=== PATIENT | female | born 1940 | race Caucasian/White ===

== ENCOUNTER 2020-02-22 14:39 | Inpatient (IN) | payer MEDICARE, SELFPAY ==
[2020-02-22] VITALS (7 sets, daily range): BP systolic 130–203; BP diastolic 64–109; PULSE 64–72; RESP 14–18; TEMP 36–36.4; O2SAT 94–98; BMI 25.9
--- NOTE | ~2020-02-22 | CT_ITS ---
EXAMINATION: CT brain wo con DATE: 02/22/2020 15:21 INDICATION: Weakness. TECHNIQUE: Computed tomography (CT) of the head was performed without intravenous contrast. The mA wa s adjusted according to patient size. Iterative reconstruction technique was employed. The dose-lengt h product was 605.33 mGy-cm. COMPARISON: Head CT 02/01/2017 FINDINGS: There are old lacunar infarcts in the bilateral basal ganglia. There are scattered areas of low attenuation in the cerebral white matter. There is no intracranial hemorrhage, acute infarction, or abnormal intracranial mass lesion. The ventricles are normal in size. There is mild mucosal thick ening in the ethmoid sinuses. There is complete opacification of left maxillary sinus, which is small with thickened and sclerotic wiseman, consistent with chronic sinusitis. The orbits are normal. The ma stoid air cells are normal. IMPRESSION: 1. Old lacunar infarcts in the bilateral basal ganglia. 2. Stable moderate nonspecific cerebral white matter disease, which likely represents chronic small v essel ischemic disease. Reviewed, dictated and finalized at location A. IMPRESSION: 1. Old lacunar infarcts in the bilateral basal ganglia. 2. Stable moderate nonspecific cerebral white matter disease, which likely repr esents chronic small vessel ischemic disease.
--- NOTE | ~2020-02-22 | XR_ITS ---
EXAMINATION: XR abdomen obstructive series EXAM DATE: 02/28/2020 18:27 INDICATION: Abdominal tenderness. TECHNIQUE: Frontal upright projection of the upper abdomen, frontal projection of the lower abdomen f or interpretation. There is no prior study for comparison. FINDINGS: There is moderate amount of colonic stool and gas. No small bowel dilation, nonobstructiv e bowel gas pattern. There is approximately 1 cm calcification, possible left nephrolithiasis. The re is no organomegaly suspected. Acute left rami, pubis, sacral fractures. No evidence of free intr aperitoneal gas. There are cholecystectomy clips. IMPRESSION: 1. Moderate amount of colonic stool. 2. Possible left nephrolithiasis. 3. Left rami, pubis, sacral fractures Reviewed, dictated and finalized at location A.
--- NOTE | ~2020-02-22 | CT_ITS ---
EXAMINATION: CT brain wo con EXAM DATE: 02/28/2020 18:06 INDICATION: Dysarthria. Altered mental status. TECHNIQUE: Spiral CT of the head was performed without contrast. Axial, coronal and sagittal images were reviewed. The dose-length product (DLP) for this examination was 605.33 mGy-cm. The exposure w as tailored according to patient size, and iterative reconstruction (ASIR) was used as additional dos e reduction technique. Comparison is made to prior examination from 02/22/2020. FINDINGS: There is no acute intraparenchymal hemorrhage. No evidence of intraparenchymal brain mass lesion. No evidence of acute infarction. Please note that initial head CT has limited sensitivity f or small or acute infarctions. Chronic old bilateral basal ganglia lacunar infarctions. There is mo derate periventricular and subcortical hypodensity, nonspecific but probably related to small vessel ischemic disease. There is moderate prominence of the sulci and ventricles related to cerebral atro phy. There is intracranial carotid arteriosclerosis. There are no extra-axial collections. There is no mass effect or midline shift. The orbits are unremarkable. Soft tissue is unremarkable. Fire Extinguisher Charger nically opacified left maxillary sinus with wall thickening. There is no significant interval change . IMPRESSION: 1. No acute intracranial findings. 2. Chronic age related findings. 3. Chronic is a ganglia lacunar infarctions. Reviewed, dictated and finalized at location A.
--- NOTE | ~2020-02-22 | CT_ITS ---
EXAMINATION: CT pelvis wo con, CT femur LT wo con DATE: 02/24/2020 09:20 INDICATION: Left hip pain. Evaluate for fracture. TECHNIQUE: Computed tomography (CT) of the pelvis and left femur was performed without intravenous co ntrast. The dose-length product was 241 mGy-cm. Automated exposure control and iterative reconstructi on technique were employed. COMPARISON: Left hip series dated 02/22/2020 FINDINGS: Moderate lower lumbar spondylosis. There is a nondisplaced left sacral alar fracture, possi brooke insufficiency fracture. There are fractures of the left superior and inferior pubic rami, likely acute. There are degenerative changes of the pubic symphysis. Mild symmetric osteoarthritis of the hi ps. Mild osteoarthritis of the left knee. Small left knee joint effusion. No acute femoral fracture i s identified. Focal periosteal reaction along the posterior margin of the proximal femur, likely shiv gn. Femoral vascular calcifications are noted. IMPRESSION: 1. Mildly displaced fractures left superior and inferior pubic rami, likely acute. 2: Nondisplaced left sacral alar fracture, possibly an insufficiency fracture. Reviewed, dictated and finalized at location A. IMPRESSION: 1. Mildly displaced fractures left superior and inferior pubic rami, likely acu te. 2: Nondisplaced left sacral alar fracture, possibly an insufficiency fracture.
--- NOTE | ~2020-02-22 | MR_ITS ---
EXAMINATION: MR brain/brain stem wo con DATE: 02/23/2020 12:33 INDICATION: Dysarthria. Near syncope. TECHNIQUE: Magnetic resonance imaging (MRI) of the brain and brainstem was performed without intraven ous contrast. Sequences included sagittal and axial T1-weighted SE, axial diffusion-weighted FS SE, a xial T2*-weighted GRE, axial T2-weighted FLAIR, and axial T2-weighted FSE. Apparent diffusion coeffic ient (ADC) maps were created. COMPARISON: Head CT dated 02/22/2020 FINDINGS: There are no areas of restricted diffusion to suggest acute infarction. A few small old lacunar infar cts versus prominent perivascular spaces at the bilateral basal ganglia. A couple tiny foci of suscep tibility artifact at the left and right cerebellar hemispheres on T2*weighted imaging consistent with foci of chronic microhemorrhage with differential including hypertensive versus amyloid angiopathy. No acute intracranial hemorrhage or abnormal intracranial mass lesion. There are scattered areas of n onspecific increased T2-weighted signal intensity in the cerebral white matter, predominantly involvi ng the deep and periventricular white matter. There are no intraparenchymal signal abnormalities seen on the other pulse sequences. The ventricles are symmetric and normal in size. There is increased pr ominence of the sulci consistent with age-appropriate moderate diffuse volume loss. There are no abno rmal extra-axial fluid collections. Flow voids are seen in the cerebral arteries on the T2-weighted s equences consistent with their expected patency. Visualized orbits and soft tissues are unremarkable. IMPRESSION: 1. No acute intracranial process. 2. Couple tiny foci of susceptibility artifact at the left and right cerebellar hemispheres consisten t with chronic microhemorrhage which could be related to hypertensive or amyloid angiopathy. 3. Age-related changes including mild to moderate diffuse lung loss and extensive periventricular pre dominant white matter T2 hyperintensity consistent with chronic small vessel ischemic disease. 4. Small old lacunar infarcts versus prominent perivascular space at the bilateral basal ganglia. Reviewed, dictated and finalized at location A. IMPRESSION: 1. No acute intracranial process. 2. Couple tiny foci of susceptibility artifact at the left and right cerebellar hemispheres consistent with chronic microhemorrhage which could be related to hypertensive or amyloid angiopathy. 3. Age-related changes including mild to moderate diffuse lung loss and extensi ve periventricular predominant white matter T2 hyperintensity consistent with c hronic small vessel ischemic disease. 4. Small old lacunar infarcts versus prominent perivascular space at the bilate ral basal ganglia.
--- NOTE | ~2020-02-22 | XR_ITS ---
XR hip LT 2V w AP pelvis 02/22/2020 16:58 Indication: Status post fall. Left hip pain. Procedure: AP pelvis and 2 views left hip Comparison: MRI dated 09/13/2016 Findings: There is an age-indeterminate fracture of the left superior and inferior pubic rami. Proxim al aspect of the left femur is unremarkable. Sacral foramen are symmetric. Mild lumbar spondylosis. Impression: 1: Age-indeterminate fractures of the left superior and inferior pubic rami. Reviewed, dictated and finalized at location A. Impression: 1: Age-indeterminate fractures of the left superior and inferior pubic rami.
--- NOTE | ~2020-02-22 | US_ITS ---
EXAMINATION: US venous doppler [facility] DATE: 02/23/2020 13:25 INDICATION: Left lower limb pain. Neurologic symptoms. Dysarthria. TECHNIQUE: Grayscale ultrasound images without and with compression and Doppler ultrasound images of the bilateral lower extremity veins were obtained. COMPARISON: None. FINDINGS: The visualized portions of right common femoral vein, profunda (deep) femoral vein, femoral vein, pop liteal vein, posterior tibial veins, peroneal veins, gastrocnemius vein and greater saphenous vein ou tflow are patent. The visualized portions of left common femoral vein, profunda femoral vein, femoral vein, popliteal v ein, posterior tibial veins, peroneal veins, gastrocnemius vein and greater saphenous vein outflow ar e patent. IMPRESSION: 1. No deep venous thrombosis in either lower limb. Reviewed, dictated and finalized at location A.
--- NOTE | ~2020-02-22 | US_ITS ---
EXAMINATION: US carotid duplex BI DATE: 02/23/2020 13:26 INDICATION: Near syncope. Dysarthria. TECHNIQUE: Grayscale, color Doppler, and pulsed Doppler images of the cervical carotid arteries were obtained. The degree of vessel stenosis is placed in one of the following categories: normal, <50%, 5 0-69%, >=70% but less than near-occlusion, near-occlusion, or total occlusion. Note that percent sten osis relative to normal distal artery lumen diameter is indirectly measured from velocity measurement s as described by Reilly, et al. Radiology 2003; 229:340-346. COMPARISON: None. FINDINGS: RIGHT: The right common carotid artery (CCA) peak systolic velocity (PSV) is 43 cm/s. The right internal car otid artery (ICA) PSV is 79 cm/s. The right ICA end-diastolic velocity (EDV) is 27 cm/s. The right IC A/CCA PSV ratio is 1.9. Grayscale and color Doppler images yield an estimate of <50% diameter reducti on from plaque in the ICA. The external carotid artery (ECA) PSV is 50 cm/s. There is antegrade flow in the right vertebral artery. LEFT: The left CCA PSV is 45 cm/s. The left ICA PSV is 119 cm/s. The left ICA EDV is 34 cm/s. The left ICA/ CCA PSV ratio is 2.6. Grayscale and color Doppler images yield an estimate of <50% diameter reduction from plaque in the ICA. The ECA PSV is 112 cm/s. There is antegrade flow in the left vertebral arter y. IMPRESSION: 1. <50% stenosis in the right internal carotid artery. 2. <50% stenosis in the left internal carotid artery. Reviewed, dictated and finalized at location A.
--- NOTE | 2020-02-22 14:57 | ECG_ITS ---
Measurements Intervals [place] Rate: 69 P: -1 [place]: 148 QRS: 28 QRSD: 76 T: 36 QT: 411 QTc: 441 Interpretive Statements SINUS RHYTHM ATRIAL PREMATURE COMPLEX BASELINE ARTIFACT- I, II, III, AVL, V4-V6 BORDERLINE ECG Electronically Signed On 02-22-2020 15:09:12 CDT by Raciel Jamison D.O.
--- NOTE | 2020-02-22 14:59 | ED.WEAKNESS ---
HPI - Weakness General Chief complaint: Fall Stated complaint: FALL Time Seen by Provider: 02/22/20 14:52 History of Present Illness HPI Narrative: Pt brought in by EMS after a near syncopal episode, while standing up, witnessed and was helped by the pipe fitter maintenance at her independent living facility. Per daughter, pt had difficulty expressing her words for a 1-2 minutes. Pt on arrival states she is feeling better and currently has no complaints. Denies speech or visual disturbance, focal numbness or weakness, cp, sob, abd pain or n/v/d. Denies fever. Related Data Home Medications Medication Instructions Recorded Confirmed aspirin 81 mg tablet,delayed 81 mg PO DAILY 12/13/19 02/22/20 release cholecalciferol (vitamin D3) 100 4,000 unit PO DAILY 12/13/19 02/22/20 mcg (4,000 unit) capsule ergocalciferol (vitamin D2) 1,250 50,000 unit PO WEEKLY 12/13/19 02/22/20 mcg (50,000 unit) capsule lisinopril 40 mg tablet 40 mg PO DAILY 12/13/19 02/22/20 metoprolol succinate 100 mg 100 mg PO DAILY 12/13/19 02/22/20 tablet,extended release 24 hr nitroglycerin 0.4 mg/hr 1 patch TRANSDERM DAILY 12/13/19 02/22/20 transdermal 24 hour patch simvastatin 40 mg tablet 40 mg PO DAILY 12/13/19 02/22/20 spironolactone 25 mg tablet 25 mg PO BID 12/13/19 02/22/20 Allergies Allergy/AdvReac Type Severity Reaction Status Date / Time procainamide Allergy Unknown Nausea Verified 02/22/20 14:53 quinidine Allergy Unknown increase Verified 02/22/20 14:53 nervousness tonocard Allergy Mild increased Uncoded 02/22/20 14:53 nervousness Review of Systems Review of Systems: All systems reviewed & are unremarkable except as noted in HPI and below Constitutional: Constitutional: Denies body ache(s), Denies chills, Denies excessive sweating, Denies fatigue, Denies fever(s), Denies headache(s), Denies lethargy, Denies malaise, Denies weakness and Denies weight loss Eyes: Eyes: Denies blurry vision, Denies change in vision and Denies loss of vision ENT: Denies dizziness, Denies ear discharge, Denies headache(s), Denies lip swelling, Denies epistaxis, Denies nasal congestion, Denies neck pain, Denies throat swelling and Denies tongue swelling Cardiovascular: Cardiovascular: Denies chest pain, Denies chest pain at rest, Denies chest pain with activity, Denies diaphoresis, Denies rapid heart rate, Denies edema, Denies irregular heart rhythm, Denies lightheadedness, Denies palpitations, Denies dyspnea and Denies dyspnea on exertion Respiratory: Respiratory: Denies chest congestion, Denies cough, Denies hemoptysis, Denies dyspnea and Denies dyspnea on exertion Gastrointestinal: Gastrointestinal: Denies abdominal pain, Denies melena, Denies hematochezia, Denies diarrhea, Denies nausea, Denies vomiting and Denies hematemesis Musculoskeletal: Musculoskeletal: Denies abnormal gait, Denies deformity, Denies joint swelling, Denies limited range of motion, Denies neck pain and Denies numbness Neurologic: Denies Abnormal speech present, Denies abnormal gait, Denies confusion, Denies dizziness, Denies headache(s), Denies focal weakness, Denies loss of vision, Denies numbness, Denies Other visual disturbances and Denies Sensory deficit (Neuro) Psychiatric: Psychiatric: Denies confusion, Denies depression, Denies auditory hallucinations, Denies homicidal ideation and Denies suicidal ideation Endocrine: Endocrine: Denies cold intolerance, Denies excessive sweating, Denies fatigue, Denies heat intolerance and Denies palpitations Hematologic/Lymphatic: Hematologic/Lymphatic: Denies easy bleeding and Denies easy bruising Allergic/Immunologic: Allergic/Immunologic: Denies lip swelling, Denies throat swelling and Denies tongue swelling [facility] Social History Social History Smoking status: Never smoker Alcohol intake: never Substance use: never Substance use type: does not use Gender identity (if verbalized by
[2020-02-22] MEDS: LABETALOL HCL INJ 100 MG/20 ML VIAL 20 MG IV PUSH (15:09)
[2020-02-22 15:14] LABS: Basophils Percent Auto 0.2 % (0.2-1.2); Eosinophils Absolute Auto 0.1 K/mm3 (0-0.3); Hematocrit 41.9 % (37.0-47.0); Hemoglobin 14.5 g/dL (12.0-15.0); Immature Granulocyte Percent A 1.2 % (0-0.5); Lymphocytes Absolute Auto 1.13 K/mm3 (0.9-3.2); Mean Corpuscular HGB Conc 34.6 g/dl (32-36); Mean Corpuscular Hemoglobin 31.1 pg (26-34); Mean Corpuscular Volume 89.9 fl (80-100); Mean Platelet Volume 9.5 fl (7.4-10.4); Monocytes Absolute Auto 0.4 K/mm3 (0.1-0.6); Monocytes Percent Auto 4.7 % (2.6-8.5); Neutrophils Absolute Auto 6.3 K/mm3 (1.3-6.7); Neutrophils Percent Auto 78.9 % (45.5-73.1); Platelet Count Result 169 k/mm3 (150-375); Red Blood Count 4.66 M/mm3 (4.2-5.4); Red Cell Distribution Width 13.2 % (11.5-14.5); White Blood Count 8.1 K/mm3 (4.5-10.0)
[2020-02-22 15:25] LABS: Prothrombin Time 12.9 Seconds (11.1-14.7)
[2020-02-22 15:26] LABS: Alanine Aminotransferase 14 U/L (4-35); Albumin Level 4.1 g/dL (3.5-5.1); Alkaline Phosphatase 78 U/L (38-126); Aspartate Amino Transferase 23 U/L (14-36); Bilirubin,Total 0.9 mg/dL (0.2-1.3); Blood Urea Nitrogen 37 mg/dL (7-17); Calcium 9.9 mg/dL (8.4-10.2); Carbon Dioxide 27 mmol/L (22-30); Chloride 102 mmol/L (98-107); Estimated CRCL calculation 13 ml/min; Estimated Glomerular Filt Rate 18; Glucose 103 mg/dL (65-105); Sodium 139 mmol/L (137-145)
[2020-02-22 16:11] LABS: Troponin I < 0.012 ng/mL (0.000-0.034)
[2020-02-22] MEDS: HYDROMORPHONE HCL 1 MG/ML INJ 0.5 MG IV PUSH (17:46)
[2020-02-22] MEDS: ONDANSETRON INJ 4 MG/2 ML VIAL IV PUSH (17:46)
--- NOTE | 2020-02-22 18:02 | ADMGEN ---
This patient, Vanesa New, was admitted to Medical Room 347-. Patient/family oriented to hospital policies and general routines including ID bracelet, bed and alarms, visiting hours, pain management, procedures, bathroom and other care routines, personal items, smoking policy, room service/diet, and visiting hours. Valuables list has been completed. Information on how to activate the Rapid Response Team has been discussed. Patient/Family are encouraged to report perceived risks to care and to ask questions if they do not understand what they are told or what they should do.
[2020-02-22] MEDS: LACTATED RINGERS 1,000 ML 90 ML IV CONT (18:20)
--- NOTE | 2020-02-22 21:10 | PM.IMHP ---
H&P: HPI History of Present Illness Chief complaint: Left hip pain after fall. Narrative: Vanesa New is a very pleasant 80-year-old female with hypertension and hyperlipidemia who presented to the emergency department earlier today via EMS from her assisted apartment for evaluation of left hip pain after a fall. This time of year, Vanesa has problems with seasonal rhinitis and typically has a cough which she attributes to postnasal drip. She was having issues with that last night, and got up to take some cough syrup in the middle of the night. She sat down on the toilet to take the cough syrup, but the toilet seat slid to the side which in turn caused her to fall to her left side, striking the bathtub. She had some discomfort at the site of impact, but was able to get up to bed. Upon awakening, she called production maintenance technician to come fix the toilet seat, and she waited in her chair in the living room for him to come. When he arrived, she got up to open the door, felt a bit woozy, and she once again fell to the floor. Reportedly, for 1 to 2 minute she had difficulties expressing her words, but that resolved quickly. With further questioning, she does note that she has not probably been eating or drinking as much as she normally would over the past several weeks due to senior living in place and not getting out of her apartment. She has no known history of stroke, but brain CT today shows old lacunar infarcts. She denies head trauma and loss of consciousness with either fall. She did not injure herself in the fall earlier today. She denies vertigo, auditory and visual changes, focal weakness, and paresthesias. No chest pain, pleuritic pain, palpitations, or shortness of breath. She denies nausea, vomiting, diarrhea, and dysuria. She denies sick contacts, and states that she has not left her apartment for weeks. Review of Systems Review of Systems: Narrative: Twelve systems were reviewed with pertinent positives and negatives as per HPI. No fever, chills, or sweats. She suffers from seasonal rhinitis, and has had sinus congestion, postnasal drip, and cough due to postnasal drip for the past couple of weeks. No cough or shortness of breath. She denies chest pain. No nausea, vomiting, or diarrhea. No dysuria. She has not noticed a significant change in urine output. Except as documented, all other systems were reviewed and are negative. [facility] Past Medical History Medical History (Updated 02/22/20 @ 23:08 by Ananya Castañeda PA-C) Cerebrovascular accident Old bilateral lacunar infarcts noted on brain CT 02/22/2020. Chronic kidney disease, stage 3 On review of previous labs, her baseline creatinine appears to run between 1.40 and 1.70. She is followed by Dr. Camara. Coronary artery disease With history of angioplasty and stent in 1998. Essential hypertension Hyperlipidemia Nephrolithiasis Vitamin D deficiency Surgical History Surgical History (Updated 02/22/20 @ 23:00 by Ananya Castañeda PA-C) History of appendectomy History of cholecystectomy History of heart artery stent History of hysterectomy History of lithotripsy Family History Family History Other Cerebrovascular accident Family history of arthritis Family history of cardiovascular disease Social History Social History (Updated 02/22/20 @ 23:02 by Ananya Castañeda PA-C) Social History: The patient lives in a assisted apartment at [facility]. She is independent of all activities of daily living. She has 3 grown children. 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 No alcohol or drug abuse. She designates her daughter, Fransisca Meadows, as her surrogate decision maker and she wishes to be a full code. Spiritual care concerns: No Agree to blood products: Yes Meds Home Medications and Allergies Home Medications Medication In
[2020-02-23] VITALS (14 sets, daily range): BP systolic 136–210; BP diastolic 70–108; PULSE 59–76; RESP 14–18; TEMP 36.1–36.4; O2SAT 96–100
--- NOTE | 2020-02-23 | ECHO_ITS ---
Patient Info Name: Vanesa New Age: 80 years : 1940 Gender: Female Ht: 60 in Wt: 132 lbs BSA: 1.61 m2 HR: 68 bpm BP: 174 / 90 mmHg Heart Rhythm: Sinus Rhythm Technical Quality: Good Exam Date: 02/23/2020 10:07 AM Exam Location: [facility] Pulmonary Patient Status: Outpatient Admit Date: 02/22/2020 Staff Ordering Physician: Ananya Castañeda PA-C Manager Installation: Julio Mccart[place], [place], [place] Attending Provider: Danna Johnson PA-C Referring Physician: Maddy FRAZIER; Exam Type: CA echo doppler color flow Study Info Indications I11.0 - Hypertensive heart disease with heart failure Complete two-dimensional, color flow and Doppler transthoracic echocardiogram is performed. Summary 1. Left ventricular chamber dimension is normal. 2. Left ventricular systolic function is normal, estimated at 60-65%. 3. The posterior segment appears to be hypodynamic. 4. Left atrial chamber dimension is moderately enlarged. 5. There is trace mitral valve regurgitation. 6. The mitral valve annulus is heavily calcified. Left Ventricle Left ventricular chamber dimension is normal. Left ventricular systolic function is normal, estimated at 60-65%. There is moderate concentric increased left ventricular wall thickness. The left ventricular diastolic function is grade I diastolic dysfunction. The posterior segment appears to be hypodynamic. Right Ventricle Right ventricular chamber dimension is normal. Left Atria Left atrial chamber dimension is moderately enlarged. Right Atria Right atrial chamber dimension is normal. Aortic Valve The aortic valve is normal. Pulmonic Valve The pulmonic valve is not well visualized. Mitral Valve The mitral valve has normal leaflets and calcified annulus. There is trace mitral valve regurgitation. The mitral valve annulus is heavily calcified. Tricuspid Valve The tricuspid valve leaflets are normal. There is trace tricuspid valve regurgitation. Pericardium/Pleural The pericardium appears normal. Aorta The aortic root size at the sinus of Valsalva is normal. Left Ventricular Outflow Tract Name Value Normal LVOT 2D LVOT Diameter 1.9 cm LVOT Doppler LVOT Peak Gradient 3 mmHg LVOT Mean Gradient 2 mmHg LVOT VTI 18 cm LVOT VTI/AV VTI Ratio 0.9 LVOT Stroke Volume 50 ml LVOT CO 3.5 l/min LVOT CI 2.2 l/min/m2 Mitral Valve Name Value Normal MV Doppler MV Peak Gradient 6 mmHg MV Mean Gradient 2 mmHg MV Decel Bradford 216 cm/s2 MV PHT 78 ms MV Area (PHT)
[2020-02-23] MEDS: ACETAMINOPHEN 325 MG TABLET 650 MG PO (04:59)
[2020-02-23 05:26] LABS: Hematocrit 36.3 % (37.0-47.0); Hemoglobin 12.5 g/dL (12.0-15.0); Mean Corpuscular HGB Conc 34.4 g/dl (32-36); Mean Corpuscular Hemoglobin 30.6 pg (26-34); Mean Platelet Volume 9.5 fl (7.4-10.4); Platelet Count Result 137 k/mm3 (150-375); Red Blood Count 4.08 M/mm3 (4.2-5.4); Red Cell Distribution Width 12.8 % (11.5-14.5); White Blood Count 7.3 K/mm3 (4.5-10.0)
[2020-02-23 05:33] LABS: Blood Urea Nitrogen 40 mg/dL (7-17); Carbon Dioxide 22 mmol/L (22-30); Chloride 104 mmol/L (98-107); Creatine Kinase 73 U/L (30-135); Estimated CRCL calculation 15 ml/min; Estimated Glomerular Filt Rate 21; Glucose 91 mg/dL (65-105); Magnesium 1.3 mg/dL (1.6-2.3); Phosphorus 3.2 mg/dL (2.5-4.5); Potassium 5.2 mmol/L (3.4-5.0); Sodium 135 mmol/L (137-145)
[2020-02-23] MEDS: LACTATED RINGERS 1,000 ML 90 ML IV CONT (05:54)
[2020-02-23] MEDS: ASPIRIN 81 MG ENTERIC TABLET PO (08:31)
[2020-02-23] MEDS: SIMVASTATIN 20 MG TABLET 40 MG PO (08:31)
[2020-02-23] MEDS: CHOLECALCIFEROL 1,000 UNIT TABLET 4000 UNITS PO (08:31)
[2020-02-23] MEDS: METOPROLOL SUCCINATE EXT REL 100 MG TABCR PO (08:31)
[2020-02-23 10:45] LABS: Vitamin D 25 Hydroxy 86.5 ng/mL
[2020-02-23] MEDS: ERGOCALCIFEROL 50,000 UNIT CAPSULE 50000 UNITS PO (10:57)
[2020-02-23] MEDS: MAGNESIUM SULFATE 3GM/D5W100ML 3 GM/100 ML BAG IVPB (10:57)
[2020-02-23] MEDS: TRAMADOL HCL 50 MG TABLET PO ×2 (11:02→21:22)
--- NOTE | 2020-02-23 13:24 | PM.CNOR ---
Assessment and Plan Additional Plan This patient is an 80-year-old female who was admitted yesterday after a fall at home from standing height. She was putting on a face mask lost her balance falling onto her left side. she had severe left-sided hip area pain was noted on evaluation number inch room to have an impacted lateral compression type fracture of the inferior and superior pubic rami on the left side. there is a little bit of lateral compression of the left hemipelvis. She has sacroiliac joint arthritis bilaterally. No obvious did sacral fracture noted. Her past medical history is significant for coronary artery disease and she had an echocardiogram earlier today and Dr. Cruz is seeing her. She also has history of chronic renal insufficiency and was admitted with significant worsening of her renal function with a creatinine of 2.5. Do there is a question of whether not she may have had a cerebral vascular accident and she is just back up to the floor after having an MRI of the brain performed. On exam today she is I think a little bit hard of hearing. She answers questions appropriately. Th I casted she was having any pain in her back side and she not noticed any. Most her pain has been in the lateral hip area. she did get up and transfer to the chair and put very little weight on the left leg she had noted. Th On exam she is unable to lift the left leg off the bed on her own power. With range of motion of her left hip passively she grabs the lateral aspect of her hip. Which she tried elevated the leg up against the weighted gravity she had pain in her medial left buttock which could correspond to a sacral fracture. she had 2+ dorsalis pedis pulse she had no edema in the for ankle she denied numbness to light touch testing she denies any other injury. Impression patient has significantly impacted pubic ramus fractures on the left with this degree of lateral pelvic compression I suspect there is a continent and sacral fracture and I would recommend obtaining a CT scan through pelvis to assess for sacral. Th fracture and to make sure there is not a fracture in the proximal femur also. History of Present Illness HPI Consult date: 02/23/20 Chief complaint: Left hip pain after fall. [facility] Past Medical History Medical History (Updated 02/22/20 @ 23:08 by Ananya Castañeda PA-C) Cerebrovascular accident Old bilateral lacunar infarcts noted on brain CT 02/22/2020. Chronic kidney disease, stage 3 On review of previous labs, her baseline creatinine appears to run between 1.40 and 1.70. She is followed by Dr. Camara. Coronary artery disease With history of angioplasty and stent in 1998. Essential hypertension Hyperlipidemia Nephrolithiasis Vitamin D deficiency Surgical History Surgical History (Updated 02/22/20 @ 23:00 by Ananya Castañeda PA-C) History of appendectomy History of cholecystectomy History of heart artery stent History of hysterectomy History of lithotripsy Family History Family History Other Cerebrovascular accident Family history of arthritis Family history of cardiovascular disease Social History Social History (Updated 02/22/20 @ 23:02 by Ananya Castañeda PA-C) Social History: The patient lives in a retirement apartment at [facility]. She is independent of all activities of daily living. She has 3 grown children. 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 No alcohol or drug abuse. She designates her daughter, Fransisca Meadows, as her surrogate decision maker and she wishes to be a full code. Spiritual care concerns: No Agree to blood products: Yes Meds Home Medications and Allergies Home Medications Medication Instructions Recorded Confirmed Type bupropion HCl 150 mg tablet,12 hr 150 mg PO DAILY #90 tablet 10/04/19 02/22/20 Rx sustained-release aspir
--- NOTE | 2020-02-23 15:34 | PM.IMPN ---
Progress Note: A&P Assessment and Plan (1) Fracture of ramus of left pubis: Code(s): S32.592A - Other specified fracture of left pubis, initial encounter for closed fracture Status: Acute Assessment and Plan: X-ray shows fractures of the left superior and inferior pubic rami, obtained in fall last evening. Dr. Rollins orthopedic was consulted and recommended obtain a CT scan of her left pelvis and left femur to rule out a sacral and femur fracture. Dr. Rollins had recommended DVT prophylaxis and will start Heparin 5,000 SQ Q12hrs due to renal function. PT/OT consulted. Analgesics available as needed. Continue monitoring symptoms (2) Dysarthria: Code(s): R47.1 - Dysarthria and anarthria Status: Acute Assessment and Plan: Patient reportedly was having difficulties getting her words out for several minutes earlier today, now back at baseline. Could have been TIA, symptoms have completely resolved. Patient's echocardiogram showed left ventricular systolic function is normal with an EF of 60-65%, posterior segment appears to be hypodynamic, moderate concentric LVH. Carotid Doppler less than 50% bilaterally. Venous Doppler shows no acute DVT. Brain MRI showed no acute intracranial process, couple tiny foci of susceptibility artifact at the left and right cerebellar hemispheres consistent with chronic microhemorrhage which could be related to hypertensive or amyloid angiopathy. Age-related changes including mild to moderate diffuse lung loss and extensive periventricular predominant white matter T2 hyperintensity consistent with chronic small vessel ischemic disease. Small old lacunar infarcts versus prominent perivascular space at the bilateral basal ganglia. Will continue baby aspirin Continue statin as well. (3) Fall from ground level: Code(s): W18.30XA - Fall on same level, unspecified, initial encounter Status: Acute Assessment and Plan: It sounds as that her fall last evening was a mechanical fall, due to a loose toilet seat. Then her 2nd fall seemed to be due to a near syncopal episode. We will order physical and occupational therapy to work with her. Continue fall precautions. (4) Acute kidney injury superimposed on chronic kidney disease: Code(s): N17.9 - Acute kidney failure, unspecified; N18.9 - Chronic kidney disease, unspecified Status: Acute Assessment and Plan: May be due to dehydration as she reports decrease in oral intake recently as per HPI. Reviewed her labs from 2014 and 2016 which showed her creatinine was 1.5-2. Unsure of her most recent labs. Will continue on light IV fluid hydration and we will repeat renal function in a.m. Continue monitoring. Will avoid nephro toxic agents. She see Dr. Camara health education assistant as an outpatient, I do not feel like he needs to be consulted at this time. (5) Essential hypertension: Code(s): I10 - Essential (primary) hypertension Status: Acute Assessment and Plan: Blood pressure was as high as 203/109 on arrival to the emergency department Blood pressure today was 166/76. She was continued on her metoprolol but her spironolactone and losartan were both held secondary to acute kidney injury. We will continue holding these 2 medications and I will add amlodipine 5 mg for better blood pressure control. MRI shows no acute CVA so we will better control her blood pressure during her hospitalization. Continue monitoring. P.r.n. hydralazine also ordered if necessary. (6) Silent micro-hemorrhage of brain: Code(s): I61.8 - Other nontraumatic intracerebral hemorrhage Status: Acute Assessment and Plan: Patient's MRI shows cou
[2020-02-23 16:21] LABS: Magnesium 1.8 mg/dL (1.6-2.3); Potassium 5.4 mmol/L (3.4-5.0)
[2020-02-23] MEDS: AMLODIPINE BESYLATE 5 MG TABLET PO (17:29)
[2020-02-23] MEDS: CALCIUM CARBONATE (OSCAL) 500 MG TABLET PO (17:30)
[2020-02-23] MEDS: SODIUM POLYSTYRENE SULFONONATE 15 GM/60 ML BTL PO (17:31)
[2020-02-23] MEDS: HEPARIN SODIUM 5,000 UNITS/ML VIAL 5000 UNITS SUB-Q (21:22)
[2020-02-23] MEDS: hydrALAZINE HCL 20 MG/ML VIAL 10 MG IV PUSH (21:26)
[2020-02-24] VITALS (8 sets, daily range): BP systolic 150–215; BP diastolic 65–96; PULSE 72–89; RESP 16–18; TEMP 36.1–36.8; O2SAT 95–100
[2020-02-24] MEDS: TRAMADOL HCL 50 MG TABLET PO ×3 (02:24→22:19)
[2020-02-24 06:28] LABS: Hematocrit 38.7 % (37.0-47.0); Hemoglobin 13.2 g/dL (12.0-15.0); Immature Platelet Fraction Pct 1.4 % (0.9-11.2); Mean Corpuscular HGB Conc 34.1 g/dl (32-36); Mean Corpuscular Hemoglobin 30.6 pg (26-34); Mean Corpuscular Volume 89.8 fl (80-100); Mean Platelet Volume 9.4 fl (7.4-10.4); Platelet Count Result 145 k/mm3 (150-375); Red Blood Count 4.31 M/mm3 (4.2-5.4); Red Cell Distribution Width 13.1 % (11.5-14.5); White Blood Count 7.9 K/mm3 (4.5-10.0)
[2020-02-24] MEDS: hydrALAZINE HCL 20 MG/ML VIAL 10 MG IV PUSH (06:33)
[2020-02-24] MEDS: LACTATED RINGERS 1,000 ML 65 ML IV CONT (06:33)
[2020-02-24 06:50] LABS: Albumin Level 3.9 g/dL (3.5-5.1); Blood Urea Nitrogen 29 mg/dL (7-17); Calcium 9.8 mg/dL (8.4-10.2); Carbon Dioxide 30 mmol/L (22-30); Chloride 99 mmol/L (98-107); Estimated CRCL calculation 22 ml/min; Estimated Glomerular Filt Rate 33; Glucose 99 mg/dL (65-105); Magnesium 2.1 mg/dL (1.6-2.3); Phosphorus 4.1 mg/dL (2.5-4.5); Potassium 4.8 mmol/L (3.4-5.0); Sodium 136 mmol/L (137-145)
[2020-02-24] MEDS: ONDANSETRON INJ 4 MG/2 ML VIAL IV PUSH (08:14)
[2020-02-24] MEDS: ASPIRIN 81 MG ENTERIC TABLET PO (08:22)
[2020-02-24] MEDS: CHOLECALCIFEROL 1,000 UNIT TABLET 4000 UNITS PO (08:22)
[2020-02-24] MEDS: SIMVASTATIN 20 MG TABLET 40 MG PO (08:22)
[2020-02-24] MEDS: polyethylene glycoL 3350 17 GM POWD.PACK PO (08:22)
[2020-02-24] MEDS: HEPARIN SODIUM 5,000 UNITS/ML VIAL 5000 UNITS SUB-Q ×2 (08:22→20:33)
[2020-02-24] MEDS: CALCIUM CARBONATE (OSCAL) 500 MG TABLET PO ×2 (08:23→17:17)
[2020-02-24] MEDS: AMLODIPINE BESYLATE 5 MG TABLET PO (08:23)
[2020-02-24] MEDS: METOPROLOL SUCCINATE EXT REL 100 MG TABCR PO (08:23)
--- NOTE | 2020-02-24 10:14 | PM.IMPN ---
Progress Note: A&P Assessment and Plan (1) Fracture of ramus of left pubis: Code(s): S32.592A - Other specified fracture of left pubis, initial encounter for closed fracture Status: Acute Assessment and Plan: X-ray shows fractures of the left superior and inferior pubic rami, obtained in fall prior to arrival. Dr. Rollins orthopedic was consulted and recommended 50% weight-bearing as tolerated, pain control and conservative management. Dr. Rollins had recommended DVT prophylaxis and will start Heparin 5,000 SQ Q12hrs due to renal function. CT scan of pelvis and left femur shows Mildly displaced fractures left superior and inferior pubic rami, likely acute. Nondisplaced left sacral alar fracture, possibly an insufficiency fracture. Continue with PT/OT. Analgesics available as needed. Continue monitoring symptoms (2) Sacral fracture, closed: Code(s): S32.10XA - Unspecified fracture of sacrum, initial encounter for closed fracture Status: Acute Assessment and Plan: CT scan showed Nondisplaced left sacral alar fracture, possibly an insufficiency fracture. Recommendations as per Dr. Rollins are appreciated. At this time will continue with conservative management, pain control and PT/OT. (3) Dysarthria: Code(s): R47.1 - Dysarthria and anarthria Status: Acute Assessment and Plan: Resolved. Patient reportedly was having difficulties getting her words out for several minutes earlier today, now back at baseline. Could have been TIA, symptoms have completely resolved. Patient's echocardiogram showed left ventricular systolic function is normal with an EF of 60-65%, posterior segment appears to be hypodynamic, moderate concentric LVH. Carotid Doppler less than 50% bilaterally. Venous Doppler shows no acute DVT. Brain MRI showed no acute intracranial process, couple tiny foci of susceptibility artifact at the left and right cerebellar hemispheres consistent with chronic microhemorrhage which could be related to hypertensive or amyloid angiopathy. Age-related changes including mild to moderate diffuse lung loss and extensive periventricular predominant white matter T2 hyperintensity consistent with chronic small vessel ischemic disease. Small old lacunar infarcts versus prominent perivascular space at the bilateral basal ganglia. Will continue baby aspirin and statin. Will continue monitoring symptoms during her hospitalization. (4) Fall from ground level: Code(s): W18.30XA - Fall on same level, unspecified, initial encounter Status: Acute Assessment and Plan: It sounds as that her fall last evening was a mechanical fall, due to a loose toilet seat. Then her 2nd fall seemed to be due to a near syncopal episode. PT OT. Continue fall precautions. (5) Acute kidney injury superimposed on chronic kidney disease: Code(s): N17.9 - Acute kidney failure, unspecified; N18.9 - Chronic kidney disease, unspecified Status: Acute Assessment and Plan: May be due to dehydration as she reports decrease in oral intake recently as per HPI. Reviewed her labs from 2014 and 2016 which showed her creatinine was 1.5-2. Unsure of her most recent labs. Creatinine this morning was 1.5 and BUN still slightly elevated at 29. Will continue on light IV fluid hydration and we will repeat renal function in a.m. Continue monitoring. Will avoid nephro toxic agents. She see Dr. Camara direct service provider as an outpatient, I do not feel like he needs to be consulted at this time. (6) Essential hypertension: Code(s): I10 - Essential (primary) hypertension Status: Acute Assessment and Plan: Blood pressure was as high as 203/10
[2020-02-24] MEDS: MELATONIN 3 MG TABLET PO (20:33)
--- NOTE | 2020-02-24 21:03 | PM.PNORT ---
Progress Note: A&P Additional Plan Patient at her CT scan of pelvis and femur earlier today. the CT scan additionally showed a significant fracture of the left sacral ala. It is minimally displaced but it is a complete fracture as opposed to the more common slightly impacted fractures that we see with falls from standing height in this age group. This is a lateral compression mechanism type fracture with some displacement of her left hemipelvis both through the pubic rami specially were there has been significant impaction and comminution and also slight comminution and minimal displacement of the sacral Cassi fracture which is a complete fracture. I would not classify this as an insufficiency fracture which implies that it is a spontaneous fracture that occurred due to profound osteoporosis. It is likely she has osteoporosis but this would be considered a traumatic fracture of her left sacral ala associated with traumatic comminuted fractures of her left pubic rami. Her creatinine is 1.5 firm creatinine clearance is 22. I think we can use 1 Uvalda renal dose of Lovenox at 30 mg subcu once daily which I have ordered that and stop the subcu heparin. Her 25 hydroxy vitamin-D level was very good at 86 so it is quite sufficient and therefore I will cancel the 33411 units ergo calciferol supplementation. She does take vitamin D supplements daily also. She is an pleasant spirits tonight in no distress. She is quite alert and she states she was up to the chair today. She does have a firm on a pain when she moves but if she is still, she is comfortable. I have placed a position to therapist communication about her weight-bearing status and I would like it to be only 25% weight-bearing on the left leg and limiting her mobilization to working on [id number] transfers only for the 1st month. I am worried that if she is walking down the lucas putting more weight than desirable on her left leg she could have delayed union of her fractures. for this reason we will limit her activity as discussed. I have explained this to the patient. I would like to see her in the office in 4 weeks to assess her healing and would plan to use Lovenox during that 4 weeks. She normally lives alone and is a senior apartment independently. This is not assisted living. She states she has a very able body daughter. I have discussed with her that she should not go back to her independent living is anything she will require significant assistance. This may be accomplished if she is living with her daughter daughter's home wrapper stemmer operator or she may need to go to a prison unit for tear. Time Spent With Patient Time with patient: 15 - 25 minutes Subjective Subjective Date/Time Seen: 02/24/20 21:03 Objective Data Vital Signs Vital Signs: Vital Signs - 24 hr 02/23/20 23:45 02/24/20 00:00 02/24/20 04:00 Temperature 36.1 C L Pulse Rate 76 82 Respiratory Rate 18 Blood Pressure 178/85 H 215/96 H Pulse Oximetry 95 02/24/20 07:40 02/24/20 08:00 02/24/20 08:23 Temperature Pulse Rate 89 76 Respiratory Rate Blood Pressure 157/83 H Pulse Oximetry 02/24/20 12:00 02/24/20 16:00 02/24/20 20:00 Temperature 36.8 C 36.3 C L 36.6 C Pulse Rate 72 86 82 Respiratory Rate 18 18 16 Blood Pressure 160/78 H 150/65 H 151/76 H Pulse Oximetry 100 98 96 Intake/Output Intake/Output: Intake & Output 02/21/20 02/22/20 02/23/20 02/24/20 23:59 23:59 23:59 23:59 Intake Total 200 1780 2720 Output Total 1575 550 Balance 085 137 5653 Meds/Results Medications: Active Medications Generic Name Dose Route Start Last Admin Trade Name Freq PRN Reason Stop Dose Admin Acetaminophen 650 mg 02/22/20 23:11 02/23/20 04:59 Tylenol Tablet PO 650 mg Q6H PRN Administration Mild Pain (1-3) or Fever Amlodipine Besylate 5 mg 02/23/20 16:45 02/24/20 08:23 Norvasc PO 5 mg QAM RAVIN Administration Aspirin 81 mg 02/23/20 09:00 02/24/20 08:22 Aspir
[2020-02-25] VITALS (10 sets, daily range): BP systolic 108–189; BP diastolic 65–85; PULSE 72–86; RESP 16–21; TEMP 36.3–36.9; O2SAT 97–100
[2020-02-25] MEDS: LACTATED RINGERS 1,000 ML 65 ML IV CONT (04:44)
[2020-02-25] MEDS: hydrALAZINE HCL 20 MG/ML VIAL 10 MG IV PUSH (04:50)
[2020-02-25 05:52] LABS: Potassium 4.7 mmol/L (3.4-5.0)
[2020-02-25 06:19] LABS: Blood Urea Nitrogen 26 mg/dL (7-17); Calcium 9.7 mg/dL (8.4-10.2); Carbon Dioxide 30 mmol/L (22-30); Chloride 100 mmol/L (98-107); Estimated CRCL calculation 23 ml/min; Estimated Glomerular Filt Rate 36; Glucose 98 mg/dL (65-105); Magnesium 1.5 mg/dL (1.6-2.3); Sodium 135 mmol/L (137-145)
[2020-02-25] MEDS: MAGNESIUM SULFATE 3GM/D5W100ML 3 GM/100 ML BAG IVPB (07:58)
[2020-02-25] MEDS: AMLODIPINE BESYLATE 5 MG TABLET PO (08:01)
[2020-02-25] MEDS: METOPROLOL SUCCINATE EXT REL 100 MG TABCR PO (08:01)
[2020-02-25] MEDS: SIMVASTATIN 20 MG TABLET 40 MG PO (08:01)
[2020-02-25] MEDS: ASPIRIN 81 MG ENTERIC TABLET PO (08:01)
[2020-02-25] MEDS: CHOLECALCIFEROL 1,000 UNIT TABLET 4000 UNITS PO (08:01)
[2020-02-25] MEDS: CALCIUM CARBONATE (OSCAL) 500 MG TABLET PO ×2 (08:01→17:20)
[2020-02-25] MEDS: ENOXAPARIN 30 MG/0.3 ML SYRINGE SUB-Q (08:02)
[2020-02-25] MEDS: polyethylene glycoL 3350 17 GM POWD.PACK PO (08:03)
[2020-02-25] MEDS: ACETAMINOPHEN 325 MG TABLET 650 MG PO (08:08)
--- NOTE | 2020-02-25 12:02 | PM.IMPN ---
Progress Note: A&P Assessment and Plan (1) Fracture of ramus of left pubis: Code(s): S32.592A - Other specified fracture of left pubis, initial encounter for closed fracture Status: Acute Assessment and Plan: X-ray shows fractures of the left superior and inferior pubic rami, obtained in fall prior to arrival. CT scan of pelvis and left femur shows Mildly displaced fractures left superior and inferior pubic rami, likely acute. Nondisplaced left sacral alar fracture, possibly an insufficiency fracture. Dr. Rollins orthopedic was consulted and after reviewing her CT scan results he recommends her to have partial weight-bearing at 25% on the left leg and to limit her activity to only bed to chair transfers for the 1st month. Dr. Rollins would like to have her follow-up in his office in 4 weeks and to continue Lovenox injections for 4 weeks to prevent DVT. Continue with PT/OT. Analgesics available as needed. Continue monitoring symptoms (2) Sacral fracture, closed: Code(s): S32.10XA - Unspecified fracture of sacrum, initial encounter for closed fracture Status: Acute Assessment and Plan: CT scan showed Nondisplaced left sacral alar fracture, possibly an insufficiency fracture. Recommendations as per Dr. Rollins above. At this time will continue with conservative management, pain control and PT/OT. (3) Dysarthria: Code(s): R47.1 - Dysarthria and anarthria Status: Acute Assessment and Plan: Resolved. Patient reportedly was having difficulties getting her words out for several minutes earlier today, now back at baseline. Could have been TIA, symptoms have completely resolved. Patient's echocardiogram showed left ventricular systolic function is normal with an EF of 60-65%, posterior segment appears to be hypodynamic, moderate concentric LVH. Carotid Doppler less than 50% bilaterally. Venous Doppler shows no acute DVT. Brain MRI showed no acute intracranial process, couple tiny foci of susceptibility artifact at the left and right cerebellar hemispheres consistent with chronic microhemorrhage which could be related to hypertensive or amyloid angiopathy. Age-related changes including mild to moderate diffuse lung loss and extensive periventricular predominant white matter T2 hyperintensity consistent with chronic small vessel ischemic disease. Small old lacunar infarcts versus prominent perivascular space at the bilateral basal ganglia. Will continue baby aspirin and statin. Patient having any more symptoms while she has been here. Will continue monitoring symptoms during her hospitalization. (4) Fall from ground level: Code(s): W18.30XA - Fall on same level, unspecified, initial encounter Status: Acute Assessment and Plan: It sounds as that her fall last evening was a mechanical fall, due to a loose toilet seat. Then her 2nd fall seemed to be due to a near syncopal episode. PT OT. Continue fall precautions. (5) Acute kidney injury superimposed on chronic kidney disease: Code(s): N17.9 - Acute kidney failure, unspecified; N18.9 - Chronic kidney disease, unspecified Status: Acute Assessment and Plan: May be due to dehydration as she reports decrease in oral intake recently as per HPI. Reviewed her labs from 2014 and 2016 which showed her creatinine was 1.5-2. Unsure of her most recent labs. Creatinine this morning was 1.4 and BUN still slightly elevated at 26. Since she is back to her baseline I will discontinue the IV fluids at this time.. Continue monitoring. Will avoid nephro toxic agents. She see Dr. Camara hydrometer tester as an outpatient, I do not feel like he needs to be consulted at this time.
[2020-02-25] MEDS: MELATONIN 3 MG TABLET PO (21:45)
[2020-02-26] VITALS (9 sets, daily range): BP systolic 115–164; BP diastolic 65–94; PULSE 71–90; RESP 16–20; TEMP 36.1–36.9; O2SAT 97–99
[2020-02-26 05:56] LABS: Blood Urea Nitrogen 26 mg/dL (7-17); Calcium 9.8 mg/dL (8.4-10.2); Carbon Dioxide 30 mmol/L (22-30); Chloride 98 mmol/L (98-107); Estimated CRCL calculation 23 ml/min; Estimated Glomerular Filt Rate 36; Glucose 81 mg/dL (65-105); Magnesium 2.1 mg/dL (1.6-2.3); Potassium 4.2 mmol/L (3.4-5.0); Sodium 134 mmol/L (137-145)
[2020-02-26] MEDS: AMLODIPINE BESYLATE 5 MG TABLET PO (08:32)
[2020-02-26] MEDS: CHOLECALCIFEROL 1,000 UNIT TABLET 4000 UNITS PO (08:32)
[2020-02-26] MEDS: ASPIRIN 81 MG ENTERIC TABLET PO (08:33)
[2020-02-26] MEDS: METOPROLOL SUCCINATE EXT REL 100 MG TABCR PO (08:33)
[2020-02-26] MEDS: SIMVASTATIN 20 MG TABLET 40 MG PO (08:33)
[2020-02-26] MEDS: ENOXAPARIN 30 MG/0.3 ML SYRINGE SUB-Q (08:33)
[2020-02-26] MEDS: polyethylene glycoL 3350 17 GM POWD.PACK PO (08:34)
[2020-02-26] MEDS: CALCIUM CARBONATE (OSCAL) 500 MG TABLET PO ×2 (08:34→17:15)
[2020-02-26] MEDS: TRAMADOL HCL 50 MG TABLET PO ×2 (11:22→19:55)
--- NOTE | 2020-02-26 13:53 | PM.IMPN ---
Progress Note: A&P Assessment and Plan (1) Discharge planning issues: Code(s): Z02.9 - Encounter for administrative examinations, unspecified Status: Acute Assessment and Plan: We are hoping to discharge the patient today to a senior care rehab facility. We are looking and 2 different facilities and 1 just informed us there on a 24 hour hold in the other facility might have a bed available tomorrow. We will need to keep the patient again overnight for these 2 reasons. (2) Fracture of ramus of left pubis: Code(s): S32.592A - Other specified fracture of left pubis, initial encounter for closed fracture Status: Acute Assessment and Plan: X-ray shows fractures of the left superior and inferior pubic rami, obtained in fall prior to arrival. CT scan of pelvis and left femur shows Mildly displaced fractures left superior and inferior pubic rami, likely acute. Nondisplaced left sacral alar fracture, possibly an insufficiency fracture. Dr. Rollins orthopedic was consulted and after reviewing her CT scan results he recommends her to have partial weight-bearing at 25% on the left leg and to limit her activity to only bed to chair transfers for the 1st month. Dr. Rollins would like to have her follow-up in his office in 4 weeks and to continue Lovenox injections for 4 weeks to prevent DVT. Continue with PT/OT. Analgesics available as needed. Continue monitoring symptoms (3) Sacral fracture, closed: Code(s): S32.10XA - Unspecified fracture of sacrum, initial encounter for closed fracture Status: Acute Assessment and Plan: CT scan showed Nondisplaced left sacral alar fracture, possibly an insufficiency fracture. Recommendations as per Dr. Rollins above. At this time will continue with conservative management, pain control and PT/OT. (4) Dysarthria: Code(s): R47.1 - Dysarthria and anarthria Status: Acute Assessment and Plan: Resolved. Patient reportedly was having difficulties getting her words out for several minutes earlier today, now back at baseline. Could have been TIA, symptoms have completely resolved. Patient's echocardiogram showed left ventricular systolic function is normal with an EF of 60-65%, posterior segment appears to be hypodynamic, moderate concentric LVH. Carotid Doppler less than 50% bilaterally. Venous Doppler shows no acute DVT. Brain MRI showed no acute intracranial process, couple tiny foci of susceptibility artifact at the left and right cerebellar hemispheres consistent with chronic microhemorrhage which could be related to hypertensive or amyloid angiopathy. Age-related changes including mild to moderate diffuse lung loss and extensive periventricular predominant white matter T2 hyperintensity consistent with chronic small vessel ischemic disease. Small old lacunar infarcts versus prominent perivascular space at the bilateral basal ganglia. Will continue baby aspirin and statin. Patient having any more symptoms while she has been here. Will continue monitoring symptoms during her hospitalization. (5) Fall from ground level: Code(s): W18.30XA - Fall on same level, unspecified, initial encounter Status: Acute Assessment and Plan: It sounds as that her fall last evening was a mechanical fall, due to a loose toilet seat. Then her 2nd fall seemed to be due to a near syncopal episode. PT OT. Continue fall precautions. (6) Acute kidney injury superimposed on chronic kidney disease: Code(s): N17.9 - Acute kidney failure, unspecified; N18.9 - Chronic kidney disease, unspecified Status: Acute Assessment and Plan: May be due to dehydration as she reports decrease in oral
[2020-02-26] MEDS: lisinopriL 10 MG TABLET PO (17:15)
[2020-02-26] MEDS: MELATONIN 3 MG TABLET PO (20:08)
[2020-02-27] VITALS: BP 151/85; PULSE 78; RESP 16; TEMP 36.6; O2SAT 97
[2020-02-27 04:00] VITALS: BP 153/90; PULSE 79; RESP 16; TEMP 36.6; O2SAT 97
[2020-02-27 06:00] LABS: Blood Urea Nitrogen 28 mg/dL (7-17); Calcium 9.4 mg/dL (8.4-10.2); Carbon Dioxide 28 mmol/L (22-30); Chloride 100 mmol/L (98-107); Estimated CRCL calculation 23 ml/min; Estimated Glomerular Filt Rate 36; Glucose 82 mg/dL (65-105); Potassium 4.5 mmol/L (3.4-5.0); Sodium 134 mmol/L (137-145)
[2020-02-27] MEDS: TRAMADOL HCL 50 MG TABLET PO (06:27)
[2020-02-27 08:25] VITALS: BP 161/97; PULSE 85; RESP 16; TEMP 36.4; O2SAT 95
[2020-02-27] MEDS: CHOLECALCIFEROL 1,000 UNIT TABLET 4000 UNITS PO (09:32)
[2020-02-27] MEDS: CALCIUM CARBONATE (OSCAL) 500 MG TABLET PO ×2 (09:32→17:31)
[2020-02-27 09:33] VITALS: PULSE 84
[2020-02-27] MEDS: ASPIRIN 81 MG ENTERIC TABLET PO (09:33)
[2020-02-27] MEDS: METOPROLOL SUCCINATE EXT REL 100 MG TABCR PO (09:33)
[2020-02-27] MEDS: ENOXAPARIN 30 MG/0.3 ML SYRINGE SUB-Q (09:33)
[2020-02-27] MEDS: SIMVASTATIN 20 MG TABLET 40 MG PO (09:33)
[2020-02-27] MEDS: AMLODIPINE BESYLATE 5 MG TABLET PO (09:33)
[2020-02-27] MEDS: polyethylene glycoL 3350 17 GM POWD.PACK PO (09:52)
--- NOTE | 2020-02-27 13:13 | PCDIET ---
Nutrition Follow-Up Complete: Goal:Meet nutrition needs. Pt current nutrition is Heart Healthy +Ensure compact BID. Nutrition recommendation: Agree Last recorded weight is 64.3 kg (recommend new weight) Bowel Motility: 02/22 per pt Labs Reviewed:GFR 36, Na 134 Meds Noted: Oscal, Vitamin D, tramadol, zofran, simvastatin, miralax Additional Notes: Pt is awaiting d/c due to unavailable beds. Pt has been eating an average of 50% of meals over the last five meals. Ensure compact provided BID. One Ensure compact provides 220 kcal, 9 g protein, 32g CHO, 26 essential vitamins and minerals, and is an excellent source of plant based omega 3 fatty acids ALA. Recommend new wt to ensure adequate intake. If pt remains inpatient, we will continue to monitor PO intake, wt, and labs every five days.
[2020-02-27 13:25] VITALS: BP 156/88; PULSE 74; RESP 16; TEMP 36.6; O2SAT 98
--- NOTE | 2020-02-27 15:08 | PM.IMPN ---
Progress Note: A&P Assessment and Plan (1) Dysarthria: Code(s): R47.1 - Dysarthria and anarthria Status: Acute Assessment and Plan: This appears to have resolved, although she now appears to have trouble finding words at times and is only alert and oriented to herself and which is apparently unusual for her according to her daughter. She is also concerned that she is unable to perform certain tasks like she used to and having trouble with OT. This is likely secondary to her age vs narcotic use vs new environment. Acute CVA or TIA less likely given MRI results (no acute process but chronic microhemorrhage noted). Infection also a possibility and I see no UA was performed during this stay; patient is incontinent and she could potentially have a UTI contributing to her symptoms. Other imaging unremarkable for possible etiology for symptoms Will continue baby aspirin and statin. UA ordered to rule out a UTI; should this return suggestive of a UTI, reflex culture ordered and will likely discharge on oral antibiotics and monitor culture results after discharge. Daughter comfortable with this plan Pending timing of results likely discharge today or tomorrow Will continue monitoring symptoms during her hospitalization. (2) Fracture of ramus of left pubis: Code(s): S32.592A - Other specified fracture of left pubis, initial encounter for closed fracture Status: Acute Assessment and Plan: X-ray shows fractures of the left superior and inferior pubic rami, obtained in fall prior to arrival. CT scan of pelvis and left femur read as Mildly displaced fractures left superior and inferior pubic rami, likely acute. Nondisplaced left sacral alar fracture, possibly an insufficiency fracture. Dr. Rollins orthopedic following and recommends her to have partial weight-bearing at 25% on the left leg and to limit her activity to only bed to chair transfers for 4 weeks. Will do Lovenox during this time. F/u with Dr. Rollins in 4 weeks as well Continue with PT/OT. Analgesics available as needed. Continue monitoring symptoms (3) Sacral fracture, closed: Code(s): S32.10XA - Unspecified fracture of sacrum, initial encounter for closed fracture Status: Acute Assessment and Plan: CT scan showed Nondisplaced left sacral alar fracture, possibly an insufficiency fracture. Recommendations as per Dr. Rollins above. At this time will continue with conservative management, pain control and PT/OT. Discharge to [facility] once medically stable for discharge (4) Discharge planning issues: Code(s): Z02.9 - Encounter for administrative examinations, unspecified Status: Acute Assessment and Plan: Patient to be discharged to detention rehab facility and accepted to [facility] at discharge. (5) Fall from ground level: Code(s): W18.30XA - Fall on same level, unspecified, initial encounter Status: Acute Assessment and Plan: It sounds as that her fall was a mechanical fall, due to a loose toilet seat. Then her 2nd fall seemed to be due to a near syncopal episode. PT/OT and SNF at discharge Continue fall precautions. (6) Acute kidney injury superimposed on chronic kidney disease: Code(s): N17.9 - Acute kidney failure, unspecified; N18.9 - Chronic kidney disease, unspecified Status: Acute Assessment and Plan: May be due to dehydration (poor oral intake) vs medication induced. Baseline Cr appears to be 1.5 - 2 from [id number]; unclear recent baseline labs. Cr 1.40 today, BUN 28. Trend while hospitalized Likely discharge with BMP in 1 week for further monitoring. Continue monitoring. Will avoid n
[2020-02-27] MEDS: lisinopriL 10 MG TABLET PO (17:31)
[2020-02-27 17:32] LABS: Add Urine Microscopic? YES; Appearance Urine Cloudy (Clear); Bacteria Urine 1+ /hpf; Bilirubin Urine Negative (Negative); Blood Urine 1+ (Negative); Color Urine Yellow (Yellow); Glucose Urine UA Negative (Negative); Ketones Urine Negative (Negative); Leukocyte Esterase Ur 2+ LEU/UL (Negative); Mucus Urine Rare /lpf; Nitrate Urine Negative (Negative); Protein Urine Negative (Negative); RBC Urine 51-75 /hpf (0-2); Specific Grav Ur 1.015 (1.001-1.035); Squamous Epithelial Cell Urine Occasional /hpf (Few); WBC Urine >75 /hpf
[2020-02-27] MEDS: CEFDINIR 300 MG CAPSULE PO (19:39)
[2020-02-27] MEDS: MELATONIN 3 MG TABLET PO (20:00)
[2020-02-27 22:10] VITALS: BP 139/95; PULSE 80; RESP 16; TEMP 36.2; O2SAT 94
[2020-02-28] VITALS (7 sets, daily range): BP systolic 108–154; BP diastolic 69–88; PULSE 76–90; RESP 14–18; TEMP 36.1–37.2; O2SAT 93–100
[2020-02-28 05:25] LABS: Hematocrit 35.1 % (37.0-47.0); Hemoglobin 11.9 g/dL (12.0-15.0); Mean Corpuscular HGB Conc 33.9 g/dl (32-36); Mean Corpuscular Hemoglobin 30.6 pg (26-34); Mean Corpuscular Volume 90.2 fl (80-100); Mean Platelet Volume 9.5 fl (7.4-10.4); Platelet Count Result 175 k/mm3 (150-375); Red Blood Count 3.89 M/mm3 (4.2-5.4); Red Cell Distribution Width 13.3 % (11.5-14.5)
[2020-02-28 05:37] LABS: Blood Urea Nitrogen 34 mg/dL (7-17); Calcium 9.8 mg/dL (8.4-10.2); Carbon Dioxide 29 mmol/L (22-30); Chloride 98 mmol/L (98-107); Estimated CRCL calculation 23 ml/min; Estimated Glomerular Filt Rate 36; Glucose 86 mg/dL (65-105); Magnesium 1.8 mg/dL (1.6-2.3); Potassium 4.8 mmol/L (3.4-5.0); Sodium 134 mmol/L (137-145)
--- NOTE | 2020-02-28 08:34 | PCPTNOTE ---
Attempted therapy session. Upon entering room Pt was sound asleep. Therapist had difficulty waking Pt for therapy. Will attempt therapy again.
[2020-02-28] MEDS: CHOLECALCIFEROL 1,000 UNIT TABLET 4000 UNITS PO (09:36)
[2020-02-28] MEDS: ASPIRIN 81 MG ENTERIC TABLET PO (09:38)
[2020-02-28] MEDS: CALCIUM CARBONATE (OSCAL) 500 MG TABLET PO ×2 (09:38→18:10)
[2020-02-28] MEDS: polyethylene glycoL 3350 17 GM POWD.PACK PO (09:38)
[2020-02-28] MEDS: ENOXAPARIN 30 MG/0.3 ML SYRINGE SUB-Q (09:39)
[2020-02-28] MEDS: METOPROLOL SUCCINATE EXT REL 100 MG TABCR PO (09:39)
[2020-02-28] MEDS: CEFDINIR 300 MG CAPSULE PO (09:39)
[2020-02-28] MEDS: SIMVASTATIN 20 MG TABLET 40 MG PO (09:39)
[2020-02-28] MEDS: lisinopriL 20 MG TABLET 40 MG PO (09:41)
[2020-02-28] MEDS: SPIRONOLACTONE 25 MG TABLET PO (09:41)
--- NOTE | 2020-02-28 11:28 | PM.IMPN ---
Progress Note: A&P Assessment and Plan (1) Altered mental status: Code(s): R41.82 - Altered mental status, unspecified Status: Acute Assessment and Plan: Patient A&O to self, , and hospital; improved from yesterday although still confused at times and even holding phone upside-down at beginning of visit with daughter on the other line. This is likely secondary to her age vs narcotic use vs new environment or combination thereof, although will do repeat brain CT w/o contrast to r/o acute intracranial process which less likely given MRI results earlier in stay(no acute process but chronic microhemorrhage noted). Infection also a possibility with bacteruria with pyuria on UA yesterday; UC pending although after discussion with [facility], it appears there is growth of a contaminate. Other imaging unremarkable for possible etiology for symptoms Will continue baby aspirin and statin. As above, will do brain CT w/o contrast to rule out acute changes of the brain. Will continue cefdinir for possible UTI until UC return; tailor antibiotics to culture vs d/c if showing no growth/contaminate Patient also has no documented BM since 02/22 and had abdominal tenderness on exam; will do abdominal obstructive series to evaluate for constipation; pending results, likely initiate enema Pending timing of results and if having BMs, likely discharge tomorrow Will continue monitoring symptoms during her hospitalization. (2) Dysarthria: Code(s): R47.1 - Dysarthria and anarthria Status: Acute Assessment and Plan: This appears to have resolved; please see above a/p Will continue monitoring symptoms during her hospitalization. (3) Bacteriuria with pyuria: Code(s): R82.71 - Bacteriuria; R82.81 - Pyuria Status: Acute Assessment and Plan: Suggestive of UTI as stated above; patient placed on PO cefdinir last night given results. Patient asymptomatic, although is confused Will continue cefdinir until UC return If no growth/contaminate will d/c; if there is growth, tailor antibiotics Monitor (4) Fracture of ramus of left pubis: Code(s): S32.592A - Other specified fracture of left pubis, initial encounter for closed fracture Status: Acute Assessment and Plan: X-ray shows fractures of the left superior and inferior pubic rami, obtained in fall prior to arrival. CT scan of pelvis and left femur read as Mildly displaced fractures left superior and inferior pubic rami, likely acute. Nondisplaced left sacral alar fracture, possibly an insufficiency fracture. Dr. Rollins orthopedic following and recommends her to have partial weight-bearing at 25% on the left leg and to limit her activity to only bed to chair transfers for 4 weeks. Will do Lovenox during this time. F/u with Dr. Rollins in 4 weeks as well Continue with PT/OT. Analgesics held given change in mental status; likely just do Tylenol at discharge Continue monitoring symptoms (5) Sacral fracture, closed: Code(s): S32.10XA - Unspecified fracture of sacrum, initial encounter for closed fracture Status: Acute Assessment and Plan: CT scan showed Nondisplaced left sacral alar fracture, possibly an insufficiency fracture. Recommendations as per Dr. Rollins above. At this time will continue with conservative management, pain control and PT/OT. Discharge to [facility] once medically stable for discharge (6) Discharge planning issues: Code(s): Z02.9 - Encounter for administrative examinations, unspecified Status: Acute Assessment and Plan: Patient to be discharged to detention rehab facility and accepted to [facility] at discharge. Will discuss with CC if
[2020-02-28] MEDS: SPIRONOLACTONE 50 MG TABLET PO (18:10)
[2020-02-28] MEDS: MELATONIN 3 MG TABLET PO (20:31)
[2020-02-29 06:25] VITALS: BP 159/90; PULSE 78; RESP 18; TEMP 36.1; O2SAT 98
[2020-02-29 06:35] LABS: Blood Urea Nitrogen 43 mg/dL (7-17); Calcium 10.1 mg/dL (8.4-10.2); Carbon Dioxide 30 mmol/L (22-30); Chloride 98 mmol/L (98-107); Estimated CRCL calculation 21 ml/min; Estimated Glomerular Filt Rate 33; Glucose 90 mg/dL (65-105); Potassium 4.8 mmol/L (3.4-5.0); Sodium 133 mmol/L (137-145)
[2020-02-29] MEDS: CHOLECALCIFEROL 1,000 UNIT TABLET 4000 UNITS PO (09:26)
[2020-02-29] MEDS: polyethylene glycoL 3350 17 GM POWD.PACK PO (09:27)
[2020-02-29] MEDS: SIMVASTATIN 20 MG TABLET 40 MG PO (09:27)
[2020-02-29] MEDS: ASPIRIN 81 MG ENTERIC TABLET PO (09:27)
[2020-02-29] MEDS: CALCIUM CARBONATE (OSCAL) 500 MG TABLET PO (09:27)
[2020-02-29] MEDS: SPIRONOLACTONE 25 MG TABLET PO (09:28)
[2020-02-29] MEDS: ENOXAPARIN 30 MG/0.3 ML SYRINGE SUB-Q (09:29)
[2020-02-29] MEDS: lisinopriL 20 MG TABLET 40 MG PO (09:29)
[2020-02-29 09:30] VITALS: PULSE 84
[2020-02-29] MEDS: METOPROLOL SUCCINATE EXT REL 100 MG TABCR PO (09:30)
--- NOTE | 2020-02-29 10:08 | PM.DS ---
DS: Diagnosis Admitting Diagnosis Admitting Diagnosis: Fall on same level, unspecified, initial encounter Discharge Diagnosis (1) Altered mental status: Code(s): R41.82 - Altered mental status, unspecified Status: Acute Assessment and Plan: Patient A&O x3 today; much improved from yesterday. This is likely secondary to her age vs narcotic use vs new environment or combination thereof. Repeat brain Ct showed no acute intracranial process; no acute process on brain MRI earlier in stay but chronic microhemorrhage noted. UC showed growth of likely contaminate; antibiotics discontinued. Other imaging unremarkable for possible etiology for symptoms Will continue baby aspirin and statin. Discharge to SNF today (2) Dysarthria: Code(s): R47.1 - Dysarthria and anarthria Status: Acute Assessment and Plan: This appears to have resolved; please see above a/p Will continue monitoring symptoms during her hospitalization. (3) Bacteriuria with pyuria: Code(s): R82.71 - Bacteriuria; R82.81 - Pyuria Status: Acute Assessment and Plan: UC showed growth of likely contaminate; antibiotics d/c. Patient asymptomatic. f/u with PCP (4) Fracture of ramus of left pubis: Code(s): S32.592A - Other specified fracture of left pubis, initial encounter for closed fracture Status: Acute Assessment and Plan: X-ray shows fractures of the left superior and inferior pubic rami, obtained in fall prior to arrival. CT scan of pelvis and left femur read as Mildly displaced fractures left superior and inferior pubic rami, likely acute. Nondisplaced left sacral alar fracture, possibly an insufficiency fracture. Dr. Rollins orthopedic following and recommends her to have partial weight-bearing at 25% on the left leg and to limit her activity to only bed to chair transfers for 4 weeks. Will do Lovenox during this time. F/u with Dr. Rollins in 4 weeks as well Continue with PT/OT. Analgesics held given change in mental status; likely just do Tylenol at discharge (5) Sacral fracture, closed: Code(s): S32.10XA - Unspecified fracture of sacrum, initial encounter for closed fracture Status: Acute Assessment and Plan: CT scan showed Nondisplaced left sacral alar fracture, possibly an insufficiency fracture. Recommendations as per Dr. Rollins above. At this time will continue with conservative management, pain control and PT/OT. Discharge to [facility] once medically stable for discharge (6) Discharge planning issues: Code(s): Z02.9 - Encounter for administrative examinations, unspecified Status: Acute Assessment and Plan: Patient to be discharged to assisted rehab facility and accepted to [facility] at discharge. Will discuss with CC if still possibility given the extension of her stay. (7) Fall from ground level: Code(s): W18.30XA - Fall on same level, unspecified, initial encounter Status: Acute Assessment and Plan: It sounds as that her fall was a mechanical fall, due to a loose toilet seat. Then her 2nd fall seemed to be due to a near syncopal episode. PT/OT and SNF at discharge Continue fall precautions. (8) Acute kidney injury superimposed on chronic kidney disease: Code(s): N17.9 - Acute kidney failure, unspecified; N18.9 - Chronic kidney disease, unspecified Status: Acute Assessment and Plan: May be due to dehydration (poor oral intake) vs medication induced. Baseline Cr appears to be 1.5 - 2 from [id number]; unclear recent baseline labs. Cr 1.50 today, BUN 43 tod
[2020-02-29] MEDS: BISACODYL 10 MG SUPPOSITORY RECTAL (10:13)
[2020-02-29 12:14] VITALS: BP 149/87; PULSE 87; RESP 18; TEMP 35.9; O2SAT 98
--- NOTE | 2020-02-29 16:19 | PC.NURSE ---
Der. Rollins reached for activity instructions. Confirmed pt is still 25% weight bearing on left side for transfers only. Called [facility] to clarify that is still correct.
== END 2020-02-29 13:29 | DRG 535 ==
LOC: ANHED 16:52 → ANH3MED 17:04
PROVIDERS: Physician Assistant; Admitting Provider Internal Medicine; Emergency Provider Emergency Medicine; PCP Family Medicine; Visit Provider Internal Medicine
DX: S32.512A Fracture of superior rim of left pubis, initial encounter for closed fracture (principal); I61.4 Nontraumatic intracerebral hemorrhage in cerebellum; S32.19XA Other fracture of sacrum, initial encounter for closed fracture; N17.9 Acute kidney failure, unspecified; S32.592A Other specified fracture of left pubis, initial encounter for closed fracture; W18.12XA Fall from or off toilet with subsequent striking against object, initial encounter; E86.0 Dehydration; T50.905A Adverse effect of unspecified drugs, medicaments and biological substances, initial encounter; I12.9 Hypertensive chronic kidney disease with stage 1 through stage 4 chronic kidney disease, or unspecified chronic kidney disease; K59.00 Constipation, unspecified; R47.1 Dysarthria and anarthria; I16.0 Hypertensive urgency; E78.5 Hyperlipidemia, unspecified; N18.3 Chronic kidney disease, stage 3 (moderate); J31.0 Chronic rhinitis; I25.10 Atherosclerotic heart disease of native coronary artery without angina pectoris; E55.9 Vitamin D deficiency, unspecified; M81.0 Age-related osteoporosis without current pathological fracture; R82.81 Pyuria; Z86.73 Personal history of transient ischemic attack (TIA), and cerebral infarction without residual deficits; Z95.5 Presence of coronary angioplasty implant and graft; Z90.49 Acquired absence of other specified parts of digestive tract; Z90.710 Acquired absence of both cervix and uterus
CPT/HCPCS: 36415; 70450; 70551; 72192; 73502; 73700; 74019; 80048; 80053; 80069; 81001; 82306; 82550; 83735; 84100; 84132; 84484; 85025; 85027; 85055; 85610; 85730; 87086; 87088; 93005; 93306; 93880; 93970; 96361; 96365; 96375; 96376; 97110; 97116; 97162; 97165; 97530; 97535; 99285; A9270; G0378; J0360; J1170; J1644; J1650; J2405; J3475; J7120

== ENCOUNTER 2020-07-05 11:48 | Outpatient (CLI) | payer MEDICARE, SELFPAY ==
--- NOTE | ~2020-07-05 | XR_ITS ---
XR wrist LT min 3V DATE: 07/05/2020 12:11 INDICATION: Fall last evening. Left wrist injury, pain TECHNIQUE: 4 views COMPARISON: None FINDINGS: There is a comminuted intra-articular fracture of the distal radius with mild impaction. Th ere is approximately 3 mm lateral displacement of the distal radius. There is mild dorsal inclination of the distal radial articular surface. Transverse laterally displaced fracture of the ulnar styloid process. Radiocarpal alignment is preserved. There is chondrocalcinosis at the cranial cartilage and wrist joint. Diffuse osteopenia. IMPRESSION: Comminuted intra-articular fracture of the distal radius Fracture of the ulnar styloid process Reviewed, dictated and finalized at location A.
== END 2020-07-05 11:49 | disposition home or self-care (01) ==
PROVIDERS: PCP Family Medicine; Visit Provider Physician Assistant
DX: M25.532 Pain in left wrist (principal); W18.30XA Fall on same level, unspecified, initial encounter; S52.502A Unspecified fracture of the lower end of left radius, initial encounter for closed fracture; S52.615A Nondisplaced fracture of left ulna styloid process, initial encounter for closed fracture
CPT/HCPCS: 73110

== ENCOUNTER 2020-07-05 14:33 | Emergency (ER) | payer MEDICARE, SELFPAY ==
[2020-07-05 14:48] VITALS: BP 148/101; PULSE 69; RESP 18; TEMP 36.3; O2SAT 100
--- NOTE | 2020-07-05 14:55 | PC.NURSE ---
1433 dr[address] gusman office contacted by hotel supplies salesperson. 1444 dr. musa contacted by [facility],[phone], call answered by onofre and aware of need for ortho consult. pt and family requested dr. musa. 1446 onofre called and spoke with hotel supplies salesperson and requested dr. sykes hand specialist to be contacted for appt. and f/u. 1444 hotel supplies salesperson called and spoke with dr. paulo price office and appt. wednesday07/09/20 at 1245. hotel supplies salesperson spoke with
--- NOTE | 2020-07-05 14:56 | ED.UPPEXIN ---
HPI - Extremity Injury (Upper) General Chief Complaint: Extremity Injury, Upper Stated Complaint: fell left wrist Time Seen by Provider: 07/05/20 14:48 Source: patient, family and RN notes reviewed Mode of arrival: ambulatory Limitations: no limitations History of Present Illness HPI narrative: 80 year old female accompanied by daughter presents to express care with complaints of fall which occurred yesterday afternoon at her home at independent living facility. Daughter states that she was not aware of fall till last pm and she called Dr Peacock's office this morning and patient was seen in the office at 1100. Patient had x-ray at [facility] and Dr Peacock's office was unable to get patient seen in Dr Rollins office today. Patient was released by Dr Lozano' care for fracture of pelvis from previous fall and family wish to continue with Dr Rollins's office, patient had been living with daughter till 2 weeks ago. Patient has noted bruising, swelling and limitation of motion in her left wrist, nail beds paris briskly to fingers of left hand with adequate left radial pulse noted. Patient states that she took Aleve this morning and has been applying ice to her wrist for comfort measures. MD complaint: injury to: left and wrist Onset (ago): day(s) (yesterday at 1300) Other Extremity Injury: Left: wrist Other injuries: none Handedness: right Place: home Relieving factors: none Exacerbating factors: movement of extremity Context: fall Treatments prior to arrival: cold therapy Related Data Home Medications Medication Instructions Recorded Confirmed aspirin 81 mg tablet,delayed 81 mg PO DAILY 12/13/19 06/06/20 release cholecalciferol (vitamin D3) 100 4,000 unit PO DAILY 12/13/19 06/06/20 mcg (4,000 unit) capsule ergocalciferol (vitamin D2) 1,250 50,000 unit PO WEEKLY 12/13/19 06/06/20 mcg (50,000 unit) capsule metoprolol succinate 100 mg 100 mg PO DAILY 12/13/19 06/06/20 tablet,extended release 24 hr spironolactone 25 mg tablet 25 mg PO BID 12/13/19 06/06/20 nitroglycerin 07/05/20 Allergies Allergy/AdvReac Type Severity Reaction Status Date / Time procainamide Allergy Unknown Nausea Verified 07/05/20 11:07 quinidine Allergy Unknown increase Verified 07/05/20 11:07 nervousness tonocard Allergy Mild increased Uncoded 07/05/20 11:07 nervousness Review of Systems Review of Systems: Narrative: CONSTITUTIONAL: Denies fever, chills, or sweats. EYES: Denies visual changes, redness, or discharge. ENT: Denies rhinorrhea, congestion, sore throat, or otalgia. CARDIOVASCULAR: Denies chest pain, palpitations, or edema. RESPIRATORY: Denies cough or dyspnea. GASTROINTESTINAL: Denies abdominal pain, nausea, vomiting, or diarrhea. GENITOURINARY: Denies dysuria or hematuria. SKIN: Denies rash or itching. MUSCULOSKELETAL: Denies back pain, positive for left wrist pain and swelling, decreased ROM and bruising to wrist and hand and fingers or myalgia. NEUROLOGIC: Denies headache, numbness, or weakness. PSYCHIATRIC: positive history anxiety or depression. All systems reviewed & are unremarkable except as noted in HPI and below PMFSH Past Medical History Medical History (Updated 07/05/20 @ 15:24 by Suyapa Myers NP) Cerebrovascular accident Old bilateral lacunar infarcts noted on brain CT 02/22/2020. Chronic kidney disease, stage 3 On review of previous labs, her baseline creatinine appears to run between 1.40 and 1.70. She is followed by Dr. Camara. Coronary artery disease With history of angioplasty and stent in 1998. Essential hypertension Fracture of sacrum Hematuria Hyperlipidemia Hypertensive chronic kidney disease with stage 1 through stage 4 chronic kidney disease, or unspecified chronic kidney disease Nephrolithiasis Vitamin D deficiency Surgical History Surgical History (Updated 02/22/20 @ 23:00 by Ananya Castañeda PA-C) History of appendectomy
== END 2020-07-05 15:44 | disposition home or self-care (01) ==
PROVIDERS: Emergency Provider Registered Nurse; PCP Family Medicine
DX: S52.572A Other intraarticular fracture of lower end of left radius, initial encounter for closed fracture (principal); S52.512A Displaced fracture of left radial styloid process, initial encounter for closed fracture; W19.XXXA Unspecified fall, initial encounter; Z87.891 Personal history of nicotine dependence; Z95.5 Presence of coronary angioplasty implant and graft; Z86.73 Personal history of transient ischemic attack (TIA), and cerebral infarction without residual deficits; I12.9 Hypertensive chronic kidney disease with stage 1 through stage 4 chronic kidney disease, or unspecified chronic kidney disease; N18.3 Chronic kidney disease, stage 3 (moderate); E78.5 Hyperlipidemia, unspecified; E55.9 Vitamin D deficiency, unspecified
CPT/HCPCS: 29125; 99214; A4565; G0463

== ENCOUNTER 2020-09-14 05:03 | Emergency (ER) | payer MEDICARE, SELFPAY ==
[2020-09-14] VITALS (13 sets, daily range): BP systolic 171–237; BP diastolic 85–119; PULSE 59–67; RESP 16–18; TEMP 36.4; O2SAT 97–99
--- NOTE | ~2020-09-14 | CT_ITS ---
EXAMINATION: CT lumbar spine marcial gil EXAM DATE: 09/14/2020 06:01 INDICATION: Fall, back pain. TECHNIQUE: Spiral CT lumbar spine was performed without contrast. Axial, coronal and sagittal images of the lumbar spine were reviewed. The dose-length product (DLP) for this examination was 647.31 mGy- cm. The exposure was tailored according to patient size (auto mA exposure control), and iterative re construction (ASIR) was used as additional dose reduction technique. There is no prior study for clem smith. FINDINGS: Mild to moderate acute burst fracture superior endplate of L1, with about 2-3 mm retropulsion but no more than mild central canal stenosis. There is 4 mm anterolisthesis L4 on L5, mild to moderate this disc height but no spondylolysis. The vertebral bodies are otherwise aligned. Moderate disc disease L 5-S1, mild at the upper lumbar levels. Transverse processes are intact. There is relatively poorly ca lcified 1 cm left kidney stone in the inferior moiety. There is sclerosis of the left sacroiliac join t from a chronic fracture. It is the right L5-S1 neural foramina most narrowed, with moderate stenosi s. There is moderate sliding gastroesophageal hiatal hernia. IMPRESSION: 1. Acute L1 burst fracture, mild to moderate loss of height, mild retropulsion. 2. L4-5 grade 1 anterolisthesis without spondylolysis. 3. Chronic left sacral fracture. 4. Moderate hiatal hernia. 5. Left nephrolithiasis. Reviewed, dictated and finalized at location A. SPREADER IMPRESSION: 1. Acute L1 burst fracture, mild to moderate loss of height, mild retropulsion . 2. L4-5 grade 1 anterolisthesis without spondylolysis. 3. Chronic left sacral fracture. 4. Moderate hiatal hernia. 5. Left nephrolithiasis.
--- NOTE | 2020-09-14 05:16 | ED.BACK ---
HPI - Back Pain/Injury General Chief Complaint: Back Pain/Injury <Andrea Villavicencio DO - Last Filed: 09/14/20 19:07> Stated Complaint: fall, lower back pain <Andrea Villavicencio DO - Last Filed: 09/14/20 19:07> Time Seen by Provider: 09/14/20 05:05 <Andrea Villavicencio DO - Last Filed: 09/14/20 19:07> Source: RN notes reviewed <Andrea Villavicencio DO - Last Filed: 09/14/20 19:07> History of Present Illness HPI Narrative: Patient presents to emergency department from home for a fall. Patient states she fell yesterday morning states she was walking around her table to get a glass of water at the sink when she fell landing on her bottom. She states that since that time she had pain in the lower mid back that is progressively worsened. She denies striking her head or any loss of consciousness she denies any other injury. She states she was able to get up and ambulate at that time when she walks with a walker but states the pain is progressively worsened over the past 24 hours she has taken Tylenol at home with minimal relief. She denies any chest pain shortness of breath numbness or tingling in the extremities or any other symptoms <Andrea Villavicencio DO - Last Filed: 09/14/20 19:07> Related Data Home Medications: Home Medications Medication Instructions Recorded Confirmed aspirin 81 mg tablet,delayed 81 mg PO DAILY 12/13/19 08/28/20 release cholecalciferol (vitamin D3) 100 4,000 unit PO DAILY 12/13/19 08/28/20 mcg (4,000 unit) capsule ergocalciferol (vitamin D2) 1,250 50,000 unit PO WEEKLY 12/13/19 08/28/20 mcg (50,000 unit) capsule metoprolol succinate 100 mg 100 mg PO DAILY 12/13/19 08/28/20 tablet,extended release 24 hr nitroglycerin 07/05/20 08/28/20 diphenhydramine-acetaminophen 2 tablet PO HS 09/14/20 [Acetaminophen PM] lisinopril 60 mg PO BID 09/14/20 spironolactone 25 mg PO BID 09/14/20 <Andrea Villavicencio DO - Last Filed: 09/14/20 19:07> Allergies/Adverse Reactions: Allergies Allergy/AdvReac Type Severity Reaction Status Date / Time procainamide Allergy Unknown Nausea Verified 09/14/20 05:21 quinidine Allergy Unknown increase Verified 09/14/20 05:21 nervousness tonocard Allergy Mild increased Uncoded 09/14/20 05:21 nervousness <Andrea Villavicencio DO - Last Filed: 09/14/20 19:07> Review of Systems Review of Systems: Narrative: Gen.: Denies fevers or chills Eyes: Denies eye pain or visual change ENT: Denies congestion Respiratory: Denies shortness of breath or cough CV: Denies chest pain or palpitations GI: Denies abdominal pain nausea, emesis or diarrhea denies bowel or bladder incontinence Musculoskeletal: See HPI Neuro: Denies numbness, tingling, weakness or focal weakness Skin: Denies rash Except as documented, all other systems reviewed and negative <Andrea Villavicencio DO - Last Filed: 09/14/20 19:07> [facility] Past Medical History Medical History: Medical History Cerebrovascular accident Old bilateral lacunar infarcts noted on brain CT 02/22/2020. Chronic kidney disease, stage 3 On review of previous labs, her baseline creatinine appears to run between 1.40 and 1.70. She is followed by Dr. Camara. Coronary artery disease With history of angioplasty and stent in 1998. Essential hypertension Fracture of sacrum Hematuria Hyperlipidemia Hypertensive chronic kidney disease with stage 1 through stage 4 chronic kidney disease, or unspecified chronic kidney disease Nephrolithiasis Vitamin D deficiency <Andrea Villavicencio DO - Last Filed: 09/14/20 19:07> Surgical History Surgical History: Surgical History History of appendectomy History of cholecystectomy History of heart artery stent History of hysterectomy History of lithotripsy <Andrea Villavicencio DO - Last Filed: 09/14/20 19:07> Family History Family H
[2020-09-14] MEDS: traMADol HCL (*CRX) 50 MG TABLET PO ×2 (05:36→11:06)
--- NOTE | 2020-09-14 06:53 | PC.NURSE ---
Dr Villavicencio aware of patients BP -family and patient reports that it is being watched by her MD and that she just had an increase to her morning Lisinopril from 40mg to 60mg that was to start this AM
[2020-09-14] MEDS: METOPROLOL SUCCINATE EXT REL 100 MG TABCR PO (07:17)
[2020-09-14] MEDS: lisinopriL 10 MG TABLET 30 MG PO (07:17)
[2020-09-14] MEDS: hydrALAZINE HCL 20 MG/ML VIAL 10 MG IV PUSH (13:26)
== END 2020-09-14 13:35 | disposition short-term general hospital (02) ==
PROVIDERS: Emergency Provider Emergency Medicine; PCP Family Medicine
DX: S32.011A Stable burst fracture of first lumbar vertebra, initial encounter for closed fracture (principal); I12.9 Hypertensive chronic kidney disease with stage 1 through stage 4 chronic kidney disease, or unspecified chronic kidney disease; N18.30 Chronic kidney disease, stage 3 unspecified; I25.10 Atherosclerotic heart disease of native coronary artery without angina pectoris; Z95.5 Presence of coronary angioplasty implant and graft; E78.5 Hyperlipidemia, unspecified; Z87.442 Personal history of urinary calculi; E55.9 Vitamin D deficiency, unspecified; Z87.891 Personal history of nicotine dependence; Z86.73 Personal history of transient ischemic attack (TIA), and cerebral infarction without residual deficits; Z79.82 Long term (current) use of aspirin; M43.06 Spondylolysis, lumbar region; K44.9 Diaphragmatic hernia without obstruction or gangrene; N20.0 Calculus of kidney; W18.30XA Fall on same level, unspecified, initial encounter
CPT/HCPCS: 72131; 96374; 99284; 99285; A9270; J0360

== ENCOUNTER 2020-09-22 16:21 | Emergency (ER) | payer MEDICARE, SELFPAY ==
--- NOTE | ~2020-09-22 | XR_ITS ---
EXAMINATION: XR abdomen obstructive series DATE: 09/22/2020 17:56 INDICATION: Constipation. Low back pain. TECHNIQUE: A supine view of the abdomen on 2 radiographs was obtained. COMPARISON: Abdomen radiographs 02/28/2020 FINDINGS: There are no dilated loops of bowel. There is a large volume of stool in the colon. Surgica l clips in the right upper quadrant are likely from cholecystectomy. There are stones in the kidneys. There are old fractures of left superior and inferior pubic rami and left sacral ala. IMPRESSION: 1. Large volume of stool in the colon. 2. Bilateral kidney stones. Reviewed, dictated and finalized at location A. ICULTURE SUPERINTENDENT
[2020-09-22 16:20] VITALS: BP 162/64; PULSE 79; RESP 20; TEMP 36.9; O2SAT 98
[2020-09-22 17:39] VITALS: BP 132/72; PULSE 72; RESP 20; O2SAT 95
--- NOTE | 2020-09-22 17:41 | ED.GENADULT ---
HPI - General Adult General Chief complaint: Back Pain/Injury Stated complaint: back pain, decreased appetitie Time Seen by Provider: 09/22/20 17:19 Source: patient and family Limitations: no limitations History of Present Illness HPI narrative: 80 years old white female brought to the emergency room by her daughter because of not eating well, and able to move for the last few days. Patient had a fall 1 week ago, compression fracture L1, transferred to [facility] then got discharged home on Wednesday which is 6 days ago. Patient scheduled for home physical therapy tomorrow. Patient was discharged on oxycodone. Unknown last time of bowel movement. Patient's daughter is not able to take care of her because patient is laying down in bed 17/05. Currently patient denying any symptoms. And would like to go home. Patient denies any fever, chills, nausea, vomiting, abdominal pain, chest pain, shortness of breath or exposure to anybody with COVID-19 Related Data Home Medications Medication Instructions Recorded Confirmed aspirin 81 mg tablet,delayed 81 mg PO DAILY 12/13/19 08/28/20 release cholecalciferol (vitamin D3) 100 4,000 unit PO DAILY 12/13/19 08/28/20 mcg (4,000 unit) capsule ergocalciferol (vitamin D2) 1,250 50,000 unit PO WEEKLY 12/13/19 08/28/20 mcg (50,000 unit) capsule metoprolol succinate 100 mg 100 mg PO DAILY 12/13/19 08/28/20 tablet,extended release 24 hr nitroglycerin 07/05/20 08/28/20 diphenhydramine-acetaminophen 2 tablet PO HS 09/14/20 [Acetaminophen PM] lisinopril 40 mg PO DAILY 09/14/20 09/22/20 spironolactone 25 mg PO BID 09/14/20 amlodipine 5 mg PO DAILY 09/22/20 09/22/20 Allergies Allergy/AdvReac Type Severity Reaction Status Date / Time procainamide Allergy Unknown Nausea Verified 09/22/20 16:27 quinidine Allergy Unknown increase Verified 09/22/20 16:27 nervousness tonocard Allergy Mild increased Uncoded 09/22/20 16:27 nervousness Review of Systems Review of Systems: Narrative: CONSTITUTIONAL: Denies fever, chills, or sweats. EYES: Denies visual changes, redness, or discharge. ENT: Denies rhinorrhea, congestion, sore throat, or otalgia. CARDIOVASCULAR: Denies chest pain, palpitations, or edema. RESPIRATORY: Denies cough or dyspnea. GASTROINTESTINAL: Denies abdominal pain, nausea, vomiting, or diarrhea. GENITOURINARY: Denies dysuria or hematuria. SKIN: Denies rash or itching. MUSCULOSKELETAL: Denies back pain, joint pain, or myalgia. NEUROLOGIC: Denies headache, numbness, or weakness. PSYCHIATRIC: Denies anxiety or depression. [facility] Past Medical History Medical History Cerebrovascular accident Old bilateral lacunar infarcts noted on brain CT 02/22/2020. Chronic kidney disease, stage 3 On review of previous labs, her baseline creatinine appears to run between 1.40 and 1.70. She is followed by Dr. Camara. Coronary artery disease With history of angioplasty and stent in 1998. Essential hypertension Fracture of sacrum Hematuria Hyperlipidemia Hypertensive chronic kidney disease with stage 1 through stage 4 chronic kidney disease, or unspecified chronic kidney disease L1 vertebral fracture Nephrolithiasis Vitamin D deficiency Surgical History Surgical History History of appendectomy History of cholecystectomy History of heart artery stent History of hysterectomy History of lithotripsy Family History Family History Other Cerebrovascular accident Family history of arthritis Family history of cardiovascular disease Social History Social History Social History: The patient lives in a correction apartment at [facility]. She is independent of all activities of daily living. She has 3 grown children. She is retired from working in a school cafeteria. She
[2020-09-22 18:17] LABS: Basophils Percent Auto 0.3 % (0.2-1.2); Eosinophils Percent Auto 0.4 % (0-4.4); Hematocrit 41.6 % (37.0-47.0); Hemoglobin 14.1 g/dL (12.0-15.0); Immature Granulocyte Absolute 0.07 K/mm3 (0.00-0.031); Immature Granulocyte Percent A 0.6 % (0-0.5); Lymphocytes Absolute Auto 0.93 K/mm3 (0.9-3.2); Lymphocytes Percent Auto 8.6 % (18.3-44.2); Mean Corpuscular HGB Conc 33.9 g/dl (32-36); Mean Corpuscular Hemoglobin 31.9 pg (26-34); Mean Corpuscular Volume 94.1 fl (80-100); Monocytes Absolute Auto 0.9 K/mm3 (0.1-0.6); Monocytes Percent Auto 7.9 % (2.6-8.5); Neutrophils Absolute Auto 8.9 K/mm3 (1.3-6.7); Neutrophils Percent Auto 82.2 % (45.5-73.1); Platelet Count Result 249 k/mm3 (150-375); Red Blood Count 4.42 M/mm3 (4.2-5.4); Red Cell Distribution Width 13.2 % (11.5-14.5); White Blood Count 10.8 K/mm3 (4.5-10.0)
[2020-09-22 18:24] LABS: Add Urine Microscopic? YES; Appearance Urine Clear (Clear); Bilirubin Urine Negative (Negative); Blood Urine Negative (Negative); Color Urine Yellow (Yellow); Glucose Urine UA Negative (Negative); Ketones Urine Trace mg/dL (Negative); Leukocyte Esterase Ur Negative LEU/UL (Negative); Mucus Urine Rare /lpf; Nitrate Urine Negative (Negative); Protein Urine Negative (Negative); RBC Urine 0-2 /hpf (0-2); Specific Grav Ur 1.016 (1.001-1.035); Squamous Epithelial Cell Urine Few /hpf (Few); WBC Urine 0-3 /hpf
[2020-09-22 18:28] VITALS: BP 128/77; PULSE 79; RESP 20; O2SAT 97
[2020-09-22 18:29] LABS: Alanine Aminotransferase 14 U/L (4-35); Albumin Level 4.2 g/dL (3.5-5.1); Alkaline Phosphatase 103 U/L (38-126); Anion Gap 12 mmol/L (8-16); Aspartate Amino Transferase 26 U/L (14-36); Bilirubin,Total 1.1 mg/dL (0.2-1.3); Blood Urea Nitrogen 67 mg/dL (7-17); Calcium 10.7 mg/dL (8.4-10.2); Carbon Dioxide 24 mmol/L (22-30); Chloride 105 mmol/L (98-107); Estimated Glomerular Filt Rate 24; Glucose 105 mg/dL (65-105); Potassium 4.8 mmol/L (3.4-5.0); Sodium 141 mmol/L (137-145)
[2020-09-22 19:00] VITALS: BP 131/80; PULSE 79; RESP 20; O2SAT 98
[2020-09-22] MEDS: SODIUM CHLORIDE 0.9% IV 500 ML (19:10)
--- NOTE | 2020-09-22 19:47 | PC.NURSE ---
Feeding challenge per MD Reyes's verbal orders with readback. Pt ate contained of applesauce with feeding assistance. Pt able to swallow without problems. Pt's daughter educated on safe feeding, positioning, and promoting [id number] swallowing.
[2020-09-22 20:06] VITALS: BP 164/80; PULSE 89; RESP 18; O2SAT 100
== END 2020-09-22 20:08 | disposition home or self-care (01) ==
PROVIDERS: Emergency Provider Emergency Medicine; PCP Family Medicine
DX: R53.1 Weakness (principal); E86.0 Dehydration; K59.00 Constipation, unspecified; S32.018D Other fracture of first lumbar vertebra, subsequent encounter for fracture with routine healing; Z86.73 Personal history of transient ischemic attack (TIA), and cerebral infarction without residual deficits; I25.10 Atherosclerotic heart disease of native coronary artery without angina pectoris; I12.9 Hypertensive chronic kidney disease with stage 1 through stage 4 chronic kidney disease, or unspecified chronic kidney disease; N18.30 Chronic kidney disease, stage 3 unspecified; E78.5 Hyperlipidemia, unspecified; E55.9 Vitamin D deficiency, unspecified; Z95.5 Presence of coronary angioplasty implant and graft; Z87.891 Personal history of nicotine dependence; Z79.82 Long term (current) use of aspirin; N20.0 Calculus of kidney; W19.XXXD Unspecified fall, subsequent encounter
CPT/HCPCS: 36415; 51701; 74019; 80053; 81001; 85025; 96360; 99283; J7040

== ENCOUNTER → 2020-11-25 13:15 | Outpatient (CLI) | payer MEDICARE, SELFPAY ==
--- NOTE | ~2020-11-25 | DEXA_ITS ---
Bone Density Report Name: Vanesa New Age: 80 Sex: Female Ethnicity: White Date of : 1940 Indication: osteopenia; height loss; prior fracture; hysterectomy; postmenopausal Referring Provider: Alfie Peacock Study: Bone densitometry was performed. Exam Date: November 25, 2020 Accession number: [id number] Bone Density: Region BMD T-score Z-score Classification AP Spine (L2, L3, L4) 0.889 -1.7 1.1 Osteopenia Femoral Neck (Left) 0.595 -2.3 0.1 Osteopenia Total Hip (Left) 0.694 -2.0 0.2 Osteopenia Femoral Neck (Right) 0.528 -2.9 -0.5 Osteoporosis Total Hip (Right) 0.618 -2.7 -0.4 Osteoporosis Total Hip Mean 0.656 -2.4 -0.1 Osteopenia World Health Organization criteria for BMD impression classify patients as: Normal (T-score at or above -1.0), Osteopenia (T-score between -1.0 and -2.5), or Osteoporosis (T-score at or below -2.5). 10-year Fracture Risk: FRAX not reported because: Some T-score for Spine Total or Hip Total or Femoral Neck at or below -2.5 Prior hip or vertebral fracture Previous Exams: Region Exam Age BMD T-score BMD Change BMD Change Date g/cm2 vs Baseline vs Previous AP Spine(L2, L3, L4) 11/25/2020 80 0.889 -1.7 -0.024* -0.043* 12/24/2011 71 0.933 -1.3 0.020 0.032* 12/11/2009 69 0.900 -1.6 -0.013 -0.012 11/26/2006 66 0.912 -1.5 -0.001 -0.001 11/12/2004 64 0.913 -1.5 Total Hip(Left) 11/25/2020 80 0.694 -2.0 -0.195* -0.104* 05/09/2015 75 0.799 -1.2 -0.091* 0.003 12/24/2011 71 0.796 -1.2 -0.093* -0.001 12/11/2009 69 0.797 -1.2 -0.092* -0.030* 11/26/2006 66 0.827 -0.9 -0.062* -0.062* 11/12/2004 64 0.889 -0.4 Total Hip(Right) 11/25/2020 80 0.618 -2.7 -0.233* -0.145* 05/09/2015 75 0.763 -1.5 -0.089* -0.004 12/24/2011 71 0.767 -1.4 -0.084* -0.025 12/11/2009 69 0.792 -1.2 -0.059* -0.004 11/26/2006 66 0.796 -1.2 -0.055* -0.055* 11/12/2004 64 0.851 -0.7 *Denotes significance at 95% confidence level, LSC for AP Spine = 0.022 g/cm2, LSC for Total Hip = 0.027 g/cm2 Clinical Information Provided by Patient: Have had a previous hip or vertebral fracture Has had a low trauma fracture Has used the following medications: Vitamin D Has the following medical conditions: Hysterectomy Patie
== END ==
PROVIDERS: PCP Family Medicine; Visit Provider Family Medicine
DX: M81.0 Age-related osteoporosis without current pathological fracture (principal); M16.0 Bilateral primary osteoarthritis of hip
CPT/HCPCS: 77080

== ENCOUNTER 2021-03-03 15:05 | Emergency (ER) | payer MEDICARE, SELFPAY ==
--- NOTE | ~2021-03-03 | XR_ITS ---
XR ankle LT min 3V DATE: 03/03/2021 16:10 INDICATION: Fall. Ankle and foot pain. TECHNIQUE: 4 views COMPARISON: None FINDINGS: There is a transverse lucency at the inferior aspect of the lateral malleolus suggesting a subtle linear nondisplaced fracture, with mild overlying soft tissue swelling. There is a linear intra-articular fracture of the base of the fifth metatarsal bone, with minimal dis placement. No other fracture or dislocation. The ankle mortise appears intact. Plantar calcaneal enthesopathy. IMPRESSION: Nondisplaced fracture of the tip of the lateral malleolus with mild overlying soft tissue swelling Linear virtually nondisplaced intra-articular fracture of the base of the fifth metatarsal bone Plantar calcaneal enthesopathy Reviewed, dictated and finalized at location A.
--- NOTE | ~2021-03-03 | XR_ITS ---
EXAMINATION: XR foot LT min 3V DATE: 03/03/2021 16:10 INDICATION: Left foot pain. Fall. TECHNIQUE: 4 views of left foot were obtained. COMPARISON: None. FINDINGS: Bone alignment is normal. There is a nondisplaced transverse fracture of base of fifth meta tarsal. There is mild to moderate osteoarthritis of some the interphalangeal joints. There is an enth esophyte at plantar aspect of calcaneal tuberosity. IMPRESSION: 1. Nondisplaced transverse fracture of base of fifth metatarsal. Reviewed, dictated and finalized at location B.
[2021-03-03 15:51] VITALS: BP 142/73; PULSE 69; RESP 18; TEMP 36.7; O2SAT 100
--- NOTE | 2021-03-03 16:13 | ED.GENADULT ---
HPI - General Adult General Chief complaint: Extremity Injury, Lower Stated complaint: left ankle pain Time Seen by Provider: 03/03/21 15:54 Source: patient History of Present Illness HPI narrative: Patient is a 81 y/o female complaining of left foot pain and ankle pain after a fall. She states that she was getting off a couch this morning and she fell. She denies hitting her head or having any other injury. She describes her pain as aching and rates it as 7/10. Weight bearing aggravates her pain. Related Data Home Medications Medication Instructions Recorded Confirmed aspirin 81 mg tablet,delayed 81 mg PO DAILY 12/13/19 01/03/21 release metoprolol succinate 100 mg 100 mg PO DAILY 12/13/19 01/03/21 tablet,extended release 24 hr diphenhydramine-acetaminophen 2 tablet PO HS 09/14/20 01/03/21 [Acetaminophen PM] spironolactone 25 mg PO BID 09/14/20 01/03/21 Allergies Allergy/AdvReac Type Severity Reaction Status Date / Time procainamide Allergy Unknown Nausea Verified 03/03/21 15:54 quinidine Allergy Unknown increase Verified 03/03/21 15:54 nervousness tonocard Allergy Mild increased Uncoded 03/03/21 15:54 nervousness Review of Systems Constitutional: Constitutional: Denies chills, Denies fever(s), Denies headache(s) and Denies weakness Eyes: Eyes: Denies blurry vision ENT: Denies headache(s) and Denies neck pain Cardiovascular: Cardiovascular: Denies chest pain and Denies dyspnea Respiratory: Respiratory: Denies cough and Denies dyspnea Gastrointestinal: Gastrointestinal: Denies abdominal pain, Denies diarrhea, Denies nausea and Denies vomiting Genitourinary: Genitourinary: Denies hematuria and Denies dysuria Musculoskeletal: Musculoskeletal: Denies back pain, Denies neck pain and Reports other (left foot and ankle pain) Neurologic: Denies headache(s) and Denies weakness [facility] Past Medical History Medical History Cerebrovascular accident Old bilateral lacunar infarcts noted on brain CT 02/22/2020. Chronic kidney disease, stage 3 On review of previous labs, her baseline creatinine appears to run between 1.40 and 1.70. She is followed by Dr. Childwold. Coronary artery disease With history of angioplasty and stent in 1998. Essential hypertension Fracture of sacrum Hematuria Hyperlipidemia Hypertensive chronic kidney disease with stage 1 through stage 4 chronic kidney disease, or unspecified chronic kidney disease L1 vertebral fracture Lumbar burst fracture Nephrolithiasis Vitamin D deficiency Surgical History Surgical History History of appendectomy History of cholecystectomy History of heart artery stent History of hysterectomy History of lithotripsy Family History Family History Other Cerebrovascular accident Family history of arthritis Family history of cardiovascular disease Social History Social History Social History: The patient lives in a longterm apartment at [facility]. She is independent of all activities of daily living. She has 3 grown children. 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 No alcohol or drug abuse. She designates her daughter, Fransisca Meadows, as her surrogate decision maker and she wishes to be a full code. Years smoked: 2 Smoking status: Former smoker Tobacco type: cigarettes Second hand tobacco smoke exposure: No Smoking end date: 10/25/1955 Alcohol intake: never Substance use: never Substance use type: does not use Gender identity (if verbalized by the patient): Female Spiritual care concerns: No Agree to blood products: Yes Exam Const: General: no acute distress and well developed Orientation/consciousness: oriented to person, oriented to place,
--- NOTE | 2021-04-09 12:41 | PC.NURSE ---
LATE ENTRY This note is being entered to document information to the patient's record. The following information was omitted on [03/03/21], by [Merlyn Albrecht]. Short leg posterior splint applied to left lower leg.
== END 2021-03-03 17:22 | disposition home or self-care (01) ==
PROVIDERS: Emergency Provider Emergency Medicine; PCP Family Medicine
DX: S82.65XA Nondisplaced fracture of lateral malleolus of left fibula, initial encounter for closed fracture (principal); S92.355A Nondisplaced fracture of fifth metatarsal bone, left foot, initial encounter for closed fracture; Z79.82 Long term (current) use of aspirin; I12.9 Hypertensive chronic kidney disease with stage 1 through stage 4 chronic kidney disease, or unspecified chronic kidney disease; N18.30 Chronic kidney disease, stage 3 unspecified; Z86.73 Personal history of transient ischemic attack (TIA), and cerebral infarction without residual deficits; E78.5 Hyperlipidemia, unspecified; E55.9 Vitamin D deficiency, unspecified; Z87.442 Personal history of urinary calculi; Z95.5 Presence of coronary angioplasty implant and graft; Z87.891 Personal history of nicotine dependence; W08.XXXA Fall from other furniture, initial encounter
CPT/HCPCS: 29515; 73610; 73630; 99284

== ENCOUNTER → 2023-03-03 12:42 | Outpatient (CLI) | payer MEDICARE, SELFPAY ==
--- NOTE | ~2023-03-03 | DEXA_ITS ---
Bone Density Report Name: MARISELA ELLIS Age: 83 Sex: Female Ethnicity: White Date of : 1940 Indication: postmenopausal osteoporosis; monitoring treatment; height loss; prior fracture; hysterectomy; Referring Provider: TIANNA GARNETT Study: Bone densitometry was performed. Exam Date: March 03, 2023 Accession number: [id number] Bone Density: Region BMD T-score Z-score Classification AP Spine (L2, L3, L4) 0.967 -1.0 1.9 Normal Femoral Neck (Left) 0.636 -1.9 0.6 Osteopenia Total Hip (Left) 0.688 -2.1 0.3 Osteopenia Femoral Neck (Right) 0.572 -2.5 0.0 Osteoporosis Total Hip (Right) 0.683 -2.1 0.2 Osteopenia Total Hip Mean 0.686 -2.1 0.3 Osteopenia World Health Organization criteria for BMD impression classify patients as: Normal (T-score at or above -1.0), Osteopenia (T-score between -1.0 and -2.5), or Osteoporosis (T-score at or below -2.5). 10-year Fracture Risk: FRAX not reported because: Some T-score for Spine Total or Hip Total or Femoral Neck at or below -2.5 Prior hip or vertebral fracture Previous Exams: Region Exam Age BMD T-score BMD Change BMD Change Date g/cm2 vs Baseline vs Previous AP Spine(L2, L3, L4) 03/03/2023 83 0.967 -1.0 0.054* 0.078* 11/25/2020 80 0.889 -1.7 -0.024* -0.043* 12/24/2011 71 0.933 -1.3 0.020 0.032* 12/11/2009 69 0.900 -1.6 -0.013 -0.012 11/26/2006 66 0.912 -1.5 -0.001 -0.001 11/12/2004 64 0.913 -1.5 Total Hip(Left) 03/03/2023 83 0.688 -2.1 -0.202* -0.007 11/25/2020 80 0.694 -2.0 -0.195* -0.104* 05/09/2015 75 0.799 -1.2 -0.091* 0.003 12/24/2011 71 0.796 -1.2 -0.093* -0.001 12/11/2009 69 0.797 -1.2 -0.092* -0.030* 11/26/2006 66 0.827 -0.9 -0.062* -0.062* 11/12/2004 64 0.889 -0.4 Total Hip(Right) 03/03/2023 83 0.683 -2.1 -0.168* 0.065* 11/25/2020 80 0.618 -2.7 -0.233* -0.145* 05/09/2015 75 0.763 -1.5 -0.089* -0.004 12/24/2011 71 0.767 -1.4 -0.084* -0.025 12/11/2009 69 0.792 -1.2 -0.059* -0.004 11/26/2006 66 0.796 -1.2 -0.055* -0.055* 11/12/2004 64 0.851 -0.7 *Denotes significance at 95% confidence level, LSC for AP Spine = 0.022 g/cm2, LSC for Total Hip = 0.027 g/cm2 Clinical Information Provided by Patient:
== END ==
PROVIDERS: PCP Family Medicine; Visit Provider Physician Assistant
DX: M81.0 Age-related osteoporosis without current pathological fracture (principal); M85.852 Other specified disorders of bone density and structure, left thigh; M85.851 Other specified disorders of bone density and structure, right thigh
CPT/HCPCS: 77080

== ENCOUNTER 2023-11-15 13:08 | Emergency (ER) | payer MEDICARE, SELFPAY ==
--- NOTE | ~2023-11-15 | CT_ITS ---
EXAMINATION: CT brain wo con DATE: 11/15/2023 16:18 INDICATION: Head injury. TECHNIQUE: Computed tomography (CT) of the head was performed without intravenous contrast. The mA wa s adjusted according to patient size. Iterative reconstruction technique was employed. The dose-lengt h product was 605.33 mGy-cm. COMPARISON: Head CT 02/28/2020 FINDINGS: There are scattered areas of low attenuation in the cerebral white matter. There is no intr acranial hemorrhage, acute infarction, or abnormal intracranial mass lesion. There are old lacunar in farcts in the right basal ganglia and left thalamus. The ventricles are normal in size. There is opac ification of the visualized portions of left maxillary sinus with thickening and stenosis of the sinu s wiseman, consistent with chronic sinusitis. The mastoid air cells are normal. The orbits are normal. IMPRESSION: 1. Old lacunar infarcts in the right basal ganglia and left thalamus. 2. Stable extensive nonspecific cerebral white matter disease, which likely represents chronic small vessel ischemic disease. Reviewed, dictated and finalized at location E. ORT TRAFFIC CONTROLLER IMPRESSION: 1. Old lacunar infarcts in the right basal ganglia and left thalamus. 2. Stable extensive nonspecific cerebral white matter disease, which likely rep resents chronic small vessel ischemic disease.
--- NOTE | ~2023-11-15 | XR_ITS ---
EXAMINATION: XR chest 2V DATE: 11/15/2023 16:24 INDICATION: Right posterior rib pain. TECHNIQUE: Frontal and lateral views of the chest were obtained on 3 radiographs. COMPARISON: Chest single view 06/16/2015, lumbar spine CT 09/14/2020 FINDINGS: There is no pneumonia, pleural effusion, pneumothorax. The heart size is normal. There are fractures of right eighth-11th ribs. There is a chronic burst fracture of L1. IMPRESSION: 1. Fractures of right eighth-11th ribs. Reviewed, dictated and finalized at location E. CIPAL MAINTENANCE WORKER
--- NOTE | ~2023-11-15 | XR_ITS ---
EXAMINATION: 1. XR hand LT min 3V 2. XR wrist LT min 3V DATE: 11/15/2023 16:24 INDICATION: Left hand injury. Fall. TECHNIQUE: 3 views of left hand and 3 views of left wrist were obtained. COMPARISON: Left wrist radiograph 05/04/2020 FINDINGS: LEFT WRIST: There is an old healed fracture of distal radius. The distal articular surface demonstrat es 12 degrees dorsal tilt. There is 4 mm positive ulnar variance. There is an old avulsion fracture o f ulnar styloid with nonunion. There is dorsal tilt of lunate. There is moderate osteoarthritis of sc aphoid-capitate joint and lunate-hamate joint. There is severe osteoarthritis of triscaphe joint and moderate osteoarthritis of first carpometacarpal joint. LEFT HAND: There is radial angulation of third distal phalanx with respect to the middle phalanx. No acute fracture. There is severe osteoarthritis of first interphalangeal joint and third and fifth dis sunshine interphalangeal joints and mild to moderate osteoarthritis of all of the other interphalangeal sandra ints. IMPRESSION: 1. No acute fracture. 2. Polyarticular osteoarthritis. Reviewed, dictated and finalized at location E. TION SOCIAL WORKER IMPRESSION: 1. No acute fracture. 2. Polyarticular osteoarthritis.
[2023-11-15 13:33] VITALS: BP 130/74; PULSE 75; RESP 18; TEMP 36.8; O2SAT 98
--- NOTE | 2023-11-15 16:08 | ED.FALL ---
HPI - Fall General Chief Complaint: Fall Stated Complaint: fall, shoulder/back pain Time Seen by Provider: 11/15/23 15:13 History of Present Illness HPI Narrative: 83-year-old female presenting to the emergency department for evaluation after having a ground level fall last night. Patient reports she was walking to the bathroom and possibly got disorientated causing her to have a fall. Patient is unsure she struck her head but denies any loss of consciousness. Patient was complaining of left wrist pain along with some posterior right-sided rib pain. Patient was able to ambulate with her walker with no change. Related Data Home Medications Medication Instructions Recorded Confirmed aspirin 81 mg tablet,delayed 81 mg PO DAILY 12/13/19 10/19/23 release (Adult Low Dose Aspirin) Allergies Allergy/AdvReac Type Severity Reaction Status Date / Time procainamide Allergy Unknown Nausea Verified 11/15/23 15:28 quinidine Allergy Unknown increase Verified 11/15/23 15:28 nervousness tonocard Allergy Mild increased Uncoded 10/13/23 15:21 nervousness Review of Systems Review of Systems: All systems reviewed & are unremarkable except as noted in HPI and below PMFSH Past Medical History Medical History Cerebrovascular accident Old bilateral lacunar infarcts noted on brain CT 02/22/2020. Chronic kidney disease, stage 3 On review of previous labs, her baseline creatinine appears to run between 1.40 and 1.70. She is followed by Dr. Camara. Coronary artery disease With history of angioplasty and stent in 1998. Essential hypertension Fracture of sacrum Hematuria Hyperlipidemia Hypertensive chronic kidney disease with stage 1 through stage 4 chronic kidney disease, or unspecified chronic kidney disease Hypertensive heart and CKD L1 vertebral fracture Lumbar burst fracture Nephrolithiasis Vitamin D deficiency Surgical History Surgical History History of appendectomy History of cholecystectomy History of heart artery stent History of hysterectomy History of lithotripsy Family History Family History Other Cerebrovascular accident Family history of arthritis Family history of cardiovascular disease Social History Social History (Updated 10/13/23 @ 15:45 by Emelina Van MA) Social History: The patient lives in a penitentiary apartment at [facility]. She is independent of all activities of daily living. She has 3 grown children. 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 No alcohol or drug abuse. She designates her daughter, Fransisca Meadows, as her surrogate decision maker and she wishes to be a full code. Years smoked: 2 Smoking status: Former smoker Tobacco type: cigarettes Second hand tobacco smoke exposure: No Smoking end date: 10/25/1955 Alcohol intake: never Substance use: never Substance use type: does not use Do You Feel Safe in your Home?: Yes Lack of Transportation: No Lack of Food: Never True Current Housing: I Have Housing Concerned About Future Housing: No Difficulty Paying Gas/Electric Bills: No Difficulty Paying for Meds: No Currently Unemployed: No Education: High School Diploma/GED Difficulty w/ Childcare or Family Care: No Living arrangements: with family Occupation/Education: retired Gender identity (if verbalized by the patient): Female Sexual Orientation (if Verbalized by the Patient): Straight or Heterosexual Spiritual care concerns: No Agree to blood products: Yes Exam Narrative: APPEARANCE: Well appearing, no pain, no distress, well-nourished. HEAD: normocephalic, atraumatic. EYES: PERRLA/EOMI, conjunctivae clear. NOSE: Normal no drainage THROAT: Pharynx clear, no exudate. NECK: Supple. No adenopathy,
== END 2023-11-15 18:40 | disposition home or self-care (01) ==
PROVIDERS: Emergency Provider Emergency Medicine; PCP Family Medicine
DX: S22.41XA Multiple fractures of ribs, right side, initial encounter for closed fracture (principal); S60.222A Contusion of left hand, initial encounter; I12.9 Hypertensive chronic kidney disease with stage 1 through stage 4 chronic kidney disease, or unspecified chronic kidney disease; N18.30 Chronic kidney disease, stage 3 unspecified; I25.10 Atherosclerotic heart disease of native coronary artery without angina pectoris; E78.5 Hyperlipidemia, unspecified; E55.9 Vitamin D deficiency, unspecified; Z95.5 Presence of coronary angioplasty implant and graft; Z86.73 Personal history of transient ischemic attack (TIA), and cerebral infarction without residual deficits; Z87.442 Personal history of urinary calculi; Z87.891 Personal history of nicotine dependence; Z90.49 Acquired absence of other specified parts of digestive tract; Z90.710 Acquired absence of both cervix and uterus; W18.39XA Other fall on same level, initial encounter; R90.82 White matter disease, unspecified; M19.042 Primary osteoarthritis, left hand; M19.032 Primary osteoarthritis, left wrist
CPT/HCPCS: 70450; 71046; 73110; 73130; 99284

== ENCOUNTER 2023-11-19 13:43 | Inpatient (IN) | payer MEDICARE, SELFPAY ==
--- NOTE | ~2023-11-19 | XR_ITS ---
XR chest 1V 11/19/2023 14:41 Indication: Weakness Procedure: AP view of the chest Comparison: Comparison to multiple prior studies sequentially, with oldest reviewed study dated 11/21. Findings: Cardiomegaly. No focal air space disease, pulmonary edema, pleural effusion or suspected pn eumothorax. Shallow inspiration with crowding of the pulmonary vasculature. No acute osseous abnormal ity. Impression: 1: No acute cardiopulmonary disease. Reviewed, dictated and finalized at location B. R REELER Impression: 1: No acute cardiopulmonary disease.
--- NOTE | ~2023-11-19 | CT_ITS ---
EXAMINATION: CT cervical spine wo con DATE: 11/19/2023 14:38 INDICATION: Trauma. Neck pain. TECHNIQUE: Computed tomography (CT) of the cervical spine was performed without intravenous contrast. The dose-length product was 117 mGy-cm. Automated exposure control and iterative reconstruction technique were employed. COMPARISON: None FINDINGS: There is significant loss of disc height at all cervical spine levels. There is degenerativ e anterolisthesis at C3-4, C4-5 and T1 to. There is mild superior endplate compression deformity of T 2 which appears chronic. There is advanced multilevel uncinate and facet hypertrophy. There is levosc oliosis. Odontoid process is normal. Craniovertebral junction is normal. No evidence for perched face t. Lung apices are normal. No significant paraspinal soft tissue abnormality. There is carotid athero sclerosis. IMPRESSION: 1. No acute abnormality of the cervical spine. 2: Severe cervical spondylosis. Reviewed, dictated and finalized at location B. UM CLEANER REPAIRER
--- NOTE | ~2023-11-19 | CT_ITS ---
EXAMINATION: CT chest abdomen pelvis wo con DATE: 11/26/2023 14:59 INDICATION: Persistent leukocytosis. High procalcitonin level TECHNIQUE: Computed tomography (CT) of the chest, abdomen, and pelvis was performed without intraveno us contrast. Automated exposure control and iterative reconstruction technique were employed. The dos e-length product was 472.98 mGy-cm. COMPARISON: CT abdomen dated 11/10/2006 FINDINGS: CHEST CT: Small right pleural effusion with adjacent dependent passive atelectasis in the right lower lobe. Mil d biapical pleural-parenchymal scarring. Cluster of <4 mm nodules with tree-in-bud pattern in the pos terior lingula. Couple additional nodules in the left lower lobe the larger measuring 6 mm. Calcite l eft lower lobe nodule consistent with old granulomatous disease. There is additional compressive atel ectasis in the medial left lower lobe along side a moderate to large sliding-type hiatal hernia. No p ulmonary edema or left-sided pleural effusion. Mild cardiomegaly. Extensive atherosclerotic coronary artery calcific lesion. There is also mitral annular calcific location. Thoracic aorta is normal in c aliber. No pathologically enlarged thoracic lymphadenopathy. Multiple displaced and nondisplaced post erior right rib fractures couple of which appear old and several of which appear relatively recent. M oderate to severe thoracic spondylosis. ABDOMEN/PELVIS CT: Small amount of motion artifact likely related to bowel activity in the abdomen and pelvis. Cholecyst ectomy clips the gallbladder fossa. Single hepatic calcification and several splenic calcific lesions consistent with old granulomatous disease. Pancreas and bilateral adrenal glands are normal. 10 mm s tone at a lower pole calyx of the left kidney. Bilateral renal cysts including an 8 mm proteinaceous/ hyperdense cyst at the upper pole the right kidney. There is a 2.5 cm partially exophytic lesion at t he lower pole the left kidney most likely an additional cyst but with slightly greater than simple fl uid attenuation which remains indeterminate. Moderate to large amount of stool scattered throughout t he colon. No bowel obstruction. Bladder is normal. The uterus is not identified and has likely been s urgically resected. No free intraperitoneal gas or fluid. No pathologically enlarged abdominal or pel gerry lymphadenopathy. L1 burst fracture with 60% anterior vertebral body height loss and 7 mm retropul clinton resulting in moderate central canal stenosis at this level. Moderate lumbar spondylosis with 5 m m anterolisthesis L4 on L5. Old healed fracture deformities at the left superior and inferior pubic r ami and along the anterolateral margin of the left sacral ala. IMPRESSION: 1. Small right pleural effusion with adjacent compressive atelectasis in the right lower lobe. This m ay be related to several recent-appearing posterior right rib fractures. 2. A few indeterminate small pulmonary nodules the largest measuring 6 mm in the right lower lobe. Re commend 6-12 month follow-up low-dose noncontrast chest CT. 3. Moderate to large sliding-type hiatal hernia. 4. Mild cardiomegaly. 5. Indeterminate 2.5 similar exophytic left renal lesion with slightly greater than simple fluid atte nuation most likely a renal cyst although renal cell carcinoma cannot be excluded. Given patient age, this would affect clinical management could consider further evaluation with either pre and postcont rast MRI or CT. 6. 10 mm nonobstructing left renal stone. Reviewed, dictated and finalized at location A. MS CUSTOMER SERVICE REPRESENTATIVE IMPRESSION: 1. Small right pleural effusion with adjacent compressive atelectasis in the ri ght lower lobe. This may be related to several recent-appearing posterior right rib fractures. 2. A few indeterminate small pulmonary nodules the largest measuri
--- NOTE | ~2023-11-19 | CT_ITS ---
EXAMINATION: CT brain wo con DATE: 11/19/2023 14:38 INDICATION: Trauma TECHNIQUE: Computed tomography (CT) of the head was performed without intravenous contrast. The dose- length product was 605.33 mGy-cm. Automated exposure control and iterative reconstruction technique w ere employed. COMPARISON: CT dated 11/15/2023 FINDINGS: Generalized atrophy. There are scattered moderate periventricular and subcortical white mat ter changes, most likely related to small vessel ischemic disease (microangiopathy). No ventriculomeg pinky or midline shift. There is intracranial atherosclerosis. Chronic right lacunar and left thalamic infarctions. Basilar cisterns are patent. There is mucosal thickening of the left maxillary sinus. Ma stoids are pneumatized. IMPRESSION: 1. No acute intracranial abnormality. 2: Chronic age-related findings. 3: Left maxillary sinusitis. 4: Chronic right lacunar and left thalamic infarctions. Reviewed, dictated and finalized at location B. RCIL CORE TRANSFORMER ASSEMBLER
[2023-11-19 13:46] VITALS: BP 165/85; PULSE 79; RESP 16; TEMP 36.6; O2SAT 98
--- NOTE | 2023-11-19 13:53 | ED.WEAKNESS ---
HPI - Weakness General Chief complaint: Weakness Stated complaint: AMS Time Seen by Provider: 11/19/23 13:53 Source: family and EMS Mode of arrival: EMS Limitations: altered mental status History of Present Illness HPI Narrative: Patient is 83 years old white female lives alone, came to the emergency room today with her daughter by ambulance because her daughter is telling me that patient is confused, altered, does not know how to dial for phone call, does not know how to answer phone which is unusual started after falling 4 days ago. The daughter reported that patient run into a table at home and fell came to our emergency room 4 days ago and x-ray of the wrist, hand, chest x-ray and CT head showed fracture of right 8th-11 ribs The daughter is telling me that patient used to be awake, alert oriented x4 before the fall and currently does not know except her name. Related Data Home Medications Medication Instructions Recorded Confirmed aspirin 81 mg tablet,delayed 81 mg PO DAILY 12/13/19 10/19/23 release (Adult Low Dose Aspirin) Allergies Allergy/AdvReac Type Severity Reaction Status Date / Time procainamide Allergy Unknown Nausea Verified 11/15/23 15:28 quinidine Allergy Unknown increase Verified 11/15/23 15:28 nervousness tonocard Allergy Mild increased Uncoded 10/13/23 15:21 nervousness Review of Systems Review of Systems: ROS unobtainable: Yes unobtainable due to mental status PMFSH Past Medical History Medical History Cerebrovascular accident Old bilateral lacunar infarcts noted on brain CT 02/22/2020. Chronic kidney disease, stage 3 On review of previous labs, her baseline creatinine appears to run between 1.40 and 1.70. She is followed by Dr. Camara. Coronary artery disease With history of angioplasty and stent in 1998. Essential hypertension Fracture of sacrum Hematuria Hyperlipidemia Hypertensive chronic kidney disease with stage 1 through stage 4 chronic kidney disease, or unspecified chronic kidney disease Hypertensive heart and CKD L1 vertebral fracture Lumbar burst fracture Nephrolithiasis Vitamin D deficiency Surgical History Surgical History History of appendectomy History of cholecystectomy History of heart artery stent History of hysterectomy History of lithotripsy Family History Family History Other Cerebrovascular accident Family history of arthritis Family history of cardiovascular disease Social History Social History Social History: The patient lives in a usp apartment at [facility]. She is independent of all activities of daily living. She has 3 grown children. 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 No alcohol or drug abuse. She designates her daughter, Fransisca Meadows, as her surrogate decision maker and she wishes to be a full code. Years smoked: 2 Smoking status: Former smoker Tobacco type: cigarettes Second hand tobacco smoke exposure: No Smoking end date: 10/25/1955 Alcohol intake: never Substance use: never Substance use type: does not use Do You Feel Safe in your Home?: Yes Lack of Transportation: No Lack of Food: Never True Current Housing: I Have Housing Concerned About Future Housing: No Difficulty Paying Gas/Electric Bills: No Difficulty Paying for Meds: No Currently Unemployed: No Education: High School Diploma/GED Difficulty w/ Childcare or Family Care: No Living arrangements: with family Occupation/Education: retired Gender identity (if verbalized by the patient): Female Sexual Orientation (if Verbalized by the Patient): Straight or Heterosexual Spiritual care concerns: No Agree to blood products: Yes Exam Narrative:
--- NOTE | 2023-11-19 13:54 | ECG_ITS ---
Measurements Intervals Gypsy Rate: 78 P: 16 MI: 144 QRS: 9 QRSD: 90 T: 3 QT: 387 QTc: 442 Interpretive Statements SINUS RHYTHM CONSIDER INFERIOR INFARCT, AGE INDETERMINATE NONSPECIFIC ST & T-WAVE ABNORMALITY- ANTEROLAT/HIGH LAT LEADS BASELINE ARTIFACT- II, III, AVR, AVL, AVF, V1-V3 ABNORMAL ECG COMPARED TO ECG 02/22/2020 15:02:43 ST-T WAVE ABNORMALITY NOW PRESENT Electronically Signed On 11-19-2023 15:26:07 NETWORK PROJECT MANAGER by Raciel Jamison D.O.
[2023-11-19] MEDS: SODIUM CHLORIDE 0.9% IV 1,000 ML 100 ML IV CONT (14:08)
[2023-11-19 14:34] LABS: Appearance Urine Cloudy (Clear); Bacteria Urine 4+ /hpf; Bilirubin Urine Negative (Negative); Blood Urine Negative (Negative); Color Urine Yellow (Yellow); Glucose Urine UA Negative (Negative); Ketones Urine Negative (Negative); Leukocyte Esterase Ur 1+ LEU/UL (Negative); Nitrate Urine Negative (Negative); Non Pathogenic Casts 0-2; Protein Urine 1+ mg/dL (Negative); RBC Urine 0-2 /hpf (0-2); Specific Grav Ur 1.013 (1.001-1.035); Squamous Epithelial Cell Urine None seen /hpf (Few); WBC Urine 21-50 /hpf; pH Urine 6.5 (5.0-9.0)
[2023-11-19 14:37] LABS: Basophils Percent Auto 0.3 % (0.2-1.2); Eosinophils Absolute Auto 0.1 K/mm3 (0-0.3); Eosinophils Percent Auto 1.4 % (0-4.4); Hematocrit 33.9 % (37.0-47.0); Hemoglobin 11.7 g/dL (12.0-15.0); Immature Granulocyte Absolute 0.03 K/mm3 (0.00-0.031); Immature Granulocyte Percent A 0.4 % (0-0.5); Lymphocytes Absolute Auto 1.18 K/mm3 (0.9-3.2); Lymphocytes Percent Auto 15.2 % (18.3-44.2); Mean Corpuscular HGB Conc 34.5 g/dl (32-36); Mean Corpuscular Hemoglobin 30.8 pg (26-34); Mean Corpuscular Volume 89.2 fl (80-100); Monocytes Absolute Auto 0.6 K/mm3 (0.1-0.6); Monocytes Percent Auto 7.6 % (2.6-8.5); Neutrophils Absolute Auto 5.8 K/mm3 (1.3-6.7); Neutrophils Percent Auto 75.1 % (45.5-73.1); Platelet Count Result 190 k/mm3 (150-375); Red Cell Distribution Width 13.3 % (11.5-14.5); White Blood Count 7.8 K/mm3 (4.5-10.0)
[2023-11-19 14:42] LABS: Add Urine Microscopic? YES
[2023-11-19 14:47] LABS: Alanine Aminotransferase 12 U/L (6-35); Albumin Level 3.8 g/dL (3.5-5.1); Alkaline Phosphatase 75 U/L (38-126); Anion Gap 9 mmol/L (8-16); Aspartate Amino Transferase 22 U/L (14-36); Bilirubin,Total 0.8 mg/dL (0.2-1.3); Blood Urea Nitrogen 24 mg/dL (7-17); Calcium 9.1 mg/dL (8.4-10.2); Carbon Dioxide 27 mmol/L (22-30); Chloride 102 mmol/L (98-107); Creatine Kinase 58 U/L (30-135); Estimated CRCL calculation 16 ml/min; Estimated Glomerular Filt Rate 29; Glucose 107 mg/dL (65-110); Sodium 138 mmol/L (137-145)
[2023-11-19 14:52] LABS: Prothrombin Time 14.1 Seconds (11.1-14.7)
[2023-11-19 14:53] LABS: Partial Thromboplastin Time 36.5 SECONDS (22.3-36.8)
[2023-11-19 14:59] LABS: Troponin I < 0.012 ng/mL (0.000-0.034)
[2023-11-19 15:18] LABS: Influenza A QL RT-PCR Negative (Negative); Influenza B QL RT-PCR Negative (Negative); RSV RNA, RT-PCR Negative (Negative); SARS-CoV-2 RNA PCR Negative (Negative)
[2023-11-19] MEDS: POTASSIUM CHLORIDE 20 MEQ PACKET (FOR LIQUID) 40 MEQ PO (16:24)
[2023-11-19] MEDS: ONDANSETRON INJ 4 MG/2 ML VIAL IV PUSH (16:50)
[2023-11-19] MEDS: MORPHINE SULFATE (*CRX) 2 MG/ML INJ IV PUSH (16:54)
[2023-11-19 16:59] VITALS: BP 138/79; PULSE 73; RESP 18; O2SAT 98
--- NOTE | 2023-11-19 17:01 | PM.IMHP ---
H&P: HPI History of Present Illness Date/Time: 11/19/23 17:45 Chief Complaint: Weakness and confusion. Narrative: This is an 83-year-old female with history of stroke, coronary artery disease with history of stent, hypertension, chronic kidney disease, kidney stones, and gastroesophageal reflux who presented to the emergency department via EMS from home for evaluation of weakness and confusion. The patient is able to provide some history however her daughter provides additional information as the patient is a bit confused. The patient had a fall on Wednesday and was seen in the emergency department where she was found to have rib fractures. She was discharged home and she has not been doing well since that time. Daughter reports that she has not really gotten out of bed and has not eaten much. She was prescribed Tylenol with codeine though she has only been taking Tylenol and Tylenol p.m. for her symptoms. Daughter is concerned about the weakness but she also noticed that the patient seemed confused today, for example she forgot how to dial her phone which is unusual for her as she is alert and oriented x4 at baseline. On arrival to the ED she was afebrile with stable vital signs. Potassium was low at 3.0 but the remainder of her labs were consistent with her baseline. Urine was positive for 1+ leukocyte esterase, 21 to 50 wbc's, and 4+ bacteria. She tested negative for RSV, influenza, and COVID. Brain CT showed no acute findings but did note left maxillary sinusitis. Cervical spine CT was negative for acute abnormality but showed severe cervical spondylosis. Chest x-ray showed no acute cardiopulmonary disease but it did show carotid pulmonary vasculature due to shallow inspiration. She was given a dose of Rocephin for UTI and 40 mg KCL for her potassium and she is being admitted in this setting for close monitoring and further evaluation. At the time my evaluation she reports that she is feeling better and she does not have any specific complaints. She denies fever, chills, sweats, vertigo, facial droop, difficulty speaking, difficulty swallowing, focal weakness, paresthesias, chest pain, shortness a breath, cough, nausea, vomiting, diarrhea, and dysuria. Review of Systems Review of Systems: Twelve systems were reviewed and are negative except for as per HPI. [facility] Past Medical History Medical History Cerebrovascular accident Old bilateral lacunar infarcts noted on brain CT 02/22/2020. Chronic kidney disease, stage 3 On review of previous labs, her baseline creatinine appears to run between 1.40 and 1.70. She is followed by Dr. Camara. Coronary artery disease With history of angioplasty and stent in 1998. Essential hypertension Hyperlipidemia Nephrolithiasis Vitamin D deficiency Surgical History Surgical History History of appendectomy History of cholecystectomy History of heart artery stent History of hysterectomy History of lithotripsy Family History Family History Mother Cerebrovascular accident Family history of arthritis Family history of cardiovascular disease Father Family history of arthritis Family history of cardiovascular disease Social History Social History Social History: Surrogate medical decision maker: Fransisca Meadows, daughter. Code status: Full code. Years smoked: 2 Smoking status: Former smoker Tobacco type: cigarettes Second hand tobacco smoke exposure: No Smoking end date: 10/25/1955 Alcohol intake: never Substance use: never Substance use type: does not use Do You Feel Safe in your Home?: Yes Lack of Transportation: No Lack of Food: Never True Current Housing: I Have Housing Concerned About Future Housing: No Difficulty Paying Gas/Electric Marcin
--- NOTE | 2023-11-19 17:08 | PC.NURSE ---
1703-REPORT FOR ROOM 252 CALLED TO ALECIA MONTERROSO.
[2023-11-19 17:30] VITALS: BP 150/77; PULSE 74; RESP 18; TEMP 36.9; O2SAT 95
--- NOTE | 2023-11-19 17:34 | ADMGEN ---
This patient, Vanesa New, was admitted to Medical Room 252-01. Patient/family oriented to hospital policies and general routines including ID bracelet, bed and alarms, visiting hours, pain management, procedures, bathroom and other care routines, personal items, smoking policy, room service/diet, and visiting hours. Information on how to activate the Rapid Response Team has been discussed. Patient/Family are encouraged to report perceived risks to care and to ask questions if they do not understand what they are told or what they should do.
[2023-11-19 17:39] VITALS: BMI 24.4
[2023-11-19 17:52] VITALS: BMI 24.4
[2023-11-19 20:00] VITALS: PULSE 72
[2023-11-19 20:28] VITALS: BP 120/67; PULSE 73; RESP 16; TEMP 36.6; O2SAT 98
[2023-11-19] MEDS: SODIUM CHLORIDE 0.9% IV 1,000 ML 75 ML IV CONT (23:00)
[2023-11-20] VITALS (9 sets, daily range): BP systolic 138–152; BP diastolic 65–80; PULSE 73–78; RESP 16–20; TEMP 36.4–36.8; O2SAT 97–98
[2023-11-20] MEDS: ATORVASTATIN 20 MG TABLET PO ×2 (00:19→21:35)
[2023-11-20 05:27] LABS: Anion Gap 7 mmol/L (8-16); Blood Urea Nitrogen 23 mg/dL (7-17); Calcium 8.6 mg/dL (8.4-10.2); Carbon Dioxide 26 mmol/L (22-30); Chloride 108 mmol/L (98-107); Estimated CRCL calculation 17 ml/min; Estimated Glomerular Filt Rate 31; Glucose 93 mg/dL (65-110); Magnesium 1.4 mg/dL (1.6-2.3); Potassium 3.2 mmol/L (3.4-5.0); Sodium 141 mmol/L (137-145)
[2023-11-20] MEDS: ACETAMINOPHEN 325 MG TABLET 650 MG PO (06:46)
[2023-11-20] MEDS: buPROPion HCL SR (12 HR) 150 MG TAB PO (11:27)
[2023-11-20] MEDS: ASPIRIN 81 MG ENTERIC TABLET PO (11:27)
[2023-11-20] MEDS: METOPROLOL SUCCINATE EXT REL 100 MG TABCR PO (11:27)
[2023-11-20] MEDS: POTASSIUM CHLORIDE 10 MEQ ER TABLET PO (11:27)
[2023-11-20] MEDS: lisinopriL 10 MG TABLET PO (11:28)
[2023-11-20] MEDS: amLODIPine BESYLATE 5 MG TABLET 10 MG PO (11:28)
[2023-11-20] MEDS: SODIUM CHLORIDE 0.9% IV 1,000 ML 75 ML IV CONT (15:38)
--- NOTE | 2023-11-20 17:19 | PM.IMPN ---
Progress Note: A&P Assessment and Plan (1) Generalized weakness: Code(s): R53.1 - Weakness Status: Acute (2) Chronic kidney disease: Code(s): N18.9 - Chronic kidney disease, unspecified Status: Acute (3) Essential hypertension: Code(s): I10 - Essential (primary) hypertension Status: Acute (4) Hyperlipidemia: Code(s): E78.5 - Hyperlipidemia, unspecified Status: Acute (5) Coronary artery disease: Code(s): I25.10 - Atherosclerotic heart disease of [place] coronary artery without angina pectoris Status: Acute (6) Altered mental status: Code(s): R41.82 - Altered mental status, unspecified Status: Acute Plan 83-year-old female who lives alone and is usually independent with family nearby with a history of CVA, CAD with history of stents, hypertension, hypertension, CKD, kidney stones, GERD presents with altered mental status and weakness. The patient was seen on WednesdayNovember 15 after she had a fall at home and was found to have rib fractures. She was discharged and apparently was not eating much and reported to be dehydrated. She then became confused on the day of admission and she is usually independent and in 0 x 4. She was prescribed Tylenol with codeine and also had Tylenol p.m. at home. In the [facility] she was found to have hypokalemia and a UTI. Brain CT did not demonstrate any acute abnormalities. Admitted on 11/20/2023 The patient is nearly back to her baseline. History does not sound like the Tylenol with codeine affected her mental status, the family had even stop that and she continued to become confused over days. More likely this was due to the UTI. Nonetheless the son and patient understand that we should try to get by without Tylenol p.m. and Tylenol with codeine as they are big contributors to altered mental status in the elderly. She is having good pain control with regular Tylenol so we will continue that and add tramadol p.r.n. if needed for moderate to severe pain. For her UTI we will continue ceftriaxone and follow the urine culture. Replace magnesium and potassium and recheck in the morning. PT OT has been ordered and we will appreciate their recommendations. The patient can be reluctant but so far she and the son agree that we would adhere to SNF recommendations or home with home health. Her CKD is mostly stable. FEN: Discontinue IV fluids. Replace magnesium and potassium GI prophylaxis: None indicated DVT prophylaxis: Currently has SCDs, consider Lovenox if she is not mobilizing in the morning. Lines: Peripheral IV Code Status: Full code Dispo: Stable, PT OT consulted. Subjective Date/time seen: 11/20/23 17:19 Interval history: Son Lennox is present in room. The patient reports feeling great and is not confused. The son agree she is not confused. The patient denies any pain at the moment but admits if she moves around there is some pain. She has only received Tylenol since admission and has been quite well controlled. Review of Systems Review of Systems: All systems reviewed & are unremarkable except as noted in HPI and below (Subjective) Exam Const: General: comfortable and no acute distress Other: A&O x3, appears slightly lethargic. Eyes: Pupils: Equal, round and reactive pupils present Neck: Neck: supple Resp: Effort & Inspection: normal respiratory effort Auscultation: clear to auscultation bilaterally Cardio: Rate: regular rate Rhythm: regular rhythm Heart sounds: no gallops, no murmurs and no rubs GI: GI Palp: Yes Soft to palpation and No Tenderness to palpation present (GI) Extrem: General: no edema Objective Data Vital Signs Vital Signs: Vital Signs - 24 hr 11/19/23 17:30 11/19/23 18:00 11/19/23 20:28 Temperature 98.4 F 97.9 F Pulse Rate 74 73 Respiratory Rate 18 16 Blood Pressure 150/77 H 120/67 Pulse Oximetry 95 98 Oxygen Delivery Room Air
[2023-11-20] MEDS: POTASSIUM CHLORIDE 20 MEQ ER TABLET PO (21:34)
[2023-11-20] MEDS: MAGNESIUM SULF 2 GM/WATER 50ML 2 GM/50 ML BAG IVPB (21:35)
[2023-11-20] MEDS: traMADol HCL (*CRX) 25 MG TABLET PO (21:40)
[2023-11-21] VITALS (10 sets, daily range): BP systolic 143–152; BP diastolic 70–73; PULSE 72–94; RESP 14–18; TEMP 36.8–37.3; O2SAT 94–98
[2023-11-21 05:54] LABS: Basophils Percent Auto 0.3 % (0.2-1.2); Eosinophils Absolute Auto 0.2 K/mm3 (0-0.3); Eosinophils Percent Auto 1.7 % (0-4.4); Hematocrit 35.6 % (37.0-47.0); Hemoglobin 12.1 g/dL (12.0-15.0); Immature Granulocyte Absolute 0.07 K/mm3 (0.00-0.031); Immature Granulocyte Percent A 0.7 % (0-0.5); Lymphocytes Absolute Auto 0.81 K/mm3 (0.9-3.2); Lymphocytes Percent Auto 8.2 % (18.3-44.2); Mean Corpuscular Hemoglobin 30.4 pg (26-34); Mean Corpuscular Volume 89.4 fl (80-100); Mean Platelet Volume 8.9 fl (7.4-10.4); Monocytes Absolute Auto 0.6 K/mm3 (0.1-0.6); Monocytes Percent Auto 5.6 % (2.6-8.5); Neutrophils Absolute Auto 8.3 K/mm3 (1.3-6.7); Neutrophils Percent Auto 83.5 % (45.5-73.1); Platelet Count Result 209 k/mm3 (150-375); Red Blood Count 3.98 M/mm3 (4.2-5.4); Red Cell Distribution Width 13.2 % (11.5-14.5); White Blood Count 9.9 K/mm3 (4.5-10.0)
[2023-11-21 05:58] LABS: Anion Gap 11 mmol/L (8-16); Blood Urea Nitrogen 20 mg/dL (7-17); Calcium 8.9 mg/dL (8.4-10.2); Carbon Dioxide 23 mmol/L (22-30); Chloride 108 mmol/L (98-107); Estimated CRCL calculation 20 ml/min; Estimated Glomerular Filt Rate 39; Glucose 97 mg/dL (65-110); Potassium 3.7 mmol/L (3.4-5.0); Sodium 142 mmol/L (137-145)
--- NOTE | 2023-11-21 09:46 | PM.IMPN ---
Progress Note: A&P Assessment and Plan (1) Generalized weakness: Code(s): R53.1 - Weakness Status: Acute (2) Chronic kidney disease: Code(s): N18.9 - Chronic kidney disease, unspecified Status: Acute (3) Essential hypertension: Code(s): I10 - Essential (primary) hypertension Status: Acute (4) Hyperlipidemia: Code(s): E78.5 - Hyperlipidemia, unspecified Status: Acute (5) Coronary artery disease: Code(s): I25.10 - Atherosclerotic heart disease of [place] coronary artery without angina pectoris Status: Acute (6) Altered mental status: Code(s): R41.82 - Altered mental status, unspecified Status: Acute Plan 83-year-old female who lives alone and is usually independent with family nearby with a history of CVA, CAD with history of stents, hypertension, hypertension, CKD, kidney stones, GERD presents with altered mental status and weakness. The patient was seen on WednesdayNovember 15 after she had a fall at home and was found to have rib fractures. She was discharged and apparently was not eating much and reported to be dehydrated. She then became confused on the day of admission and she is usually independent and in 0 x 4. She was prescribed Tylenol with codeine and also had Tylenol p.m. at home. In the [facility] she was found to have hypokalemia and a UTI. Brain CT did not demonstrate any acute abnormalities. Admitted on 11/20/2023 The patient is nearly back to her baseline. History does not sound like the Tylenol with codeine affected her mental status, the family had even stop that and she continued to become confused over days. More likely this was due to the UTI. Nonetheless the son and patient understand that we should try to get by without Tylenol p.m. and Tylenol with codeine as they are big contributors to altered mental status in the elderly. She is having good pain control with regular Tylenol so we will continue that and add tramadol p.r.n. if needed for moderate to severe pain. For her UTI we will continue ceftriaxone and follow the urine culture. Replace magnesium and potassium and recheck in the morning. PT OT has been ordered and we will appreciate their recommendations. The patient can be reluctant but so far she and the son agree that we would adhere to SNF recommendations or home with home health. Her CKD is mostly stable. On 11/21 patient appears to be home sick and cannot elicit any specific complaints otherwise. Physical therapy has recommended she return with home health which she is amenable to so we will continue with that. Hopefully home tomorrow. SOLOMON is improving. Urine culture preliminary showing E coli. Continue ceftriaxone. Magnesium and potassium now stable and within normal limits. 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 Encourage ambulation. Lines: Peripheral IV Code Status: Full code Dispo: Stable, PT OT consulted, hopefully home on Wednesday 11/22 Subjective Date/time seen: 11/21/23 09:46 Interval history: No acute overnight events. She reports she does not want to be here and does not feel well. Upon comprehensive questioning no symptoms can be elicited. She appears to just be home sick. Yesterday, the son Lennox mention the patient would probably refuse to discharge to SNF. At this rate, we will appreciate Physical therapy recommendations and advise are best suggestion but ultimately respect to the decisions of this competent and pleasant elderly female. Review of Systems Review of Systems: All systems reviewed & are unremarkable except as noted in HPI and below (Subjective) Exam Const: General: comfortable and no acute distress Other: A&O x3 Resp: Effort & Inspection: normal respiratory effort Auscultation: clear to auscultation bilaterally Cardio: Rate: regular rate Rhythm: r
[2023-11-21] MEDS: amLODIPine BESYLATE 5 MG TABLET 10 MG PO (11:14)
[2023-11-21] MEDS: lisinopriL 10 MG TABLET PO (11:14)
[2023-11-21] MEDS: POTASSIUM CHLORIDE 10 MEQ ER TABLET PO (11:14)
[2023-11-21] MEDS: buPROPion HCL SR (12 HR) 150 MG TAB PO (11:15)
[2023-11-21] MEDS: METOPROLOL SUCCINATE EXT REL 100 MG TABCR PO (11:15)
[2023-11-21] MEDS: ASPIRIN 81 MG ENTERIC TABLET PO (11:15)
[2023-11-21] MEDS: traMADol HCL (*CRX) 25 MG TABLET PO (11:56)
[2023-11-21] MEDS: ACETAMINOPHEN 325 MG TABLET 650 MG PO (18:59)
[2023-11-21] MEDS: ATORVASTATIN 20 MG TABLET PO (20:20)
[2023-11-22] VITALS (10 sets, daily range): BP systolic 128–161; BP diastolic 69–76; PULSE 70–92; RESP 16–18; TEMP 36.6–37.2; O2SAT 97–99
[2023-11-22 06:08] LABS: Hemoglobin 12.2 g/dL (12.0-15.0); Mean Corpuscular HGB Conc 33.9 g/dl (32-36); Mean Corpuscular Hemoglobin 30.4 pg (26-34); Mean Corpuscular Volume 89.8 fl (80-100); Mean Platelet Volume 9.2 fl (7.4-10.4); Platelet Count Result 221 k/mm3 (150-375); Red Blood Count 4.01 M/mm3 (4.2-5.4); White Blood Count 10.4 K/mm3 (4.5-10.0)
[2023-11-22 06:48] LABS: Anion Gap 12 mmol/L (8-16); Blood Urea Nitrogen 20 mg/dL (7-17); Calcium 9.2 mg/dL (8.4-10.2); Carbon Dioxide 24 mmol/L (22-30); Chloride 104 mmol/L (98-107); Estimated CRCL calculation 19 ml/min; Estimated Glomerular Filt Rate 36; Glucose 99 mg/dL (65-110); Potassium 3.1 mmol/L (3.4-5.0); Sodium 140 mmol/L (137-145)
[2023-11-22] MEDS: POTASSIUM CHLORIDE 10 MEQ ER TABLET PO (10:06)
[2023-11-22] MEDS: METOPROLOL SUCCINATE EXT REL 100 MG TABCR PO (10:06)
[2023-11-22] MEDS: amLODIPine BESYLATE 5 MG TABLET 10 MG PO (10:06)
[2023-11-22] MEDS: buPROPion HCL SR (12 HR) 150 MG TAB PO (10:06)
[2023-11-22] MEDS: ASPIRIN 81 MG ENTERIC TABLET PO (10:06)
[2023-11-22] MEDS: lisinopriL 10 MG TABLET PO (10:06)
[2023-11-22 11:40] LABS: Basophils Percent Auto 0.3 % (0.2-1.2); Eosinophils Absolute Auto 0.1 K/mm3 (0-0.3); Eosinophils Percent Auto 0.5 % (0-4.4); Hematocrit 36.7 % (37.0-47.0); Hemoglobin 12.2 g/dL (12.0-15.0); Immature Granulocyte Absolute 0.06 K/mm3 (0.00-0.031); Immature Granulocyte Percent A 0.6 % (0-0.5); Lymphocytes Absolute Auto 0.99 K/mm3 (0.9-3.2); Lymphocytes Percent Auto 9.5 % (18.3-44.2); Mean Corpuscular HGB Conc 33.2 g/dl (32-36); Mean Corpuscular Hemoglobin 30.5 pg (26-34); Mean Corpuscular Volume 91.8 fl (80-100); Mean Platelet Volume 9.8 fl (7.4-10.4); Monocytes Absolute Auto 0.7 K/mm3 (0.1-0.6); Monocytes Percent Auto 6.3 % (2.6-8.5); Neutrophils Absolute Auto 8.6 K/mm3 (1.3-6.7); Neutrophils Percent Auto 82.8 % (45.5-73.1); Platelet Count Result 211 k/mm3 (150-375); Red Cell Distribution Width 13.5 % (11.5-14.5); White Blood Count 10.4 K/mm3 (4.5-10.0)
[2023-11-22 11:43] LABS: Procalcitonin 0.5 ng/mL
[2023-11-22] MEDS: POTASSIUM CHLORIDE 20 MEQ ER TABLET 40 MEQ PO (12:24)
[2023-11-22 12:48] LABS: Basophils Percent Auto 0.2 % (0.2-1.2); Eosinophils Percent Auto 0.2 % (0-4.4); Hematocrit 34.5 % (37.0-47.0); Hemoglobin 11.7 g/dL (12.0-15.0); Immature Granulocyte Percent A 0.7 % (0-0.5); Lymphocytes Absolute Auto 0.87 K/mm3 (0.9-3.2); Lymphocytes Percent Auto 5.9 % (18.3-44.2); Mean Corpuscular HGB Conc 33.9 g/dl (32-36); Mean Corpuscular Hemoglobin 30.5 pg (26-34); Mean Corpuscular Volume 90.1 fl (80-100); Mean Platelet Volume 9.2 fl (7.4-10.4); Monocytes Absolute Auto 0.9 K/mm3 (0.1-0.6); Monocytes Percent Auto 6.2 % (2.6-8.5); Neutrophils Absolute Auto 12.7 K/mm3 (1.3-6.7); Neutrophils Percent Auto 86.8 % (45.5-73.1); Platelet Count Result 219 k/mm3 (150-375); Red Blood Count 3.83 M/mm3 (4.2-5.4); Red Cell Distribution Width 13.3 % (11.5-14.5); White Blood Count 14.7 K/mm3 (4.5-10.0)
--- NOTE | 2023-11-22 14:37 | PM.IMPN ---
Progress Note: A&P Assessment and Plan (1) Generalized weakness: Code(s): R53.1 - Weakness Status: Acute (2) Chronic kidney disease: Code(s): N18.9 - Chronic kidney disease, unspecified Status: Acute (3) Essential hypertension: Code(s): I10 - Essential (primary) hypertension Status: Acute (4) Hyperlipidemia: Code(s): E78.5 - Hyperlipidemia, unspecified Status: Acute (5) Coronary artery disease: Code(s): I25.10 - Atherosclerotic heart disease of [place] coronary artery without angina pectoris Status: Acute (6) Altered mental status: Code(s): R41.82 - Altered mental status, unspecified Status: Acute Plan 83-year-old female who lives alone and is usually independent with family nearby with a history of CVA, CAD with history of stents, hypertension, hypertension, CKD, kidney stones, GERD presents with altered mental status and weakness. The patient was seen on WednesdayNovember 15 after she had a fall at home and was found to have rib fractures. She was discharged and apparently was not eating much and reported to be dehydrated. She then became confused on the day of admission and she is usually independent and in 0 x 4. She was prescribed Tylenol with codeine and also had Tylenol p.m. at home. In the [facility] she was found to have hypokalemia and a UTI. Brain CT did not demonstrate any acute abnormalities. Admitted on 11/20/2023 The patient is nearly back to her baseline. History does not sound like the Tylenol with codeine affected her mental status, the family had even stop that and she continued to become confused over days. More likely this was due to the UTI. Nonetheless the son and patient understand that we should try to get by without Tylenol p.m. and Tylenol with codeine as they are big contributors to altered mental status in the elderly. She is having good pain control with regular Tylenol so we will continue that and add tramadol p.r.n. if needed for moderate to severe pain. For her UTI we will continue ceftriaxone and follow the urine culture. Replace magnesium and potassium and recheck in the morning. PT OT has been ordered and we will appreciate their recommendations. The patient can be reluctant but so far she and the son agree that we would adhere to SNF recommendations or home with home health. Her CKD is mostly stable. On 11/21 patient appears to be home sick and cannot elicit any specific complaints otherwise. Physical therapy has recommended she return with home health which she is amenable to so we will continue with that. Hopefully home tomorrow. SOLOMON is improving. Urine culture preliminary showing E coli. Continue ceftriaxone. Magnesium and potassium now stable and within normal limits. On 11/22 she has hypokalemia. Has been replaced and we will recheck that and the magnesium in the morning. The patient is not able to accurately describe her symptomatology. She reports she does not feel well. The patient has an increasing leukocytosis with a procalcitonin of 0.5. We will increase ceftriaxone to 2 g daily, trend WBC, and at blood cultures. 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 Encourage ambulation. Lines: Peripheral IV Code Status: Full code Dispo: Stable, PT OT consulted (recommended home health) Subjective Date/time seen: 11/22/23 14:37 Interval history: No acute overnight events. Patient cannot elicit complaints Review of Systems Review of Systems: All systems reviewed & are unremarkable except as noted in HPI and below (Subjective) Exam Const: General: comfortable and no acute distress Other: A&O x3 Resp: Effort & Inspection: normal respiratory effort Auscultation: clear to auscultation bilaterally Cardio: Rate: regular rate Rhythm: regular rhythm GI: GI Palp: Yes Soft t
[2023-11-22] MEDS: ATORVASTATIN 20 MG TABLET PO (21:17)
[2023-11-23] VITALS (10 sets, daily range): BP systolic 119–146; BP diastolic 58–78; PULSE 72–95; RESP 16–18; TEMP 36.8–37.6; O2SAT 97–99
[2023-11-23 05:50] LABS: Basophils Percent Auto 0.2 % (0.2-1.2); Eosinophils Percent Auto 0.1 % (0-4.4); Hemoglobin 11.5 g/dL (12.0-15.0); Immature Granulocyte Absolute 0.15 K/mm3 (0.00-0.031); Immature Granulocyte Percent A 1.1 % (0-0.5); Lymphocytes Absolute Auto 0.91 K/mm3 (0.9-3.2); Lymphocytes Percent Auto 6.5 % (18.3-44.2); Mean Corpuscular HGB Conc 34.8 g/dl (32-36); Mean Corpuscular Volume 88.9 fl (80-100); Mean Platelet Volume 9.2 fl (7.4-10.4); Monocytes Percent Auto 7.3 % (2.6-8.5); Neutrophils Absolute Auto 11.9 K/mm3 (1.3-6.7); Neutrophils Percent Auto 84.8 % (45.5-73.1); Platelet Count Result 235 k/mm3 (150-375); Red Blood Count 3.71 M/mm3 (4.2-5.4); White Blood Count 14.1 K/mm3 (4.5-10.0)
[2023-11-23 06:01] LABS: Anion Gap 10 mmol/L (8-16); Blood Urea Nitrogen 21 mg/dL (7-17); Calcium 9.2 mg/dL (8.4-10.2); Carbon Dioxide 23 mmol/L (22-30); Chloride 102 mmol/L (98-107); Estimated CRCL calculation 18 ml/min; Estimated Glomerular Filt Rate 33; Glucose 111 mg/dL (65-110); Magnesium 1.6 mg/dL (1.6-2.3); Potassium 3.5 mmol/L (3.4-5.0); Sodium 135 mmol/L (137-145)
[2023-11-23 06:25] LABS: Procalcitonin 0.6 ng/mL
[2023-11-23] MEDS: ASPIRIN 81 MG ENTERIC TABLET PO (09:28)
[2023-11-23] MEDS: amLODIPine BESYLATE 5 MG TABLET 10 MG PO (09:28)
[2023-11-23] MEDS: METOPROLOL SUCCINATE EXT REL 100 MG TABCR PO (09:28)
[2023-11-23] MEDS: lisinopriL 10 MG TABLET PO (09:29)
[2023-11-23] MEDS: buPROPion HCL SR (12 HR) 150 MG TAB PO (09:29)
[2023-11-23] MEDS: POTASSIUM CHLORIDE 10 MEQ ER TABLET PO (09:29)
[2023-11-23] MEDS: cefTRIAXone 2 GM/NS 100 ML 2 GM/100 ML BAG IVPB (09:29)
[2023-11-23] MEDS: ACETAMINOPHEN 325 MG TABLET 650 MG PO ×2 (09:32→20:19)
--- NOTE | 2023-11-23 13:02 | P.CDI_ITS ---
CDI Query Clarification Request Documentation in the medical record indicates that this patient has been d iagnosed as having the symptoms of ALTERED MENTAL STATUS. Additional findings also documented in the medical record: * Infection: UTI * Positive Urine Culture 11/19/23 ( Escherichia Coli) * Patient receiving Rocephin 2 gm Q 24hrs. Based on your medical judgement, can you further clarify in the progress notes if known, if these findings associated with altered mental status are due to a definite or suspected underlying neurologic cause such as: * Metabolic Encephalopathy * Toxic Encephalopathy * Altered mental status without encephalopathy * Other condition (please specify) * None of the above/Not applicable. <Tabby Bonilla RN - Last Filed: 11/23/23 13:12> Clarified Diagnosis Clarified Diagnosis: toxic encephalopathy <Venus Belle MD - Last Filed: 11/24/23 07:34>
--- NOTE | 2023-11-23 13:02 | WPDCDIQUERY2 ---
CDI Query Clarification Request Documentation in the medical record indicates that this patient has been diagnosed as having the symptoms of ALTERED MENTAL STATUS. Additional findings also documented in the medical record: Infection: UTI Positive Urine Culture 11/19/23 ( Escherichia Coli) Patient receiving Rocephin 2 gm Q 24hrs. Based on your medical judgement, can you further clarify in the progress notes if known, if these findings associated with altered mental status are due to a definite or suspected underlying neurologic cause such as: Metabolic Encephalopathy Toxic Encephalopathy Altered mental status without encephalopathy Other condition (please specify) None of the above/Not applicable. <Tabby Bonilla RN - Last Filed: 11/23/23 13:12> Clarified Diagnosis Clarified Diagnosis: toxic encephalopathy <Venus Belle MD - Last Filed: 11/24/23 07:34>
--- NOTE | 2023-11-23 17:10 | PM.IMPN ---
Progress Note: A&P Assessment and Plan (1) Generalized weakness: Code(s): R53.1 - Weakness Status: Acute (2) Chronic kidney disease: Code(s): N18.9 - Chronic kidney disease, unspecified Status: Acute (3) Essential hypertension: Code(s): I10 - Essential (primary) hypertension Status: Acute (4) Hyperlipidemia: Code(s): E78.5 - Hyperlipidemia, unspecified Status: Acute (5) Coronary artery disease: Code(s): I25.10 - Atherosclerotic heart disease of [place] coronary artery without angina pectoris Status: Acute (6) Altered mental status: Code(s): R41.82 - Altered mental status, unspecified Status: Acute Plan 83-year-old female who lives alone and is usually independent with family nearby with a history of CVA, CAD with history of stents, hypertension, hypertension, CKD, kidney stones, GERD presents with altered mental status and weakness. The patient was seen on WednesdayNovember 15 after she had a fall at home and was found to have rib fractures. She was discharged and apparently was not eating much and reported to be dehydrated. She then became confused on the day of admission and she is usually independent and in 0 x 4. She was prescribed Tylenol with codeine and also had Tylenol p.m. at home. In the [facility] she was found to have hypokalemia and a UTI. Brain CT did not demonstrate any acute abnormalities. Admitted on 11/20/2023 The patient is nearly back to her baseline. History does not sound like the Tylenol with codeine affected her mental status, the family had even stop that and she continued to become confused over days. More likely this was due to the UTI. Nonetheless the son and patient understand that we should try to get by without Tylenol p.m. and Tylenol with codeine as they are big contributors to altered mental status in the elderly. She is having good pain control with regular Tylenol so we will continue that and add tramadol p.r.n. if needed for moderate to severe pain. For her UTI we will continue ceftriaxone and follow the urine culture. Replace magnesium and potassium and recheck in the morning. PT OT has been ordered and we will appreciate their recommendations. The patient can be reluctant but so far she and the son agree that we would adhere to SNF recommendations or home with home health. Her CKD is mostly stable. On 11/21 patient appears to be home sick and cannot elicit any specific complaints otherwise. Physical therapy has recommended she return with home health which she is amenable to so we will continue with that. Hopefully home tomorrow. SOLOMON is improving. Urine culture preliminary showing E coli. Continue ceftriaxone. Magnesium and potassium now stable and within normal limits. On 11/22 she has hypokalemia. Has been replaced and we will recheck that and the magnesium in the morning. The patient is not able to accurately describe her symptomatology. She reports she does not feel well. The patient has an increasing leukocytosis with a procalcitonin of 0.5. We will increase ceftriaxone to 2 g daily, trend WBC, and at blood cultures. On 11/23 the patient leukocytosis is mildly improved however her procalcitonin creeps up. Continue ceftriaxone and continue to monitor. She otherwise does not have signs of sepsis. 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 Encourage ambulation. Lines: Peripheral IV Code Status: Full code Dispo: Stable, PT OT consulted (recommended home health) Subjective Date/time seen: 11/23/23 17:10 Interval history: No acute overnight events. Patient reiterating she does not want to go to retirement facility and rather return home when medically clear. She denies any complaints Review of Systems Review of Systems: All systems reviewed & are unremarkable except as noted i
[2023-11-23] MEDS: ATORVASTATIN 20 MG TABLET PO (20:19)
[2023-11-24] VITALS (10 sets, daily range): BP systolic 105–156; BP diastolic 56–85; PULSE 77–91; RESP 16–18; TEMP 36.2–37.1; O2SAT 98
[2023-11-24 06:17] LABS: Basophils Percent Auto 0.2 % (0.2-1.2); Eosinophils Absolute Auto 0.1 K/mm3 (0-0.3); Eosinophils Percent Auto 0.4 % (0-4.4); Hematocrit 29.4 % (37.0-47.0); Hemoglobin 10.2 g/dL (12.0-15.0); Immature Granulocyte Percent A 0.8 % (0-0.5); Lymphocytes Absolute Auto 0.98 K/mm3 (0.9-3.2); Lymphocytes Percent Auto 8.2 % (18.3-44.2); Mean Corpuscular HGB Conc 34.7 g/dl (32-36); Mean Corpuscular Hemoglobin 30.9 pg (26-34); Mean Corpuscular Volume 89.1 fl (80-100); Mean Platelet Volume 9.3 fl (7.4-10.4); Monocytes Absolute Auto 0.9 K/mm3 (0.1-0.6); Monocytes Percent Auto 7.5 % (2.6-8.5); Neutrophils Percent Auto 82.9 % (45.5-73.1); Platelet Count Result 237 k/mm3 (150-375); Red Cell Distribution Width 13.1 % (11.5-14.5)
[2023-11-24 06:25] LABS: Anion Gap 10 mmol/L (8-16); Blood Urea Nitrogen 24 mg/dL (7-17); Carbon Dioxide 23 mmol/L (22-30); Chloride 104 mmol/L (98-107); Estimated CRCL calculation 17 ml/min; Estimated Glomerular Filt Rate 31; Glucose 105 mg/dL (65-110); Magnesium 1.6 mg/dL (1.6-2.3); Potassium 3.3 mmol/L (3.4-5.0); Sodium 137 mmol/L (137-145)
[2023-11-24 07:07] LABS: Procalcitonin 0.7 ng/mL
[2023-11-24] MEDS: POTASSIUM CHLORIDE 10 MEQ ER TABLET PO (10:03)
[2023-11-24] MEDS: buPROPion HCL SR (12 HR) 150 MG TAB PO (10:03)
[2023-11-24] MEDS: amLODIPine BESYLATE 5 MG TABLET 10 MG PO (10:03)
[2023-11-24] MEDS: ASPIRIN 81 MG ENTERIC TABLET PO (10:04)
[2023-11-24] MEDS: cefTRIAXone 2 GM/NS 100 ML 2 GM/100 ML BAG IVPB (10:04)
[2023-11-24] MEDS: traMADol HCL (*CRX) 25 MG TABLET PO ×2 (10:04→23:53)
[2023-11-24] MEDS: METOPROLOL SUCCINATE EXT REL 100 MG TABCR PO (10:04)
[2023-11-24] MEDS: lisinopriL 10 MG TABLET PO (10:04)
--- NOTE | 2023-11-24 17:11 | PM.IMPN ---
Progress Note: A&P Assessment and Plan (1) Generalized weakness: Code(s): R53.1 - Weakness Status: Acute (2) Chronic kidney disease: Code(s): N18.9 - Chronic kidney disease, unspecified Status: Acute (3) Essential hypertension: Code(s): I10 - Essential (primary) hypertension Status: Acute (4) Hyperlipidemia: Code(s): E78.5 - Hyperlipidemia, unspecified Status: Acute (5) Coronary artery disease: Code(s): I25.10 - Atherosclerotic heart disease of [place] coronary artery without angina pectoris Status: Acute (6) Altered mental status: Code(s): R41.82 - Altered mental status, unspecified Status: Acute Plan 83-year-old female who lives alone and is usually independent with family nearby with a history of CVA, CAD with history of stents, hypertension, hypertension, CKD, kidney stones, GERD, presents with altered mental status and weakness. The patient was seen on WednesdayNovember 15 after she had a fall at home and was found to have rib fractures. She was discharged and apparently was not eating much and reported to be dehydrated. She then became confused on the day of admission and she is usually independent and in 0 x 4. She was prescribed Tylenol with codeine and also had Tylenol p.m. at home. In the [facility] she was found to have hypokalemia and a UTI. Brain CT did not demonstrate any acute abnormalities. Admitted on 11/20/2023 #Acute toxic encephalopathy -resolved. Likely secondary to UTI #Hypokalemia -continue daily potassium -give additional 1 time dose 20 mEq. Recheck in a.m. along with magnesium #Complicated UTI -leukocytosis improving however procalcitonin increasing. Have increase ceftriaxone to 2 g. #SOLOMON and CKD -SOLOMON mostly resolved. She is around her baseline. A small bump on 11/24 so will give normal saline at 100 cc over the night FEN: Normal saline at 100 cc/hour GI prophylaxis: Not indicated DVT prophylaxis:Currently has SCDs, previously had silent microhemorrhage of the brain. Encourage ambulation. Lines: Peripheral IV Code Status: Full code Dispo: Stable. When ready back to home with home health. Patient declines SNF Subjective Date/time seen: 11/24/23 17:11 Interval history: No acute overnight events. Patient as she has every day has no complaints. However, she continues to decline alf facility. Review of Systems Review of Systems: All systems reviewed & are unremarkable except as noted in HPI and below (Subjective) Exam Const: General: comfortable and no acute distress Other: A&O x3 Resp: Effort & Inspection: normal respiratory effort Auscultation: clear to auscultation bilaterally Cardio: Rate: regular rate Rhythm: regular rhythm GI: GI Palp: Yes Soft to palpation and No Tenderness to palpation present (GI) : Bimanual exam- vagina & uterus: bladder normal to palpation Extrem: General: no edema Objective Data Vital Signs Vital Signs: Vital Signs - 24 hr 11/23/23 20:50 11/23/23 20:10 11/23/23 20:00 Temperature 99.7 F H Pulse Rate 81 84 Respiratory Rate 18 Blood Pressure 144/66 H Pulse Oximetry 97 Oxygen Delivery Room Air 11/24/23 00:00 11/24/23 04:00 11/24/23 05:26 Temperature 98.2 F Pulse Rate 77 80 83 Respiratory Rate 18 Blood Pressure 156/70 H Pulse Oximetry 98 Oxygen Delivery 11/24/23 10:04 11/24/23 08:00 11/24/23 14:13 Temperature 97.1 F L Pulse Rate 91 86 Respiratory Rate 16 Blood Pressure 105/56 L Pulse Oximetry 98 Oxygen Delivery Room Air Intake/Output Intake/Output: Intake & Output 11/21/23 11/22/23 11/23/23 11/24/23 23:59 23:59 23:59 23:59 Intake Total 1890 1970 940 850 Output Total 1250 1050 1250 400 Balance 640 920 -310 450 Meds/Results Medications: Active Medications Generic Name Dose Route Start Last Admin Trade Name Freq PRN Reason Stop Dose Admin A
[2023-11-24] MEDS: SODIUM CHLORIDE 0.9% IV 1,000 ML 100 ML IV CONT (18:18)
[2023-11-24] MEDS: POTASSIUM CHLORIDE 20 MEQ ER TABLET PO (18:19)
[2023-11-24] MEDS: ATORVASTATIN 20 MG TABLET PO (20:15)
[2023-11-25] VITALS (10 sets, daily range): BP systolic 114–149; BP diastolic 66–85; PULSE 81–91; RESP 15–18; TEMP 36.1–37.3; O2SAT 96–97
[2023-11-25] MEDS: SODIUM CHLORIDE 0.9% IV 1,000 ML 100 ML IV CONT ×2 (04:15→21:14)
[2023-11-25 06:30] LABS: Basophils Percent Auto 0.3 % (0.2-1.2); Eosinophils Percent Auto 0.3 % (0-4.4); Hematocrit 30.6 % (37.0-47.0); Hemoglobin 10.1 g/dL (12.0-15.0); Immature Granulocyte Absolute 0.12 K/mm3 (0.00-0.031); Immature Granulocyte Percent A 1.1 % (0-0.5); Lymphocytes Absolute Auto 0.83 K/mm3 (0.9-3.2); Lymphocytes Percent Auto 7.9 % (18.3-44.2); Mean Corpuscular Hemoglobin 30.3 pg (26-34); Mean Corpuscular Volume 91.9 fl (80-100); Mean Platelet Volume 9.5 fl (7.4-10.4); Neutrophils Absolute Auto 8.6 K/mm3 (1.3-6.7); Neutrophils Percent Auto 81.4 % (45.5-73.1); Platelet Count Result 257 k/mm3 (150-375); Red Blood Count 3.33 M/mm3 (4.2-5.4); Red Cell Distribution Width 13.1 % (11.5-14.5); White Blood Count 10.6 K/mm3 (4.5-10.0)
[2023-11-25 06:38] LABS: Anion Gap 10 mmol/L (8-16); Blood Urea Nitrogen 22 mg/dL (7-17); Calcium 8.6 mg/dL (8.4-10.2); Carbon Dioxide 24 mmol/L (22-30); Chloride 104 mmol/L (98-107); Estimated CRCL calculation 18 ml/min; Estimated Glomerular Filt Rate 33; Glucose 97 mg/dL (65-110); Magnesium 1.5 mg/dL (1.6-2.3); Potassium 3.6 mmol/L (3.4-5.0); Sodium 138 mmol/L (137-145)
--- NOTE | 2023-11-25 07:41 | PM.IMPN ---
Progress Note: A&P Assessment and Plan (1) Generalized weakness: Code(s): R53.1 - Weakness Status: Acute (2) Chronic kidney disease: Code(s): N18.9 - Chronic kidney disease, unspecified Status: Acute (3) Essential hypertension: Code(s): I10 - Essential (primary) hypertension Status: Acute (4) Hyperlipidemia: Code(s): E78.5 - Hyperlipidemia, unspecified Status: Acute (5) Coronary artery disease: Code(s): I25.10 - Atherosclerotic heart disease of [place] coronary artery without angina pectoris Status: Acute (6) Altered mental status: Code(s): R41.82 - Altered mental status, unspecified Status: Acute Plan 83-year-old female who lives alone and is usually independent with family nearby with a history of CVA, CAD with history of stents, hypertension, hypertension, CKD, kidney stones, GERD, presents with altered mental status and weakness. The patient was seen on WednesdayNovember 15 after she had a fall at home and was found to have rib fractures. She was discharged and apparently was not eating much and reported to be dehydrated. She then became confused on the day of admission and she is usually independent and in 0 x 4. She was prescribed Tylenol with codeine and also had Tylenol p.m. at home. In the [facility] she was found to have hypokalemia and a UTI. Brain CT did not demonstrate any acute abnormalities. Admitted on 11/20/2023 #Acute toxic encephalopathy -resolved. Likely secondary to UTI #Hypokalemia -continue daily potassium -give additional 1 time dose 20 mEq. Recheck in a.m. along with magnesium Corrected hypokalemia Medicine 1.5, medicine sulfate 2 g IV once #Complicated UTI -leukocytosis improving however procalcitonin increasing. Have increase ceftriaxone to 2 g. 11/26: Patient is afebrile, leukocytosis continued to improve, procalcitonin 0.5 today #SOLOMON and CKD -SOLOMON mostly resolved. She is around her baseline. A small bump on 11/24 so will give normal saline at 100 cc over the night Creatinine is trending down FEN: Normal saline at 100 cc/hour GI prophylaxis: Not indicated DVT prophylaxis:Currently has SCDs, previously had silent microhemorrhage of the brain. Encourage ambulation. Lines: Peripheral IV Code Status: Full code Dispo: Stable. When ready back to home with home health. Patient declines SNF Subjective Date/time seen: 11/25/23 07:41 Interval history: No acute overnight events. Patient has a general weakness, body ache, patient is alert oriented x3 now. No new issue or events over the night, Exam Narrative: General: A well-developed, nontoxic-appearing elderly female sitting up in bed in no acute distress. Weight: 56.7 kg. BMI: 24.4. HEENT: PERRL, EOMI. Sclera anicteric. Oral mucosa moist. Neck: Supple. No obvious bruits though she has difficulties holding her breath. Respiratory: Lungs are clear to auscultation bilaterally. Cardiovascular: Regular rate and rhythm with S1-S2. Soft murmur at the upper sternal border. Chest: Tender to palpation over the ribs in the right posterior flank region. Gastrointestinal: Abdomen is soft, nontender, and nondistended with positive bowel sounds. Skin: Warm and dry. Extremities: No cyanosis, clubbing, or edema. Radial and pedal pulses intact. Neurological: Alert oriented x3. She could not exactly come up with her accurate age. Cranial nerves 2-12 are grossly intact. Speech is clear. No facial asymmetry. Hand field contact person and foot pushes equal bilaterally. Strength is equal in upper and lower extremities. Patient has general weakness Psychiatric: Pleasant and cooperative with normal mood and affect. Slightly forgetful. Objective Data Vital Signs Vital Signs: Vital Signs - 24 hr 11/24/23 10:04 11/24/23 08:00 11/24/23 14:13 Temperature 97.1 F L Pulse Rate 91 86 Respiratory Rate 16 Blood Pressure 105/56 L Pulse Oximetry 98 Oxyg
[2023-11-25 08:02] LABS: Procalcitonin 0.5 ng/mL
[2023-11-25] MEDS: buPROPion HCL SR (12 HR) 150 MG TAB PO (08:26)
[2023-11-25] MEDS: METOPROLOL SUCCINATE EXT REL 100 MG TABCR PO (08:26)
[2023-11-25] MEDS: lisinopriL 10 MG TABLET PO (08:27)
[2023-11-25] MEDS: ASPIRIN 81 MG ENTERIC TABLET PO (08:27)
[2023-11-25] MEDS: POTASSIUM CHLORIDE 10 MEQ ER TABLET PO (08:27)
[2023-11-25] MEDS: cefTRIAXone 2 GM/NS 100 ML 2 GM/100 ML BAG IVPB (08:28)
[2023-11-25] MEDS: amLODIPine BESYLATE 5 MG TABLET 10 MG PO (08:28)
[2023-11-25] MEDS: traMADol HCL (*CRX) 25 MG TABLET PO ×2 (11:34→21:04)
--- NOTE | 2023-11-25 15:54 | PC.NURSE ---
On 11/25/23, the student, [Cadence Nayak], provided care and completed [facility] documentation on this patient. I have reviewed the student's documentation and agree with the findings.
[2023-11-25] MEDS: ATORVASTATIN 20 MG TABLET PO (21:04)
[2023-11-26] VITALS (9 sets, daily range): BP systolic 140–147; BP diastolic 63–79; PULSE 85–93; RESP 17–20; TEMP 36.4–36.6; O2SAT 97–99; BMI 24.4
[2023-11-26] MEDS: SODIUM CHLORIDE 0.9% IV 1,000 ML 100 ML IV CONT ×2 (05:38→18:03)
[2023-11-26] MEDS: traMADol HCL (*CRX) 25 MG TABLET PO (05:38)
--- NOTE | 2023-11-26 07:40 | PM.IMPN ---
Progress Note: A&P Assessment and Plan (1) Generalized weakness: Code(s): R53.1 - Weakness Status: Acute (2) Chronic kidney disease: Code(s): N18.9 - Chronic kidney disease, unspecified Status: Acute (3) Essential hypertension: Code(s): I10 - Essential (primary) hypertension Status: Acute (4) Hyperlipidemia: Code(s): E78.5 - Hyperlipidemia, unspecified Status: Acute (5) Coronary artery disease: Code(s): I25.10 - Atherosclerotic heart disease of [place] coronary artery without angina pectoris Status: Acute (6) Altered mental status: Code(s): R41.82 - Altered mental status, unspecified Status: Acute Plan 83-year-old female who lives alone and is usually independent with family nearby with a history of CVA, CAD with history of stents, hypertension, hypertension, CKD, kidney stones, GERD, presents with altered mental status and weakness. The patient was seen on WednesdayNovember 15 after she had a fall at home and was found to have rib fractures. She was discharged and apparently was not eating much and reported to be dehydrated. She then became confused on the day of admission and she is usually independent and in 0 x 4. She was prescribed Tylenol with codeine and also had Tylenol p.m. at home. In the [facility] she was found to have hypokalemia and a UTI. Brain CT did not demonstrate any acute abnormalities. Admitted on 11/20/2023 #Acute toxic encephalopathy -resolved. Likely secondary to UTI #Hypokalemia -continue daily potassium -give additional 1 time dose 20 mEq. Recheck in a.m. along with magnesium Corrected hypokalemia Magnesium 1.5, magnesium sulfate 2 g IV once #Complicated UTI -leukocytosis improving however procalcitonin increasing. Have increase ceftriaxone to 2 g. 11/26: Patient is afebrile, leukocytosis trending up procalcitonin 0.[address] chest abdomen pelvis, looking for possible sources of infection #SOLOMON and CKD -SOLOMON mostly resolved. She is around her baseline. A small bump on 11/24 so will give normal saline at 100 cc over the night Creatinine is trending down Creatinine below the baseline FEN: Normal saline at 100 cc/hour GI prophylaxis: Not indicated DVT prophylaxis:Currently has SCDs, previously had silent microhemorrhage of the brain. Encourage ambulation. Lines: Peripheral IV Code Status: Full code Dispo: Stable. When ready back to home with home health. Patient declines SNF Subjective Date/time seen: 11/26/23 07:40 Interval history: No acute overnight events. Patient has a general weakness, body ache, patient is alert oriented x3 now. Patient has general weakness, has cough, denies abdomen pain nausea vomiting . Patient is afebrile, but white cell is going up, and the procalcitonin is trending up Exam Narrative: General: A well-developed, nontoxic-appearing elderly female sitting up in bed in no acute distress. Weight: 56.7 kg. BMI: 24.4. HEENT: PERRL, EOMI. Sclera anicteric. Oral mucosa moist. Neck: Supple. No obvious bruits though she has difficulties holding her breath. Respiratory: Lungs are clear to auscultation bilaterally. Cardiovascular: Regular rate and rhythm with S1-S2. Soft murmur at the upper sternal border. Chest: Tender to palpation over the ribs in the right posterior flank region. Gastrointestinal: Abdomen is soft, nontender, and nondistended with positive bowel sounds. Skin: Warm and dry. Extremities: No cyanosis, clubbing, or edema. Radial and pedal pulses intact. Neurological: Alert oriented x3. She could not exactly come up with her accurate age. Cranial nerves 2-12 are grossly intact. Speech is clear. No facial asymmetry. Hand pot runner and foot pushes equal bilaterally. Strength is equal in upper and lower extremities. Patient has general weakness Psychiatric: Pleasant and cooperative with normal mood and affect. Slightly forgetful. Obje
[2023-11-26 08:24] LABS: Basophils Percent Auto 0.2 % (0.2-1.2); Eosinophils Percent Auto 0.2 % (0-4.4); Hematocrit 29.7 % (37.0-47.0); Hemoglobin 10.1 g/dL (12.0-15.0); Immature Granulocyte Absolute 0.11 K/mm3 (0.00-0.031); Immature Granulocyte Percent A 0.9 % (0-0.5); Lymphocytes Absolute Auto 0.61 K/mm3 (0.9-3.2); Lymphocytes Percent Auto 5.1 % (18.3-44.2); Mean Corpuscular Hemoglobin 30.5 pg (26-34); Mean Corpuscular Volume 89.7 fl (80-100); Monocytes Absolute Auto 0.9 K/mm3 (0.1-0.6); Monocytes Percent Auto 7.2 % (2.6-8.5); Neutrophils Absolute Auto 10.4 K/mm3 (1.3-6.7); Neutrophils Percent Auto 86.4 % (45.5-73.1); Platelet Count Result 286 k/mm3 (150-375); Red Blood Count 3.31 M/mm3 (4.2-5.4); Red Cell Distribution Width 13.1 % (11.5-14.5)
[2023-11-26 08:30] LABS: Anion Gap 10 mmol/L (8-16); Blood Urea Nitrogen 20 mg/dL (7-17); Calcium 8.1 mg/dL (8.4-10.2); Carbon Dioxide 20 mmol/L (22-30); Chloride 107 mmol/L (98-107); Estimated CRCL calculation 22 ml/min; Estimated Glomerular Filt Rate 43; Glucose 101 mg/dL (65-110); Magnesium 1.4 mg/dL (1.6-2.3); Potassium 3.6 mmol/L (3.4-5.0); Sodium 137 mmol/L (137-145)
[2023-11-26 09:02] LABS: Procalcitonin 0.7 ng/mL
[2023-11-26] MEDS: ASPIRIN 81 MG ENTERIC TABLET PO (11:17)
[2023-11-26] MEDS: amLODIPine BESYLATE 5 MG TABLET 10 MG PO (11:17)
[2023-11-26] MEDS: POTASSIUM CHLORIDE 10 MEQ ER TABLET PO (11:17)
[2023-11-26] MEDS: AMOXICILLIN/CLAVULANATE K 875-125 MG TAB 1 TABLET PO ×2 (11:18→22:31)
[2023-11-26] MEDS: METOPROLOL SUCCINATE EXT REL 100 MG TABCR PO (11:18)
[2023-11-26] MEDS: lisinopriL 10 MG TABLET PO (11:18)
[2023-11-26] MEDS: buPROPion HCL SR (12 HR) 150 MG TAB PO (11:28)
--- NOTE | 2023-11-26 15:58 | PC.NURSE ---
To GI Lab per bed, IV right forearm. Report given to Rosa ALSTON.
--- NOTE | 2023-11-26 16:00 | PC.NURSE ---
Returned from GI Lab. Report received from Leighann ALSTON.
[2023-11-26] MEDS: ACETAMINOPHEN 325 MG TABLET 650 MG PO (18:02)
[2023-11-26] MEDS: ATORVASTATIN 20 MG TABLET PO (22:19)
[2023-11-27] VITALS: PULSE 79
[2023-11-27 04:00] VITALS: PULSE 83
[2023-11-27 05:16] VITALS: BP 141/74; PULSE 84; RESP 18; TEMP 36.5; O2SAT 99
[2023-11-27 06:08] LABS: Basophils Percent Auto 0.3 % (0.2-1.2); Eosinophils Absolute Auto 0.1 K/mm3 (0-0.3); Eosinophils Percent Auto 0.7 % (0-4.4); Hematocrit 28.2 % (37.0-47.0); Hemoglobin 9.2 g/dL (12.0-15.0); Immature Granulocyte Absolute 0.16 K/mm3 (0.00-0.031); Immature Granulocyte Percent A 1.3 % (0-0.5); Lymphocytes Absolute Auto 0.88 K/mm3 (0.9-3.2); Mean Corpuscular HGB Conc 32.6 g/dl (32-36); Mean Corpuscular Hemoglobin 30.3 pg (26-34); Mean Corpuscular Volume 92.8 fl (80-100); Mean Platelet Volume 9.3 fl (7.4-10.4); Monocytes Absolute Auto 0.8 K/mm3 (0.1-0.6); Monocytes Percent Auto 6.5 % (2.6-8.5); Neutrophils Absolute Auto 10.6 K/mm3 (1.3-6.7); Neutrophils Percent Auto 84.2 % (45.5-73.1); Platelet Count Result 305 k/mm3 (150-375); Red Blood Count 3.04 M/mm3 (4.2-5.4); Red Cell Distribution Width 13.2 % (11.5-14.5); White Blood Count 12.6 K/mm3 (4.5-10.0)
[2023-11-27 06:22] LABS: Anion Gap 9 mmol/L (8-16); Blood Urea Nitrogen 21 mg/dL (7-17); Calcium 8.3 mg/dL (8.4-10.2); Carbon Dioxide 21 mmol/L (22-30); Chloride 108 mmol/L (98-107); Estimated CRCL calculation 22 ml/min; Estimated Glomerular Filt Rate 43; Glucose 94 mg/dL (65-110); Magnesium 1.5 mg/dL (1.6-2.3); Potassium 3.6 mmol/L (3.4-5.0); Sodium 138 mmol/L (137-145)
[2023-11-27] MEDS: SODIUM CHLORIDE 0.9% IV 1,000 ML 100 ML IV CONT (06:28)
[2023-11-27 07:14] LABS: Procalcitonin 0.7 ng/mL
[2023-11-27 08:00] VITALS: PULSE 87
[2023-11-27] MEDS: amLODIPine BESYLATE 5 MG TABLET 10 MG PO (08:05)
[2023-11-27] MEDS: lisinopriL 10 MG TABLET PO (08:06)
[2023-11-27] MEDS: POTASSIUM CHLORIDE 10 MEQ ER TABLET PO (08:06)
[2023-11-27] MEDS: ASPIRIN 81 MG ENTERIC TABLET PO (08:06)
[2023-11-27] MEDS: METOPROLOL SUCCINATE EXT REL 100 MG TABCR PO (08:06)
[2023-11-27] MEDS: buPROPion HCL SR (12 HR) 150 MG TAB PO (08:06)
[2023-11-27] MEDS: ACETAMINOPHEN 325 MG TABLET 650 MG PO (08:12)
--- NOTE | 2023-11-27 08:14 | PM.IMPN ---
Progress Note: A&P Assessment and Plan (1) Generalized weakness: Code(s): R53.1 - Weakness Status: Acute (2) Chronic kidney disease: Code(s): N18.9 - Chronic kidney disease, unspecified Status: Acute (3) Essential hypertension: Code(s): I10 - Essential (primary) hypertension Status: Acute (4) Hyperlipidemia: Code(s): E78.5 - Hyperlipidemia, unspecified Status: Acute (5) Coronary artery disease: Code(s): I25.10 - Atherosclerotic heart disease of [place] coronary artery without angina pectoris Status: Acute (6) Altered mental status: Code(s): R41.82 - Altered mental status, unspecified Status: Acute Plan 83-year-old female who lives alone and is usually independent with family nearby with a history of CVA, CAD with history of stents, hypertension, hypertension, CKD, kidney stones, GERD, presents with altered mental status and weakness. The patient was seen on WednesdayNovember 15 after she had a fall at home and was found to have rib fractures. She was discharged and apparently was not eating much and reported to be dehydrated. She then became confused on the day of admission and she is usually independent and in 0 x 4. She was prescribed Tylenol with codeine and also had Tylenol p.m. at home. In the [facility] she was found to have hypokalemia and a UTI. Brain CT did not demonstrate any acute abnormalities. Admitted on 11/20/2023 The following med issues have been addressed during hospitalization Acute toxic encephalopathy -resolved. Likely secondary to UTI Hypokalemia and hypomagnesemia -continue daily potassium -give additional 1 time dose 20 mEq. Recheck in a.m. along with magnesium Corrected hypokalemia 2/3 Magnesium 1.5, magnesium sulfate 2 g IV once and magnesium hydroxide 30 mL daily p.o. Follow-up with primary care doctor in 1 week, correct electrolyte abnormality per primary care doctor Complicated UTI -leukocytosis improving however procalcitonin increasing. Have increase ceftriaxone to 2 g. 2/2: Patient is afebrile, leukocytosis trending up procalcitonin 0.[address] chest abdomen pelvis, looking for possible sources of infection 2/3 CT reports no abscess, pneumonia or acute issues except 10 mm nonobstructive left renal stone. Per radiology report : Indeterminate 2.5 similar exophytic left renal lesion with slightly greater than simple fluid attenuation most likely a renal cyst although renal cell carcinoma cannot be excluded. I have discussed the finding with patient and patient's daughter, and also discussed the case with patient's nurse. Will give patient's phone number of a urologist for patient evaluation and mangement Continue Augmentin for 7 days, suspecting the recurrent UTI secondary to kidney stone. #SOLOMON and CKD -SOLOMON mostly resolved. She is around her baseline. A small bump on 11/24 so will give normal saline at 100 cc over the night Creatinine is trending down Creatinine below the baseline Abnormal CT finding A few indeterminate small pulmonary nodules the largest measuring 6 mm in the right lower lobe. Radiologist recommends 6-12 month follow-up low-dose noncontrast chest CT Management per primary care doctor, I have discussed the offending with patient's daughter and also gave her copy of CT report FEN: Normal saline at 100 cc/hour GI prophylaxis: Not indicated DVT prophylaxis:Currently has SCDs, previously had silent microhemorrhage of the brain. Encourage ambulation. Lines: Peripheral IV Code Status: Full code Dispo: Stable. When ready back to home with home health. Patient will be transferred to senior living today Subjective Date/time seen: 11/27/23 08:14 Interval history: I saw and examined the patient patient room in presents of patient's daughter with patient permission. Patient feels better today but still has general weakness,, patient is alert oriented x3 now. Patient
--- NOTE | 2023-11-27 08:26 | PM.DS ---
DS: Admitting Diagnosis Discharge Date 11/27/23 Admitting Diagnosis (1) Generalized weakness: ?Code(s): R53.1 - Weakness ?Status:?Acute (2) Chronic kidney disease: ?Code(s): N18.9 - Chronic kidney disease, unspecified ?Status:?Acute (3) Essential hypertension: ?Code(s): I10 - Essential (primary) hypertension ?Status:?Acute (4) Hyperlipidemia: ?Code(s): E78.5 - Hyperlipidemia, unspecified ?Status:?Acute (5) Coronary artery disease: ?Code(s): I25.10 - Atherosclerotic heart disease of [place] coronary artery without angina pectoris ?Status:?Acute (6) Altered mental status: ?Code(s): R41.82 - Altered mental status, unspecified ?Status:?Acute DS: Discharge Diagnosis Discharge Diagnosis (1) Generalized weakness: Code(s): R53.1 - Weakness Status: Acute (2) Chronic kidney disease: Code(s): N18.9 - Chronic kidney disease, unspecified Status: Acute (3) Essential hypertension: Code(s): I10 - Essential (primary) hypertension Status: Acute (4) Hyperlipidemia: Code(s): E78.5 - Hyperlipidemia, unspecified Status: Acute (5) Coronary artery disease: Code(s): I25.10 - Atherosclerotic heart disease of [place] coronary artery without angina pectoris Status: Acute (6) Altered mental status: Code(s): R41.82 - Altered mental status, unspecified Status: Acute DS: Summary Hospital Course Hospital Course: 83-year-old female who lives alone and is usually independent with family nearby with a history of CVA, CAD with history of stents, hypertension, hypertension, CKD, kidney stones, GERD, presents with altered mental status and weakness. The patient was seen on WednesdayNovember 15 after she had a fall at home and was found to have rib fractures. She was discharged and apparently was not eating much and reported to be dehydrated. She then became confused on the day of admission and she is usually independent and in 0 x 4. She was prescribed Tylenol with codeine and also had Tylenol p.m. at home. In the [facility] Department she was found to have hypokalemia and a UTI. Brain CT did not demonstrate any acute abnormalities. Admitted on 11/20/2023 The following med issues have been addressed during hospitalization Acute toxic encephalopathy -resolved. Likely secondary to UTI Hypokalemia and hypomagnesemia -continue daily potassium -give additional 1 time dose 20 mEq. Recheck in a.m. along with magnesium Corrected hypokalemia /3 Magnesium 1.5, magnesium sulfate 2 g IV once and magnesium hydroxide 30 mL daily p.o. Follow-up with primary care doctor in 1 week, correct electrolyte abnormality per primary care doctor Complicated UTI -leukocytosis improving however procalcitonin increasing. Have increase ceftriaxone to 2 g. 11/26: Patient is afebrile, leukocytosis trending up procalcitonin 0.[address] chest abdomen pelvis, looking for possible sources of infection 11/27 CT reports no abscess, pneumonia or acute issues except 10 mm nonobstructive left renal stone. Per radiology report : Indeterminate 2.5 similar exophytic left renal lesion with slightly greater than simple fluid attenuation most likely a renal cyst although renal cell carcinoma cannot be excluded. I have discussed the finding with patient and patient's daughter, and also discussed the case with patient's nurse. Will give patient's phone number of a urologist for patient evaluation and mangement Continue Augmentin for 7 days, suspecting the recurrent UTI secondary to kidney stone. SOLOMON and CKD -SOLOMON mostly resolved. She is around her baseline. A small bump on 11/24 so will give normal saline at 100 cc over the night Creatinine is trending down Creatinine below the baseline, Cr 1.[address] finding A few indeterminate small pulmonary nodules the largest measuring 6 mm in the right lower lobe. Radiologist recomme
[2023-11-27] MEDS: MAGNESIUM HYDROXIDE SUSP 30 ML UDC PO (09:04)
[2023-11-27] MEDS: MAGNESIUM SULF 2 GM/WATER 50ML 2 GM/50 ML BAG IVPB (09:04)
[2023-11-27] MEDS: AMOXICILLIN/CLAVULANATE K 875-125 MG TAB 1 TABLET PO (09:05)
[2023-11-27 12:00] VITALS: PULSE 78
[2023-11-27 12:23] LABS: SARS-CoV-2 RNA PCR Negative (Negative)
== END 2023-11-27 13:30 | DRG 689 ==
LOC: ANHED 16:09 → ANH2MED 17:01
PROVIDERS: Admitting Provider General Practice; Emergency Provider Emergency Medicine; PCP Family Medicine; Visit Provider Hospitalist
DX: N39.0 Urinary tract infection, site not specified (principal); G92.8 Other toxic encephalopathy; S22.41XA Multiple fractures of ribs, right side, initial encounter for closed fracture; N17.9 Acute kidney failure, unspecified; B96.20 Unspecified Escherichia coli [E. coli] as the cause of diseases classified elsewhere; N20.0 Calculus of kidney; E87.6 Hypokalemia; E83.42 Hypomagnesemia; Z20.822 Contact with and (suspected) exposure to COVID-19; W18.09XA Striking against other object with subsequent fall, initial encounter; I12.9 Hypertensive chronic kidney disease with stage 1 through stage 4 chronic kidney disease, or unspecified chronic kidney disease; N18.30 Chronic kidney disease, stage 3 unspecified; E78.5 Hyperlipidemia, unspecified; K21.9 Gastro-esophageal reflux disease without esophagitis; I25.10 Atherosclerotic heart disease of native coronary artery without angina pectoris; Z86.73 Personal history of transient ischemic attack (TIA), and cerebral infarction without residual deficits; Z95.5 Presence of coronary angioplasty implant and graft; Z79.82 Long term (current) use of aspirin; Z90.49 Acquired absence of other specified parts of digestive tract; Z90.710 Acquired absence of both cervix and uterus; Z87.891 Personal history of nicotine dependence
CPT/HCPCS: 36415; 70450; 71045; 71250; 72125; 74176; 80048; 80053; 81001; 82550; 83735; 84145; 84484; 85025; 85027; 85610; 85730; 87040; 87086; 87186; 87635; 87637; 93005; 96361; 96365; 96375; 97110; 97116; 97161; 97165; 97530; 97535; 99285; A9270; G0378; J0696; J2270; J2405; J3475; J7030

== ENCOUNTER 2024-05-22 15:01 | Outpatient (CLI) | payer MEDICARE, SELFPAY ==
[2024-05-22 17:51] LABS: Appearance Urine Turbid (Clear); Bacteria Urine 4+ /hpf; Bilirubin Urine Negative (Negative); Blood Urine 1+ (Negative); Color Urine Yellow (Yellow); Glucose Urine UA Negative (Negative); Ketones Urine Negative (Negative); Leukocyte Esterase Ur 3+ LEU/UL (Negative); Nitrate Urine Negative (Negative); Non Pathogenic Casts 0-2; Protein Urine 2+ mg/dL (Negative); Specific Grav Ur 1.015 (1.001-1.035); Squamous Epithelial Cell Urine Few /hpf (Few); Urobilinogen Urine 0.2 mg/dL (<2.0); WBC Urine >100 /hpf (0-3)
[2024-05-22 17:58] LABS: Add Urine Microscopic? YES
== END 2024-05-22 15:02 | disposition home or self-care (01) ==
PROVIDERS: PCP Family Medicine; Visit Provider Physician Assistant Medical
DX: R30.0 Dysuria (principal); R53.83 Other fatigue; R41.82 Altered mental status, unspecified
CPT/HCPCS: 81001; 87077; 87086; 87088; 87186

== ENCOUNTER 2024-06-23 14:18 | Outpatient (CLI) | payer MEDICARE, SELFPAY ==
--- NOTE | ~2024-06-23 | CT_ITS ---
EXAMINATION: CT abdomen pelvis wo con DATE: 06/23/2024 14:46 INDICATION: Kidney mass. TECHNIQUE: Computed tomography (CT) of the abdomen and pelvis was performed without intravenous contr ast. Automated exposure control and iterative reconstruction technique were employed. The dose-length product was 196.94 mGy-cm. COMPARISON: CT abdomen and pelvis 11/26/2023 FINDINGS: The visualized portions of the lung bases demonstrate mild atelectasis. A calcified left maurilio ng nodule is consistent with old granulomatous disease. No pleural effusion. Cardiomegaly is noted. T here are coronary artery calcifications. No pericardial effusion. There is a large sliding hiatal her ellyn. There are calcifications in the liver and spleen are consistent with old granulomatous disease. There are changes of cholecystectomy. The pancreas and adrenal glands are normal. There is calcified atherosclerosis of the aorta and many of the other arteries. There are cysts in the kidneys measuring up to 2.6 cm on the left. There is an 8 mm hemorrhagic cyst in right kidney. There is an 11 mm stone in left kidney. There are no dilated loops of bowel. The appendix is well visualized. There are no p athologically enlarged lymph nodes. There is no free intraperitoneal fluid. There are old healed frac tures of left superior and inferior pubic rami and left sacral ala. There are old healed bilateral ri b fractures. There is a chronic burst fracture of L1. There is severe lumbar spondylosis. IMPRESSION: 1. Benign cysts in the kidneys. 2. Large sliding hiatal hernia. Reviewed, dictated and finalized at location A.
== END 2024-06-23 14:19 | disposition home or self-care (01) ==
PROVIDERS: PCP Family Medicine; Visit Provider Urology
DX: N28.1 Cyst of kidney, acquired (principal); K44.9 Diaphragmatic hernia without obstruction or gangrene
CPT/HCPCS: 74176

== ENCOUNTER 2025-06-28 08:24 | Outpatient (CLI) | payer MEDICARE, MEDICAID, SELFPAY ==
--- NOTE | ~2025-06-28 | DEXA_ITS ---
Bone Density Report Name: MARISELA ELLIS Age: 85 Sex: Female Ethnicity: White Date of : 1940 Indication: osteopenia; monitoring treatment; height loss; prior fracture; Referring Provider: AYDEN HESS Study: Bone densitometry was performed. Exam Date: June 28, 2025 Accession number: [id number] Bone Density: Region BMD T-score Z-score Classification AP Spine(L2, L3, L4) 0.984 -0.9 2.1 Normal Femoral Neck (Left) 0.554 -2.7 -0.1 Osteoporosis Total Hip (Left) 0.666 -2.3 0.1 Osteopenia Femoral Neck (Right) 0.526 -2.9 -0.4 Osteoporosis Total Hip (Right) 0.645 -2.4 -0.1 Osteopenia Total Hip Mean 0.656 -2.4 0.0 Osteopenia World Health Organization criteria for BMD impression classify patients as: Normal (T-score at or above -1.0), Osteopenia (T-score between -1.0 and -2.5), or Osteoporosis (T-score at or below -2.5). 10-year Fracture Risk: FRAX not reported because: Some T-score for Spine Total or Hip Total or Femoral Neck at or below -2.5 Prior hip or vertebral fracture Treated for osteoporosis Previous Exams: -- Region Exam Age BMD T-score BMD Change BMD Change Date g/cm2 vs Baseline vs Previous -- AP Spine (L2-L4) 06/28/2025 85 0.984 -0.9 7.7%* 1.7% 03/03/2023 83 0.967 -1.0 5.9%* 8.8%* 11/25/2020 80 0.889 -1.7 -2.6%* -4.6%* 12/24/2011 71 0.933 -1.3 2.1% 3.6%* 12/11/2009 69 0.900 -1.6 -1.4% -1.3% 11/26/2006 66 0.912 -1.5 -0.1% -0.1% 11/12/2004 64 0.913 -1.5 Total Hip(Left) 06/28/2025 85 0.666 -2.3 -25.1%* -3.2% 03/03/2023 83 0.688 -2.1 -22.7%* -1.0% 11/25/2020 80 0.694 -2.0 -21.9%* -13.1%* 05/09/2015 75 0.799 -1.2 -10.2%* 0.3% 12/24/2011 71 0.796 -1.2 -10.5%* -0.1% 12/11/2009 69 0.797 -1.2 -10.4%* -3.7%* 11/26/2006 66 0.827 -0.9 -7.0%* -7.0%* 11/12/2004 64 0.889 -0.4 Total Hip(Right) 06/28/2025 85 0.645 -2.4 -24.2%* -5.6%* 03/03/2023 83 0.683 -2.1 -19.7%* 10.6%* 11/25/2020 80 0.618 -2.7 -27.4%* -19.0%* 05/09/2015 75 0.763 -1.5 -10.4%* -0.5% 12/24/2011 71 0.767 -1.4 -9.9%* -3.1% 12/11/2009 69 0.792 -1.2 -7.0%* -0.5% 11/26/2006 66 0.796 -1.2 -6.5%* -6.5%* 11/12/2004 64 0.851 -0.7 -- *Denotes significance at 95% confidence level, LSC for AP Spine = 0.022 g/cm2, LSC for Total Hip = 0.027 g/cm2 Rate of change results reflect vertebral levels common to all scans Clinical Information Provided by Patient: Have had a previous hip or vertebral fracture Has had a low trauma fracture Is being treated for osteoporosis Has used the following medications: Calcium Patient maximum height was 65 Menopause Age: 39 No regular weight bearing exercise Does not regularly consume dairy products Drinks caffeinated beverages Onset of menses at age 12 Number of children 3 Impression: The patient has established osteoporosis, based on the Right Femoral Neck T-score and the existence of a prior fracture. The patient has risk factors, including: previous fracture. The BMD for the Total Hip(Right) decreased, changing by -5.6% since the last DXA exam. Discussion: SIGNIFICANT BONE LOSS OBSERVED. Adherence to therapy (including calcium and vitamin D intake) should be assessed. If compliance is not a factor, review management and exclusion of secondary causes of bone loss. It is important to ask patients whether they are taking their medications and to encourage continued and appropriate compliance with their osteoporosis therapies to reduce fracture risk. It is also important to review their risk factors and encourage appropriate calcium and vitamin D intakes, exercise, fall prevention and other lifestyle measures. Follow-Up: Consider a repeat BMD and Vertebral Fracture Assessment (VFA) exam in 2 years or sooner if medically necessary, to reassess this patient's status. Reported by: RAFAELA on 06/28/2025 9:08:00 AM. Reviewed, dictated and finalized at location A.
== END 2025-06-28 08:25 | disposition home or self-care (01) ==
LOC: MICIMG 08:25
PROVIDERS: PCP Family Medicine; Visit Provider Physician Assistant
DX: M81.0 Age-related osteoporosis without current pathological fracture (principal); M85.852 Other specified disorders of bone density and structure, left thigh; M85.851 Other specified disorders of bone density and structure, right thigh
CPT/HCPCS: 77080

== ENCOUNTER 2025-09-19 12:14 | Inpatient (IN) | payer MEDICARE, MEDICAID, SELFPAY ==
[2025-09-19] VITALS (11 sets, daily range): BP systolic 125–146; BP diastolic 74–94; PULSE 94–105; RESP 17–24; TEMP 36.4–36.6; O2SAT 88–97; BMI 23.8
--- NOTE | ~2025-09-19 | XR_ITS ---
EXAMINATION: XR chest 1V portable COMPARISON: No comparisons available. HISTORY: new onset SOB FINDINGS: Scattered bilateral infiltrates superimposed on chronic lung disease. No pneumothorax. Mild cardiomegaly. Mediastinal and hilar contours are within normal limits. There are acute appearing right-sided posterior fractures of the sixth, seventh and eighth ribs. Miscellaneous: None Impression: Probable bilateral pneumonia superimposed on chronic lung disease. Right-sided acute appearing rib fractures. CT chest suggested to assess. Reviewed, dictated and finalized at location P. T FLOOR AUTOMATION MANAGER Impression: Probable bilateral pneumonia superimposed on chronic lung disease. Right-sided acute appearing rib fractures. CT chest suggested to assess.
--- NOTE | ~2025-09-19 | US_ITS ---
EXAMINATION: US venous doppler LE LT, 09/19/2025 14:39 AMBULANCE PARAMEDIC HISTORY: LLE swollen Comparison: None Technique: Torres-scale and color Doppler images were attempted of the lower saphenofemoral junction, common femoral vein,superficial femoral vein, proximal deep femoral vein, proximal deep femoral vein, popliteal vein and posterior tibial veins.Evaluation of the femoral vein limited due to patient shimon erance for compression Findings: Deep Venous System:There is partial compression noted of the left superficial femoral vein which is likely related to patient tolerance with no gross thrombus identified. Otherwise there is normal Flow, augmentation and compressibility. No echogenic thrombus identified. The contralateral saphenofemoral junction appears unremarkable. Superficial Venous SystemNo superficial thrombophlebitis. Soft tissues: Soft tissues are unremarkable. Impression: Limited study. Negative for DVT. Reviewed, dictated and finalized at location P. BULANCE PARAMEDIC Impression: Limited study. Negative for DVT.
--- NOTE | ~2025-09-19 | XR_ITS ---
Examination: XR chest 1V portable Clinical History: sob Comparison: 09/23/2025 Technique: Portable AP Findings: Unchanged cardiomegaly. Persistent diffuse interstitial markings. Probable effusions. No acute bony abnormality. IMPRESSION: 1. Mild worsening interstitial pulmonary edema and pleural effusions. Reviewed, dictated and finalized at location R. TIVE RESTORER
--- NOTE | ~2025-09-19 | XR_ITS ---
XR chest 2V 09/19/2025 14:12 Indication: Chest pain Procedure: 2 view chest Comparison: 11/19/2023 Findings: Borderline heart size. Mild pulmonary edema. Small left pleural effusion. No pneumothorax. No acute osseous abnormality. Multiple healed right rib fractures. There is a chronic burst fracture of L1. There is a hiatal hernia. Impression: 1: Borderline heart size with mild pulmonary edema. Reviewed, dictated and finalized at location O. IC ADMINISTRATOR Impression: 1: Borderline heart size with mild pulmonary edema.
--- NOTE | ~2025-09-19 | CT_ITS ---
EXAMINATION: CT diagnostic chest wo con DATE: 09/24/2025 13:56 INDICATION: Chest pain/rib fracture, no pain per patient TECHNIQUE: Computed tomography (CT) of the chest was performed without intravenous contrast. Additional 3D reconstructions utilizing coronal maximum intensity projection (MIP) were performed. Automated exposure control and iterative reconstruction technique were employed. The dose-length product was 14 1.92 mGy-cm. COMPARISON: 11/26/2023 FINDINGS: There are small to moderate-sized posterior layering bilateral pleural effusions with dependent and basilar atelectasis in both lungs. Calcified nodule within the collapsed basilar portion of the left lower lobe along with calcified left hilar lymph nodes and a few hepatic and splenic calcifications, all consistent with old granulomatous disease. Respiratory motion in the lungs which mildly limits assessment of fine pulmonary parenchymal detail. There is some mild smooth septal line thickening at the right apex and right lung base consistent with minimal pulmonary edema. Heart size is normal. Prominent atherosclerotic coronary artery calcifications. No pericardial effusion. Thoracic aorta is normal in caliber. No pathologically enlarged thoracic lymphadenopathy. Moderate to large sliding-type hiatal hernia. There are several old bilateral healed rib fractures. Cholecystectomy clips in the gallbladder fossa. Multiple bilateral low-attenuation renal cysts the largest on the left measuring 2.6 cm. There are couple nonobstructing left renal stones the largest measuring 9 mm. Severe thoracic and lower cervical spondylosis. No change in a chronic L1 burst fracture with 60% anterior vertebral body height loss and 6 mm retropulsion resulting in mild to moderate central canal stenosis at this level. IMPRESSION: 1. Small to moderate-sized bilateral posterior layering pleural effusions with minimal pulmonary edema in the right lung and compensatory dependent and basilar atelectasis in both lungs. 2. Moderate to large sliding-type hiatal hernia. 3. Nonobstructing left nephrolithiasis. Reviewed, dictated and finalized at location A. PTION AGENT IMPRESSION: 1. Small to moderate-sized bilateral posterior layering pleural effusions with minimal pulmonary edema in the right lung and compensatory dependent and basila r atelectasis in both lungs. 2. Moderate to large sliding-type hiatal hernia. 3. Nonobstructing left nephrolithiasis.
--- NOTE | ~2025-09-19 | XR_ITS ---
EXAMINATION: XR chest 1V portable COMPARISON: No comparisons available. HISTORY: sob FINDINGS: Moderate pulmonary venous congestion. Small basilar infiltrates and effusions. No pneumothorax. Moderate cardiomegaly. Mediastinal and hilar contours are within normal limits. Bony thorax no acute abnormality. Miscellaneous: None Impression: CHF. Superimposed probable pneumonia Reviewed, dictated and finalized at location P. UTERIZED TABLE CUTTER Impression: CHF. Superimposed probable pneumonia
--- NOTE | ~2025-09-19 | CT_ITS ---
EXAMINATION: CT brain wo con, 09/19/2025 14:20 RAW MATERIAL HANDLER HISTORY: headache; about to start heparin COMPARISON: No comparisons available. Technique: Axial images obtained of the brain without contrast. One or more of the following dose reduction techniques were used: automated exposure control, adjustment of the mA and/or kV according to patient size, use of iterative reconstruction technique. Findings: There are remote bilateral basal ganglia lacunar infarcts. No acute infarct or hemorrhage. No midline shift or mass effect. Mastoid air cells unremarkable. Severe chronic appearing left maxillary sinusitis with underlying polyp formation since pectin. No acute fracture. No significant facial or scalp soft tissue swelling evident. No radiopaque foreign body is seen. Impression: 1.No acute intracranial abnormality. Reviewed, dictated and finalized at location P. MATERIAL HANDLER Impression: 1.No acute intracranial abnormality.
--- NOTE | ~2025-09-19 | NM_ITS ---
EXAMINATION: NM lung vent and perfusion DATE: 09/24/2025 15:47 INDICATION: Chest pain. TECHNIQUE: 10.2 mCi xenon-133 by inhalation and 4.2 mCi Tc-99m MAA by intravenous route. Scintigraphic images of the chest were obtained. COMPARISON: CT dated 09/24/2025 FINDINGS: There is decreased activity along the posterior aspect of both lungs extending from the upper to the lower lung zones with relatively sharply defined margins which appears to correspond to small to moderate-sized posterior layering bilateral pleural effusions on prior CT. This more prominent on the left where there is also decreased activity in the lower lung zones which appears matched on the posterior ventilation scintigrams and which also corresponds configuration to the pleural effusion on prior CT. No other perfusion defects identified. IMPRESSION: 1. Nondiagnostic (low or intermediate probability) with bilateral posterior left lower lung perfusion defects which correspond in size, location and configuration to small to moderate-sized bilateral pleural effusions. Reviewed, dictated and finalized at location A. KLE CHASER IMPRESSION: 1. Nondiagnostic (low or intermediate probability) with bilateral posterior le ft lower lung perfusion defects which correspond in size, location and configur ation to small to moderate-sized bilateral pleural effusions.
--- NOTE | ~2025-09-19 | CT_ITS ---
EXAMINATION: CT abdomen pelvis wo con DATE: 10/05/2025 13:07 INDICATION: Abdominal pain TECHNIQUE: Computed tomography (CT) of the abdomen and pelvis was performed without intravenous contrast. Automated exposure control and iterative reconstruction technique were employed. The dose-length product was 174.40 mGy-cm. COMPARISON: 06/23/2024 FINDINGS: Partially visualized small left and moderate right dependently layering pleural effusions with dependent compressive atelectasis with partial collapse of both lower lobes. Cardiomegaly. Atherosclerotic coronary artery calcifications. Aortic valve and mitral annular calcification. No pericardial effusion. Large sliding-type hiatal hernia. Cholecystectomy clips the gallbladder fossa. A few small hepatic and splenic calcific lesions consistent with old granulomatous disease. Pancreas and bilateral adrenal glands are normal. There are few bilateral renal cysts including the largest 2.7 cm left renal cyst and 1 cm hyperdense proteinaceous/h emorrhagic cyst at the upper poles of both the left and right kidneys. Bilateral nonobstructing nephrolithiasis with 2 stones measuring up to 2 mm at the right kidney and at least 5 stones in the left kidney the largest at the lower pole measuring 1.2 cm. Bladder is normal. The uterus is not identified and has likely been surgically resected. No abnormal bowel wall thickening or obstruction. No free intraperitoneal gas or fluid. No pathologically enlarged abdominal or pelvic lymphadenopathy.. Thickening and underlying stranding in the subcutaneous fat in the right inguinal region suspicious for cellulitis. Moderate to severe lumbar and lower thoracic spondylosis with chronic L1 burst fracture with 60% anterior vertebral body height loss and 7 mm retropulsion resulting in a moderate central canal stenosis at this level. Old bilateral rib fractures. There are also old fractures of the left sacral ala and left superior and inferior pubic rami. IMPRESSION: 1. Small left and moderate-sized right posterior layering pleural effusions with partial collapse of the bilateral lower lobes. 2. Cardiomegaly. 3. Large sliding-type hiatal hernia. 4. Bilateral nonobstructing nephrolithiasis. Reviewed, dictated and finalized at location A. RVISOR BEAM DEPARTMENT IMPRESSION: 1. Small left and moderate-sized right posterior layering pleural effusions wit h partial collapse of the bilateral lower lobes. 2. Cardiomegaly. 3. Large sliding-type hiatal hernia. 4. Bilateral nonobstructing nephrolithiasis.
--- NOTE | 2025-09-19 12:17 | ECG_ITS ---
Test Date: 2025-09-19 12:23:41 Measurements Intervals [place] Rate: 100 P: 26 DC: 136 QRS: 20 QRSD: 90 T: 29 QT: 355 QTc: 459 Interpretive Statements SINUS TACHYCARDIA POSSIBLE LEFT ATRIAL ENLARGEMENT [-0.1mV P-WAVE IN V1/V2] NONSPECIFIC ST & T-WAVE ABNORMALITY ABNORMAL RHYTHM ECG No previous ECG available for comparison Electronically Signed On 09-19-2025 13:43:09 PEDIATRIC DENTAL HYGIENIST by Vidal Lieberman M.D.
--- OUTSIDE RECORDS SUMMARY | 2025-09-19 12:33 | XMS_ITS | Clinical Summary ---
Author Organization [facility] Address [facility] [place] [address] Care Team Providers Care Content Coordinator Name Role Phone Andrea Ng MD Primary Care Provider Allergies Active Allergy Reactions Criticality Noted Date Comments Procainamide Unknown 12/13/2011 Quinestrol Unknown 05/31/2019 Quinidine Other (see comment) 12/13/2011 Tocainide Unknown 12/13/2011 Medications aspirin EC (ASPIR-LOW) 81 MG tablet 6 Active buPROPion SR 150 MG 12 hr tablet 150 mg. 2 Active Calcium Carb-Ergocalcif ngozi 250-125 MG-UNIT Tab Take 1 tablet by mouth daily. Active Cholecalciferol (VITAMIN D3) 50 MCG (1999 UT) Cap 7 Active famotidine (PEPCID AC) 10 MG tablet 6 Active Lactobacillus (PROBIOTIC ACIDOPHILUS) Tab 7 Active lisinopril 40 MG tablet TAKE 1 TABLET DAILY 8 Active Methylcobalamin 1 MG Chew Tab 6 Active metoprolol succinate ER 100 MG 24 hr tablet TAKE 1 TABLET DAILY (TAKE REMAINING 50 MG TABLETS TAKING 2 PER DAY. THEN START THIS ONE. DO NOT TAKE BOTH STRENGTHS) 9 Active Multiple Vitamins-[place] ls (PRESERVISION AREDS 2) Cap 7 Active nitroglycerin (NITRO-DUR) 0.4 MG/HR 6 Active [place]-3 Fatty Acids (FISH OIL BURP-LESS) 1000 MG Cap 7 Active simvastatin 40 MG tablet 2 Active spironolactone 25 MG tablet 3 Active acetaminophen-c odeine (TYLENOL #3) 300-30 MG tablet Take 1 tablet by mouth every 12 (twelve) hours as needed. FOR PAIN 4 Active amLODIPine (NORVASC) 2.5 MG tablet Take 1 tablet (2.5 mg total) by mouth daily. Active amoxicillin-cla vulanate (AUGMENTIN) 875-125 MG tablet 4 Active atorvastatin (LIPITOR) 20 MG tablet 4 Active carvedilol (COREG) 12.5 MG tablet Take 1 tablet twice a day by oral route for 90 days. Active metoprolol tartrate (LOPRESSOR) 100 MG tablet Active Active Problems Problem Noted Date Diagnosed Date Anxiety 11/30/2023 Coronary atherosclerosis 11/30/2023 Insomnia 11/30/2023 Irritable bowel syndrome 11/30/2023 Kyphosis deformity of spine 11/30/2023 Lumbar spine pain 12/17/2020 Urinary tract infection 09/15/2020 Acute pain due to trauma 09/14/2020 Depression 09/14/2020 Lumbar burst fracture 09/14/2020 Open nondisplaced fracture o f left pubis with routine healing 03/10/2020 Essential hypertension 03/10/2020 Other hyperlipidemia 03/10/2020 Chronic kidney disease, stage 3b 05/04/2017 Arteriosclerosis of coronary artery 04/22/2017 History of coronary artery stent placement 04/22 Other primary hyperaldosteronism 07/13/2016 Immunizations Immunization Administration Dates Next Due Influenza (Generic) 08/08/2021,08/29/2020,2019 Influenza Adult (Generic) 06/25/2018,06/25/2017, 07/31/2016,08/16/2015 Pneumococcal (Pneumovax 23) 07/23/2020, 0 Pneumococcal (Prevnar 13) 07/07/2019 Pneumococcal (Prevnar 7) 06/25/2014 Social History Tobacco Use Types Packs/Day Years Used Date Smoking Tobacco: Unknown Tobacco Cessation:Counseling Given: Not Answered Comments Unknown Sex and Gender Information Value Date Recorded Sex Assigned at Not on file Legal Sex Female 11:22 AM CDT Gender Identity Not on file Sexual Orientation Not on file Last Filed Vital Signs Vital Sign Reading Time Taken Comments Blood Pressure 128/74 11/30/2023 3:06 PM REGIONAL OPERATIONS DIRECTOR Pulse 74 11/30/2023 3:06 PM REGIONAL OPERATIONS DIRECTOR Temperature 36.1 C (97 F) 11/30/2023 3:06 PM REGIONAL OPERATIONS DIRECTOR Respiratory Rate 20 11/30/2023 3:06 PM REGIONAL OPERATIONS DIRECTOR Oxygen Saturation 96% 11/30/2023 3:06 PM REGIONAL OPERATIONS DIRECTOR Inhaled Oxygen Concentration - - Weight 56.2 kg (124 lb) 11/30/2023 3:06 PM REGIONAL OPERATIONS DIRECTOR Height - - Body Mass Index - - Plan of Treatment Health Maintenance Due Date Last Done Comments ASCVD LDL 1940 ASCVD Statin 1940 DTaP, Tdap and Td Vaccines (1 - Tdap) 1957 Zoster Vaccines (1 of 2) 02/03/1988 Annual Medicare Wellness Visit 2003 RSV Immunization or 60+ Years (1 - 1-dose 75+ series) 2013 PHQ-2 (Physician [place]) 10/25/2024 COVID-19 Vaccine ( season) 2025 08/16/2023, 08/02/2022, 08/16/2021, Additional history exists Influenza Adult (#1) 2025 08/08/2021, 08/29/2020, 06/22/2020, Additional history exists Pneumococcal Vaccine: 50+ Years Completed 07/23/2020, 06/22/2020, 07/07/2019, Additional history exists Hepatitis A Vaccines Aged Out No long er eligible based on patient's age to complete this topic Meningococcal B Vaccine Aged Out No l onger eligible based on patient's age to complete this topic Meningococcal Vaccine Aged Out No sheryl lina eligible based on patient's age to complete this topic RSV Immunizations Under 20 Months Aged Out No longer eligible based on patient's age to complete this topic Insurance MEDICARE Care Teams Content Coordinator Relationship Specialty [place] [address] [place] [address] PCP - General FAMILY PRACTICE 03/05/20
--- OUTSIDE RECORDS SUMMARY | 2025-09-19 12:33 | XMS_ITS | Clinical Summary ---
Author Organization [facility] [place] [address] Address [address] [place] [address] Care Team Providers Care Securities Teller Name Role Phone Alfie Peacock MD Primary Care Provider Miscellaneous, Not In File Unavailable Unava ilable Allergies Active Allergy Reactions Criticality Noted Date Comments Procainamide Hcl Unknown Procan Sr Unknown 04/22/2017 Quinestrol Unknown Quinidine Other (See comments) Low 12/13/2011 Tocainide Hcl Unknown Medications aspirin, buffered (BUFFERIN) 81 mg tablet take 1 Tablet by oral route every day 0 2 Active buPROPion SR (WELLBUTRIN SR) 150 mg 12 hr tablet take 1 tablet (150MG) by oral route every day 0 2 Active acetaminophen 500 mg capsuleIndicatio ns:Pain Take 2 capsules (1,000 mg total) by mouth every 6 (six) hours 30 tablet 0 Active atorvastatin (LIPITOR) 20 mg tablet 2 tablets (40 mg total) 0 Active metoprolol XL (TOPROL-XL) 100 mg 24 hr tablet 1 Active diphenhydrAMINE- acetaminophen (TYLENOL PM) 25-500 mg tablet Take 1 tablet by mouth Active potassium chloride ER 10 mEq CR tablet 3 Active lisinopriL (PRINIVIL,ZESTRI L) 10 mg tablet 3 Active sodium bicarbonate 650 mg tablet Take 1 tablet (650 mg total) by mouth 2 (two) times a day 4 Active nitroglycerin (NITROSTAT) 0.[address] 1 tablet (0.4 mg total) under the tongue every 5 (five) minutes as needed for chest pain 25 tablet 2 4 Active amLODIPine (NORVASC) 10 mg tablet 5 Active Active Problems Problem Noted Date Diagnosed Date Lumbar spine pain 12/17/2020 UTI (urinary tract infection) 09/15/2020 Lumbar burst fracture 09/14/2020 Acute pain due to trauma 09/14/2020 Depression 09/14/2020 Open nondisplaced fracture o f left pubis with routine healing 03/10/2020 Chronic kidney disease, stage 3b 05/04/2017 CAD (coronary artery disease) 04/22/2017 S/P coronary artery stent placement 04/22/2017 Essential hypertension 07/13/2016 Hyperlipidemia 07/13/2016 Resolved Problems Problem Noted Date Diagnosed Date Resolved Date Diagnosis unknown 09/14/2020 09/14/2020 Presence of coronary angiopl asty implant and graft 04/22/2017 09/14/2020 Immunizations Immunization Administration Dates Next Due Influenza, Unspecified 08/29/2020 Surgical History Surgery Date Site/Laterality Comments CORONARY STENT PLACEMENT 02/22/1999 - 03/24/1999 3 x 18 mm duet to the right coronary artery HYSTERECTOMY CHOLECYSTECTOMY Medical History Medical History Date Comments Hypertension Hypertension Arthritis Anxiety Hypercholesteremia Family History Medical History Relation Name Comments Cancer Father Heart disease Father Kyphosis Father Heart disease Mother Kyphosis Mother Stroke Mother Relation Name Status Comments Father Mother Social History Tobacco Use Types Packs/Day Years Used Date Smoking Tobacco: Former Smokeless Tobacco: Never Tobacco Cessation:Counseling Given: Not Answered Alcohol Use Standard Drinks/Week Comments No 0 (1 standard drink = 0.6 oz pur e alcohol) Comments No Sex and Gender Information Value Date Recorded Sex Assigned at Not on file Legal Sex Female 8:33 PM HAM SAWYER Gender Identity Not on file Sexual Orientation Not on file Last Filed Vital Signs Vital Sign Reading Time Taken Comments Blood Pressure 128/76 05/25/2025 2:57 PM CDT Pulse 64 05/25/2025 2:57 PM CDT Temperature 36.4 C (97.6 F) 11/15/2020 3:32 PM HAM SAWYER Respiratory Rate 18 11/15/2020 3:32 PM HAM SAWYER Oxygen Saturation 98% 05/25/2025 2:57 PM CDT Inhaled Oxygen Concentration - - Weight 51.5 kg (113 lb 9.6 oz) 05/25/2025 2:57 P M CDT Height 152.4 cm (5') 05/25/2025 2:57 PM CDT Body Mass Index 22.19 05/25/2025 2:57 PM CDT Plan of Treatment Health Maintenance Due Date Last Done Comments Depression Screening 1940 Osteoporosis Screening-Bone Density Scan 1940 DTaP/Tdap/Td Vaccine (1 - Tdap) 1949 Hepatitis B Screening 02/03/1956 Zoster Vaccine (1 of 2) 02/03/1988 Well Visit 65+ 2003 Fall Risk Assessment 09/16/2021 09/16/2020 Influenza Vaccine (#1) 2025 , 08/29/2020, 06/22/2020, Additional history exists Pneumococcal vaccine 65+ Completed 020, 06/22/2020, 07/07/2019, Additional history exists Insurance [facility] [place] [address] [facility] Advance Directives For more information, please contact: [phone] * Full Code (Latest Code Status on File) Date Activated Date Inactivated Comments 09/14/2020 8:49 PM 09/16/2020 11:10 PM Care Teams Securities Teller Relationship Specialty Start Date End Date Alfie Peacock MD [address] [facility] [address] [place] [address] PCP - General 01/22/17 Miscellaneous, Not In File 11/23/20
--- OUTSIDE RECORDS SUMMARY | 2025-09-19 12:33 | XMS_ITS | Clinical Summary ---
Author Organization [facility] utilucero Address [address] [address] Phone Care Team Providers Care Bus Transportation Manager Name Role Phone Alfie Peacock MD Primary Care Provider [phone] Allergies Active Allergy Reactions Criticality Noted Date Comments Procainamide Unknown 12/13/2011 Quinidine 12/13/2011 Quinestrol Unknown 05/31/2019 Tocainide Unknown 12/13/2011 Medications Calcium Carbonate-Vitam in D (CALCIUM 600/VITAMIN D) 600-400 MG-UNIT chewable tablet 1 daily 0 07/13/2016 Act casper aspirin (ASPIR-LOW) 81 MG EC tablet 1 daily 0 07/13/2016 Active buPROPion XL (WELLBUTRIN XL) 150 MG 24 hr tablet 1 daily 0 07/13/2016 Active nitroglycerin (NITROSTAT) 0.[address] 0.4 mg under the tongue 04/22/2017 Active Denosumab 60 MG/ML solution prefilled syringe Inject under the skin Active metoprolol succinate XL (TOPROL-XL) 100 MG 24 hr tablet Take 1 tablet (100 mg total) by mouth 1 (one) time each day Do not crush or chew. 90 tablet 3 11/26/2021 Active ergocalciferol (VITAMIN D2) 1.25 MG (93670 UT) capsule TAKE 1 CAPSULE BY MOUTH ONCE WEEKLY 13 capsule 3 06/15/2022 Active atorvastatin (LIPITOR) 20 MG tablet TAKE 1 TABLET BY MOUTH 1 TIME EVERY DAY 90 tablet 3 09/12/2022 Active amLODIPine (NORVASC) 10 MG tablet TAKE 1 TABLET BY MOUTH 1 TIME EVERY DAY 90 tablet 3 10/08/2022 Active Active Problems Problem Noted Date Diagnosed Date Urinary tract infectious disease 09/15/2020 Stage 3b chronic kidney disease 05/04/2017 Coronary arteriosclerosis 04/22/2017 History of placement of stent for coronary arter y disease 04/22/2017 Essential (primary) hypertension 07/13/2016 Other primary hyperaldosteronism 07/13/2016 Hyperlipidemia 07/13/2016 Immunizations Immunization Administration Dates Next Due Fluzone High-Dose 06/22/2020 Influenza TIV (IM) 08/08/2021,06/22/2020 Influenza, Unspecified 08/29/2020 Pneumococcal Conjugate 06/25/2014 Pneumococcal Conjugate 13-Valent 07/07/2019 Pneumococcal Polysaccharide 07/23/2020, 0 Family History Medical History Relation Comments Heart disease Father Heart disease Mother Kidney disease Neg Hx Kidney stone Neg Hx Relation Status Comments Father Mother Social History Tobacco Use Types Packs/Day Years Used Date Smoking Tobacco: Former Smokeless Tobacco: Never Alcohol Use Standard Drinks/Week Comments Not Currently 0 (1 standard drink = 0.6 oz pur e alcohol) Comments Unknown Sex and Gender Information Value Date Recorded Sex Assigned at Not on file Legal Sex Female 8:48 AM [facility] Gender Identity Not on file Sexual Orientation Not on file Last Filed Vital Signs Vital Sign Reading Time Taken Comments Blood Pressure 124/70 05/27/2022 4:06 PM CDT Pulse 84 05/27/2022 4:06 PM CDT Temperature 36.2 C (97.1 F) 05/27/2022 4:06 PM CDT Respiratory Rate - - Oxygen Saturation - - Inhaled Oxygen Concentration - - Weight 55.3 kg (122 lb) 05/27/2022 4:06 PM CDT Height 154.9 cm (5' 1) 05/27/2022 4:06 PM CDT Body Mass Index 23.05 05/27/2022 4:06 PM CDT Plan of Treatment Health Maintenance Due Date Last Done Comments Influenza Vaccine (#1) 2025 , 08/29/2020, 06/22/2020 Pneumococcal PPSV23/PCV13 65 + Years / Low and Medium Risk Completed 07/23/2020, 06/22/2020, 07/07/2019 Insurance [employer] MEDICARE Care Teams Bus Transportation Manager Relationship Specialty Start Date End Date Alfie Peacock MD [address] [facility] [address] [place] [address] PCP - General Internal Medicine 05/31/19
--- OUTSIDE RECORDS SUMMARY | 2025-09-19 12:33 | XMS_ITS | Data Portability ---
Author Organization [facility] Address [address] [place] [address] Assessment No assessment recorded. Plan of Treatment Reminders Order Date Submit Date Provider Last Modified By Organization Details Last Modified Time Details Appointments None recorded. Lab vitamin D, 1,25-dihydr oxy, serum 2014 015 [facility], [address] [place] [address], [address], [place], [address], 5 15:18:08 Referral None recorded. Procedures None recorded. Surgeries None recorded. Imaging bone density, hip and spine 2014 015 [email or web address] Not available 5 17:44:17 Medication Orders carvedilol 12.5 mg tablet 2014 015 Not available 5 14:53:24 simvastatin 40 mg tablet 2014 015 [email or web address] Not available 5 16:52:48 Benadryl 25 mg capsule 2014 015 [email or web address] Not available 5 15:14:42 Patient TargetsNo targets recorded. Patient Instructions Encounter Date Encounter Id Patient Instructions Last Modified By Organization Details Last Modified Time 10/29/2014 [id number] irritable bowel syndrome: care instructions Not available 10/30/2014 11:26:38 insomnia: care instructions Not available 10/30/2014 11:26:38 04/29/2015 [id number] irritable bowel syndrome: care instructions sieh Not available 04/29/2015 15:18:08 insomnia: care [facility] Not available 04/29/2015 15:18:08 Reason for Referral None Reported. Results Created Date Observation Date Name Description Value Unit Range Abnormal Flag Note LastModifiedBy Organization Detail LastModifiedTime 04/29/20 15 04/30/2015 vitam in D, 25-hy droxy , total , serum vitamin D, 25-hydroxy 19.9 NG/mL 30.0-1 00.0 low VITAM IN D DEFIC IENCY HAS BEEN DEFIN ED BY THE INSTI TUTE OF MEDIC INE AND AN ENDOC RINE SOCIE TY PRACT ICE GUIDE LINE A LEVEL OF SERUM 25-OH VITAM IN D LESS THAN 20 NG/ML (1,2) . THE ENDOC RINE SOCIE TY WENT ON TO [facility] ER DEFIN E VITAM IN D INSUF FICIE NCY A LEVEL BETWE EN 21 AND 29 NG/ML (2). 1. IOM (INST ITUTE OF MEDIC INE). 2010. DIETA RY REFER ENCE INTAK ES FOR CALCI UM AND D. MOIRA ESCALANTE DC: [facility] PR[facility] . 2. REANNA Goins MF, MADHU WILKERSON NC, SUSIE OFF-F ERRAR I VILLA, ET AL. EVALU ATION , TREAT MENT, AND PREVE NTION OF VITAM IN D DEFIC IENCY : AN ENDOC RINE SOCIE TY CLINI FRANKIE PRACT ICE GUIDE LINE. JCEM. 2010; 96(7) :1911 -30. Not Available [facility] ([facility]) [address] [facility], [place], [address], 04/30/2015 06:15:29 05/21/20 15 05/20/2015 imagi ng/di agnos tic resul t No observ ation record ed. [facility] Not Available 2014 16:49:17 06/21/20 15 06/21/2015 imagi ng/di agnos tic resul t No observ ation record ed. sieh Not Available 2014 19:25:28 06/21/20 15 06/21/2015 imagi ng/di agnos tic resul t No observ ation record ed. si Not Available 2014 19:25:29 Result Notes None recorded. Problems Name Problem SNOMED Code Status Onset Date Resolution Date Notes Provider Name and Address Organization Details Recorded Time Kyphosis deformity of spine 516627860 Active Mely Noriega MD Attn: Bell gaffney,[address] [facility], [place], [place], [address] [place] [address] 2, [place] - [facility] 5 15:18:08 Coronary atherosclerosi s 979562491 Active Mely Noriega MD Attn: Bell gaffney,[address] [facility], [place], [place], [address] [place] [address] 2, [place] - [facility] 5 15:18:08 Hyperlipidemia 34410937 Active Mely Noriega MD Attn: Kayleighbenny gaffney,[address] [facility], [place], [place], [address] [place] [address] 2, [place] - [facility] 5 15:18:08 Secondary hypertension 59314457 Active Mely Noriega MD Attn: Kayleighbenny gaffney,[address] [facility], [place], [place], [address] [place] [address] 2, [place] - [facility] 5 15:18:08 Irritable bowel syndrome 31449428 Active Mely Noriega MD Attn: Kayleighbenny gaffney,[address] [facility], [place], [address] [place] [address] 2, [place] - [facility] 5 15:18:08 Anxiety 47265983 Active Mely Noriega MD Attn: Kayleighbenny gaffney,[address] [facility], [place], [address] [place] [address] 2, [place] - [facility] 5 15:18:08 Insomnia 232731110 Active Mely Noriega MD Attn: Bell yeimy,[address] [facility], [place], [place], [address] [place] [address] 2, [place] - [facility] 5 15:18:08 Problem Notes None recorded. Procedures Surgical History Date Name Laterality Status Provider Name and Address Organization Details Recorded Time 10/25/18 82 Cholecystectomy completed Delio MACIEL [facility] 10/29/19 15 16:30:03 10/25/18 81 Appendectomy completed Delio Ibrahim [facility] 10/29/2014 16:30:03 10/25/18 81 Hysterectomy completed Delio MACIEL FERNANDO 10/29/2014 16:30:03 Imaging Results None recorded. Procedure Notes None recorded. Medical Equipment None Reported. Allergies Allergen ID Allergen Name Allergen Category Reaction Reaction Severity Criticality Documentation Date Start Date Code Code System Note Provider Name and Address Organization Details Recorded Time 89359 procainam joselito hydrochlo ride medicatio n other Not available Not available 10/29/2014 12565 6 RxNorm Delio muse, [facility] 5 16:30:03 90613 quinidine gluconate medicatio n rash Not available Not available 10/29/2014 78909 RxNorm Delio muse, [facility] 5 16:30:03 37655 tocainide monohydro chloride medicatio n nausea Not available Not available 10/29/2014 87174 5 RxNorm Delio muse, [facility] 5 16:30:03 Medications Name Sig Start Date Stop Date Status Note LastModified by Organization Details LastModified Time bupropion HCl SR 150 mg tablet,12 hr sustained-r elease TAKE 1 TABLET DAILY active Not Available Not Available No t Available carvedilol 12.5 mg tablet Take 1 tablet twice a day by oral route for 90 days. active Not Available Not Available No t Available metoprolol tartrate 100 mg tablet active Not Available Not Available Not Available metoprolol succinate ER 50 mg tablet,exte nded release 24 hr active Not Available Not Available Not Available amlodipine 2.5 mg tablet TAKE 1 TABLET BY MOUTH EVERY DAY active Not Available Not Available No t Available spironolact one 25 mg tablet TAKE 1 TABLET IN THE MORNING , TAKE 2 TABLETS IN THE EVENING (NEED TO KEEP APPOINTME NT ON 04/29/15) 2014 active Not Available Not Available Not Avai lable simvastatin 40 mg tablet Take 1 tablet every day by oral route at bedtime for 90 days. active Not Available Not Available No t Available Nitrostat 0.4 mg sublingual tablet 07/08 completed Not Available Not Available Not Available nitroglycer in 0.4 mg/hr transdermal 24 hour patch APPLY 1 PATCH DAILY 2014 active Not Available Not Available Not Avai lable fluticasone propionate 50 mcg/actuati on nasal spray,suspe nsion 07/08 completed Not Available Not Available Not Available Benadryl 25 mg capsule Take 1 capsule every 3 months by oral route at bedtime for 90 days. 2014 active Not Available Not Available Not Avai lable Vitals Date Recorded Respiratory rate Body weight Heart rate Body mass index (BMI) Body height Body temperature Systolic And Diastolic Provider Name and Address Organization Details Last Updated DateTime 5 18 /min 41928.8 15322 g 74 /min 25.8 kg/m2 153.67 cm 97.8 [degF] 130/90 mm[Hg] Delio Bryan [facility] 5 16:30:03 Date Recorded Systolic And Diastolic Provider Name and Address Organization Details Last Updated DateTime 04/29/2015 140/80 mm[Hg] Mely Noriega MD Attn: [facility],[address] [place], [address], [facility] 04/29/2015 15:12:18 Date Recorded Respiratory rate Body weight Body height Body temperature Heart rate Body mass index (BMI) Systolic And Diastolic Provider Name and Address Organization Details Last Updated DateTime 5 20 /min 87887.8 18189 g 153.67 cm 97.8 [degF] 76 /min 26.1 kg/m2 140/90 mm[Hg] Delio Bryan [facility] 5 14:53:25 Social History Question Answer Notes LastModified by Organizat ion Details LastModified Time Tobacco Smoking Status [facility] 10/29/2014 16:30:02 Do You Have An Advance Directive? No Information not available 10/29/2014 What Is Your Level Of Caffeine Consumption? Occasional Information not available 10/29/2014 How Much Tobacco Do You Chew? None Information not available 10/29/2014 What Type Of Diet Are You Following? REGULAR Information not available 10/29/2014 Education 12 Information no t available 10/29/2014 Are There Any Guns Present In Your Home? Yes Information not available 10/29/2014 Hard Of Hearing Or Deaf In One Or Both Ears? No Information not available 10/29/2014 Legally Blind In One Or Both Eyes? No Information not available 10/29/2014 Marital Status Informatio n not available 10/29/2014 Performs Monthly Self-breast Exam? Yes Information not available 10/29/2014 Seat Belts Used Routinely Yes Information not available 10/29/2014 Smoke Alarm In Home Yes Information not available 10/29/2014 At What Age Did You Start Smoking Tobacco? 64 Information not available 10/29/2014 How Much Tobacco Do You Smoke? No Information not available 10/29/2014 General Stress Level Medium Information not available 10/29/2014 Do You Use Sunscreen Routinely? No Information not available 10/29/2014 Sex: Unknown Functional Status Question Answer Note LastModified by Organization D etails LastModified Time What is your level of alcohol consumption? None Information not available 10/29/2014 What is your exercise level? Moderate Information not available 10/29/2014 Mental Status None recorded. Family History Relationship Description Onset Age of this Age Resolved Age Notes LastModified by Organization Details LastModified Time Mother Cerebrovascu lar accident Not available 02/2015 16:30:03 Mother Heart disease Not available 2014 16:30:03 Mother Migraine Not available 10/29/2014 16:30:03 Mother Osteoporosis Not availa ble 10/29/2014 16:30:03 Father Heart disease Not available 2014 16:30:03 Sister Heart disease Not available 2014 16:30:03 Medical History Condition Response Coronary Artery Disease N Other N Atrial Fibrillation N High Blood Pressure Y Kidney or Bladder Problems N Thyroid Problems N GI Problems N Depression N COPD N Blood Clots N Skin Problems N Anemia N Heart Attack (IN) Y Anxiety Disorder N Diabetes N Muscle, Joint, or Bone Problems N Seizures/Epilepsy N Acid Reflux (GERD) Y Cancer N Stroke N Asthma N Allergies N High Cholesterol Y Hepatitis N Liver Disease N Headaches N Heart Failure N Osteoporosis N Gynecological HistoryNo gynecological history recorded. Obstetrics History GPAL:G 0 P 0 0 0 0 Past Encounters Encounter ID Performer Location Encounter Start Date Encounter Closed Date Diagnosis/Indication Diagnosis SNOMED-CT Code Diagnosis ICD10 Code Diagnosis IMO Codes Diagnosis Note [id number] Mely Noriega MD [facility] (Adult Med) [address] [place], [place] [address] 10/29/2014 16:00:47 10/29/2014 16:55:14 Coronary atherosclerosis 448718387 Hyperlipidemia 71681335 Secondary hypertension 30384082 Irritable bowel syndrome 62754266 Anxiety 90016594 Insomnia 392338531 Hearing problem [id number] MD Niecy Santos (Adult Med) [address] [place] [address] 04/29/2015 14:42:21 04/29/2015 17:44:17 Irritable bowel syndrome 29952929 Hyperlipidemia 10669855 Coronary atherosclerosis 233291776 Secondary hypertension 39550635 Insomnia 580120742 Anxiety 38329317 Kyphosis d eformity of spine 366692207 Health Concerns Section Related Observation LastModified by Organization Detai ls LastModified Time None Recorded Concern Status LastModified by Organization Details LastModified Time None Recorded Advance Directives Directive N: Payers Insurance Date Sequence Insurance Name Policy Number Policy Quinonez Covered Member ID Quinonez Member ID Guarantor Name 04/30/2015 2 [facility] [id number] Vanesa New [id number] Vanesa New 04/26/2015 1 [place] Vanesa New [id number] Vanesa New 04/26/2015 [place] [facility] Vanesa New [id number] Vanesa New OBGyn Episode No OBEpisode recorded.
[2025-09-19 13:07] LABS: Hematocrit 37.6 % (37.0-47.0); Hemoglobin 12.5 g/dL (12.0-15.0); Immature Granulocyte Percent A 0.5 % (0-0.5); Lymphocytes Absolute Auto 0.84 K/mm3 (0.9-3.2); Mean Corpuscular HGB Conc 33.2 g/dl (32-36); Mean Corpuscular Hemoglobin 31.2 pg (26-34); Mean Corpuscular Volume 93.8 fl (80-100); Nucleated Red Blood Cells Absolute Auto 0.000 K/mm3 (0.0-0.012); Nucleated Red Blood Cells Perc 0.0 % (0.0-0.2); Platelet Count Result 238 k/mm3 (150-375); Red Blood Count 4.01 M/mm3 (4.2-5.4); White Blood Count 10.0 K/mm3 (4.5-10.0)
[2025-09-19 13:17] LABS: INR 1.1; Prothrombin Time 13.7 Seconds (11.1-14.7)
[2025-09-19 13:18] LABS: Partial Thromboplastin Time 37.4 Seconds (22.3-36.8)
[2025-09-19 13:22] LABS: Alanine Aminotransferase 15 U/L (6-35); Albumin Level 4.6 g/dL (3.5-5.1); Alkaline Phosphatase 75 U/L (38-126); Anion Gap 10 mmol/L (4-12); Aspartate Amino Transferase 27 U/L (14-36); Bilirubin,Total 1.1 mg/dL (0.2-1.3); Blood Urea Nitrogen 23 mg/dL (7-17); Calcium 9.7 mg/dL (8.4-10.2); Carbon Dioxide 25 mmol/L (22-30); Chloride 107 mmol/L (98-107); Estimated Glomerular Filt Rate 23; Glucose 107 mg/dL (65-110); Lipase 75 U/L (23-300); Potassium 4.1 mmol/L (3.4-5.0); Sodium 142 mmol/L (137-145); Total Protein 7.7 g/dL (6.3-8.2)
[2025-09-19 13:36] LABS: Troponin I 1.110 ng/mL (0.000-0.034)
--- OUTSIDE RECORDS SUMMARY | 2025-09-19 13:43 | XMS_ITS | Clinical Summary ---
Author Organization [facility] Address On license of [facility] [place] [address] Care Team Providers Care Mailroom Assistant Name Role Phone Andrea Ng MD Primary Care Provider [phone] Allergies Active Allergy Reactions Criticality Noted Date [...] Active nitroglycerin (NITRO-DUR) 0.4 MG/HR 6 Active [place]-3 Fatty Acids (FISH OIL BURP-LESS) 1000 MG [...] Comments Blood Pressure 128/74 11/30/2023 3:06 PM [facility] Pulse 74 11/30/2023 3:06 PM [facility] Temperature 36.1 C (97 F) 11/30/2023 3:06 PM [facility] Respiratory Rate 20 11/30/2023 3:06 PM [facility] Oxygen Saturation 96% 11/30/2023 3:06 PM [facility]WHINA [facility] Inhaled Oxygen Concentration - - Weight 56.2 kg (124 lb) 11/30/2023 3:06 PM [facility] Height - - Body Mass Index - - Plan of Treatment Health Maintenance Due Date Last Done Comments ASCVD LDL 1938 ASCVD Statin 1938 DTaP, Tdap and Td Vaccines (1 - Tdap) 1957 Zoster Vaccines (1 of 2) 02/03/1988 Annual Medicare Wellness Visit 2003 RSV Immunization or 60+ Years (1 - 1-dose 75+ series) 2013 PHQ-2 (Physician [place]) 10/25/2024 COVID-19 Vaccine ( season) 2025 08/16/2023, [...] complete this topic Insurance MEDICARE Care Teams Mailroom Assistant Relationship Specialty [place] [address] [place] [address] PCP - General FAMILY PRACTICE 03/05/20
--- OUTSIDE RECORDS SUMMARY | 2025-09-19 13:43 | XMS_ITS | Clinical Summary ---
Author Organization [facility] Address [address], [place] [address] Phone Care Team Providers Care Steam Generating Powerplant Mechanic Name Role Phone Alfie Peacock MD Primary Care Provider [phone] Allergies Active Allergy Reactions Criticality Noted Date [...] 11/26/2021 Active ergocalciferol (VITAMIN D2) 1.25 MG (22878 UT) capsule TAKE 1 CAPSULE BY MOUTH [...] on file Legal Sex Female 8:48 AM [facility] Gender Identity Not on file Sexual Orientation [...] 07/07/2019 Insurance [employer] MEDICARE Care Teams Steam Generating Powerplant Mechanic Relationship Specialty Start Date End Date Alfie Peacock MD [address] [facility] [address] [place] [address] PCP - General Internal Medicine 05/31/19
--- OUTSIDE RECORDS SUMMARY | 2025-09-19 13:43 | XMS_ITS | Clinical Summary ---
Author Organization [facility] [address] Address [address] [place] [address] Care Team Providers Care Log Handler Name Role Phone Alfie Peacock MD Primary [...] on file Legal Sex Female 8:33 PM [employer] Gender Identity Not on file Sexual Orientation Not on file Last Filed Vital Signs Vital Sign Reading Time Taken Comments Blood Pressure 128/76 05/25/2025 2:57 PM CDT Pulse 64 05/25/2025 2:57 PM CDT Temperature 36.4 C (97.6 F) 11/15/2020 3:32 PM [facility] [employer] [facility] Respiratory Rate 18 11/15/2020 3:32 PM [employer] Oxygen Saturation 98% 05/25/2025 2:57 PM CDT [...] 020, 06/22/2020, 07/07/2019, Additional history exists Insurance [facility] MEDICARE ADVANTAGE [facility] MEDICARE ADVANTAGE [facility] MEDICARE ADVANTAGE [facility] MEDICARE ADVANTAGE Advance Directives For more information, please contact: [phone] * Full Code (Latest Code Status on File) Date Activated Date Inactivated Comments 09/14/2020 8:49 PM 09/16/2020 11:10 PM Care Teams Log Handler Relationship Specialty Start Date End Date Alfie Peacock MD [address] [facility] [address] [place] [address] PCP - General 01/22/17 Miscellaneous, Not In File 11/23/20
--- NOTE | 2025-09-19 14:15 | P.HP_ITS ---
H&P: HPI History of Present Illness Date/Time: 09/19/25 14:15 Chief Complaint: Chest Pain Narrative: 85 y/o F with PMH of CVA, CKD S4, CAD s/p stent x1 in 1998, HLD, HTN, and kidney stones presents here with chest pain. The patient presents here from home via EMS for further evaluation of chest pain. She reports onset of bilateral chest pain yesterday. She is unsure when it occurred and is unable to provide further details. Per family at the bedside, she did not report any complaints of pain to them. She did however report nausea with 1 episode of spitting up but no vomiting. Today however she reports chest pain woke her from her sleep. She describes the chest pain as midsternal, nonradiating, constant, no aggravating factors, and alleviated by 1 sublingual nitro that she took home. She denies dizziness, nausea, vomiting, diaphoresis, or worsening fatigue today. She did have an episode of exertional dyspnea after arrival to the emergency department and did report that she felt like her heart rate was fast today. Family is also additionally reporting she had new bilateral lower extremity swelling to her ankles, left worse than right yesterday that they noticed. The patient reports not noticing any changes in her legs prior to her family noticing it. She arrived to the emergency department chest pain free. She has a cardiac history significant for coronary artery disease, myocardial infarction, hypertension, and stent placement x1 in 1998. Initial VS at presentation: 97.9? F, HR 99, R 17, 128/74, and 96% on RA. ED workup showed: No leukocytosis, hemoglobin 12.5, INR 1.1, no significant electrolyte derangements, creatinine 2.04 and GFR 23 (1.97 and GFR 24 on 06/28/2025), initial troponin 1.11. CXR showed borderline heart size with mild pulmonary edema. EKG showed sinus tachycardia, possible left atrial enlargement, nonspecific ST and T-wave abnormality. Review of Systems Review of Systems: All systems reviewed & are unremarkable except as noted in HPI and below [facility] Past Medical History Medical History (Updated 09/19/25 @ 15:43 by Lorie Wei, EARLINE) Chronic kidney disease, stage 4 (severe) Irritable bowel Myocardial infarction MVP (mitral valve prolapse) Urinary tract infection Cerebrovascular accident Old bilateral lacunar infarcts noted on brain CT 02/22/2020. Nephrolithiasis Coronary artery disease With history of angioplasty and stent in 1998. Hyperlipidemia Essential hypertension Vitamin D deficiency Surgical History Surgical History History of hysterectomy History of lithotripsy History of appendectomy History of cholecystectomy History of heart artery stent Family History Family History (Updated 09/19/25 @ 17:29 by Viviane Whitfield RN) Mother Family history of cardiovascular disease Family history of arthritis Cerebrovascular accident Father Family history of cardiovascular disease Family history of arthritis Colon polyp Social History Social History Social History: Surrogate medical decision maker: Fransisca Meadows, daughter. Code status: Full code. Smoking packs per day: 0.5 Smoking cigarettes per day: 10.0 Years smoked: 4 Smoking pack-years: 2.00 Smoking status: Former smoker Tobacco type: cigarettes Second hand tobacco smoke exposure: No Smoking end date: 10/25/1955 Alcohol intake: never Substance use: never Substance use type: does not use Lack of Transportation: No Lack of Food: Never True Current Housing: I Have Housing Concerned About Future Housing: No Difficulty Paying Gas/Electric Bills: No Difficulty Paying for Meds: No Currently Unemployed: No Education: High School Diploma/GED Difficulty w/ Childcare or Family Care: No Living arrangements: with family Additional living arrangements comments: Lives in a senior apartment at [facility]. She has 3 children. 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 Gender identity (if verbalized by the patient): Female Spiritual care concerns: No Agree to blood products: Yes Meds Home Medications and Allergies Home Medications ?Medication ?Instructions ?Recorded ?Confirmed ?Type aspirin 81 mg tablet,delayed 81 mg PO DAILY 12/13/19 1 11/19/24 History release (Adult Low Dose Aspirin) nitroglycerin 0.4 mg sublingual 0.4 mg sublingual Q5M PRN chest 12/27/20 09/19/25 Rx tablet pain #10 tabs bupropion HCl 150 mg tablet,12 hr See Rx Instructions .Route 01/22/25 09/19/25 R x sustained-release .COMPLEX #90 tabs potassium chloride 10 mEq See Rx Instructions .Route 0 03/23/25 09/19/25 Rx tablet,extended release(part/cryst) .COMPLEX #90 tabs atorvastatin 20 mg tablet See Rx Instructions .Route 0 05/02/25 09/19/25 Rx .COMPLEX #90 tabs sodium bicarbonate 650 mg tablet See Rx Instructions . Route 06/01/25 09/19/25 Rx .COMPLEX #60 tabs calcitriol 0.25 mcg capsule 0.25 mcg PO 3XW #45 caps 0 06/13/25 09/19/25 Rx amlodipine 10 mg tablet See Rx Instructions .Route 0 06/18/25 09/19/25 Rx .COMPLEX #90 tabs lisinopril 10 mg tablet See Rx Instructions .Route 0 06/18/25 09/19/25 Rx .COMPLEX #90 tabs denosumab 60 mg/mL subcutaneous 60 mg subcut [id number] 07/03/25 09/19/25 History syringe (Prolia) metoprolol succinate 100 mg See Rx Instructions .Route 07/26/25 09/19/25 Rx tablet,extended release 24 hr .COMPLEX #90 tabs ondansetron 4 mg disintegrating 4 mg PO Q8H PRN nausea and 09/18/25 09/19/25 Rx tablet vomiting #30 tabs acetaminophen 500 mg tablet 1,000 mg PO BID 09/19/25 1 11/19/24 History (Acetaminophen Extra Strength) calcium 600 mg (as 1 cap PO DAILY 09/19/2508/26 History carbonate)-vitamin D3 10 mcg (400 unit) capsule Allergies Allergy/AdvReac Type Severity Reaction Status Date / Time tocainide (From Tonocard) AdvReac Intermediate Nervousness Verified 09/19/25 17:11 procainamide AdvReac Unknown Nausea Verified 09/19/25 17:11 quinidine AdvReac Unknown increase Verified 09/19/25 17:11 nervousness Vital Signs Vital Signs - 24 hr 09/19/25 12:22 Temperature 97.9 F Pulse Rate 99 Respiratory Rate 17 Blood Pressure 128/74 Pulse Oximetry 96 Oxygen Delivery Room Air Exam Const: General: comfortable and no acute distress Other: , female, elderly, nontoxic appearance HENMT: Face/Nose/Sinus: Normal nares present Mouth: Yes moist mucous membranes Other: +JAMUL Eyes: General: appearance normal, both eyes and all related structures Sclera: sclerae normal Pupils: Equal, round and reactive pupils present EOM: EOMs intact bilaterally Resp: Effort & Inspection: normal respiratory effort Auscultation: clear to auscultation bilaterally Cardio: Rate: regular rate Rhythm: regular rhythm Other: S1-S2 present without murmur, rub. Occasional ectopy. GI: Other: Abdomen soft, nondistended, nontender. Normoactive bowel sounds in all quadrants. Skin: General skin exam: normal color and no rashes or lesions noted Wounds: no wounds Neuro: Speech: normal speech Motor exam (neuro): 5/5 motor strength present throughout Sensory Exam: normal sensation Other: Alert and orientated to self, place, year. Poor situational recall. Extrem: Other: Trace edema, nonpitting and symmetric to bilateral lower extremities. Psych: Mental Status: mental status grossly normal Affect: normal affect Other: Fair insight and judgment, very pleasant H&P: Results Labs Labs: Short CBC 09/19/25 Range/Units 12:35 WBC 10.0 (4.5-10.0) K/mm3 Hgb 12.5 D (12.0-15.0) g/dL Hct 37.6 (37.0-47.0) % Plt Count 238 (150-375) k/mm3 BMP 09/19/25 12:35 Sodium 142 Potassium 4.1 Chloride 107 Carbon Dioxide 25 BUN 23 H Creatinine 2.04 H Glucose 107 Calcium 9.7 Cardiac Enzymes 09/19/25 Range/Units 12:35 Troponin I 1.110 H* (0.000-0.034) ng/mL Liver Function 09/19/25 Range/Units 12:35 Total Bilirubin 1.1 (0.2-1.3) mg/dL AST 27 (14-36) U/L ALT 15 (6-35) U/L Alkaline Phosphatase 75 (38-126) U/L Albumin 4.6 (3.5-5.1) g/dL Assessment and Plan Assessment and plan (1) Acute non-ST elevation myocardial infarction (NSTEMI): Code(s): I21.4 - Non-ST elevation (NSTEMI) myocardial infarction Status: Acute Assessment and Plan: Here with midsternal nonradiating chest pain that woke her from her sleep today that was relieved with [address] depressions and T-wave inversions in lateral leads. - CXR showed borderline heart size with mild pulmonary edema, head CT negative, Venous Doppler of LLE negative - Troponin: 1.11 -> 1.25, trend - ASA 324 -> 81 daily - SL nitro PRN - cardiology consulted - [place] Continue heparin, if troponin continues to rise recommend cardiac catheterization. TTE to evaluate LVEF/any motion wall abnormality. Continue aspirin and statin. - started on heparin gtt on 09/19 - continue atorvastatin, metoprolol - reviewed chart, no previous echo/stress/cardiac catheterization on file. mild pulm edema on CXR, check echo - telemetry monitoring (2) Pulmonary edema: Qualifiers: Chronicity: acute Qualified Code(s): J81.0 - Acute pulmonary edema Code(s): J81.1 - Chronic pulmonary edema Status: Acute Assessment and Plan: No current complaints shortness of breath. No previously known history of congestive heart failure. Mild pulmonary edema noted on CXR with borderline heart size. Reviewed chart, no previous echo on file. - Lasix 40 mg IV x 1 - check echo - monitor I&Os daily weights - monitor renal function (3) Chronic kidney disease, stage 4 (severe): Code(s): N18.4 - Chronic kidney disease, stage 4 (severe) Status: Chronic Assessment and Plan: Patient has history of chronic kidney disease stage IV. Follows with Dr. Camara. Last visit on 06/13/25. Who felt CKD could be related to poor p.o. int aubrie. Serology, immunofix, and cap/lambda ratio previously evaluated and normal/okay. Creatinine 2.04, BUN 23, GFR 23 upon admission on 09/19. Previously 1.97, BUN 29, GFR 24 on 06/28/2025. - trend renal function - monitor electrolytes, correct as needed (4) Essential hypertension: Code(s): I10 - Essential (primary) hypertension Status: Chronic Assessment and Plan: - chronic, currently 130/79, stable. - continue home medications: Amlodipine, lisinopril, metoprolol - monitor (5) Hyperlipidemia: Qualifiers: Hyperlipidemia type: unspecified Qualified Code(s): E78.5 - Hyperlipidemia, unspecified Code(s): E78.5 - Hyperlipidemia, unspecified Status: Chronic Assessment and Plan: - continue home medication: Atorvastatin 20 mg daily Plan Diet: Heart healthy, NPO midnight in case of need for catheterization GI Prophylaxis: n/a DVT Prophylaxis: Heparin gtt IV fluids: 1L bolus, now diuresing Lines/Tubes: pIV Code Status: DNR Quality VTE Prophylaxis VTE prophylaxis: pharmacologic ordered Hospitalist MIPS Advance Care Plan I have confirmed that the patient's Advanced Care Plan is present, code status is documented, or surrogate decision maker is listed in patient medical record.: Yes Medication Reconciliation I have utilized all available resources to obtain, update and review the patients current medications (includes all prescriptions, OTC, herbals, cannabis, and nutritional supplements).: Yes
[2025-09-19] MEDS: ASPIRIN 81 MG CHEWABLE TABLET 324 MG PO (14:17)
[2025-09-19] MEDS: LACTATED RINGERS 1,000 ML 999 ML IV CONT (14:29)
--- NOTE | 2025-09-19 15:07 | ED_ITS ---
HPI - Chest Pain General Chief Complaint: Chest Pain Stated Complaint: cp, shaky, headache Time Seen by Provider: 09/19/25 13:26 History of Present Illness HPI narrative: Yesterday patient started having some chest pain, felt little bit shaky while going to the shower, and had a slight headache, the last time she had symptoms like this 27 years ago she ended up developing heart attack requiring stents. By the time she arrived here and got a dose of nitroglycerin, her chest pain has completely resolved. She is currently not having any symptoms whatsoever. Related Data Home Medications ?Medication ?Instructions ?Recorded ?Confirmed ?Last Taken ?Type aspirin 81 mg tablet,delayed 81 mg PO DAILY 12/13/19 1 09/13/20 08:00 History release (Adult Low Dose Aspirin) denosumab 60 mg/mL subcutaneous 60 mg subcut [id number] 07/03/25 08/20/25 Unknown History syringe (Prolia) Allergies Allergy/AdvReac Type Severity Reaction Status Date / Time tocainide (From Tonocard) AdvReac Intermediate Nervousness Verified 08/20/25 16:00 procainamide AdvReac Unknown Nausea Verified 09/19/25 12:19 quinidine AdvReac Unknown increase Verified 09/19/25 12:19 nervousness Review of Systems 2 Review of Systems: All systems reviewed & are unremarkable except as noted in HPI and below PMF[facility] Past Medical History Medical History Chronic kidney disease, stage 4 (severe) Irritable bowel Myocardial infarction MVP (mitral valve prolapse) Urinary tract infection Cerebrovascular accident Old bilateral lacunar infarcts noted on brain CT 02/22/2020. Nephrolithiasis Coronary artery disease With history of angioplasty and stent in 1998. Hyperlipidemia Essential hypertension Vitamin D deficiency Surgical History Surgical History History of hysterectomy History of lithotripsy History of appendectomy History of cholecystectomy History of heart artery stent Family History Family History Mother Cerebrovascular accident Family history of arthritis Family history of cardiovascular disease Father Family history of arthritis Family history of cardiovascular disease Social History Social History Social History: Surrogate medical decision maker: Fransisca Meadows, daughter. Code status: Full code. Years smoked: 2 Smoking status: Former smoker Tobacco type: cigarettes Second hand tobacco smoke exposure: No Smoking end date: 10/25/1955 Alcohol intake: never Substance use: never Substance use type: does not use Lack of Transportation: No Lack of Food: Never True Current Housing: I Have Housing Concerned About Future Housing: No Difficulty Paying Gas/Electric Bills: No Difficulty Paying for Meds: No Currently Unemployed: No Education: High School Diploma/GED Difficulty w/ Childcare or Family Care: No Living arrangements: with family Additional living arrangements comments: Lives in a senior apartment at [facility]. She has 3 children. 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 Gender identity (if verbalized by the patient): Female Spiritual care concerns: No Agree to blood products: Yes Exam 2 Narrative: EXAMINATION OF ORGAN SYSTEMS/BODY AREAS: Constitutional: Vital signs per nursing GENERAL:[No acute distress, non-toxic appearing.] HEAD: Normal with no signs of head trauma. EYES: EOMI, conjunctiva normal ENT: Hearing grossly intact LUNGS: Nonlabored breathing. HEART: [Regular rate and rhythm] ABD: [Soft], [nontender to palpation] EXT: Normal range of motion SKIN: [No rashes or lesions.] NEURO: [Alert. No gross focal sensory or strength deficits.] PSYCH: Normal affect Course Vital Signs Vital signs: Vital Signs Temperature 97.9 F 09/19/25 12:22 Pulse Rate 99 09/19/25 12:22 Respiratory Rate 17 09/19/25 12:22 Blood Pressure 128/74 09/19/25 12:22 Pulse Oximetry 96 09/19/25 12:22 Oxygen Delivery Room Air 09/19/25 12:22 Temperature 97.9 F 09/19/25 12:22 Pulse Rate 100 09/19/25 14:21 Respiratory Rate 17 09/19/25 12:22 Blood Pressure 128/74 09/19/25 12:22 Pulse Oximetry 96 09/19/25 12:22 Oxygen Delivery Room Air 09/19/25 14:21 MDM - Chest Pain MDM Narrative Medical decision making narrative: Yesterday patient started having some chest pain, felt little bit shaky while going to the shower, and had a slight headache, the last time she had symptoms like this 27 years ago she ended up developing heart attack requiring stents. By the time she arrived here and got a dose of nitroglycerin, her chest pain has completely resolved. She is currently not having any symptoms whatsoever. Chest pain workup initiated here. EKG - 12-Lead: Performed at 1223. Interpreted by me. [Sinus rhythm]. Rate 100. [Normal] axis. NH-interval 136. QRS duration 90. QTc 459. Some possible slight T-wave flattening/ST depressions V4 to V6 but no ST elevations. Chest x-ray showing some possible pulmonary edema. EKG unfortunately does show elevation at 1.1. I did return to the room and updated the patient and family at bedside, she is still not having any chest pain at this time. Discussed plan for admission with Cardiology consult. Discussed with junior automation engineer, who recommends starting heparin drip at this time and they will follow along since she is not having chest pain currently. Discussed with patient and family, there is some questionable concern for possible microhemorrhage in the past, I did review multiple prior CT brains which were all unremarkable, did obtain another 1 today without signs of bleeding. Heparin drip started and admitted to hospitalist after discussion. Lab Data 09/19/25 12:35 09/19/25 12:35 Labs: Lab Results 09/19/25 Range/Units 12:35 WBC 10.0 (4.5-10.0) K/mm3 RBC 4.01 L (4.2-5.4) M/mm3 Hgb 12.5 D (12.0-15.0) g/dL Hct 37.6 (37.0-47.0) % MCV 93.8 (80-100) fl MCH 31.2 (26-34) pg MCHC 33.2 (32-36) g/dl RDW 14.4 (11.5-14.5) % Plt Count 238 (150-375) k/mm3 MPV 9.0 (7.4-10.4) fl Immature Gran % (Auto) 0.5 (0-0.5) % Neut % (Auto) 85.1 H (45.5-73.1) % Lymph % (Auto) 8.4 L (18.3-44.2) % [place] % (Auto) 4.8 (2.6-8.5) % Eos % (Auto) 1.0 (0-4.4) % Baso % (Auto) 0.2 (0.2-1.2) % Lymph # (Auto) 0.84 L (0.9-3.2) K/mm3 [place] # (Auto) 0.5 (0.1-0.6) K/mm3 Eos # (Auto) 0.1 (0-0.3) K/mm3 Baso # (Auto) 0.0 (0.0-0.1) K/mm3 Abs Immat Gran (auto) 0.05 H (0.00-0.031) K/mm3 Absolute Neuts (auto) 8.5 H (1.3-6.7) K/mm3 Absolute Nucleated RBC 0.000 (0.0-0.012) K/mm3 Nucleated RBC % 0.0 (0.0-0.2) % PT 13.7 (11.1-14.7) Seconds INR 1.1 APTT 37.4 H (22.3-36.8) Seconds Sodium 142 (137-145) mmol/L Potassium 4.1 (3.4-5.0) mmol/L Chloride 107 (98-107) mmol/L Carbon Dioxide 25 (22-30) mmol/L Anion Gap 10 (4-12) mmol/L BUN 23 H (7-17) mg/dL Creatinine 2.04 H (0.7-1.0) mg/dL Estim Creat Clear Calc Not Reportable Estimated GFR 23 L (59 - ) Glucose 107 (65-110) mg/dL Calcium 9.7 (8.4-10.2) mg/dL Total Bilirubin 1.1 (0.2-1.3) mg/dL AST 27 (14-36) U/L ALT 15 (6-35) U/L Alkaline Phosphatase 75 (38-126) U/L Troponin I 1.110 H* (0.000-0.034) ng/mL Total Protein 7.7 (6.3-8.2) g/dL Albumin 4.6 (3.5-5.1) g/dL Lipase 75 (23-300) U/L Critical Care Time Critical Care Time Critical Care Time: Yes Total Critical Care Time: 31 Discharge Plan Discharge Clinical Impression: Acute non-ST elevation myocardial infarction (NSTEMI) Patient Disposition: Still a Patient Condition: Serious
[2025-09-19] MEDS: HEPARIN SOD/D5W 100 UNITS/ML 25,000 UNITS/250 ML BAG IV CONT (15:22)
--- NOTE | 2025-09-19 15:27 | ECG_ITS ---
Test Date: 2025-09-19 15:35:53 Measurements Intervals [place] Rate: 96 P: 38 NC: 154 QRS: 44 QRSD: 84 T: 70 QT: 362 QTc: 460 Interpretive Statements SINUS RHYTHM NONSPECIFIC ST & T-WAVE ABNORMALITY ABNORMAL ECG Compared to ECG 09/19/2025 12:23:41 Sinus tachycardia no longer present T-wave abnormality still present Electronically Signed On 09-19-2025 17:42:29 CONTROL PANEL OPERATOR by Foster Hahn M.D.
--- NOTE | 2025-09-19 15:42 | WPCEDHO ---
ED Hand Off Checklist All vitals saved:y IV Site documented:y All med administrations documented:y Triage Note Triage Note Pt to ED via EMS for bilateral CP 09/19/25 14:19 that started yesterday throughout the day. Pt is poor historian, pt states she is not currently having any CP after taking nitro. Pt is A&OX4. Denies feeling SOB or any other symptoms. PMH of AL (20 yrs ago) and HTN. Allergies tocainide (From Tonocard) Adverse Reaction (Intermediate, Verified 08/20/25 16:00) Nervousness procainamide Adverse Reaction (Unknown, Verified 09/19/25 12:19) Nausea quinidine Adverse Reaction (Unknown, Verified 09/19/25 12:19) increase nervousness Family History (Last Reviewed 09/19/25 @ 14:29 by Lorie Wei, SUPERINTENDENT OF SCHOOLS) Mother Cerebrovascular accident Family history of arthritis Family history of cardiovascular disease Father Family history of arthritis Family history of cardiovascular disease Active Medications including assessments/comments Heparin Sodium/Dextrose (Heparin Sodium/D5w 100 Units/Ml) 25,000 units in 250 mls @ 5 mls/hr IV CONT .Q24H RAVIN; Protocol Last Admin: 09/19/25 15:22 Dose: 500 units/hr, 5 mls/hr Documented By: PHILLIP Co-signed By: [facility] Infusion/Titration Document 09/19/25 15:22 PHILLIP (Rec: 09/19/25 15:23 PHILLIP [id number]) Co-signed By Nikki Cohen RN Intake IV Site Peripheral Access Right Forearm Container Volume 250 Waste Amount 0 Dosing Dose Rate 500 Infusion Rate 5 Increase/Decrease Started Elapsed Time Elapsed Time ( 0m minutes) Heparin Infusion Assessment Document 09/19/25 15:22 PHILLIP (Rec: 09/19/25 15:23 PHILLIP [id number]) Co-signed By Nikki Cohen RN Heparin Infusion Assessment Heparin Infusion Initiated Action Administered/Completed Medications Discontinued Medications Aspirin (Aspirin 81 Mg Chewable Tablet) 324 mg PO ONCE STA Stop: 09/19/25 12:18 Last Admin: 09/19/25 14:00 Dose: Not Given Documented By: PHILLIP Non-Admin Reason: No Dose Required Aspirin (Aspirin 81 Mg Chewable Tablet) 324 mg PO ONCE STA Stop: 09/19/25 14:14 Last Admin: 09/19/25 14:17 Dose: 324 mg Documented By: PHILLIP Heparin Sodium (Porcine) (Heparin Sodium 5,000 Units/Ml Vial) 2,500 units 60 units/kg (3000 units) IV PUSH ONCE ONE Stop: 09/19/25 14:16 Last Admin: 09/19/25 15:20 Dose: 2,500 units Documented By: PHILLIP Co-signed By: [facility] Lactated Ringer's (Lr - Lactated Ringers Iv) 1,000 mls @ 999 mls/hr IV CONT .Q1H1M STA Stop: 09/19/25 15:13 Last Infusion: 09/19/25 15:31 Dose: Infused Documented By: Admin: 09/19/25 14:29 Dose: 999 mls/hr Documented By: TERRIE Interventions/Assessments Cardiac Monitoring Start: 09/19/25 12:15 Freq: Status: Active Protocol: Document 09/19/25 14:21 ELB (Rec: 09/19/25 14:22 ELB [id number]) Clutch Assembler Assessment Clutch Assembler Yes Applied Pulse Rate (60-100) 100 EKG Rythm Sinus Rhythm IV / Saline Lock, Insert Start: 09/19/25 12:17 Freq: STAT Status: Active Protocol: Document 09/19/25 15:18 ELB (Rec: 09/19/25 15:18 ELB [id number]) IV Assessment Peripheral Access Right Forearm IV Catheter Access Initiated IV Insertion Date 09/19/25 IV Insertion Time 15:18 Catheter Gauge 22 Ultrasound Used for Yes Placement IV Site Assessment WNL IV Care and WNL Maintenance PA: Cardiovascular Assessment Start: 09/19/25 12:15 Freq: Status: Active Protocol: Document 09/19/25 14:21 ELB (Rec: 09/19/25 14:22 ELB [id number]) Chest Pain Assessment Chest Pain Intensity 0 Chest Pain Location bilateral chest Cardiovascular Assessment Cardiovascular Chest Pain Symptoms Skin Description Normal Color Heart Sounds Normal Jugular Vein None Distention Rhythm/Strength Monitor EKG Rythm Sinus Rhythm PA: Respiratory Assessment Start: 09/19/25 12:15 Freq: Status: Active Protocol: Document 09/19/25 14:21 ELB (Rec: 09/19/25 14:22 ELB [id number]) Respiratory Assessment Symptoms None Effort Normal Pattern Regular Depth Normal Chest Expansion Symmetrical Adult Capillary Normal/Less than 2 Seconds Refill Throughout Phase Inspiratory & Expiratory Lung Sounds Clear Oxygen Delivery Oxygen Delivery Room Air Last Vital Signs Temperature 97.9 F 09/19/25 12:22 Pulse Rate 99 09/19/25 15:32 Respiratory Rate 21 H 09/19/25 15:32 Pulse Oximetry 97 09/19/25 15:32 Blood Pressure 130/79 09/19/25 15:32 Blood Pressure Mean 95 09/19/25 15:32 Blood Pressure Position Sitting 09/19/25 12:22 Oxygen Delivery Room Air 09/19/25 14:21 Weight 51 kg 09/19/25 14:19 Last Result - Abnormals Only RBC 4.01 M/mm3 (4.2-5.4) L 09/19/25 12:35 Neut % (Auto) 85.1 % (45.5-73.1) H 09/19/25 12:35 Lymph % (Auto) 8.4 % (18.3-44.2) L 09/19/25 12:35 Lymph # (Auto) 0.84 K/mm3 (0.9-3.2) L 09/19/25 12:35 Abs Immat Gran (auto) 0.05 K/mm3 (0.00-0.031) H 09/19/25 12:35 Absolute Neuts (auto) 8.5 K/mm3 (1.3-6.7) H 09/19/25 12:35 APTT 37.4 Seconds (22.3-36.8) H 09/19/25 12:35 BUN 23 mg/dL (7-17) H 09/19/25 12:35 Creatinine 2.04 mg/dL (0.7-1.0) H 09/19/25 12:35 Estimated GFR 23 (59-) L 09/19/25 12:35 Troponin I 1.110 ng/mL (0.000-0.034) H* 09/19/25 12:35 Most Recent Suicide Severity Rating Suicide Severity Rating NO RISK INDICATED 09/19/25 14:19
--- NOTE | 2025-09-19 16:08 | P.CONCA_ITS ---
Assessment and Plan Assessment and plan (1) Acute non-ST elevation myocardial infarction (NSTEMI): Code(s): I21.4 - Non-ST elevation (NSTEMI) myocardial infarction Status: Acute (2) Coronary artery disease: Qualifiers: Associated angina: without angina Coronary Disease-Associated Artery/Lesion type: unspecified vessel or lesion type [place] vs. transplanted heart: [place] heart Qualified Code(s): I25.10 - Atherosclerotic heart disease of [place] coronary artery without angina pectoris Code(s): I25.10 - Atherosclerotic heart disease of [place] coronary artery without angina pectoris Status: Acute (3) Essential hypertension: Code(s): I10 - Essential (primary) hypertension Status: Chronic (4) Hyperlipidemia: Qualifiers: Hyperlipidemia type: unspecified Qualified Code(s): E78.5 - Hyperlipidemia, unspecified Code(s): E78.5 - Hyperlipidemia, unspecified Status: Chronic Plan Assessment: NSTEMI-troponin elevated to 1.110, EKG shows sinus rhythm with ST depressions and T-wave inversions in lateral leads (ST and T-wave changes were reported in her old EKG); no echo on file Hypertension Hyperlipidemia CAD status post PCI in 1998 CKD stage 4 Plan: Continue heparin drip Continue aspirin 81 mg daily Continue statin She is currently chest pain-free. Trend troponin. If troponin continues to rise then recommend cardiac catheterization to further evaluate coronaries Monitor on telemetry TTE to evaluate LVEF and any wall motion abnormality History of Present Illness History of Present Illness Consult date/time: 09/19/25 16:08 Reason For Visit: Positive Trop/Chest Pain Narrative: 85-year-old female with history of CAD status post PCI in 1998, hyperlipidemia, hypertension, mitral valve prolapse, CVA (old bilateral lacunar infarcts noted on brain CT in 02/22/2020), is stable bowel syndrome, CKD stage 4 presents with chief complaint of chest pain. Patient states that she had left-sided chest pain yesterday while she was lying down. She took a nitroglycerin which resolved the pain within 5-10 minutes. Chest pain record today while she was lying down and she took a nitroglycerin which decreased the pain to some extent but did not resolve it completely. As pain had not resolved completely, she called her daughter about 30 minutes after taking the nitroglycerin. Patient's daughter came over and patient was brought to the ER. In the ER troponin was noted to be elevated at 1.110 and heparin drip was started for NSTEMI. Cardiology is consulted for further recommendations. Patient reports resolution of chest pain now. She states she had a stent in 1998. She denies any exertional chest pain or pain at rest after her stand up until now. She denies any shortness of breath, dizziness, lightheadedness, recent weight gain, palpitations, orthopnea, PND. Her daughter reports she noticed patient's left foot was more swollen than her right yesterday. Patient is not very active at baseline. She lives by herself in an independent living facility. Workup: Troponin: 1.110, 1.250 EKG: Sinus rhythm, ST depressions and T-wave inversions in lateral leads. These seem to be present in her old EKG. Chest x-ray: Borderline heart size. Mild pulmonary edema. Small left pleural effusion. No pneumothorax. No acute osseous abnormality. Multiple healed right rib fractures. There is a chronic burst fracture of L1. There is a hiatal hernia. Venous Doppler: Negative for DVT CT head: No acute intracranial abnormality Review of Systems 2 Review of Systems: Complete review of systems was performed and pertinent positives are reported in the HPI. [facility] Past Medical History Medical History (Updated 09/19/25 @ 15:43 by Lorie Wei APRN) Chronic kidney disease, stage 4 (severe) Irritable bowel Myocardial infarction MVP (mitral valve prolapse) Urinary tract infection Cerebrovascular accident Old bilateral lacunar infarcts noted on brain CT 02/22/2020. Nephrolithiasis Coronary artery disease With history of angioplasty and stent in 1998. Hyperlipidemia Essential hypertension Vitamin D deficiency Surgical History Surgical History History of hysterectomy History of lithotripsy History of appendectomy History of cholecystectomy History of heart artery stent Family History Family History Mother Cerebrovascular accident Family history of arthritis Family history of cardiovascular disease Father Family history of arthritis Family history of cardiovascular disease Social History Social History Social History: Surrogate medical decision maker: Fransisca Meadows, daughter. Code status: Full code. Years smoked: 2 Smoking status: Former smoker Tobacco type: cigarettes Second hand tobacco smoke exposure: No Smoking end date: 10/25/1955 Alcohol intake: never Substance use: never Substance use type: does not use Lack of Transportation: No Lack of Food: Never True Current Housing: I Have Housing Concerned About Future Housing: No Difficulty Paying Gas/Electric Bills: No Difficulty Paying for Meds: No Currently Unemployed: No Education: High School Diploma/GED Difficulty w/ Childcare or Family Care: No Living arrangements: with family Additional living arrangements comments: Lives in a senior apartment at [facility]. She has 3 children. 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 Gender identity (if verbalized by the patient): Female Spiritual care concerns: No Agree to blood products: Yes Meds Home Medications and Allergies Home Medications ?Medication ?Instructions ?Recorded ?Confirmed ?Type aspirin 81 mg tablet,delayed 81 mg PO DAILY 12/13/19 1 History release (Adult Low Dose Aspirin) nitroglycerin 0.4 mg sublingual 0.4 mg sublingual Q5M PRN chest 12/27/20 08/20/25 Rx tablet pain #10 tabs bupropion HCl 150 mg tablet,12 hr See Rx Instructions .Route 01/22/25 08/20/25 Rx sustained-release .COMPLEX #90 tabs potassium chloride 10 mEq See Rx Instructions .Route 0 03/23/25 08/20/25 Rx tablet,extended release(part/cryst) .COMPLEX #90 tabs atorvastatin 20 mg tablet See Rx Instructions .Route 0 05/02/25 08/20/25 Rx .COMPLEX #90 tabs sodium bicarbonate 650 mg tablet See Rx Instructions . Route 06/01/25 08/20/25 Rx .COMPLEX #60 tabs calcitriol 0.25 mcg capsule 0.25 mcg PO 3XW #45 caps 0 06/13/25 08/20/25 Rx amlodipine 10 mg tablet See Rx Instructions .Route 0 06/18/25 08/20/25 Rx .COMPLEX #90 tabs lisinopril 10 mg tablet See Rx Instructions .Route 0 06/18/25 08/20/25 Rx .COMPLEX #90 tabs denosumab 60 mg/mL subcutaneous 60 mg subcut [id number] 07/03/25 08/20/25 History syringe (Prolia) metoprolol succinate 100 mg See Rx Instructions .Route 07/26/25 08/20/25 Rx tablet,extended release 24 hr .COMPLEX #90 tabs ondansetron 4 mg disintegrating 4 mg PO Q8H PRN nausea and 09/18/25 Rx tablet vomiting #30 tabs Allergies Allergy/AdvReac Type Severity Reaction Status Date / Time tocainide (From Tonocard) AdvReac Intermediate Nervousness Verified 08/20/25 16:00 procainamide AdvReac Unknown Nausea Verified 09/19/25 12:19 quinidine AdvReac Unknown increase Verified 09/19/25 12:19 nervousness Vital Signs Vital Signs - 24 hr 09/19/25 12:22 09/19/25 14:21 09/19/25 14:21 Temperature 36.6 C Pulse Rate 99 100 Respiratory Rate 17 Blood Pressure 128/74 Pulse Oximetry 96 Oxygen Delivery Room Air Room Air 09/19/25 15:21 09/19/25 15:32 Temperature Pulse Rate 95 99 Respiratory Rate 21 H 21 H Blood Pressure 125/94 H 130/79 Pulse Oximetry 97 97 Oxygen Delivery Exam 2 Narrative: General: Alert oriented x3, no acute distress Neck: Supple, no JVD Chest: Bilaterally clear to auscultation, no rales or rhonchi Cardiac: S1, S2 +, regular rate, regular rhythm, systolic murmur in the apical area Extremities: Bilateral lower extremity edema 1+, no skin rash Neurologic: Alert and oriented x3, no focal neurological deficits Results Labs and Meds 09/19/25 12:35 09/19/25 12:35 Lab results: Cardiac Enzymes 09/19/25 Range/Units 12:35 AST 27 (14-36) U/L Troponin I 1.110 H* (0.000-0.034) ng/mL Coagulation 09/19/25 Range/Units 12:35 PT 13.7 (11.1-14.7) Seconds APTT 37.4 H (22.3-36.8) Seconds CBC 09/19/25 Range/Units 12:35 WBC 10.0 (4.5-10.0) K/mm3 RBC 4.01 L (4.2-5.4) M/mm3 Hgb 12.5 D (12.0-15.0) g/dL Hct 37.6 (37.0-47.0) % Plt Count 238 (150-375) k/mm3 Lymph # (Auto) 0.84 L (0.9-3.2) K/mm3 [place] # (Auto) 0.5 (0.1-0.6) K/mm3 Eos # (Auto) 0.1 (0-0.3) K/mm3 Baso # (Auto) 0.0 (0.0-0.1) K/mm3 Comprehensive Metabolic Panel 09/19/25 Range/Units 12:35 Sodium 142 (137-145) mmol/L Potassium 4.1 (3.4-5.0) mmol/L Chloride 107 (98-107) mmol/L Carbon Dioxide 25 (22-30) mmol/L BUN 23 H (7-17) mg/dL Creatinine 2.04 H (0.7-1.0) mg/dL Glucose 107 (65-110) mg/dL Calcium 9.7 (8.4-10.2) mg/dL AST 27 (14-36) U/L ALT 15 (6-35) U/L Alkaline Phosphatase 75 (38-126) U/L Total Protein 7.7 (6.3-8.2) g/dL Albumin 4.6 (3.5-5.1) g/dL Intake and Output 09/19/25 09/19/25 09/19/25 07:59 15:59 23:59 Intake Total 1000 Balance 1000 Intake: IV 1000 Lactated Ringers 1,000 ml @ 999 1000 mls/hr IV CONT .Q1H1M STA Rx#: [id number] Patient Weight 09/19/25 23:59 Weight 51 kg
[2025-09-19 16:31] LABS: NT Pro B Type Natriuretic Pept 16900 pg/mL (19.9-100)
[2025-09-19 16:39] LABS: Troponin I 1.250 ng/mL (0.000-0.034)
[2025-09-19 18:57] LABS: Troponin I 1.270 ng/mL (0.000-0.034)
[2025-09-19] MEDS: FUROSEMIDE INJ 40 MG/4 ML VIAL IV PUSH (18:57)
[2025-09-19] MEDS: ACETAMINOPHEN 500 MG TABLET 1000 MG PO (18:57)
--- NOTE | 2025-09-19 19:06 | ADMGEN ---
This patient, Vanesa New, was admitted to IMU Room 232-01 at 1632. Patient/family oriented to hospital policies and general routines including ID bracelet, bed and alarms, visiting hours, pain management, procedures, bathroom and other care routines, personal items, smoking policy, room service/diet, and visiting hours. Information on how to activate the Rapid Response Team has been discussed. Patient/Family are encouraged to report perceived risks to care and to ask questions if they do not understand what they are told or what they should do.
[2025-09-19] MEDS: ATORVASTATIN 20 MG TABLET PO (21:00)
[2025-09-19 21:39] LABS: Hematocrit 32.8 % (37.0-47.0); Hemoglobin 10.7 g/dL (12.0-15.0); Immature Granulocyte Percent A 0.5 % (0-0.5); Lymphocytes Absolute Auto 0.97 K/mm3 (0.9-3.2); Mean Corpuscular HGB Conc 32.6 g/dl (32-36); Mean Corpuscular Hemoglobin 30.9 pg (26-34); Mean Corpuscular Volume 94.8 fl (80-100); Nucleated Red Blood Cells Absolute Auto 0.000 K/mm3 (0.0-0.012); Nucleated Red Blood Cells Perc 0.0 % (0.0-0.2); Platelet Count Result 180 k/mm3 (150-375); Red Blood Count 3.46 M/mm3 (4.2-5.4); White Blood Count 7.8 K/mm3 (4.5-10.0)
[2025-09-19 21:50] LABS: INR 1.1; Prothrombin Time 14.0 Seconds (11.1-14.7)
[2025-09-19 21:51] LABS: Partial Thromboplastin Time 49.3 Seconds (22.3-36.8)
[2025-09-19 23:53] LABS: Troponin I 1.520 ng/mL (0.000-0.034)
[2025-09-20] VITALS (14 sets, daily range): BP systolic 115–139; BP diastolic 57–87; PULSE 78–112; RESP 16–28; TEMP 36.1–37.2; O2SAT 91–99
[2025-09-20 05:15] LABS: Hematocrit 33.0 % (37.0-47.0); Hemoglobin 11.0 g/dL (12.0-15.0); Immature Granulocyte Percent A 0.5 % (0-0.5); Lymphocytes Absolute Auto 1.05 K/mm3 (0.9-3.2); Mean Corpuscular HGB Conc 33.3 g/dl (32-36); Mean Corpuscular Hemoglobin 31.3 pg (26-34); Mean Corpuscular Volume 93.8 fl (80-100); Nucleated Red Blood Cells Absolute Auto 0.000 K/mm3 (0.0-0.012); Nucleated Red Blood Cells Perc 0.0 % (0.0-0.2); Platelet Count Result 177 k/mm3 (150-375); Red Blood Count 3.52 M/mm3 (4.2-5.4); White Blood Count 8.5 K/mm3 (4.5-10.0)
[2025-09-20 05:44] LABS: Anion Gap 7 mmol/L (4-12); Blood Urea Nitrogen 23 mg/dL (7-17); Calcium 8.8 mg/dL (8.4-10.2); Carbon Dioxide 25 mmol/L (22-30); Chloride 107 mmol/L (98-107); Estimated Glomerular Filt Rate 26; Glucose 91 mg/dL (65-110); Potassium 3.5 mmol/L (3.4-5.0); Sodium 139 mmol/L (137-145)
[2025-09-20 05:49] LABS: Partial Thromboplastin Time > 200.0 Seconds (22.3-36.8)
[2025-09-20] MEDS: ASPIRIN 81 MG ENTERIC TABLET PO (08:40)
[2025-09-20] MEDS: CALCIUM/VITAMIN D 500 MG/5 MCG (200 I.U.) TABLET PO (08:40)
[2025-09-20] MEDS: DOCUSATE SODIUM 100 MG CAPSULE PO (08:40)
[2025-09-20] MEDS: METOPROLOL SUCCINATE EXT REL 100 MG TABCR PO (08:40)
[2025-09-20] MEDS: POTASSIUM CHLORIDE 10 MEQ ER TABLET PO (08:40)
[2025-09-20] MEDS: ACETAMINOPHEN 500 MG TABLET 1000 MG PO ×2 (08:41→17:04)
[2025-09-20] MEDS: buPROPion HCL SR (12 HR) 150 MG TAB PO (08:41)
--- NOTE | 2025-09-20 09:09 | P.PNCA_ITS ---
Progress Note: A&P Assessment and Plan (1) Acute non-ST elevation myocardial infarction (NSTEMI): Code(s): I21.4 - Non-ST elevation (NSTEMI) myocardial infarction Status: Acute Assessment and Plan: No chest pain at present. Troponin up to 1.5. Repeat troponin today. Repeat EKG today. Continue heparin drip. Keep NPO after midnight for possible cardiac catheterization tomorrow. She is a patient of Dr. Cruz. Invasive workup versus more conservative therapy to be further discussed tomorrow although she is still living independently and I think that invasive angiography is certainly a reasonable option. Echo pending (2) Coronary artery disease: Qualifiers: Coronary Disease-Associated Artery/Lesion type: unspecified vessel or lesion type [place] vs. transplanted heart: [place] heart Associated angina: without angina Qualified Code(s): I25.10 - Atherosclerotic heart disease of [place] coronary artery without angina pectoris Code(s): I25.10 - Atherosclerotic heart disease of [place] coronary artery without angina pectoris Status: Acute Assessment and Plan: Continue aspirin, atorvastatin, metoprolol (3) Essential hypertension: Code(s): I10 - Essential (primary) hypertension Status: Chronic Assessment and Plan: Continue amlodipine, metoprolol, lisinopril. Blood pressure is reasonably controlled (4) Hyperlipidemia: Qualifiers: Hyperlipidemia type: unspecified Qualified Code(s): E78.5 - Hyperli pidemia, unspecified Code(s): E78.5 - Hyperlipidemia, unspecified Status: Chronic Assessment and Plan: Continue statin Plan Assessment: NSTEMI-troponin elevated to 1.110 and now to 1.5, EKG shows sinus rhythm with ST depressions and T-wave inversions in lateral leads Hypertension Hyperlipidemia CAD status post PCI in 1998 CKD stage 4 Plan: Continue heparin drip Continue aspirin 81 mg daily Continue statin She is currently chest pain-free. Trend troponin. If troponin continues to rise then recommend cardiac catheterization to further evaluate coronaries Monitor on telemetry TTE to evaluate LVEF and any wall motion abnormality Subjective Date/time seen: 09/20/25 09:09 Interval history: 85-year-old admitted for chest pain and non-STEMI. Date of service 09/20/2025: Feels okay. No chest pain or shortness of breath at present was very short of breath with walking to and from the bathroom yesterday. Review of Systems Review of Systems: All systems reviewed & are unremarkable except as noted in HPI and below Constitutional: Constitutional: Denies body ache(s) Eyes: Eyes: Denies blurry vision ENT: Reports Normal hearing present Cardiovascular: Cardiovascular: Reports chest pain Respiratory: Respiratory: Denies chest congestion Gastrointestinal: Gastrointestinal: Denies abdominal pain Genitourinary: Genitourinary: Denies hematuria Musculoskeletal: Musculoskeletal: Denies myalgias Integumentary/Breasts: Skin/Breast: Denies dry skin Neurologic: Denies Abnormal speech present Psychiatric: Psychiatric: Denies behavioral changes Endocrine: Endocrine: Denies change in body appearance Hematologic/Lymphatic: Hematologic/Lymphatic: Denies easy bleeding Allergic/Immunologic: Allergic/Immunologic: Denies GI upset with certain foods Exam Narrative: Awake alert oriented. Appears stated age Const: General: comfortable and no acute distress HENMT: Face/Nose/Sinus: Normal nares present Mouth: Yes moist mucous membranes Eyes: General: appearance normal, both eyes and all related structures Sclera: sclerae normal Neck: Neck: supple and no JVD Resp: Effort & Inspection: normal respiratory effort Auscultation: clear to auscultation bilaterally Cardio: Rate: regular rate Rhythm: regular rhythm GI: Inspection: non-distended GI Palp: Yes Soft to palpation Skin: General skin exam: normal color and no rashes or lesions noted Neuro: Speech: normal speech Sensory Exam: normal sensation Extrem: General: normal to inspection Psych: Mental Status: mental status grossly normal Affect: normal affect Objective Data Vital Signs Vital Signs: Vital Signs - 24 hr 09/19/25 12:22 09/19/25 14:21 09/19/25 14:21 Temperature 36.6 C Pulse Rate 99 100 Respiratory Rate 17 Blood Pressure 128/74 Pulse Oximetry 96 Oxygen Delivery Room Air Room Air Oxygen Flow Rate 09/19/25 15:21 09/19/25 15:32 09/19/25 16:28 Temperature Pulse Rate 95 99 Respiratory Rate 21 H 21 H Blood Pressure 125/94 H 130/79 Pulse Oximetry 97 97 88 L Oxygen Delivery Room Air Oxygen Flow Rate 09/19/25 16:29 09/19/25 17:02 09/19/25 17:30 Temperature 36.4 C L Pulse Rate 105 H Respiratory Rate 24 H Blood Pressure 146/86 H Pulse Oximetry 94 97 96 Oxygen Delivery Nasal Cannula Nasal Cannula Oxygen Flow Rate 2 2 09/19/25 18:00 09/19/25 20:00 09/19/25 20:00 Temperature 36.4 C L Pulse Rate 99 94 Respiratory Rate 22 H Blood Pressure 133/78 Pulse Oximetry 97 97 Oxygen Delivery Nasal Cannula Oxygen Flow Rate 2 09/19/25 20:00 09/19/25 22:00 09/20/25 00:00 Temperature 36.3 C L Pulse Rate 96 96 93 Respiratory Rate 18 Blood Pressure 139/79 Pulse Oximetry 97 Oxygen Delivery Oxygen Flow Rate 09/20/25 00:00 09/20/25 02:00 09/20/25 04:00 Temperature Pulse Rate 91 93 Respiratory Rate Blood Pressure Pulse Oximetry 99 Oxygen Delivery Nasal Cannula Oxygen Flow Rate 1 09/20/25 04:00 09/20/25 04:00 09/20/25 06:00 Temperature 36.4 C Pulse Rate 95 98 95 Respiratory Rate 16 Blood Pressure 125/57 L Pulse Oximetry 97 Oxygen Delivery Oxygen Flow Rate 09/20/25 06:54 09/20/25 08:00 09/20/25 08:40 Temperature 37.2 C Pulse Rate 107 H 110 H Respiratory Rate 28 H Blood Pressure 135/86 Pulse Oximetry 96 91 Oxygen Delivery Room Air Oxygen Flow Rate Intake/Output Intake/Output: Intake & Output 09/17/25 09/18/25 09/19/25 09/20/25 23:59 23:59 23:59 23:59 Intake Total 1358.8 247.1 Output Total 1000 Balance 1358.8 -752.9 Meds/Results Medications: Active Medications Generic Name Dose Route Start Last Admin Trade Name Anna PRN Reason Stop Dose Admin Acetaminophen 650 mg 09/19/25 14:14 Acetaminophen 325 Mg Tablet PO Q4H PRN Mild Pain (1-3) or Fever Acetaminophen 1,000 mg 09/19/25 18:50 09/20/25 08:41 Acetaminophen 500 Mg Tablet PO 1,000 mg BID RAVIN Administration Amlodipine Besylate 10 mg 09/20/25 09:00 09/20/25 08:41 Amlodipine Besylate 5 Mg Tablet PO 10 mg DAILY RAVIN Administration Aspirin 81 mg 09/20/25 09:00 09/20/25 08:40 Aspirin 81 Mg Enteric Tablet PO 81 mg QAM RAVIN Administration Atorvastatin Calcium 20 mg 09/19/25 21:00 09/19/25 21:00 Atorvastatin 20 Mg Tablet PO 20 mg HS RAVIN Administration Bupropion HCl 150 mg 09/20/25 09:00 09/20/25 08:41 Bupropion Hcl Sr (12 Hr) 150 Mg Tab PO 150 mg DAILY RAVIN Administration Calcitriol 0.25 mcg 09/19/25 18:35 09/19/25 18:57 Calcitriol 0.25 Mcg Capsule PO 0.25 mcg [id number] RAVIN Administration Calcium Carbonate 500 mg 09/20/25 09:00 09/20/25 08:40 Calcium/Vitamin D 500 Mg/5 Mcg (200 I.U.) Tablet PO 500 mg QAM RAVIN Administration Docusate Sodium 100 mg 09/19/25 14:14 09/20/25 08:40 Docusate Sodium 100 Mg Capsule PO 100 mg BID PRN Administration Constipation Heparin Sodium (Porcine) 3,500 units 09/19/25 14:06 09/19/25 23:06 Heparin Sodium 5,000 Units/Ml Vial IV PUSH 3,500 units PRN PRN Administration aPTT less than 55 seconds Heparin Sodium (Porcine) 1,500 units 09/19/25 14:06 Heparin Sodium 5,000 Units/Ml Vial IV PUSH PRN PRN aPTT 55 - 70 seconds Heparin Sodium/Dextrose 25,000 units in 250 mls @ 6 mls/hr 09/19/25 14:10 09/20/25 06:55 Heparin Sodium/D5w 100 Units/Ml IV CONT 600 units/hr .Q24H RAVIN 6 mls/hr Protocol Titration 600 UNITS/HR Lisinopril 10 mg 09/20/25 09:00 09/20/25 08:40 Lisinopril 10 Mg Tablet PO 10 mg DAILY RAVIN Administration Metoprolol Succinate 100 mg 09/20/25 09:00 09/20/25 08:40 Metoprolol Succinate Ext Rel 100 Mg Tabcr PO 100 mg DAILY RAVIN Administration Nitroglycerin 0.4 mg 09/19/25 14:14 Nitroglycerin Sl 0.4 Mg Tablet SUBLINGUAL Q5M PRN Chest Pain Ondansetron HCl 4 mg 09/19/25 14:14 Ondansetron Inj 4 Mg/2 Ml Vial IV PUSH Q6H PRN Nausea And Vomiting Perflutren Lipid Microsphere 0 ml 09/19/25 15:39 Perflutren Lipid Microspheres 1.5 Ml Vial Diluted To 10 Ml Total Volume IV PUSH 09/22/25 15:39 ONCE PRN adequate visualization Protocol Potassium Chloride 10 meq 09/20/25 09:00 09/20/25 08:40 Potassium Chloride 10 Meq Er Tablet PO 10 meq DAILY RAIVN Administration Sodium Bicarbonate 650 mg 09/20/25 12:30 Sodium Bicarbonate Tab 650 Mg Tablet PO 1230,1730 [facility] Radiology Results: ITS Impressions Chest X-Ray 09/19/25 14:15 Impression: 1: Borderline heart size with mild pulmonary edema. Head CT 09/19/25 14:28 Impression: 1.No acute intracranial abnormality. Venous Doppler Study 09/19/25 15:27 Impression: Limited study. Negative for DVT. Labs Labs: Laboratory Results - last 24 hr 09/19/25 09/19/25 09/19/25 12:35 15:15 18:25 WBC 10.0 RBC 4.01 L Hgb 12.5 D Hct 37.6 MCV 93.8 MCH 31.2 MCHC 33.2 RDW 14.4 Plt Count 238 MPV 9.0 Immature Gran % (Auto) 0.5 Neut % (Auto) 85.1 H Lymph % (Auto) 8.4 L [place] % (Auto) 4.8 Eos % (Auto) 1.0 Baso % (Auto) 0.2 Lymph # (Auto) 0.84 L [place] # (Auto) 0.5 Eos # (Auto) 0.1 Baso # (Auto) 0.0 Abs Immat Gran (auto) 0.05 H Absolute Neuts (auto) 8.5 H Absolute Nucleated RBC 0.000 Nucleated RBC % 0.0 PT 13.7 INR 1.1 APTT 37.4 H Sodium 142 Potassium 4.1 Chloride 107 Carbon Dioxide 25 Anion Gap 10 BUN 23 H Creatinine 2.04 H Estim Creat Clear Calc Not Reportable Estimated GFR 23 L Glucose 107 Calcium 9.7 Total Bilirubin 1.1 AST 27 ALT 15 Alkaline Phosphatase 75 Troponin I 1.110 H* 1.250 H* 1.270 H* NT-Pro-B Natriuret Pep 42991 H Total Protein 7.7 Albumin 4.6 Lipase 75 09/19/25 09/20/25 21:35 05:05 WBC 7.8 8.5 RBC 3.46 L 3.52 L Hgb 10.7 L 11.0 L Hct 32.8 L 33.0 L MCV 94.8 93.8 MCH 30.9 31.3 MCHC 32.6 33.3 RDW 14.4 14.4 Plt Count 180 177 MPV 8.9 9.1 Immature Gran % (Auto) 0.5 0.5 Neut % (Auto) 80.7 H 77.9 H Lymph % (Auto) 12.4 L 12.4 L [place] % (Auto) 5.5 7.3 Eos % (Auto) 0.5 1.5 Baso % (Auto) 0.4 0.4 Lymph # (Auto) 0.97 1.05 [place] # (Auto) 0.4 0.6 Eos # (Auto) 0.0 0.1 Baso # (Auto) 0.0 0.0 Abs Immat Gran (auto) 0.04 H 0.04 H Absolute Neuts (auto) 6.3 6.6 Absolute Nucleated RBC 0.000 0.000 Nucleated RBC % 0.0 0.0 PT 14.0 INR 1.1 APTT 49.3 H > 200.0 H* Sodium 139 Potassium 3.5 Chloride 107 Carbon Dioxide 25 Anion Gap 7 BUN 23 H Creatinine 1.81 H Estim Creat Clear Calc Not Reportable Estimated GFR 26 L Glucose 91 Calcium 8.8 Total Bilirubin AST ALT Alkaline Phosphatase Troponin I 1.520 H* NT-Pro-B Natriuret Pep Total Protein Albumin Lipase
--- NOTE | 2025-09-20 09:16 | ECG_ITS ---
Test Date: 2025-09-20 10:51:31 Measurements Intervals [place] Rate: 104 P: 22 NC: 136 QRS: 15 QRSD: 90 T: 14 QT: 325 QTc: 428 Interpretive Statements SINUS TACHYCARDIA MINIMAL VOLTAGE CRITERIA FOR LVH, CONSIDER NORMAL VARIANT [MEETS CRITERIA IN ONE OF: R(aVL), S(V1), R(V5), R(V5/V6)+S(V1)] NONSPECIFIC ST & T-WAVE ABNORMALITY ABNORMAL ECG Compared to ECG 09/19/2025 15:35:53 Sinus rhythm no longer present T-wave abnormality still present Electronically Signed On 09-20-2025 11:08:35 [employer]IP[employer] MACHINE OPERATOR by Foster Hahn M.D.
[2025-09-20 10:27] LABS: Troponin I 1.880 ng/mL (0.000-0.034)
--- NOTE | 2025-09-20 10:40 | P.PNIM_ITS ---
Progress Note: A&P Assessment and Plan (1) Acute non-ST elevation myocardial infarction (NSTEMI): Code(s): I21.4 - Non-ST elevation (NSTEMI) myocardial infarction Status: Acute Assessment and Plan: Patient presents with midsternal nonradiating chest pain that woke her from her sleep that was relieved with 1 sublingual nitro. CXR showed borderline heart size with mild pulmonary edema Troponin 1.11 -> 1.88 EKG showing sinus tachycardia possible left atrial enlargement nonspecific ST and T-wave changes. Repeat EKG showing similar findings Left LE Venous Doppler negative for DVT. Head CT showing no acute findings. ASA 324mg on admission and now on 81mg daily Heparin gtt started Cardiology consulted and appreciate their input Echo ordered Continue atorvastatin, metoprolol NPO after MN for possible LHC tomorrow (2) Pulmonary edema: Qualifiers: Chronicity: acute Qualified Code(s): J81.0 - Acute pulmonary edema Code(s): J81.1 - Chronic pulmonary edema Status: Acute Assessment and Plan: CXR showing mild pulmonary edema. No complaint of SOB. No previously known history of CHF. No previous echo on file. She received Lasix 40 mg IV x 1 Echo ordered Monitor I&Os, daily weights and renal function (3) Chronic kidney disease, stage 4 (severe): Code(s): N18.4 - Chronic kidney disease, stage 4 (severe) Status: Chronic Assessment and Plan: Patient has a hx of CKD with baseline Cr 1.9-2.3 range. Creatinine 2.04, BUN 23, GFR 23 upon admission on 09/19. Cr better today. No acidosis or hyperkalemia Follow renal function, UOP and electrolytes (4) Essential hypertension: Code(s): I10 - Essential (primary) hypertension Status: Chronic Assessment and Plan: Patient's blood pressure was reviewed on 09/20 Blood pressure remains well controlled. Will continue to monitor (5) Hyperlipidemia: Qualifiers: Hyperlipidemia type: unspecified Qualified Code(s): E78.5 - Hyperlipidemia, unspecified Code(s): E78.5 - Hyperlipidemia, unspecified Status: Chronic Assessment and Plan: LFTs normal. Continue Atorvastatin Plan DVT Prophylaxis: Heparin gtt Code Status: DNR Subjective Date/time seen: 09/20/25 10:40 Interval history: 85yo female with CAD, PAD and CKD here for chest pain and non-STEMI. Assuming care. Chart reviewed. Patient slept well. No chest pain. No abdominal pain. No nausea or vomiting. Exam Narrative: AF 99.0 135/86 110 28 91% RA Gen - NARD Chest - CTA bilaterally, nml RR CV - RRR S1/S2. Telemetry showing mild sinus tachycardia with PVCs Abd - Soft, NT/ND, Positive BS Ext - No pedal edema Psych - Nml mood and affect Skin - Warm and dry Objective Data Vital Signs Vital Signs: Vital Signs - 24 hr 09/19/25 12:22 09/19/25 14:21 09/19/25 14:21 Temperature 97.9 F Pulse Rate 99 100 Respiratory Rate 17 Blood Pressure 128/74 Pulse Oximetry 96 Oxygen Delivery Room Air Room Air Oxygen Flow Rate 09/19/25 15:21 09/19/25 15:32 09/19/25 16:28 Temperature Pulse Rate 95 99 Respiratory Rate 21 H 21 H Blood Pressure 125/94 H 130/79 Pulse Oximetry 97 97 88 L Oxygen Delivery Room Air Oxygen Flow Rate 09/19/25 16:29 09/19/25 17:02 09/19/25 17:30 Temperature 97.5 F L Pulse Rate 105 H Respiratory Rate 24 H Blood Pressure 146/86 H Pulse Oximetry 94 97 96 Oxygen Delivery Nasal Cannula Nasal Cannula Oxygen Flow Rate 2 2 09/19/25 18:00 09/19/25 20:00 09/19/25 20:00 Temperature 97.5 F L Pulse Rate 99 94 Respiratory Rate 22 H Blood Pressure 133/78 Pulse Oximetry 97 97 Oxygen Delivery Nasal Cannula Oxygen Flow Rate 2 09/19/25 20:00 09/19/25 22:00 09/20/25 00:00 Temperature 97.3 F L Pulse Rate 96 96 93 Respiratory Rate 18 Blood Pressure 139/79 Pulse Oximetry 97 Oxygen Delivery Oxygen Flow Rate 09/20/25 00:00 09/20/25 02:00 09/20/25 04:00 Temperature Pulse Rate 91 93 Respiratory Rate Blood Pressure Pulse Oximetry 99 Oxygen Delivery Nasal Cannula Oxygen Flow Rate 1 09/20/25 04:00 09/20/25 04:00 09/20/25 06:00 Temperature 97.6 F Pulse Rate 95 98 95 Respiratory Rate 16 Blood Pressure 125/57 L Pulse Oximetry 97 Oxygen Delivery Oxygen Flow Rate 09/20/25 06:54 09/20/25 08:00 09/20/25 08:40 Temperature 99.0 F Pulse Rate 107 H 110 H Respiratory Rate 28 H Blood Pressure 135/86 Pulse Oximetry 96 91 Oxygen Delivery Room Air Oxygen Flow Rate Intake/Output Intake/Output: Intake & Output 09/17/25 09/18/25 09/19/25 09/20/25 23:59 23:59 23:59 23:59 Intake Total 1358.8 247.1 Output Total 1000 Balance 1358.8 -752.9 Meds/Results Medications: Active Medications Generic Name Dose Route Start Last Admin Trade Name Freq PRN Reason Stop Dose Admin Acetaminophen 650 mg 09/19/25 14:14 Acetaminophen 325 Mg Tablet PO Q4H PRN Mild Pain (1-3) or Fever Acetaminophen 1,000 mg 09/19/25 18:50 09/20/25 08:41 Acetaminophen 500 Mg Tablet PO 1,000 mg BID RAVIN Administration Amlodipine Besylate 10 mg 09/20/25 09:00 09/20/25 08:41 Amlodipine Besylate 5 Mg Tablet PO 10 mg DAILY RAVIN Administration Aspirin 81 mg 09/20/25 09:00 09/20/25 08:40 Aspirin 81 Mg Enteric Tablet PO 81 mg QAM RAVIN Administration Atorvastatin Calcium 20 mg 09/19/25 21:00 09/19/25 21:00 Atorvastatin 20 Mg Tablet PO 20 mg HS RAVIN Administration Bupropion HCl 150 mg 09/20/25 09:00 09/20/25 08:41 Bupropion Hcl Sr (12 Hr) 150 Mg Tab PO 150 mg DAILY RAVIN Administration Calcitriol 0.25 mcg 09/19/25 18:35 09/19/25 18:57 Calcitriol 0.25 Mcg Capsule PO 0.25 mcg [id number]@0900 [facility] Administration Calcium Carbonate 500 mg 09/20/25 09:00 09/20/25 08:40 Calcium/Vitamin D 500 Mg/5 Mcg (200 I.U.) Tablet PO 500 mg QAM [facility] Administration Docusate Sodium 100 mg 09/19/25 14:14 09/20/25 08:40 Docusate Sodium 100 Mg Capsule PO 100 mg BID PRN Administration Constipation Heparin Sodium (Porcine) 3,500 units 09/19/25 14:06 09/19/25 23:06 Heparin Sodium 5,000 Units/Ml Vial IV PUSH 3,500 units PRN PRN Administration aPTT less than 55 seconds Heparin Sodium (Porcine) 1,500 units 09/19/25 14:06 Heparin Sodium 5,000 Units/Ml Vial IV PUSH PRN PRN aPTT 55 - 70 seconds Heparin Sodium/Dextrose 25,000 units in 250 mls @ 6 mls/hr 09/19/25 14:10 09/20/25 06:55 Heparin Sodium/D5w 100 Units/Ml IV CONT 600 units/hr .Q24H RAVIN 6 mls/hr Protocol Titration 600 UNITS/HR Lisinopril 10 mg 09/20/25 09:00 09/20/25 08:40 Lisinopril 10 Mg Tablet PO 10 mg DAILY [facility] Administration Metoprolol Succinate 100 mg 09/20/25 09:00 09/20/25 08:40 Metoprolol Succinate Ext Rel 100 Mg Tabcr PO 100 mg DAILY RAVIN Administration Nitroglycerin 0.4 mg 09/19/25 14:14 Nitroglycerin Sl 0.4 Mg Tablet SUBLINGUAL Q5M PRN Chest Pain Ondansetron HCl 4 mg 09/19/25 14:14 Ondansetron Inj 4 Mg/2 Ml Vial IV PUSH Q6H PRN Nausea And Vomiting Perflutren Lipid Microsphere 0 ml 09/19/25 15:39 Perflutren Lipid Microspheres 1.5 Ml Vial Diluted To 10 Ml Total Volume IV PUSH 09/22/25 15:39 ONCE PRN adequate visualization Protocol Potassium Chloride 10 meq 09/20/25 09:00 09/20/25 08:40 Potassium Chloride 10 Meq Er Tablet PO 10 meq DAILY [facility] Administration Sodium Bicarbonate 650 mg 09/20/25 12:30 Sodium Bicarbonate Tab 650 Mg Tablet PO 1230,1730 [facility] Radiology Results: ITS Impressions Chest X-Ray 09/19/25 14:15 Impression: 1: Borderline heart size with mild pulmonary edema. Head CT 09/19/25 14:28 Impression: 1.No acute intracranial abnormality. Venous Doppler Study 09/19/25 15:27 Impression: Limited study. Negative for DVT. Labs Labs: Laboratory Results - last 24 hr 09/19/25 09/19/25 09/19/25 12:35 15:15 18:25 WBC 10.0 RBC 4.01 L Hgb 12.5 D Hct 37.6 MCV 93.8 MCH 31.2 MCHC 33.2 RDW 14.4 Plt Count 238 MPV 9.0 Immature Gran % (Auto) 0.5 Neut % (Auto) 85.1 H Lymph % (Auto) 8.4 L [place] % (Auto) 4.8 Eos % (Auto) 1.0 Baso % (Auto) 0.2 Lymph # (Auto) 0.84 L [place] # (Auto) 0.5 Eos # (Auto) 0.1 Baso # (Auto) 0.0 Abs Immat Gran (auto) 0.05 H Absolute Neuts (auto) 8.5 H Absolute Nucleated RBC 0.000 Nucleated RBC % 0.0 PT 13.7 INR 1.1 APTT 37.4 H Sodium 142 Potassium 4.1 Chloride 107 Carbon Dioxide 25 Anion Gap 10 BUN 23 H Creatinine 2.04 H Estim Creat Clear Calc Not Reportable Estimated GFR 23 L Glucose 107 Calcium 9.7 Total Bilirubin 1.1 AST 27 ALT 15 Alkaline Phosphatase 75 Troponin I 1.110 H* 1.250 H* 1.270 H* NT-Pro-B Natriuret Pep 29011 H Total Protein 7.7 Albumin 4.6 Lipase 75 09/19/25 09/20/25 09/20/25 21:35 05:05 09:50 WBC 7.8 8.5 RBC 3.46 L 3.52 L Hgb 10.7 L 11.0 L Hct 32.8 L 33.0 L MCV 94.8 93.8 MCH 30.9 31.3 MCHC 32.6 33.3 RDW 14.4 14.4 Plt Count 180 177 MPV 8.9 9.1 Immature Gran % (Auto) 0.5 0.5 Neut % (Auto) 80.7 H 77.9 H Lymph % (Auto) 12.4 L 12.4 L [place] % (Auto) 5.5 7.3 Eos % (Auto) 0.5 1.5 Baso % (Auto) 0.4 0.4 Lymph # (Auto) 0.97 1.05 [place] # (Auto) 0.4 0.6 Eos # (Auto) 0.0 0.1 Baso # (Auto) 0.0 0.0 Abs Immat Gran (auto) 0.04 H 0.04 H Absolute Neuts (auto) 6.3 6.6 Absolute Nucleated RBC 0.000 0.000 Nucleated RBC % 0.0 0.0 PT 14.0 INR 1.1 APTT 49.3 H > 200.0 H* Sodium 139 Potassium 3.5 Chloride 107 Carbon Dioxide 25 Anion Gap 7 BUN 23 H Creatinine 1.81 H Estim Creat Clear Calc Not Reportable Estimated GFR 26 L Glucose 91 Calcium 8.8 Total Bilirubin AST ALT Alkaline Phosphatase Troponin I 1.520 H* 1.880 H* NT-Pro-B Natriuret Pep Total Protein Albumin Lipase
[2025-09-20] MEDS: SODIUM BICARBONATE TAB 650 MG TABLET PO ×2 (12:46→17:04)
[2025-09-20 13:30] LABS: Partial Thromboplastin Time 86.4 Seconds (22.3-36.8)
[2025-09-20 19:49] LABS: Partial Thromboplastin Time 85.4 Seconds (22.3-36.8)
[2025-09-20] MEDS: ATORVASTATIN 20 MG TABLET PO (20:28)
[2025-09-21] VITALS (16 sets, daily range): BP systolic 128–142; BP diastolic 77–86; PULSE 76–92; RESP 15–22; TEMP 36.4–36.9; O2SAT 93–97
--- NOTE | 2025-09-21 | ECHO_ITS ---
Patient Info Name: Vanesa New Age: 85 years : 1940 Gender: Female Ht: 57 in Wt: 112 lbs BSA: 1.44 m2 HR: 99 bpm BP: 130 / 79 mmHg Heart Rhythm: Sinus Rhythm Technical Quality: Good Exam Date: 09/21/2025 9:26 AM Patient Status: I Admit Date: 09/20/2025 Exam Type: CA echo doppler color flow Complete two-dimensional, color flow and Doppler transthoracic echocardiogram is performed. Staff Referring Physician: Tigist Alarcon Batch Mixer: Julius Fields III Attending Provider: Alin Santana Summary 1. Complete two-dimensional, color flow and Doppler transthoracic echocardiogram is performed. 2. Mild LV enlargement, the anteroseptal segment is significantly hypodynamic. Global ejection fraction 40%. 3. Grade 2 diastolic noncompliance. 4. Mild mitral regurgitation. 5. Dilated left atrium. Left Ventricle Left ventricular chamber dimension is mildly enlarged. Left ventricular systolic function is mildly reduced, estimated at 40-45. The left ventricular diastolic function is grade II diastolic dysfunction. Right Ventricle Right ventricular chamber dimension is normal. Left Atria Left atrial chamber dimension is moderately enlarged. Right Atria Right atrial chamber dimension is normal. Aortic Valve The aortic valve is trileaflet. There is mild aortic valve sclerosis. Pulmonic Valve The pulmonic valve is not well visualized. Mitral Valve The mitral valve has normal leaflets. There is mild mitral valve regurgitation. The mitral valve annulus is moderately calcified. Tricuspid Valve The tricuspid valve leaflets are normal. There is mild tricuspid valve regurgitation. Pericardium/Pleural The pericardium appears normal. Aorta The aortic root size at the sinus of Valsalva is normal. Left Ventricular Outflow Tract Name Value Normal LVOT 2D LVOT Diameter 2.0 cm LVOT Doppler LVOT Peak Velocity 71 cm/s LVOT Peak Gradient 2 mmHg LVOT Mean Gradient 1 mmHg LVOT VTI 16 cm LVOT VTI/AV VTI Ratio 0.8 LVOT Stroke Volume 49 ml LVOT CO 4.2 l/min LVOT CI 2.9 l/min/m2 Pulmonic Valve Name Value Normal PV Doppler PV Peak Velocity 71 cm/s PV Peak Gradient 2 mmHg PV Mean Gradient 1 mmHg Mitral Valve Name Value Normal MV Doppler MV Peak Gradient 5 mmHg MV Mean Gradient 3 mmHg MV Area (Cont Eq VTI) 1.9 cm2 MV Regurgitation Doppler MR Peak Gradient 126 mmHg MV Diastolic Function MV E Peak Velocity 125 cm/s MV A Peak Velocity 127 cm/s MV E/A 1.0 MV Decel Time (PW) 122 ms MV Annular TDI MV E/e' (Septal) 38.7 MV E/e' (Lateral) 14.6 MV E/e' (Average) 26.7 Tricuspid Valve Name Value Normal TV Regurgitation Doppler TR Peak Velocity 312 cm/s TR Peak Gradient 39 mmHg Estimated PAP/RSVP RA Pressure 10 mmHg <=5 PA Systolic Pressure 49 mmHg <36 RV Systolic Pressure 49 mmHg <36 TV Annular TDI TV Lateral Sarah s' Velocity 19.9 cm/s >=9.5 Aortic Valve Name Value Normal AV Doppler AV Peak Velocity 106 cm/s AV Peak Gradient 5 mmHg AV Mean Gradient 2 mmHg AV VTI 19 cm AV Area (Cont Eq VTI) 2.5 cm2 >=3.0 AV Area (Cont Eq Grant) 2.0 cm2 AV DI (Grant) 0.67 AV Regurgitation 2D LVOT Area 3.1 cm2 Ventricles Name Value Normal LV Dimensions 2D/MM IVS Diastolic Thickness (2D) 1.5 cm 0.6-1.0 LVID Diastole (2D) 4.2 cm 3.8-5.2 LVIW Diastolic Thickness (2D) 1.1 cm 0.6-0.9 LVID Systole (2D) 3.5 cm 2.2-3.5 LVOT Diameter 2.0 cm LV Mass (2D Cubed) 200.97 g 67.00-162.00 LV Mass Index (2D Cubed) 139 g/m2 43-95 Relative Wall Thickness (2D) 0.52 <=0.42 LV Fractional Shortening/Ejection Fraction 2D/MM LV Fractional Shortening (2D) 18 % 27-45 LV EF (2D Teichholz) 37 % LV Diastolic Volume (4C MOD) 49 ml LV EF (4C MOD) 31 % LV Diastolic Volume (2C MOD) 62 ml LV EF (2C MOD) 47 % LV Diastolic Volume (BP MOD) 56 ml 46-106 LV Diastolic Volume Index (BP MOD) 39 ml/m2 29-61 LV Systolic Volume (BP MOD) 34 ml 14-42 LV Systolic Volume Index (BP MOD) 24 ml/m2 8-24 LV EF (BP MOD) 40 % 54-74 LV Diastolic Length (4C) 7.0 cm LV Systolic Length (4C) 6.4 cm LV Stroke Volume (4C MOD) 15 ml Atria Name Value Normal LA Dimensions LA Volume (4C A-L) 61 ml LA Volume (BP A-L) 67 ml RA Dimensions RA Systolic Major [place] Length (4C) 4.4 cm 2.2-2.8 RA Area (4C) 12.9 cm2 <=18.0 Report Signatures
[2025-09-21 01:44] LABS: Partial Thromboplastin Time 109.3 Seconds (22.3-36.8)
[2025-09-21 08:18] LABS: Hematocrit 35.5 % (37.0-47.0); Hemoglobin 11.8 g/dL (12.0-15.0); Immature Granulocyte Percent A 0.5 % (0-0.5); Lymphocytes Absolute Auto 0.90 K/mm3 (0.9-3.2); Mean Corpuscular HGB Conc 33.2 g/dl (32-36); Mean Corpuscular Hemoglobin 30.9 pg (26-34); Mean Corpuscular Volume 92.9 fl (80-100); Nucleated Red Blood Cells Absolute Auto 0.000 K/mm3 (0.0-0.012); Nucleated Red Blood Cells Perc 0.0 % (0.0-0.2); Platelet Count Result 213 k/mm3 (150-375); Red Blood Count 3.82 M/mm3 (4.2-5.4); White Blood Count 7.6 K/mm3 (4.5-10.0)
[2025-09-21 08:31] LABS: Partial Thromboplastin Time 64.3 Seconds (22.3-36.8)
[2025-09-21] MEDS: buPROPion HCL SR (12 HR) 150 MG TAB PO (08:35)
[2025-09-21] MEDS: METOPROLOL SUCCINATE EXT REL 100 MG TABCR PO (08:35)
[2025-09-21] MEDS: ASPIRIN 81 MG ENTERIC TABLET PO (08:35)
[2025-09-21] MEDS: CALCIUM/VITAMIN D 500 MG/5 MCG (200 I.U.) TABLET PO (08:35)
[2025-09-21] MEDS: POTASSIUM CHLORIDE 10 MEQ ER TABLET PO (08:36)
[2025-09-21] MEDS: ACETAMINOPHEN 500 MG TABLET 1000 MG PO ×2 (08:36→17:25)
[2025-09-21 08:38] LABS: Albumin Level 3.9 g/dL (3.5-5.1); Anion Gap 8 mmol/L (4-12); Blood Urea Nitrogen 26 mg/dL (7-17); Calcium 9.3 mg/dL (8.4-10.2); Carbon Dioxide 25 mmol/L (22-30); Chloride 107 mmol/L (98-107); Estimated Glomerular Filt Rate 26; Glucose 99 mg/dL (65-110); Magnesium 1.7 mg/dL (1.6-2.3); Potassium 3.7 mmol/L (3.4-5.0); Sodium 140 mmol/L (137-145)
--- NOTE | 2025-09-21 09:23 | P.PNCA_ITS ---
Progress Note: A&P Assessment and Plan (1) Acute non-ST elevation myocardial infarction (NSTEMI): Code(s): I21.4 - Non-ST elevation (NSTEMI) myocardial infarction Status: Acute Plan 85-year-old lady with: Known history of coronary artery disease status post RCA stenting in 1998. She has done very well since then with no further ischemic events until this hospitalization. She has had a very small non ST elevation [place] with ischemic symptoms, very mild lateral ST depression and a modest troponin rise. Because of her advanced age, renal failure and DNR status I would recommending in choosing a conservative, noninvasive approach to heard case. Will discontinue heparin drip this morning and load with clopidogrel. Will advance atorvastatin dosage. If her condition remained stable will hope to discharge to home on med ical therapy in the next couple of days. Family was in the room for this consult for sedation/consultation Neymar Cruz MD [facility] Subjective Date/time seen: Date of service: 09/21/25 09:23 Interval history: 85-year-old admitted for chest pain and non-STEMI. Date of service 09/20/2025: Feels okay. No chest pain or shortness of breath at present was very short of breath with walking to and from the bathroom yesterday. Date of service 09/21/2025: Patient feels okay this morning. Still has no further chest pain is hungry from being held NPO otherwise no complaints at this time. Exam Narrative: Awake alert oriented. Appears stated age Const: General: comfortable and no acute distress HENMT: Face/Nose/Sinus: Normal nares present Mouth: Yes moist mucous membranes Eyes: General: appearance normal, both eyes and all related structures Sclera: sclerae normal Neck: Neck: supple and no JVD Resp: Effort & Inspection: normal respiratory effort Auscultation: clear to auscultation bilaterally Cardio: Rate: regular rate Rhythm: regular rhythm GI: Inspection: non-distended Skin: General skin exam: normal color and no rashes or lesions noted Neuro: Cranial nerves: Yes Normal hearing present Speech: normal speech and No Abnormal speech present Sensory Exam: normal sensation Extrem: General: normal to inspection Psych: Mental Status: mental status grossly normal Affect: normal affect Objective Data Vital Signs Vital Signs: Vital Signs - 24 hr 09/20/25 12:00 09/20/25 12:00 09/20/25 12:00 Temperature 36.1 C L Pulse Rate 103 H 92 Respiratory Rate 20 Blood Pressure 136/80 Pulse Oximetry 95 95 Oxygen Delivery Room Air 09/20/25 14:00 09/20/25 16:00 09/20/25 16:00 Temperature 36.7 C Pulse Rate 85 86 Respiratory Rate 20 Blood Pressure 139/87 Pulse Oximetry 93 93 Oxygen Delivery Room Air 09/20/25 16:00 09/20/25 18:00 09/20/25 19:54 Temperature 36.7 C Pulse Rate 85 81 80 Respiratory Rate 24 H Blood Pressure 115/61 Pulse Oximetry 93 Oxygen Delivery 09/20/25 20:00 09/20/25 20:00 09/20/25 22:00 Temperature Pulse Rate 81 78 Respiratory Rate Blood Pressure Pulse Oximetry Oxygen Delivery Room Air 09/21/25 00:00 09/21/25 00:00 09/21/25 00:00 Temperature 36.7 C Pulse Rate 81 80 Respiratory Rate 15 Blood Pressure 128/78 Pulse Oximetry 97 Oxygen Delivery Room Air 09/21/25 02:00 09/21/25 04:00 09/21/25 04:00 Temperature 36.4 C Pulse Rate 86 90 Respiratory Rate 19 Blood Pressure 142/81 H Pulse Oximetry 94 Oxygen Delivery Room Air 09/21/25 04:00 09/21/25 06:00 09/21/25 07:46 Temperature 36.7 C Pulse Rate 87 91 91 Respiratory Rate 22 H Blood Pressure 142/86 H Pulse Oximetry 94 Oxygen Delivery 09/21/25 08:35 Temperature Pulse Rate 91 Respiratory Rate Blood Pressure Pulse Oximetry Oxygen Delivery Intake/Output Intake/Output: Intake & Output 09/18/25 09/19/25 09/20/25 09/21/25 23:59 23:59 23:59 23:59 Intake Total 1358.8 1056.3 36.6 Output Total 1600 850 Balance 1358.8 -543.7 -813.4 Meds/Results Medications: Active Medications Generic Name Dose Route Start Last Admin Trade Name Freq PRN Reason Stop Dose Admin Acetaminophen 650 mg 09/19/25 14:14 Acetaminophen 325 Mg Tablet PO Q4H PRN Mild Pain (1-3) or Fever Acetaminophen 1,000 mg 09/19/25 18:50 09/21/25 08:36 Acetaminophen 500 Mg Tablet PO 1,000 mg BID [facility] Administration Amlodipine Besylate 10 mg 09/20/25 09:00 09/21/25 08:35 Amlodipine Besylate 5 Mg Tablet PO 10 mg DAILY [facility] Administration Aspirin 81 mg 09/20/25 09:00 09/21/25 08:35 Aspirin 81 Mg Enteric Tablet PO 81 mg QAM [facility] Administration Atorvastatin Calcium 20 mg 09/19/25 21:00 09/20/25 20:28 Atorvastatin 20 Mg Tablet PO 20 mg HS [facility] Administration Bupropion HCl 150 mg 09/20/25 09:00 09/21/25 08:35 Bupropion Hcl Sr (12 Hr) 150 Mg Tab PO 150 mg DAILY [facility] Administration Calcitriol 0.25 mcg 09/19/25 18:35 09/21/25 08:38 Calcitriol 0.25 Mcg Capsule PO 0.25 mcg [id number]@0900 [facility] Administration Calcium Carbonate 500 mg 09/20/25 09:00 09/21/25 08:35 Calcium/Vitamin D 500 Mg/5 Mcg (200 I.U.) Tablet PO 500 mg QAM [facility] Administration Docusate Sodium 100 mg 09/19/25 14:14 09/20/25 08:40 Docusate Sodium 100 Mg Capsule PO 100 mg BID PRN Administration Constipation Lisinopril 10 mg 09/20/25 09:00 09/21/25 08:35 Lisinopril 10 Mg Tablet PO 10 mg DAILY [facility] Administration Metoprolol Succinate 100 mg 09/20/25 09:00 09/21/25 08:35 Metoprolol Succinate Ext Rel 100 Mg Tabcr PO 100 mg DAILY [facility] Administration Nitroglycerin 0.4 mg 09/19/25 14:14 Nitroglycerin Sl 0.4 Mg Tablet SUBLINGUAL Q5M PRN Chest Pain Ondansetron HCl 4 mg 09/19/25 14:14 Ondansetron Inj 4 Mg/2 Ml Vial IV PUSH Q6H PRN Nausea And Vomiting Perflutren Lipid Microsphere 0 ml 09/19/25 15:39 Perflutren Lipid Microspheres 1.5 Ml Vial Diluted To 10 Ml Total Volume IV PUSH 09/22/25 15:39 ONCE PRN adequate visualization Protocol Potassium Chloride 10 meq 09/20/25 09:00 09/21/25 08:36 Potassium Chloride 10 Meq Er Tablet PO 10 meq DAILY [facility] Administration Sodium Bicarbonate 650 mg 09/20/25 12:30 09/20/25 17:04 Sodium Bicarbonate Tab 650 Mg Tablet PO 650 mg 1230,1730 RAVIN Administration Radiology Results: ITS Impressions Chest X-Ray 09/19/25 14:15 Impression: 1: Borderline heart size with mild pulmonary edema. Head CT 09/19/25 14:28 Impression: 1.No acute intracranial abnormality. Venous Doppler Study 09/19/25 15:27 Impression: Limited study. Negative for DVT. Labs Labs: Laboratory Results - last 24 hr 09/20/25 09/20/25 09/20/25 09:50 12:47 19:31 WBC RBC Hgb Hct MCV MCH MCHC RDW Plt Count MPV Immature Gran % (Auto) Neut % (Auto) Lymph % (Auto) Robertson % (Auto) Eos % (Auto) Baso % (Auto) Lymph # (Auto) Robertson # (Auto) Eos # (Auto) Baso # (Auto) Abs Immat Gran (auto) Absolute Neuts (auto) Absolute Nucleated RBC Nucleated RBC % APTT 86.4 H 85.4 H Sodium Potassium Chloride Carbon Dioxide Anion Gap BUN Creatinine Estim Creat Clear Calc Estimated GFR Glucose Calcium Phosphorus Magnesium Troponin I 1.880 H* Albumin 09/21/25 09/21/25 01:27 08:10 WBC 7.6 RBC 3.82 L Hgb 11.8 L Hct 35.5 L MCV 92.9 MCH 30.9 MCHC 33.2 RDW 14.1 Plt Count 213 MPV 8.9 Immature Gran % (Auto) 0.5 Neut % (Auto) 79.5 H Lymph % (Auto) 11.9 L Robertson % (Auto) 5.6 Eos % (Auto) 2.1 Baso % (Auto) 0.4 Lymph # (Auto) 0.90 Robertson # (Auto) 0.4 Eos # (Auto) 0.2 Baso # (Auto) 0.0 Abs Immat Gran (auto) 0.04 H Absolute Neuts (auto) 6.0 Absolute Nucleated RBC 0.000 Nucleated RBC % 0.0 APTT 109.3 H 64.3 H Sodium 140 Potassium 3.7 Chloride 107 Carbon Dioxide 25 Anion Gap 8 BUN 26 H Creatinine 1.81 H Estim Creat Clear Calc Not Reportable Estimated GFR 26 L Glucose 99 Calcium 9.3 Phosphorus 3.2 Magnesium 1.7 Troponin I Albumin 3.9
[2025-09-21] MEDS: CLOPIDOGREL BISULFATE 300 MG TABLET PO (09:50)
--- NOTE | 2025-09-21 10:15 | PM.IMPN ---
Progress Note: A&P Assessment and Plan (1) Acute non-ST elevation myocardial infarction (NSTEMI): Code(s): I21.4 - Non-ST elevation (NSTEMI) myocardial infarction Status: Acute Assessment and Plan: Patient presents with midsternal nonradiating chest pain that woke her from her sleep that was relieved with 1 sublingual nitro. CXR showed borderline heart size with mild pulmonary edema Troponin 1.11 -> 1.88 EKG showing sinus tachycardia possible left atrial enlargement nonspecific ST and T-wave changes. Repeat EKG showing similar findings Left LE Venous Doppler negative for DVT. Head CT showing no acute findings. ASA 324mg on admission and now on 81mg daily Heparin gtt started Cardiology consulted. Known history of coronary artery disease status post RCA stenting in 1998. Recommends conservative management given her advanced age renal failure in DNR status Echo pending Continue on atorvastatin dose adjusted. Added on Plavix LHC deferred (2) Pulmonary edema: Qualifiers: Chronicity: acute Qualified Code(s): J81.0 - Acute pulmonary edema Code(s): J81.1 - Chronic pulmonary edema Status: Acute Assessment and Plan: CXR showing mild pulmonary edema. No complaint of SOB. No previously known history of CHF. No previous echo on file. She received Lasix 40 mg IV x 1 Echo ordered Monitor I&Os, daily weights and renal function (3) Chronic kidney disease, stage 4 (severe): Code(s): N18.4 - Chronic kidney disease, stage 4 (severe) Status: Chronic Assessment and Plan: Patient has a hx of CKD with baseline Cr 1.9-2.3 range. Creatinine 2.04, BUN 23, GFR 23 upon admission on 09/19. Cr stable. No acidosis or hyperkalemia Follow renal function, UOP and electrolytes (4) Essential hypertension: Code(s): I10 - Essential (primary) hypertension Status: Chronic Assessment and Plan: Blood pressure remains well controlled. Will continue to monitor (5) Hyperlipidemia: Qualifiers: Hyperlipidemia type: unspecified Qualified Code(s): E78.5 - Hyperlipidemia, unspecified Code(s): E78.5 - Hyperlipidemia, unspecified Status: Chronic Assessment and Plan: LFTs normal. Continue Atorvastatin Plan DVT Prophylaxis: Heparin gtt Code Status: DNR Subjective Date/time seen: 09/21/25 10:15 Interval history: Chart reviewed. No further chest pain. No shortness of breath. She has not ambulated yet. Reviewed Cardiology recommendations. Family at bedside and discussed with them Review of Systems Review of Systems: All systems reviewed & are unremarkable except as noted in HPI and below Exam Narrative: Gen - NARD Chest - CTA bilaterally, nml RR CV - RRR S1/S2. Abd - Soft, NT/ND, Positive BS Ext - No pedal edema Psych - Nml mood and affect Skin - Warm and dry Objective Data Vital Signs Vital Signs: Vital Signs - 24 hr 09/20/25 12:00 09/20/25 12:00 09/20/25 12:00 Temperature 97.0 F L Pulse Rate 103 H 92 Respiratory Rate 20 Blood Pressure 136/80 Pulse Oximetry 95 95 Oxygen Delivery Room Air 09/20/25 14:00 09/20/25 16:00 09/20/25 16:00 Temperature 98.1 F Pulse Rate 85 86 Respiratory Rate 20 Blood Pressure 139/87 Pulse Oximetry 93 93 Oxygen Delivery Room Air 09/20/25 16:00 09/20/25 18:00 09/20/25 19:54 Temperature 98.0 F Pulse Rate 85 81 80 Respiratory Rate 24 H Blood Pressure 115/61 Pulse Oximetry 93 Oxygen Delivery 09/20/25 20:00 09/20/25 20:00 09/20/25 22:00 Temperature Pulse Rate 81 78 Respiratory Rate Blood Pressure Pulse Oximetry Oxygen Delivery Room Air 09/21/25 00:00 09/21/25 00:00 09/21/25 00:00 Temperature 98.0 F Pulse Rate 81 80 Respiratory Rate 15 Blood Pressure 128/78 Pulse Oximetry 97 Oxygen Delivery Room Air 09/21/25 02:00 09/21/25 04:00 09/21/25 04:00 Temperature 97.6 F Pulse Rate 86 90 Respiratory Rate 19 Blood Pressure 142/81 H Pulse Oximetry 94 Oxygen Delivery Room Air 09/21/25 04:00 09/21/25 06:00 09/21/25 07:46 Temperature 98.0 F Pulse Rate 87 91 91 Respiratory Rate 22 H Blood Pressure 142/86 H Pulse Oximetry 94 Oxygen Delivery 09/21/25 08:35 Temperature Pulse Rate 91 Respiratory Rate Blood Pressure Pulse Oximetry Oxygen Delivery Intake/Output Intake/Output: Intake & Output 09/18/25 09/19/25 09/20/25 09/21/25 23:59 23:59 23:59 23:59 Intake Total 1358.8 1056.3 36.6 Output Total 1600 850 Balance 1358.8 -543.7 -813.4 Meds/Results Medications: Active Medications Generic Name Dose Route Start Last Admin Trade Name Freq PRN Reason Stop Dose Admin Acetaminophen 650 mg 09/19/25 14:14 Acetaminophen 325 Mg Tablet PO Q4H PRN Mild Pain (1-3) or Fever Acetaminophen 1,000 mg 09/19/25 18:50 09/21/25 08:36 Acetaminophen 500 Mg Tablet PO 1,000 mg BID [facility] Administration Amlodipine Besylate 10 mg 09/20/25 09:00 09/21/25 08:35 Amlodipine Besylate 5 Mg Tablet PO 10 mg DAILY [facility] Administration Aspirin 81 mg 09/20/25 09:00 09/21/25 08:35 Aspirin 81 Mg Enteric Table[facility] [facility] [place] Atorvastatin Calcium 20 mg 09/19/25 21:00 09/20/25 20:28 Atorvastatin 20 Mg Tablet PO 20 mg HS [facility] Administration Bupropion HCl 150 mg 09/20/25 09:00 09/21/25 08:35 Bupropion Hcl Sr (12 Hr) 150 Mg Tab PO 150 mg DAILY [facility] Administration Calcitriol 0.25 mcg 09/19/25 18:35 09/21/25 08:38 Calcitriol 0.25 Mcg Capsule PO 0.25 mcg [id number]@0900 [facility] Administration Calcium Carbonate 500 mg 09/20/25 09:00 09/21/25 08:35 Calcium/Vitamin D 500 Mg/5 Mcg (200 I.U.) Tablet PO 500 mg [facility] Administration Clopidogrel Bisulfate 75 mg 09/22/25 09:00 Clopidogrel Bisulfate 75 Mg Tablet PO QAM [facility] Docusate Sodium 100 mg 09/19/25 14:14 09/20/25 08:40 Docusate Sodium 100 Mg Capsule PO 100 mg BID PRN Administration Constipation Lisinopril 10 mg 09/20/25 09:00 09/21/25 08:35 Lisinopril 10 Mg Tablet PO 10 mg DAILY [facility] Administration Metoprolol Succinate 100 mg 09/20/25 09:00 09/21/25 08:35 Metoprolol Succinate Ext Rel 100 Mg Tabcr PO 100 mg DAILY [facility] Administration Nitroglycerin 0.4 mg 09/19/25 14:14 Nitroglycerin Sl 0.4 Mg Tablet SUBLINGUAL Q5M PRN Chest Pain Ondansetron HCl 4 mg 09/19/25 14:14 Ondansetron Inj 4 Mg/2 Ml Vial IV PUSH Q6H PRN Nausea And Vomiting Perflutren Lipid Microsphere 0 ml 09/19/25 15:39 Perflutren Lipid Microspheres 1.5 Ml Vial Diluted To 10 Ml Total Volume IV PUSH 09/22/25 15:39 ONCE PRN adequate visualization Protocol Potassium Chloride 10 meq 09/20/25 09:00 09/21/25 08:36 Potassium Chloride 10 Meq Er Tablet PO 10 meq DAILY [facility] Administration Sodium Bicarbonate 650 mg 09/20/25 12:30 09/20/25 17:04 Sodium Bicarbonate Tab 650 Mg Tablet PO 650 mg 1230,1730 RAVIN Administration Radiology Results: ITS Impressions Chest X-Ray 09/19/25 14:15 Impression: 1: Borderline heart size with mild pulmonary edema. Head CT 09/19/25 14:28 Impression: 1.No acute intracranial abnormality. Venous Doppler Study 09/19/25 15:27 Impression: Limited study. Negative for DVT. Labs Labs: Laboratory Results - last 24 hr 09/20/25 09/20/25 09/20/25 09:50 12:47 19:31 WBC RBC Hgb Hct MCV MCH MCHC RDW Plt Count MPV Immature Gran % (Auto) Neut % (Auto) Lymph % (Auto) Schley % (Auto) Eos % (Auto) Baso % (Auto) Lymph # (Auto) [place] # (Auto) Eos # (Auto) Baso # (Auto) Abs Immat Gran (auto) Absolute Neuts (auto) Absolute Nucleated RBC Nucleated RBC % APTT 86.4 H 85.4 H Sodium Potassium Chloride Carbon Dioxide Anion Gap BUN Creatinine Estim Creat Clear Calc Estimated GFR Glucose Calcium Phosphorus Magnesium Troponin I 1.880 H* Albumin 09/21/25 09/21/25 01:27 08:10 WBC 7.6 RBC 3.82 L Hgb 11.8 L Hct 35.5 L MCV 92.9 MCH 30.9 MCHC 33.2 RDW 14.1 Plt Count 213 MPV 8.9 Immature Gran % (Auto) 0.5 Neut % (Auto) 79.5 H Lymph % (Auto) 11.9 L Schley % (Auto) 5.6 Eos % (Auto) 2.1 Baso % (Auto) 0.4 Lymph # (Auto) 0.90 Schley # (Auto) 0.4 Eos # (Auto) 0.2 Baso # (Auto) 0.0 Abs Immat Gran (auto) 0.04 H Absolute Neuts (auto) 6.0 Absolute Nucleated RBC 0.000 Nucleated RBC % 0.0 APTT 109.3 H 64.3 H Sodium 140 Potassium 3.7 Chloride 107 Carbon Dioxide 25 Anion Gap 8 BUN 26 H Creatinine 1.81 H Estim Creat Clear Calc Not Reportable Estimated GFR 26 L Glucose 99 Calcium 9.3 Phosphorus 3.2 Magnesium 1.7 Troponin I Albumin 3.9
[2025-09-21] MEDS: SODIUM BICARBONATE TAB 650 MG TABLET PO ×2 (12:33→17:25)
[2025-09-21] MEDS: ONDANSETRON INJ 4 MG/2 ML VIAL IV PUSH (15:36)
[2025-09-21] MEDS: ACETAMINOPHEN 325 MG TABLET 650 MG PO (20:31)
[2025-09-21] MEDS: ATORVASTATIN 20 MG TABLET PO (20:31)
[2025-09-22] VITALS (12 sets, daily range): BP systolic 114–147; BP diastolic 59–90; PULSE 61–84; RESP 16–18; TEMP 36.6–37.2; O2SAT 91–98
[2025-09-22 04:50] LABS: Hematocrit 36.7 % (37.0-47.0); Hemoglobin 12.0 g/dL (12.0-15.0); Immature Granulocyte Percent A 0.7 % (0-0.5); Lymphocytes Absolute Auto 0.92 K/mm3 (0.9-3.2); Mean Corpuscular HGB Conc 32.7 g/dl (32-36); Mean Corpuscular Hemoglobin 30.5 pg (26-34); Mean Corpuscular Volume 93.4 fl (80-100); Nucleated Red Blood Cells Absolute Auto 0.000 K/mm3 (0.0-0.012); Nucleated Red Blood Cells Perc 0.0 % (0.0-0.2); Platelet Count Result 233 k/mm3 (150-375); Red Blood Count 3.93 M/mm3 (4.2-5.4); White Blood Count 6.1 K/mm3 (4.5-10.0)
[2025-09-22 04:58] LABS: Alanine Aminotransferase 11 U/L (6-35); Albumin Level 3.8 g/dL (3.5-5.1); Alkaline Phosphatase 71 U/L (38-126); Anion Gap 7 mmol/L (4-12); Aspartate Amino Transferase 23 U/L (14-36); Bilirubin,Total 0.7 mg/dL (0.2-1.3); Blood Urea Nitrogen 25 mg/dL (7-17); Calcium 9.5 mg/dL (8.4-10.2); Carbon Dioxide 24 mmol/L (22-30); Chloride 107 mmol/L (98-107); Estimated Glomerular Filt Rate 26; Glucose 94 mg/dL (65-110); Magnesium 1.9 mg/dL (1.6-2.3); Potassium 3.8 mmol/L (3.4-5.0); Sodium 138 mmol/L (137-145); Total Protein 6.5 g/dL (6.3-8.2)
[2025-09-22] MEDS: ASPIRIN 81 MG ENTERIC TABLET PO (08:40)
[2025-09-22] MEDS: CALCIUM/VITAMIN D 500 MG/5 MCG (200 I.U.) TABLET PO (08:40)
[2025-09-22] MEDS: ACETAMINOPHEN 500 MG TABLET 1000 MG PO ×2 (08:40→17:09)
[2025-09-22] MEDS: POTASSIUM CHLORIDE 10 MEQ ER TABLET PO (08:40)
[2025-09-22] MEDS: buPROPion HCL SR (12 HR) 150 MG TAB PO (08:41)
[2025-09-22] MEDS: METOPROLOL SUCCINATE EXT REL 100 MG TABCR PO (08:41)
[2025-09-22] MEDS: ONDANSETRON INJ 4 MG/2 ML VIAL IV PUSH (08:41)
[2025-09-22] MEDS: CLOPIDOGREL BISULFATE 75 MG TABLET PO (08:41)
--- NOTE | 2025-09-22 11:34 | P.PNCA_ITS ---
Progress Note: A&P Assessment and Plan (1) Acute non-ST elevation myocardial infarction (NSTEMI): Code(s): I21.4 - Non-ST elevation (NSTEMI) myocardial infarction Status: Acute Plan 85-year-old lady with: Coronary artery disease remote history of PCI presenting with picture of unstable angina. Because of her advanced age, DNR status as mentioned in my previous note we are treating her conservatively. Clopidogrel was added to her regimen yesterday. If she is able to ambulate without significant symptoms I would favor discharge in the next 24 hours or so. Neymar Cruz MD [facility] Subjective Date/time seen: Date of service: 09/22/25 11:34 Interval history: 85-year-old admitted for chest pain and non-STEMI. Date of service 09/20/2025: Feels okay. No chest pain or shortness of breath at present was very short of breath with walking to and from the bathroom yesterday. Date of service 09/21/2025: Patient feels okay this morning. Still has no further chest pain is hungry from being held NPO otherwise no complaints at this time. Date of service 09/22/2025: Asymptomatic today relaxing in bed. Has not really done any ambulating other than to the restroom. No no subsequent chest pain problem Exam Narrative: Awake alert oriented. Appears stated age Const: General: comfortable and no acute distress HENMT: Face/Nose/Sinus: Normal nares present Mouth: Yes moist mucous membranes Eyes: General: appearance normal, both eyes and all related structures Sclera: sclerae normal Neck: Neck: supple and no JVD Resp: Effort & Inspection: normal respiratory effort Auscultation: clear to auscultation bilaterally Cardio: Rate: regular rate Rhythm: regular rhythm GI: Inspection: non-distended Skin: General skin exam: normal color and no rashes or lesions noted Neuro: Cranial nerves: Yes Normal hearing present Speech: normal speech and No Abnormal speech present Sensory Exam: normal sensation Extrem: General: normal to inspection Psych: Mental Status: mental status grossly normal Affect: normal affect Objective Data Vital Signs Vital Signs: Vital Signs - 24 hr 09/21/25 11:48 09/21/25 12:00 09/21/25 12:00 Temperature 36.8 C Pulse Rate 82 81 Respiratory Rate 18 Blood Pressure 132/78 Pulse Oximetry 94 94 Oxygen Delivery Room Air 09/21/25 14:00 09/21/25 16:00 09/21/25 16:00 Temperature Pulse Rate 76 81 Respiratory Rate Blood Pressure Pulse Oximetry 93 Oxygen Delivery Room Air 09/21/25 16:19 09/21/25 18:00 09/21/25 20:00 Temperature 36.7 C 36.9 C Pulse Rate 78 80 78 Respiratory Rate 18 15 Blood Pressure 130/77 137/79 Pulse Oximetry 93 93 Oxygen Delivery 09/21/25 20:00 09/21/25 22:00 09/22/25 00:00 Temperature 36.7 C Pulse Rate 79 76 80 Respiratory Rate 16 Blood Pressure 115/71 Pulse Oximetry 91 Oxygen Delivery 09/22/25 00:00 09/22/25 02:00 09/22/25 04:00 Temperature Pulse Rate 78 80 83 Respiratory Rate Blood Pressure Pulse Oximetry Oxygen Delivery 09/22/25 04:00 09/22/25 08:00 09/22/25 08:00 Temperature 37.2 C 36.6 C Pulse Rate 79 83 Respiratory Rate 16 16 Blood Pressure 139/73 147/90 H Pulse Oximetry 91 95 95 Oxygen Delivery Room Air 09/22/25 08:00 09/22/25 08:41 09/22/25 10:00 Temperature Pulse Rate 79 84 71 Respiratory Rate Blood Pressure Pulse Oximetry Oxygen Delivery Intake/Output Intake/Output: Intake & Output 09/19/25 09/20/25 09/21/25 09/22/25 23:59 23:59 23:59 23:59 Intake Total 1358.8 1056.3 651.6 440 Output Total 1600 1350 Balance 1358.8 -543.7 -698.4 440 Meds/Results Medications: Active Medications Generic Name Dose Route Start Last Admin Trade Name Freq PRN Reason Stop Dose Admin Acetaminophen 650 mg 09/19/25 14:14 09/21/25 20:31 Acetaminophen 325 Mg Tablet PO 650 mg Q4H PRN Administration Mild Pain (1-3) or Fever Acetaminophen 1,000 mg 09/19/25 18:50 09/22/25 08:40 Acetaminophen 500 Mg Tablet PO 1,000 mg BID RAVIN Administration Amlodipine Besylate 10 mg 09/20/25 09:00 09/22/25 08:40 Amlodipine Besylate 5 Mg Tablet PO 10 mg DAILY RAVIN Administration Aspirin 81 mg 09/20/25 09:00 09/22/25 08:40 Aspirin 81 Mg Enteric Tablet PO 81 mg QAM [facility] Administration Atorvastatin Calcium 20 mg 09/19/25 21:00 09/21/25 20:31 Atorvastatin 20 Mg Tablet PO 20 mg HS [facility] Administration Bupropion HCl 150 mg 09/20/25 09:00 09/22/25 08:41 Bupropion Hcl Sr (12 Hr) 150 Mg Tab PO 150 mg DAILY [facility] Administration Calcitriol 0.25 mcg 09/19/25 18:35 09/21/25 08:38 Calcitriol 0.25 Mcg Capsule PO 0.25 mcg [id number]@0900 [facility] Administration Calcium Carbonate 500 mg 09/20/25 09:00 09/22/25 08:40 Calcium/Vitamin D 500 Mg/5 Mcg (200 I.U.) Tablet PO 500 mg QAM [facility] Administration Clopidogrel Bisulfate 75 mg 09/22/25 09:00 09/22/25 08:41 Clopidogrel Bisulfate 75 Mg Tablet PO 75 mg QAM [facility] Administration Docusate Sodium 100 mg 09/19/25 14:14 09/20/25 08:40 Docusate Sodium 100 Mg Capsule PO 100 mg BID PRN Administration Constipation Lisinopril 10 mg 09/20/25 09:00 09/22/25 08:40 Lisinopril 10 Mg Tablet PO 10 mg DAILY [facility] Administration Metoprolol Succinate 100 mg 09/20/25 09:00 09/22/25 08:41 Metoprolol Succinate Ext Rel 100 Mg Tabcr PO 100 mg DAILY [facility] Administration Nitroglycerin 0.4 mg 09/19/25 14:14 Nitroglycerin Sl 0.4 Mg Tablet SUBLINGUAL Q5M PRN Chest Pain Ondansetron HCl 4 mg 09/19/25 14:14 09/22/25 08:41 Ondansetron Inj 4 Mg/2 Ml Vial IV PUSH 4 mg Q6H PRN Administration Nausea And Vomiting Perflutren Lipid Microsphere 0 ml 09/19/25 15:39 Perflutren Lipid Microspheres 1.5 Ml Vial Diluted To 10 Ml Total Volume IV PUSH 09/22/25 15:39 ONCE PRN adequate visualization Protocol Potassium Chloride 10 meq 09/20/25 09:00 09/22/25 08:40 Potassium Chloride 10 Meq Er Tablet PO 10 meq DAILY [facility] Administration Sodium Bicarbonate 650 mg 09/20/25 12:30 09/21/25 17:25 Sodium Bicarbonate Tab 650 Mg Tablet PO 650 mg 1230,1730 RAVIN Administration Radiology Results: ITS Impressions Chest X-Ray 09/19/25 14:15 Impression: 1: Borderline heart size with mild pulmonary edema. Head CT 09/19/25 14:28 Impression: 1.No acute intracranial abnormality. Venous Doppler Study 09/19/25 15:27 Impression: Limited study. Negative for DVT. Labs Labs: Laboratory Results - last 24 hr 09/22/25 04:23 WBC 6.1 RBC 3.93 L Hgb 12.0 Hct 36.7 L MCV 93.4 MCH 30.5 MCHC 32.7 RDW 14.2 Plt Count 233 MPV 8.9 Immature Gran % (Auto) 0.7 H Neut % (Auto) 72.4 Lymph % (Auto) 15.1 L [place] % (Auto) 7.5 Eos % (Auto) 3.8 Baso % (Auto) 0.5 Lymph # (Auto) 0.92 [place] # (Auto) 0.5 Eos # (Auto) 0.2 Baso # (Auto) 0.0 Abs Immat Gran (auto) 0.04 H Absolute Neuts (auto) 4.4 Absolute Nucleated RBC 0.000 Nucleated RBC % 0.0 Sodium 138 Potassium 3.8 Chloride 107 Carbon Dioxide 24 Anion Gap 7 BUN 25 H Creatinine 1.86 H Estim Creat Clear Calc Not Reportable Estimated GFR 26 L Glucose 94 Calcium 9.5 Magnesium 1.9 Total Bilirubin 0.7 AST 23 ALT 11 Alkaline Phosphatase 71 Total Protein 6.5 Albumin 3.8
--- NOTE | 2025-09-22 12:06 | PM.IMPN ---
Progress Note: A&P Assessment and Plan (1) Acute non-ST elevation myocardial infarction (NSTEMI): Code(s): I21.4 - Non-ST elevation (NSTEMI) myocardial infarction Status: Acute Assessment and Plan: Patient presents with midsternal nonradiating chest pain that woke her from her sleep that was relieved with 1 sublingual nitro. CXR showed borderline heart size with mild pulmonary edema Troponin 1.11 -> 1.88 EKG showing sinus tachycardia possible left atrial enlargement nonspecific ST and T-wave changes. Repeat EKG showing similar findings Left LE Venous Doppler negative for DVT. Head CT showing no acute findings. ASA 324mg on admission and now on 81mg daily Heparin gtt started Cardiology consulted. Known history of coronary artery disease status post RCA stenting in 1998. Recommends conservative management given her advanced age renal failure in DNR status Echo pending Continue on atorvastatin dose adjusted. Added on Plavix LHC deferred (2) Pulmonary edema: Qualifiers: Chronicity: acute Qualified Code(s): J81.0 - Acute pulmonary edema Code(s): J81.1 - Chronic pulmonary edema Status: Acute Assessment and Plan: CXR showing mild pulmonary edema. No complaint of SOB. No previously known history of CHF. No previous echo on file. She received Lasix 40 mg IV x 1 Echo ordered Monitor I&Os, daily weights and renal function (3) Chronic kidney disease, stage 4 (severe): Code(s): N18.4 - Chronic kidney disease, stage 4 (severe) Status: Chronic Assessment and Plan: Patient has a hx of CKD with baseline Cr 1.9-2.3 range. Creatinine 2.04, BUN 23, GFR 23 upon admission on 09/19. Cr stable. No acidosis or hyperkalemia Follow renal function, UOP and electrolytes (4) Essential hypertension: Code(s): I10 - Essential (primary) hypertension Status: Chronic Assessment and Plan: Blood pressure remains well controlled. Will continue to monitor (5) Hyperlipidemia: Qualifiers: Hyperlipidemia type: unspecified Qualified Code(s): E78.5 - Hyperlipidemia, unspecified Code(s): E78.5 - Hyperlipidemia, unspecified Status: Chronic Assessment and Plan: LFTs normal. Continue Atorvastatin Plan DVT Prophylaxis: Heparin gtt which has been discontinued. Code Status: DNR Subjective Date/time seen: 09/22/25 12:06 Interval history: No overnight events. No chest pain or shortness of breath. No new complaints. Telemetry reviewed. Review of Systems Review of Systems: All systems reviewed & are unremarkable except as noted in HPI and below Exam Narrative: Gen - NARD Chest - CTA bilaterally, nml RR CV - RRR S1/S2. Abd - Soft, NT/ND, Positive BS Ext - No pedal edema Psych - Nml mood and affect Skin - Warm and dry Objective Data Vital Signs Vital Signs: Vital Signs - 24 hr 09/21/25 14:00 09/21/25 16:00 09/21/25 16:00 Temperature Pulse Rate 76 81 Respiratory Rate Blood Pressure Pulse Oximetry 93 Oxygen Delivery Room Air 09/21/25 16:19 09/21/25 18:00 09/21/25 20:00 Temperature 98.0 F 98.4 F Pulse Rate 78 80 78 Respiratory Rate 18 15 Blood Pressure 130/77 137/79 Pulse Oximetry 93 93 Oxygen Delivery 09/21/25 20:00 09/21/25 22:00 09/22/25 00:00 Temperature 98.1 F Pulse Rate 79 76 80 Respiratory Rate 16 Blood Pressure 115/71 Pulse Oximetry 91 Oxygen Delivery 09/22/25 00:00 09/22/25 02:00 09/22/25 04:00 Temperature Pulse Rate 78 80 83 Respiratory Rate Blood Pressure Pulse Oximetry Oxygen Delivery 09/22/25 04:00 09/22/25 08:00 09/22/25 08:00 Temperature 98.9 F 97.9 F Pulse Rate 79 83 Respiratory Rate 16 16 Blood Pressure 139/73 147/90 H Pulse Oximetry 91 95 95 Oxygen Delivery Room Air 09/22/25 08:00 09/22/25 08:41 09/22/25 10:00 Temperature Pulse Rate 79 84 71 Respiratory Rate Blood Pressure Pulse Oximetry Oxygen Delivery Intake/Output Intake/Output: Intake & Output 09/19/25 09/20/25 09/21/25 09/22/25 23:59 23:59 23:59 23:59 Intake Total 1358.8 1056.3 651.6 440 Output Total 1600 1350 Balance 1358.8 -543.7 -698.4 440 Meds/Results Medications: Active Medications Generic Name Dose Route Start Last Admin Trade Name Freq PRN Reason Stop Dose Admin Acetaminophen 650 mg 09/19/25 14:14 09/21/25 20:31 Acetaminophen 325 Mg Tablet PO 650 mg Q4H PRN Administration Mild Pain (1-3) or Fever Acetaminophen 1,000 mg 09/19/25 18:50 09/22/25 08:40 Acetaminophen 500 Mg Tablet PO 1,000 mg BID RAVIN Administration Amlodipine Besylate 10 mg 09/20/25 09:00 09/22/25 08:40 Amlodipine Besylate 5 Mg Tablet PO 10 mg DAILY RAVIN Administration Aspirin 81 mg 09/20/25 09:00 09/22/25 08:40 Aspirin 81 Mg Enteric Tablet PO 81 mg QAM [facility] Administration Atorvastatin Calcium 20 mg 09/19/25 21:00 09/21/25 20:31 Atorvastatin 20 Mg Tablet PO 20 mg HS [facility] Administration Bupropion HCl 150 mg 09/20/25 09:00 09/22/25 08:41 Bupropion Hcl Sr (12 Hr) 150 Mg Tab PO 150 mg DAILY [facility] Administration Calcitriol 0.25 mcg 09/19/25 18:35 09/21/25 08:38 Calcitriol 0.25 Mcg Capsule PO 0.25 mcg [id number]@0900 [facility] Administration Calcium Carbonate 500 mg 09/20/25 09:00 09/22/25 08:40 Calcium/Vitamin D 500 Mg/5 Mcg (200 I.U.) Tablet PO 500 mg QAM [facility] Administration Clopidogrel Bisulfate 75 mg 09/22/25 09:00 09/22/25 08:41 Clopidogrel Bisulfate 75 Mg Tablet PO 75 mg QAM [facility] Administration Docusate Sodium 100 mg 09/19/25 14:14 09/20/25 08:40 Docusate Sodium 100 Mg Capsule PO 100 mg BID PRN Administration Constipation Lisinopril 10 mg 09/20/25 09:00 09/22/25 08:40 Lisinopril 10 Mg Tablet PO 10 mg DAILY [facility] Administration Metoprolol Succinate 100 mg 09/20/25 09:00 09/22/25 08:41 Metoprolol Succinate Ext Rel 100 Mg Tabcr PO 100 mg DAILY [facility] Administration Nitroglycerin 0.4 mg 09/19/25 14:14 Nitroglycerin Sl 0.4 Mg Tablet SUBLINGUAL Q5M PRN Chest Pain Ondansetron HCl 4 mg 09/19/25 14:14 09/22/25 08:41 Ondansetron Inj 4 Mg/2 Ml Vial IV PUSH 4 mg Q6H PRN Administration Nausea And Vomiting Perflutren Lipid Microsphere 0 ml 09/19/25 15:39 Perflutren Lipid Microspheres 1.5 Ml Vial Diluted To 10 Ml Total Volume IV PUSH 09/22/25 15:39 ONCE PRN adequate visualization Protocol Potassium Chloride 10 meq 09/20/25 09:00 09/22/25 08:40 Potassium Chloride 10 Meq Er Tablet PO 10 meq DAILY RAVIN Administration Sodium Bicarbonate 650 mg 09/20/25 12:30 09/21/25 17:25 Sodium Bicarbonate Tab 650 Mg Tablet PO 650 mg 1230,1730 RAVIN Administration Radiology Results: ITS Impressions Chest X-Ray 09/19/25 14:15 Impression: 1: Borderline heart size with mild pulmonary edema. Head CT 09/19/25 14:28 Impression: 1.No acute intracranial abnormality. Venous Doppler Study 09/19/25 15:27 Impression: Limited study. Negative for DVT. Labs Labs: Laboratory Results - last 24 hr 09/22/25 04:23 WBC 6.1 RBC 3.93 L Hgb 12.0 Hct 36.7 L MCV 93.4 MCH 30.5 MCHC 32.7 RDW 14.2 Plt Count 233 MPV 8.9 Immature Gran % (Auto) 0.7 H Neut % (Auto) 72.4 Lymph % (Auto) 15.1 L [place] % (Auto) 7.5 Eos % (Auto) 3.8 Baso % (Auto) 0.5 Lymph # (Auto) 0.92 [place] # (Auto) 0.5 Eos # (Auto) 0.2 Baso # (Auto) 0.0 Abs Immat Gran (auto) 0.04 H Absolute Neuts (auto) 4.4 Absolute Nucleated RBC 0.000 Nucleated RBC % 0.0 Sodium 138 Potassium 3.8 Chloride 107 Carbon Dioxide 24 Anion Gap 7 BUN 25 H Creatinine 1.86 H Estim Creat Clear Calc Not Reportable Estimated GFR 26 L Glucose 94 Calcium 9.5 Magnesium 1.9 Total Bilirubin 0.7 AST 23 ALT 11 Alkaline Phosphatase 71 Total Protein 6.5 Albumin 3.8
[2025-09-22] MEDS: SODIUM BICARBONATE TAB 650 MG TABLET PO ×2 (12:08→17:09)
--- NOTE | 2025-09-22 13:07 | PC.NURSE ---
This patient, Vanesa New, was transferred to [facility] on 09/22/25 at 1307. Personal belongings sent with patient. Report given to ALECIA Vazquez. Appropriate documentation sent with patient. Pt left resting in bed with call light in reach and bed low and locked. Patient's daughter, Fransisca called and informed patient moved to new room. She was thankful and larry/grace Fields RN.
--- NOTE | 2025-09-22 13:30 | PC.NURSE ---
pt arrival to [facility] Rm. 244 from IMU @ 6610 09/22/25.
[2025-09-22] MEDS: ATORVASTATIN 20 MG TABLET PO (20:29)
[2025-09-23] VITALS (10 sets, daily range): BP systolic 117–161; BP diastolic 66–93; PULSE 78–89; RESP 16–22; TEMP 36–36.8; O2SAT 81–95
[2025-09-23] MEDS: ONDANSETRON INJ 4 MG/2 ML VIAL IV PUSH (02:42)
[2025-09-23 05:39] LABS: Hematocrit 33.9 % (37.0-47.0); Hemoglobin 10.8 g/dL (12.0-15.0); Immature Granulocyte Percent A 0.6 % (0-0.5); Lymphocytes Absolute Auto 0.85 K/mm3 (0.9-3.2); Mean Corpuscular HGB Conc 31.9 g/dl (32-36); Mean Corpuscular Hemoglobin 30.3 pg (26-34); Mean Corpuscular Volume 95.2 fl (80-100); Nucleated Red Blood Cells Absolute Auto 0.000 K/mm3 (0.0-0.012); Nucleated Red Blood Cells Perc 0.0 % (0.0-0.2); Platelet Count Result 230 k/mm3 (150-375); Red Blood Count 3.56 M/mm3 (4.2-5.4); White Blood Count 6.8 K/mm3 (4.5-10.0)
[2025-09-23 06:03] LABS: Alanine Aminotransferase 13 U/L (6-35); Albumin Level 3.7 g/dL (3.5-5.1); Alkaline Phosphatase 65 U/L (38-126); Anion Gap 8 mmol/L (4-12); Aspartate Amino Transferase 30 U/L (14-36); Bilirubin,Total 0.7 mg/dL (0.2-1.3); Blood Urea Nitrogen 27 mg/dL (7-17); Calcium 9.6 mg/dL (8.4-10.2); Carbon Dioxide 23 mmol/L (22-30); Chloride 107 mmol/L (98-107); Estimated Glomerular Filt Rate 23; Glucose 94 mg/dL (65-110); Magnesium 1.9 mg/dL (1.6-2.3); Potassium 4.0 mmol/L (3.4-5.0); Sodium 138 mmol/L (137-145); Total Protein 6.3 g/dL (6.3-8.2)
[2025-09-23] MEDS: ACETAMINOPHEN 500 MG TABLET 1000 MG PO ×2 (08:40→16:58)
[2025-09-23] MEDS: CALCIUM/VITAMIN D 500 MG/5 MCG (200 I.U.) TABLET PO (08:40)
[2025-09-23] MEDS: buPROPion HCL SR (12 HR) 150 MG TAB PO (08:40)
[2025-09-23] MEDS: ASPIRIN 81 MG ENTERIC TABLET PO (08:40)
[2025-09-23] MEDS: METOPROLOL SUCCINATE EXT REL 100 MG TABCR PO (08:40)
[2025-09-23] MEDS: CLOPIDOGREL BISULFATE 75 MG TABLET PO (08:40)
[2025-09-23] MEDS: POTASSIUM CHLORIDE 10 MEQ ER TABLET PO (08:41)
--- NOTE | 2025-09-23 12:00 | PM.IMPN ---
Progress Note: A&P Assessment and Plan (1) Acute non-ST elevation myocardial infarction (NSTEMI): Code(s): I21.4 - Non-ST elevation (NSTEMI) myocardial infarction Status: Acute Assessment and Plan: Patient presents with midsternal nonradiating chest pain that woke her from her sleep that was relieved with 1 sublingual nitro. CXR showed borderline heart size with mild pulmonary edema Troponin 1.11 -> 1.88 EKG showing sinus tachycardia possible left atrial enlargement nonspecific ST and T-wave changes. Repeat EKG showing similar findings Left LE Venous Doppler negative for DVT. Head CT showing no acute findings. ASA 324mg on admission and now on 81mg daily Heparin gtt started Cardiology consulted. Known history of coronary artery disease status post RCA stenting in 1998. Recommends conservative management given her advanced age renal failure in DNR status Echo pending Continue on atorvastatin dose adjusted. Added on Plavix LHC deferred (2) Pulmonary edema: Qualifiers: Chronicity: acute Qualified Code(s): J81.0 - Acute pulmonary edema Code(s): J81.1 - Chronic pulmonary edema Status: Acute Assessment and Plan: CXR showing mild pulmonary edema. No complaint of SOB. No previously known history of CHF. No previous echo on file. She received Lasix 40 mg IV x 1 Echo ordered Monitor I&Os, daily weights and renal function (3) Chronic kidney disease, stage 4 (severe): Code(s): N18.4 - Chronic kidney disease, stage 4 (severe) Status: Chronic Assessment and Plan: Patient has a hx of CKD with baseline Cr 1.9-2.3 range. Creatinine 2.04, BUN 23, GFR 23 upon admission on 09/19. Cr stable. No acidosis or hyperkalemia Follow renal function, UOP and electrolytes (4) Essential hypertension: Code(s): I10 - Essential (primary) hypertension Status: Chronic Assessment and Plan: Blood pressure remains well controlled. Will continue to monitor (5) Hyperlipidemia: Qualifiers: Hyperlipidemia type: unspecified Qualified Code(s): E78.5 - Hyperlipidemia, unspecified Code(s): E78.5 - Hyperlipidemia, unspecified Status: Chronic Assessment and Plan: LFTs normal. Continue Atorvastatin Plan DVT Prophylaxis: Heparin gtt which has been discontinued. Code Status: DNR Subjective Date/time seen: 09/23/25 12:00 Interval history: No overnight events. Work with therapy. Denies any chest pain or shortness of breath. Labs reviewed. Fell nauseous and was hurting in the belly last night. Review of Systems Review of Systems: All systems reviewed & are unremarkable except as noted in HPI and below Exam Narrative: Gen - NARD Chest - CTA bilaterally, nml RR CV - RRR S1/S2. Abd - Soft, NT/ND, Positive BS Ext - No pedal edema Psych - Nml mood and affect Skin - Warm and dry Objective Data Vital Signs Vital Signs: Vital Signs - 24 hr 09/22/25 13:50 09/22/25 14:11 09/22/25 14:35 Temperature Pulse Rate 61 Respiratory Rate Blood Pressure Pulse Oximetry 93 Oxygen Delivery Room Air Room Air Room Air 09/22/25 16:00 09/22/25 16:00 09/22/25 20:00 Temperature 98.2 F Pulse Rate 82 74 82 Respiratory Rate 18 16 Blood Pressure 132/79 Pulse Oximetry 93 92 Oxygen Delivery Room Air 09/22/25 20:00 09/22/25 21:01 09/22/25 22:43 Temperature 97.9 F Pulse Rate 77 82 Respiratory Rate 16 Blood Pressure 138/88 146/90 H Pulse Oximetry 92 Oxygen Delivery 09/23/25 00:00 09/23/25 03:55 09/23/25 04:00 Temperature 97.3 F L Pulse Rate 81 82 85 Respiratory Rate 18 Blood Pressure 130/90 Pulse Oximetry 92 Oxygen Delivery 09/23/25 08:38 09/23/25 08:40 09/23/25 08:40 Temperature 98.1 F Pulse Rate 81 86 86 Respiratory Rate 18 18 Blood Pressure 133/71 Pulse Oximetry 81 L 94 Oxygen Delivery Room Air 09/23/25 08:40 Temperature Pulse Rate 83 Respiratory Rate Blood Pressure Pulse Oximetry Oxygen Delivery Intake/Output Intake/Output: Intake & Output 09/20/25 09/21/25 09/22/25 09/23/25 23:59 23:59 23:59 23:59 Intake Total 1056.3 651.6 1350 440 Output Total 1600 1350 200 Balance -543.7 -698.4 1150 440 Meds/Results Medications: Active Medications Generic Name Dose Route Start Last Admin Trade Name Freq PRN Reason Stop Dose Admin Acetaminophen 650 mg 09/19/25 14:14 09/21/25 20:31 Acetaminophen 325 Mg Tablet PO 650 mg Q4H PRN Administration Mild Pain (1-3) or Fever Acetaminophen 1,000 mg 09/19/25 18:50 09/23/25 08:40 Acetaminophen 500 Mg Tablet PO 1,000 mg BID RAVIN Administration Amlodipine Besylate 10 mg 09/20/25 09:00 09/23/25 08:40 Amlodipine Besylate 5 Mg Tablet PO 10 mg DAILY [facility] Administration Aspirin 81 mg 09/20/25 09:00 09/23/25 08:40 Aspirin 81 Mg Enteric Tablet PO 81 mg QAM [facility] Administration Atorvastatin Calcium 20 mg 09/19/25 21:00 09/22/25 20:29 Atorvastatin 20 Mg Tablet PO 20 mg HS [facility] Administration Bupropion HCl 150 mg 09/20/25 09:00 09/23/25 08:40 Bupropion Hcl Sr (12 Hr) 150 Mg Tab PO 150 mg DAILY [facility] Administration Calcitriol 0.25 mcg 09/19/25 18:35 09/21/25 08:38 Calcitriol 0.25 Mcg Capsule PO 0.25 mcg [id number]@0900 [facility] Administration Calcium Carbonate 500 mg 09/20/25 09:00 09/23/25 08:40 Calcium/Vitamin D 500 Mg/5 Mcg (200 I.U.) Tablet PO 500 mg QAM [facility] Administration Clopidogrel Bisulfate 75 mg 09/22/25 09:00 09/23/25 08:40 Clopidogrel Bisulfate 75 Mg Tablet PO 75 mg QAM [facility] Administration Docusate Sodium 100 mg 09/19/25 14:14 09/20/25 08:40 Docusate Sodium 100 Mg Capsule PO 100 mg BID PRN Administration Constipation Lisinopril 10 mg 09/20/25 09:00 09/23/25 08:40 Lisinopril 10 Mg Tablet PO 10 mg DAILY [facility] Administration Metoprolol Succinate 100 mg 09/20/25 09:00 09/23/25 08:40 Metoprolol Succinate Ext Rel 100 Mg Tabcr PO 100 mg DAILY [facility] Administration Nitroglycerin 0.4 mg 09/19/25 14:14 Nitroglycerin Sl 0.4 Mg Tablet SUBLINGUAL Q5M PRN Chest Pain Ondansetron HCl 4 mg 09/19/25 14:14 09/23/25 02:42 Ondansetron Inj 4 Mg/2 Ml Vial IV PUSH 4 mg Q6H PRN Administration Nausea And Vomiting Potassium Chloride 10 meq 09/20/25 09:00 09/23/25 08:41 Potassium Chloride 10 Meq Er Tablet PO 10 meq DAILY [facility]IN Administration Sodium Bicarbonate 650 mg 09/20/25 12:30 09/22/25 17:09 Sodium Bicarbonate Tab 650 Mg Tablet PO 650 mg 1230,1730 RAVIN Administration Radiology Results: ITS Impressions Chest X-Ray 09/19/25 14:15 Impression: 1: Borderline heart size with mild pulmonary edema. Head CT 09/19/25 14:28 Impression: 1.No acute intracranial abnormality. Venous Doppler Study 09/19/25 15:27 Impression: Limited study. Negative for DVT. Labs Labs: Laboratory Results - last 24 hr 09/23/25 04:36 WBC 6.8 RBC 3.56 L Hgb 10.8 L Hct 33.9 L MCV 95.2 MCH 30.3 MCHC 31.9 L RDW 14.0 Plt Count 230 MPV 9.3 Immature Gran % (Auto) 0.6 H Neut % (Auto) 76.9 H Lymph % (Auto) 12.5 L [place] % (Auto) 7.2 Eos % (Auto) 2.4 Baso % (Auto) 0.4 Lymph # (Auto) 0.85 L [place] # (Auto) 0.5 Eos # (Auto) 0.2 Baso # (Auto) 0.0 Abs Immat Gran (auto) 0.04 H Absolute Neuts (auto) 5.2 Absolute Nucleated RBC 0.000 Nucleated RBC % 0.0 Sodium 138 Potassium 4.0 Chloride 107 Carbon Dioxide 23 Anion Gap 8 BUN 27 H Creatinine 2.01 H Estim Creat Clear Calc Not Reportable Estimated GFR 23 L Glucose 94 Calcium 9.6 Magnesium 1.9 Total Bilirubin 0.7 AST 30 ALT 13 Alkaline Phosphatase 65 Total Protein 6.3 Albumin 3.7
[2025-09-23] MEDS: FAMOTIDINE 20 MG TABLET PO ×2 (12:22→20:08)
[2025-09-23] MEDS: SODIUM BICARBONATE TAB 650 MG TABLET PO ×2 (12:22→16:58)
--- NOTE | 2025-09-23 13:50 | P.PNCA_ITS ---
Progress Note: A&P Assessment and Plan (1) Acute non-ST elevation myocardial infarction (NSTEMI): Code(s): I21.4 - Non-ST elevation (NSTEMI) myocardial infarction Status: Acute Plan 85-year-old lady with: Coronary artery disease remote history of PCI enters the hospital now with symptoms and evidence of ACS/non ST elevation CT. We have elected to treat her conservatively because of her advanced age, renal insufficiency and DNR status. She is doing very well and not reporting ischemic symptoms for several days. Disposition is per the primary team. I will arrange for timely follow-up in my office regarding her ischemic heart disease. Neymar Cruz MD [facility] Subjective Date/time seen: Date of service: 09/23/25 13:50 Interval history: 85-year-old admitted for chest pain and non-STEMI. Date of service 09/20/2025: Feels okay. No chest pain or shortness of breath at present was very short of breath with walking to and from the bathroom yesterday. Date of service 09/21/2025: Patient feels okay this morning. Still has no further chest pain is hungry from being held NPO otherwise no complaints at this time. Date of service 09/22/2025: Asymptomatic today relaxing in bed. Has not really done any ambulating other than to the restroom. No no subsequent chest pain problem Date of service 09/23/2025: Continue his to report no cardiovascular symptoms no recurrence of ischemic chest pain for several days. Continues to have episodes of some nausea at night. His comfortable at this point in visiting with her family Exam Narrative: Awake alert oriented. Appears stated age Const: General: comfortable and no acute distress HENMT: Face/Nose/Sinus: Normal nares present Mouth: Yes moist mucous membranes Eyes: General: appearance normal, both eyes and all related structures Sclera: sclerae normal Neck: Neck: supple and no JVD Resp: Effort & Inspection: normal respiratory effort Auscultation: clear to auscultation bilaterally Cardio: Rate: regular rate Rhythm: regular rhythm GI: Inspection: non-distended Skin: General skin exam: normal color and no rashes or lesions noted Neuro: Cranial nerves: Yes Normal hearing present Speech: normal speech and No Abnormal speech present Sensory Exam: normal sensation Extrem: General: normal to inspection Psych: Mental Status: mental status grossly normal Affect: normal affect Objective Data Vital Signs Vital Signs: Vital Signs - 24 hr 09/22/25 14:11 09/22/25 14:35 09/22/25 16:00 Temperature Pulse Rate 61 82 Respiratory Rate Blood Pressure Pulse Oximetry 93 Oxygen Delivery Room Air Room Air 09/22/25 16:00 09/22/25 20:00 09/22/25 20:00 Temperature 36.8 C Pulse Rate 74 82 77 Respiratory Rate 18 16 Blood Pressure 132/79 Pulse Oximetry 93 92 Oxygen Delivery Room Air 09/22/25 21:01 09/22/25 22:43 09/23/25 00:00 Temperature 36.6 C Pulse Rate 82 81 Respiratory Rate 16 Blood Pressure 138/88 146/90 H Pulse Oximetry 92 Oxygen Delivery 09/23/25 03:55 09/23/25 04:00 09/23/25 08:38 Temperature 36.3 C L 36.7 C Pulse Rate 82 85 81 Respiratory Rate 18 18 Blood Pressure 130/90 133/71 Pulse Oximetry 92 81 L Oxygen Delivery 09/23/25 08:40 09/23/25 08:40 09/23/25 08:40 Temperature Pulse Rate 86 86 83 Respiratory Rate 18 Blood Pressure Pulse Oximetry 94 Oxygen Delivery Room Air 09/23/25 12:00 Temperature Pulse Rate 86 Respiratory Rate Blood Pressure Pulse Oximetry Oxygen Delivery Intake/Output Intake/Output: Intake & Output 09/20/25 09/21/25 09/22/25 09/23/25 23:59 23:59 23:59 23:59 Intake Total 1056.3 651.6 1350 440 Output Total 1600 1350 200 Balance -543.7 -698.4 1150 440 Meds/Results Medications: Active Medications Generic Name Dose Route Start Last Admin Trade Name Freq PRN Reason Stop Dose Admin Acetaminophen 650 mg 09/19/25 14:14 09/21/25 20:31 Acetaminophen 325 Mg Tablet PO 650 mg Q4H PRN Administration Mild Pain (1-3) or Fever Acetaminophen 1,000 mg 09/19/25 18:50 09/23/25 08:40 Acetaminophen 500 Mg Tablet PO 1,000 mg BID RAVIN Administration Amlodipine Besylate 10 mg 09/20/25 09:00 09/23/25 08:40 Amlodipine Besylate 5 Mg Tablet PO 10 mg DAILY RAVIN Administration Aspirin 81 mg 09/20/25 09:00 09/23/25 08:40 Aspirin 81 Mg Enteric Tablet PO 81 mg QAM RAVIN Administration Atorvastatin Calcium 20 mg 09/19/25 21:00 09/22/25 20:29 Atorvastatin 20 Mg Tablet PO 20 mg HS RAVIN Administration Bupropion HCl 150 mg 09/20/25 09:00 09/23/25 08:40 Bupropion Hcl Sr (12 Hr) 150 Mg Tab PO 150 mg DAILY RAVIN Administration Calcitriol 0.25 mcg 09/19/25 18:35 09/21/25 08:38 Calcitriol 0.25 Mcg Capsule PO 0.25 mcg [id number]@0900 [facility] Administration Calcium Carbonate 500 mg 09/20/25 09:00 09/23/25 08:40 Calcium/Vitamin D 500 Mg/5 Mcg (200 I.U.) Tablet PO 500 mg QAM [facility] Administration Clopidogrel Bisulfate 75 mg 09/22/25 09:00 09/23/25 08:40 Clopidogrel Bisulfate 75 Mg Tablet PO 75 mg QAM [facility] Administration Docusate Sodium 100 mg 09/19/25 14:14 09/20/25 08:40 Docusate Sodium 100 Mg Capsule PO 100 mg BID PRN Administration Constipation Famotidine 20 mg 09/23/25 12:00 09/23/25 12:22 Famotidine 20 Mg Tablet PO 20 mg Q12HR [facility] Administration Lisinopril 10 mg 09/20/25 09:00 09/23/25 08:40 Lisinopril 10 Mg Tablet PO 10 mg DAILY RAVIN Administration Metoprolol Succinate 100 mg 09/20/25 09:00 09/23/25 08:40 Metoprolol Succinate Ext Rel 100 Mg Tabcr PO 100 mg DAILY [facility] Administration Nitroglycerin 0.4 mg 09/19/25 14:14 Nitroglycerin Sl 0.4 Mg Tablet SUBLINGUAL Q5M PRN Chest Pain Ondansetron HCl 4 mg 09/19/25 14:14 09/23/25 02:42 Ondansetron Inj 4 Mg/2 Ml Vial IV PUSH 4 mg Q6H PRN Administration Nausea And Vomiting Potassium Chloride 10 meq 09/20/25 09:00 09/23/25 08:41 Potassium Chloride 10 Meq Er Tablet PO 10 meq DAILY RAVIN Administration Sodium Bicarbonate 650 mg 09/20/25 12:30 09/23/25 12:22 Sodium Bicarbonate Tab 650 Mg Tablet PO 650 mg 1230,1730 RAVIN Administration Radiology Results: ITS Impressions Chest X-Ray 09/19/25 14:15 Impression: 1: Borderline heart size with mild pulmonary edema. Head CT 09/19/25 14:28 Impression: 1.No acute intracranial abnormality. Venous Doppler Study 09/19/25 15:27 Impression: Limited study. Negative for DVT. Labs Labs: Laboratory Results - last 24 hr 09/23/25 04:36 WBC 6.8 RBC 3.56 L Hgb 10.8 L Hct 33.9 L MCV 95.2 MCH 30.3 MCHC 31.9 L RDW 14.0 Plt Count 230 MPV 9.3 Immature Gran % (Auto) 0.6 H Neut % (Auto) 76.9 H Lymph % (Auto) 12.5 L [place] % (Auto) 7.2 Eos % (Auto) 2.4 Baso % (Auto) 0.4 Lymph # (Auto) 0.85 L [place] # (Auto) 0.5 Eos # (Auto) 0.2 Baso # (Auto) 0.0 Abs Immat Gran (auto) 0.04 H Absolute Neuts (auto) 5.2 Absolute Nucleated RBC 0.000 Nucleated RBC % 0.0 Sodium 138 Potassium 4.0 Chloride 107 Carbon Dioxide 23 Anion Gap 8 BUN 27 H Creatinine 2.01 H Estim Creat Clear Calc Not Reportable Estimated GFR 23 L Glucose 94 Calcium 9.6 Magnesium 1.9 Total Bilirubin 0.7 AST 30 ALT 13 Alkaline Phosphatase 65 Total Protein 6.3 Albumin 3.7
[2025-09-23] MEDS: ATORVASTATIN 20 MG TABLET PO (20:08)
--- NOTE | 2025-09-23 22:59 | ECG_ITS ---
Test Date: 2025-09-23 23:19:54 Measurements Intervals [place] Rate: 84 P: 0 [place]: 0 QRS: 41 QRSD: 86 T: 57 QT: 376 QTc: 446 Interpretive Statements WANDERING PACEMAKER NONSPECIFIC ST & T-WAVE ABNORMALITY- ANTERIOR LEADS ABNORMAL ECG Compared to ECG 09/20/2025 10:51:31 Sinus tachycardia no longer present Electronically Signed On 09-24-2025 05:58:26 SSIS ARCHITECT by Raciel Jamison D.O.
[2025-09-23 23:20] LABS: Hematocrit 34.3 % (37.0-47.0); Hemoglobin 11.3 g/dL (12.0-15.0); Mean Corpuscular HGB Conc 32.9 g/dl (32-36); Mean Corpuscular Hemoglobin 31.2 pg (26-34); Mean Corpuscular Volume 94.8 fl (80-100); Platelet Count Result 234 k/mm3 (150-375); Red Blood Count 3.62 M/mm3 (4.2-5.4); White Blood Count 6.8 K/mm3 (4.5-10.0)
[2025-09-23 23:32] LABS: Alveolar/Arterial O2 Gradient 88.2 mmHg; Fractional Inspired Oxygen 28 %; HCO3 ABG 19.5 mEq/l (22.0-26.0); Oxygen Content ABG 15.2 %vol (16.0-22.0); Oxygen Saturation ABG 95.4 % (95.0-100.0); PCO2 ABG 31.0 mmHg (35.0-45.0); PO2 ABG 74.9 mmHg (80.0-100.0); PO2 FiO2 Ratio Arterial Blood 2.67 %
[2025-09-23 23:33] LABS: Liters per Minute 2.0 LPM; Modified Allen's Test Pass; Site Drawn RIGHT RADIAL
[2025-09-23 23:33] LABS: Anion Gap 9 mmol/L (4-12); Blood Urea Nitrogen 27 mg/dL (7-17); Calcium 9.3 mg/dL (8.4-10.2); Carbon Dioxide 22 mmol/L (22-30); Chloride 107 mmol/L (98-107); Estimated Glomerular Filt Rate 22; Glucose 108 mg/dL (65-110); Potassium 4.0 mmol/L (3.4-5.0); Sodium 138 mmol/L (137-145)
[2025-09-23 23:49] LABS: Troponin I 0.669 ng/mL (0.000-0.034)
[2025-09-24] VITALS (12 sets, daily range): BP systolic 126–156; BP diastolic 56–98; PULSE 76–87; RESP 18–20; TEMP 36–36.8; O2SAT 91–97
[2025-09-24 04:52] LABS: Hematocrit 37.1 % (37.0-47.0); Hemoglobin 11.7 g/dL (12.0-15.0); Immature Granulocyte Percent A 0.7 % (0-0.5); Immature Platelet Fraction Pct 1.5 % (0.9-11.2); Lymphocytes Absolute Auto 0.83 K/mm3 (0.9-3.2); Mean Corpuscular HGB Conc 31.5 g/dl (32-36); Mean Corpuscular Hemoglobin 30.8 pg (26-34); Mean Corpuscular Volume 97.6 fl (80-100); Nucleated Red Blood Cells Absolute Auto 0.000 K/mm3 (0.0-0.012); Nucleated Red Blood Cells Perc 0.0 % (0.0-0.2); Platelet Count Result 243 k/mm3 (150-375); Red Blood Count 3.80 M/mm3 (4.2-5.4); White Blood Count 7.0 K/mm3 (4.5-10.0)
[2025-09-24 05:10] LABS: Alanine Aminotransferase 18 U/L (6-35); Albumin Level 3.9 g/dL (3.5-5.1); Alkaline Phosphatase 66 U/L (38-126); Anion Gap 8 mmol/L (4-12); Aspartate Amino Transferase 34 U/L (14-36); Bilirubin,Total 0.8 mg/dL (0.2-1.3); Blood Urea Nitrogen 26 mg/dL (7-17); Calcium 9.3 mg/dL (8.4-10.2); Carbon Dioxide 22 mmol/L (22-30); Chloride 109 mmol/L (98-107); Estimated Glomerular Filt Rate 22; Glucose 106 mg/dL (65-110); Magnesium 2.1 mg/dL (1.6-2.3); Potassium 4.1 mmol/L (3.4-5.0); Sodium 139 mmol/L (137-145); Total Protein 6.6 g/dL (6.3-8.2)
[2025-09-24] MEDS: ACETAMINOPHEN 500 MG TABLET 1000 MG PO ×2 (08:02→16:58)
[2025-09-24] MEDS: buPROPion HCL SR (12 HR) 150 MG TAB PO (08:02)
[2025-09-24] MEDS: POTASSIUM CHLORIDE 10 MEQ ER TABLET PO (08:02)
[2025-09-24] MEDS: METOPROLOL SUCCINATE EXT REL 100 MG TABCR PO (08:02)
[2025-09-24] MEDS: ASPIRIN 81 MG ENTERIC TABLET PO (08:03)
[2025-09-24] MEDS: FAMOTIDINE 20 MG TABLET PO ×2 (08:03→19:59)
[2025-09-24] MEDS: CLOPIDOGREL BISULFATE 75 MG TABLET PO (08:03)
[2025-09-24] MEDS: CALCIUM/VITAMIN D 500 MG/5 MCG (200 I.U.) TABLET PO (08:04)
[2025-09-24 10:17] LABS: Influenza A QL RT-PCR Negative (Negative); Influenza B QL RT-PCR Negative (Negative); RSV RNA, RT-PCR Negative (Negative); SARS-CoV-2 RNA PCR Negative (Negative)
--- NOTE | 2025-09-24 13:46 | PM.IMPN2 ---
Subjective Date/time seen: 09/24/25 13:46 Interval history: Overnight events noted. Reported shortness of breath with ambulation. Needed oxygen supplementation. No chest pain. Chest x-ray finding with right-sided rib fracture. Review of Systems Review of Systems: All systems reviewed & are unremarkable except as noted in HPI and below Exam Narrative: Gen - NARD Chest - CTA bilaterally, nml RR CV - RRR S1/S2. Abd - Soft, NT/ND, Positive BS Ext - No pedal edema Psych - Nml mood and affect Skin - Warm and dry Objective Data Vital Signs Vital Signs: Vital Signs - 24 hr 09/23/25 16:00 09/23/25 16:00 09/23/25 19:58 Temperature 98.2 F Pulse Rate 82 80 Respiratory Rate 16 Blood Pressure 117/66 Pulse Oximetry 93 Oxygen Delivery Room Air Oxygen Flow Rate 09/23/25 19:58 09/23/25 21:00 09/23/25 23:00 Temperature 97.6 F 96.8 F L Pulse Rate 79 78 89 Respiratory Rate 18 22 H Blood Pressure 121/76 161/93 H Pulse Oximetry 92 95 Oxygen Delivery Nasal Cannula Oxygen Flow Rate 2 09/24/25 00:00 09/24/25 04:00 09/24/25 05:59 Temperature 97 F L Pulse Rate 81 83 83 Respiratory Rate 20 Blood Pressure 126/56 L Pulse Oximetry 91 Oxygen Delivery Oxygen Flow Rate 09/24/25 07:58 09/24/25 08:00 09/24/25 08:02 Temperature 98.2 F Pulse Rate 82 83 82 Respiratory Rate 20 Blood Pressure 156/98 H Pulse Oximetry 97 Oxygen Delivery Oxygen Flow Rate 09/24/25 08:02 09/24/25 12:00 Temperature Pulse Rate 82 79 Respiratory Rate 20 Blood Pressure Pulse Oximetry 97 Oxygen Delivery Nasal Cannula Oxygen Flow Rate 2 Intake/Output Intake/Output: Intake & Output 09/21/25 09/22/25 09/23/25 09/24/25 23:59 23:59 23:59 23:59 Intake Total 651.6 1350 920 430 Output Total 1350 200 Balance -698.4 1150 920 430 Meds/Results Medications: Active Medications Generic Name Dose Route Start Last Admin Trade Name Freq PRN Reason Stop Dose Admin Acetaminophen 650 mg 09/19/25 14:14 09/21/25 20:31 Acetaminophen 325 Mg Tablet PO 650 mg Q4H PRN Administration Mild Pain (1-3) or Fever Acetaminophen 1,000 mg 09/19/25 18:50 09/24/25 08:02 Acetaminophen 500 Mg Tablet PO 1,000 mg BID RAVIN Administration Amlodipine Besylate 10 mg 09/20/25 09:00 09/24/25 08:03 Amlodipine Besylate 5 Mg Tablet PO 10 mg DAILY RAVIN Administration Aspirin 81 mg 09/20/25 09:00 09/24/25 08:03 Aspirin 81 Mg Enteric Tablet PO 81 mg QAM [facility] Administration Atorvastatin Calcium 20 mg 09/19/25 21:00 09/23/25 20:08 Atorvastatin 20 Mg Tablet PO 20 mg HS [facility] Administration Bupropion HCl 150 mg 09/20/25 09:00 09/24/25 08:02 Bupropion Hcl Sr (12 Hr) 150 Mg Tab PO 150 mg DAILY RAVIN Administration Calcitriol 0.25 mcg 09/19/25 18:35 09/24/25 08:06 Calcitriol 0.25 Mcg Capsule PO 0.25 mcg MoWeFr@0900 [facility] Administration Calcium Carbonate 500 mg 09/20/25 09:00 09/24/25 08:04 Calcium/Vitamin D 500 Mg/5 Mcg (200 I.U.) Tablet PO 500 mg QAM [facility] Administration Clopidogrel Bisulfate 75 mg 09/22/25 09:00 09/24/25 08:03 Clopidogrel Bisulfate 75 Mg Tablet PO 75 mg QAM [facility] Administration Docusate Sodium 100 mg 09/19/25 14:14 09/20/25 08:40 Docusate Sodium 100 Mg Capsule PO 100 mg BID PRN Administration Constipation Famotidine 20 mg 09/23/25 12:00 09/24/25 08:03 Famotidine 20 Mg Tablet PO 20 mg Q12HR RAVIN Administration Lisinopril 10 mg 09/20/25 09:00 09/24/25 08:03 Lisinopril 10 Mg Tablet PO 10 mg DAILY [facility] Administration Metoprolol Succinate 100 mg 09/20/25 09:00 09/24/25 08:02 Metoprolol Succinate Ext Rel 100 Mg Tabcr PO 100 mg DAILY RAVIN Administration Nitroglycerin 0.4 mg 09/19/25 14:14 Nitroglycerin Sl 0.4 Mg Tablet SUBLINGUAL Q5M PRN Chest Pain Ondansetron HCl 4 mg 09/19/25 14:14 09/23/25 02:42 Ondansetron Inj 4 Mg/2 Ml Vial IV PUSH 4 mg Q6H PRN Administration Nausea And Vomiting Potassium Chloride 10 meq 09/20/25 09:00 09/24/25 08:02 Potassium Chloride 10 Meq Er Tablet PO 10 meq DAILY RAVIN Administration Sodium Bicarbonate 650 mg 09/20/25 12:30 09/24/25 12:35 Sodium Bicarbonate Tab 650 Mg Tablet PO Not Given 1230,1730 [facility] Radiology Results: ITS Impressions Head CT 09/19/25 14:28 Impression: 1.No acute intracranial abnormality. Venous Doppler Study 09/19/25 15:27 Impression: Limited study. Negative for DVT. Chest X-Ray 09/24/25 08:26 Impression: Probable bilateral pneumonia superimposed on chronic lung disease. Right-sided acute appearing rib fractures. CT chest suggested to assess. Labs Labs: Laboratory Results - last 24 hr 09/23/25 09/23/25 09/23/25 23:10 23:12 23:12 WBC 6.8 RBC 3.62 L Hgb 11.3 L Hct 34.3 L MCV 94.8 MCH 31.2 MCHC 32.9 RDW 14.2 Plt Count 234 MPV 9.0 Immature Gran % (Auto) Neut % (Auto) Lymph % (Auto) Branch % (Auto) Eos % (Auto) Baso % (Auto) Lymph # (Auto) Branch # (Auto) Eos # (Auto) Baso # (Auto) Abs Immat Gran (auto) Absolute Neuts (auto) Absolute Nucleated RBC Nucleated RBC % % Immature Plt Fraction Puncture Site Right radial ABG pH 7.417 ABG pCO2 31.0 L ABG pO2 74.9 L ABG PO2/FiO2 Ratio 2.67 ABG HCO3 19.5 L ABG O2 Saturation 95.4 ABG O2 Content 15.2 L ABG Base Excess -4.1 A-a Gradient 88.2 Oxyhemoglobin 93.4 Total Hemoglobin 11.5 L O2 Delivery Device Nasal cannula O2 Liters/Min 2.0 FiO2 28 Sodium 138 Cancelled Potassium 4.0 Chloride Carbon Dioxide Anion Gap BUN Creatinine Estim Creat Clear Calc Estimated GFR Glucose Calcium Magnesium Total Bilirubin AST ALT Alkaline Phosphatase Troponin I Total Protein Albumin Influenza A (RT-PCR) Influenza B (RT-PCR) RSV (RT-PCR) SARS-CoV-2 RNA (RT-PCR) 11/30/25 11/30/25 11/30/25 23:12 23:12 23:12 WBC RBC Hgb Hct MCV MCH MCHC RDW Plt Count MPV Immature Gran % (Auto) Neut % (Auto) Lymph % (Auto) Branch % (Auto) Eos % (Auto) Baso % (Auto) Lymph # (Auto) Branch # (Auto) Eos # (Auto) Baso # (Auto) Abs Immat Gran (auto) Absolute Neuts (auto) Absolute Nucleated RBC Nucleated RBC % % Immature Plt Fraction Puncture Site ABG pH ABG pCO2 ABG pO2 ABG PO2/FiO2 Ratio ABG HCO3 ABG O2 Saturation ABG O2 Content ABG Base Excess A-a Gradient Oxyhemoglobin Total Hemoglobin O2 Delivery Device O2 Liters/Min FiO2 Sodium Potassium Cancelled Chloride 107 Cancelled Carbon Dioxide 22 Cancelled Anion Gap 9 BUN Creatinine Estim Creat Clear Calc Estimated GFR Glucose Calcium Magnesium Total Bilirubin AST ALT Alkaline Phosphatase Troponin I Total Protein Albumin Influenza A (RT-PCR) Influenza B (RT-PCR) RSV (RT-PCR) SARS-CoV-2 RNA (RT-PCR) 09/23/25 09/23/25 09/23/25 23:12 23:12 23:12 WBC RBC Hgb Hct MCV MCH MCHC RDW Plt Count MPV Immature Gran % (Auto) Neut % (Auto) Lymph % (Auto) Branch % (Auto) Eos % (Auto) Baso % (Auto) Lymph # (Auto) Branch # (Auto) Eos # (Auto) Baso # (Auto) Abs Immat Gran (auto) Absolute Neuts (auto) Absolute Nucleated RBC Nucleated RBC % % Immature Plt Fraction Puncture Site ABG pH ABG pCO2 ABG pO2 ABG PO2/FiO2 Ratio ABG HCO3 ABG O2 Saturation ABG O2 Content ABG Base Excess A-a Gradient Oxyhemoglobin Total Hemoglobin O2 Delivery Device O2 Liters/Min FiO2 Sodium Potassium Chloride Carbon Dioxide Anion Gap Cancelled BUN 27 H Cancelled Creatinine 2.14 H Cancelled Estim Creat Clear Calc Not Reportable Estimated GFR Glucose Calcium Magnesium Total Bilirubin AST ALT Alkaline Phosphatase Troponin I Total Protein Albumin Influenza A (RT-PCR) Influenza B (RT-PCR) RSV (RT-PCR) SARS-CoV-2 RNA (RT-PCR) 09/23/25 09/23/25 09/23/25 23:12 23:12 23:12 WBC RBC Hgb Hct MCV MCH MCHC RDW Plt Count MPV Immature Gran % (Auto) Neut % (Auto) Lymph % (Auto) Branch % (Auto) Eos % (Auto) Baso % (Auto) Lymph # (Auto) Branch # (Auto) Eos # (Auto) Baso # (Auto) Abs Immat Gran (auto) Absolute Neuts (auto) Absolute Nucleated RBC Nucleated RBC % % Immature Plt Fraction Puncture Site ABG pH ABG pCO2 ABG pO2 ABG PO2/FiO2 Ratio ABG HCO3 ABG O2 Saturation ABG O2 Content ABG Base Excess A-a Gradient Oxyhemoglobin Total Hemoglobin O2 Delivery Device O2 Liters/Min FiO2 Sodium Potassium Chloride Carbon Dioxide Anion Gap BUN Creatinine Estim Creat Clear Calc Cancelled Estimated GFR 22 L Cancelled Glucose 108 Cancelled Calcium 9.3 Magnesium Total Bilirubin AST ALT Alkaline Phosphatase Troponin I Total Protein Albumin Influenza A (RT-PCR) Influenza B (RT-PCR) RSV (RT-PCR) SARS-CoV-2 RNA (RT-PCR) 09/23/25 09/24/25 09/24/25 23:12 04:32 09:37 WBC 7.0 RBC 3.80 L Hgb 11.7 L Hct 37.1 MCV 97.6 MCH 30.8 MCHC 31.5 L RDW 14.1 Plt Count 243 MPV 9.1 Immature Gran % (Auto) 0.7 H Neut % (Auto) 79.1 H Lymph % (Auto) 11.8 L Branch % (Auto) 5.8 Eos % (Auto) 2.0 Baso % (Auto) 0.6 Lymph # (Auto) 0.83 L Branch # (Auto) 0.4 Eos # (Auto) 0.1 Baso # (Auto) 0.0 Abs Immat Gran (auto) 0.05 H Absolute Neuts (auto) 5.6 Absolute Nucleated RBC 0.000 Nucleated RBC % 0.0 % Immature Plt Fraction 1.5 Puncture Site ABG pH ABG pCO2 ABG pO2 ABG PO2/FiO2 Ratio ABG HCO3 ABG O2 Saturation ABG O2 Content ABG Base Excess A-a Gradient Oxyhemoglobin Total Hemoglobin O2 Delivery Device O2 Liters/Min FiO2 Sodium 139 Potassium 4.1 Chloride 109 H Carbon Dioxide 22 Anion Gap 8 BUN 26 H Creatinine 2.09 H Estim Creat Clear Calc Not Reportable Estimated GFR 22 L Glucose 106 Calcium Cancelled 9.3 Magnesium 2.1 Total Bilirubin 0.8 AST 34 ALT 18 Alkaline Phosphatase 66 Troponin I 0.669 H* Total Protein 6.6 Albumin 3.9 Influenza A (RT-PCR) Negative Influenza B (RT-PCR) Negative RSV (RT-PCR) Negative SARS-CoV-2 RNA (RT-PCR) Negative Assessment and Plan Assessment and Plan (1) Acute non-ST elevation myocardial infarction (NSTEMI): Code(s): I21.4 - Non-ST elevation (NSTEMI) myocardial infarction Status: Acute Assessment and Plan: Patient presents with midsternal nonradiating chest pain that woke her from her sleep that was relieved with 1 sublingual nitro. CXR showed borderline heart size with mild pulmonary edema Troponin 1.11 -> 1.88 EKG showing sinus tachycardia possible left atrial enlargement nonspecific ST and T-wave changes. Repeat EKG showing similar findings Left LE Venous Doppler negative for DVT. Head CT showing no acute findings. ASA 324mg on admission and now on 81mg daily Heparin gtt started Cardiology consulted. Known history of coronary artery disease status post RCA stenting in 1998. Recommends conservative management given her advanced age renal failure in DNR status Echo pending Continue on atorvastatin dose adjusted. Added on Plavix LHC deferred (2) Pulmonary edema: Qualifiers: Chronicity: acute Qualified Code(s): J81.0 - Acute pulmonary edema Code(s): J81.1 - Chronic pulmonary edema Status: Acute Assessment and Plan: CXR showing mild pulmonary edema. No complaint of SOB. No previously known history of CHF. No previous echo on file. She received Lasix 40 mg IV x 1 Echo ordered Monitor I&Os, daily weights and renal function Reported shortness of breath overnight 09/23/2025 Chest x-ray with right-sided rib fractures acute will get CT chest to further evaluate (3) Chronic kidney disease, stage 4 (severe): Code(s): N18.4 - Chronic kidney disease, stage 4 (severe) Status: Chronic Assessment and Plan: Patient has a hx of CKD with baseline Cr 1.9-2.3 range. Creatinine 2.04, BUN 23, GFR 23 upon admission on 09/19. Cr stable. No acidosis or hyperkalemia Follow renal function, UOP and electrolytes (4) Essential hypertension: Code(s): I10 - Essential (primary) hypertension Status: Chronic Assessment and Plan: Blood pressure remains well controlled. Will continue to monitor (5) Hyperlipidemia: Qualifiers: Hyperlipidemia type: unspecified Qualified Code(s): E78.5 - Hyperlipidemia, unspecified Code(s): E78.5 - Hyperlipidemia, unspecified Status: Chronic Assessment and Plan: LFTs normal. Continue Atorvastatin Plan DVT Prophylaxis: Heparin gtt which has been discontinued. Code Status: DNR
[2025-09-24] MEDS: SODIUM BICARBONATE TAB 650 MG TABLET PO (16:58)
[2025-09-24] MEDS: FUROSEMIDE INJ 40 MG/4 ML VIAL IV PUSH (16:58)
[2025-09-24] MEDS: ATORVASTATIN 20 MG TABLET PO (19:59)
[2025-09-25] VITALS (23 sets, daily range): BP systolic 122–176; BP diastolic 70–94; PULSE 78–94; RESP 16–26; TEMP 35.9–36.5; O2SAT 84–97
[2025-09-25] MEDS: ONDANSETRON INJ 4 MG/2 ML VIAL IV PUSH (02:18)
[2025-09-25] MEDS: IPRATROPIUM 0.5 MG/ALBUTEROL SULFATE 2.5 MG (BASE) AMPUL.NEB 3 ML INHALATION ×4 (02:36→20:56)
[2025-09-25] MEDS: LORazepam (*CRX) 0.5 MG TABLET PO ×2 (02:47→20:40)
[2025-09-25 04:45] LABS: Hematocrit 35.1 % (37.0-47.0); Hemoglobin 11.5 g/dL (12.0-15.0); Immature Granulocyte Percent A 0.9 % (0-0.5); Lymphocytes Absolute Auto 0.76 K/mm3 (0.9-3.2); Mean Corpuscular HGB Conc 32.8 g/dl (32-36); Mean Corpuscular Hemoglobin 31.3 pg (26-34); Mean Corpuscular Volume 95.6 fl (80-100); Nucleated Red Blood Cells Absolute Auto 0.000 K/mm3 (0.0-0.012); Nucleated Red Blood Cells Perc 0.0 % (0.0-0.2); Platelet Count Result 246 k/mm3 (150-375); Red Blood Count 3.67 M/mm3 (4.2-5.4); White Blood Count 8.8 K/mm3 (4.5-10.0)
[2025-09-25 05:00] LABS: Alanine Aminotransferase 16 U/L (6-35); Albumin Level 4.3 g/dL (3.5-5.1); Alkaline Phosphatase 67 U/L (38-126); Anion Gap 7 mmol/L (4-12); Aspartate Amino Transferase 27 U/L (14-36); Bilirubin,Total 0.8 mg/dL (0.2-1.3); Blood Urea Nitrogen 31 mg/dL (7-17); Calcium 9.4 mg/dL (8.4-10.2); Carbon Dioxide 25 mmol/L (22-30); Chloride 109 mmol/L (98-107); Estimated Glomerular Filt Rate 21; Glucose 115 mg/dL (65-110); Magnesium 2.0 mg/dL (1.6-2.3); Potassium 4.3 mmol/L (3.4-5.0); Sodium 141 mmol/L (137-145); Total Protein 7.2 g/dL (6.3-8.2)
[2025-09-25] MEDS: buPROPion HCL SR (12 HR) 150 MG TAB PO (10:03)
[2025-09-25] MEDS: ASPIRIN 81 MG ENTERIC TABLET PO (10:04)
[2025-09-25] MEDS: FAMOTIDINE 20 MG TABLET PO ×2 (10:04→20:40)
[2025-09-25] MEDS: ACETAMINOPHEN 500 MG TABLET 1000 MG PO (10:04)
[2025-09-25] MEDS: METOPROLOL SUCCINATE EXT REL 100 MG TABCR PO (10:04)
[2025-09-25] MEDS: POTASSIUM CHLORIDE 10 MEQ ER TABLET PO (10:10)
[2025-09-25] MEDS: CLOPIDOGREL BISULFATE 75 MG TABLET PO (10:10)
[2025-09-25] MEDS: CALCIUM/VITAMIN D 500 MG/5 MCG (200 I.U.) TABLET PO (10:11)
--- NOTE | 2025-09-25 14:46 | P.PNIM_ITS ---
Assessment and Plan Assessment and Plan (1) Acute non-ST elevation myocardial infarction (NSTEMI): Code(s): I21.4 - Non-ST elevation (NSTEMI) myocardial infarction Status: Acute Assessment and Plan: Patient presents with midsternal nonradiating chest pain that woke her from her sleep that was relieved with 1 sublingual nitro. CXR showed borderline heart size with mild pulmonary edema Troponin 1.11 -> 1.88 EKG showing sinus tachycardia possible left atrial enlargement nonspecific ST and T-wave changes. Repeat EKG showing similar findings Left LE Venous Doppler negative for DVT. Head CT showing no acute findings. ASA 324mg on admission and now on 81mg daily Heparin gtt started Cardiology consulted. Known history of coronary artery disease status post RCA stenting in 1998. Recommends conservative management given her advanced age renal failure in DNR status Echo pending Continue on atorvastatin dose adjusted. Added on Plavix LHC deferred (2) Pulmonary edema: Qualifiers: Chronicity: acute Qualified Code(s): J81.0 - Acute pulmonary edema Code(s): J81.1 - Chronic pulmonary edema Status: Acute Assessment and Plan: CXR showing mild pulmonary edema. No complaint of SOB. No previously known history of CHF. No previous echo on file. She received Lasix 40 mg IV x 1 Echo ordered Monitor I&Os, daily weights and renal function Reported shortness of breath overnight 09/23/2025 Chest x-ray with right-sided rib fractures acute CT chest with old healed rib fracture. Findings of pulmonary edema with small to moderate-sized bilateral pleural effusion noted. V/Q scan nondiagnostic with bilateral lower lung perfusion defects which corresponds to small to moderate-sized bilateral pleural effusions. Will reorder Lasix 40 mg IV x1 and switch to oral Lasix in a.m. (3) Chronic kidney disease, stage 4 (severe): Code(s): N18.4 - Chronic kidney disease, stage 4 (severe) Status: Chronic Assessment and Plan: Patient has a hx of CKD with baseline Cr 1.9-2.3 range. Creatinine 2.04, BUN 23, GFR 23 upon admission on 09/19. Cr stable. No acidosis or hyperkalemia Follow renal function, UOP and electrolytes Creatinine remains stable, with diuresis continue to monitor (4) Essential hypertension: Code(s): I10 - Essential (primary) hypertension Status: Chronic Assessment and Plan: Blood pressure remains well controlled. Will continue to monitor (5) Hyperlipidemia: Qualifiers: Hyperlipidemia type: unspecified Qualified Code(s): E78.5 - Hyperlipidemia, unspecified Code(s): E78.5 - Hyperlipidemia, unspecified Status: Chronic Assessment and Plan: LFTs normal. Continue Atorvastatin Plan DVT Prophylaxis: Heparin gtt which has been discontinued. Code Status: DNR Subjective Date/time seen: 09/25/25 14:46 Interval history: No overnight events noted. Shortness of breath with exertion. Improving. Denies any leg swelling. No chest pain. Still required oxygen with ambulation per respiratory therapy. Review of Systems Review of Systems: All systems reviewed & are unremarkable except as noted in HPI and below Exam Narrative: Gen - NARD Chest - CTA bilaterally, nml RR CV - RRR S1/S2. Abd - Soft, NT/ND, Positive BS Ext - No pedal edema Psych - Nml mood and affect Skin - Warm and dry Objective Data Vital Signs Vital Signs: Vital Signs - 24 hr 09/24/25 16:00 09/24/25 16:00 09/24/25 20:00 Temperature 97.8 F Pulse Rate 79 84 Respiratory Rate 19 Blood Pressure 152/88 H Pulse Oximetry 96 Oxygen Delivery Room Air Oxygen Flow Rate 09/24/25 20:00 09/24/25 20:05 09/24/25 22:50 Temperature 96.8 F L Pulse Rate 76 79 Respiratory Rate 18 Blood Pressure 149/87 H Pulse Oximetry 92 93 Oxygen Delivery Nasal Cannula Oxygen Flow Rate 2 09/25/25 00:00 09/25/25 02:23 09/25/25 02:39 Temperature 97.6 F Pulse Rate 81 86 85 Respiratory Rate 26 H 22 H Blood Pressure 176/94 H Pulse Oximetry 94 Oxygen Delivery Oxygen Flow Rate 09/25/25 02:44 09/25/25 04:00 09/25/25 04:40 Temperature 96.7 F L Pulse Rate 85 82 84 Respiratory Rate 22 H 20 Blood Pressure 151/83 H Pulse Oximetry 93 Oxygen Delivery Oxygen Flow Rate 09/25/25 08:00 09/25/25 08:46 09/25/25 08:46 Temperature Pulse Rate 83 85 85 Respiratory Rate 20 20 Blood Pressure Pulse Oximetry 95 Oxygen Delivery Oxygen Flow Rate 2 09/25/25 08:54 09/25/25 08:55 09/25/25 10:04 Temperature Pulse Rate 83 90 Respiratory Rate 20 Blood Pressure Pulse Oximetry 93 Oxygen Delivery Oxygen Flow Rate 1 09/25/25 10:04 09/25/25 10:10 09/25/25 13:32 Temperature 97.6 F Pulse Rate 90 90 83 Respiratory Rate 16 16 20 Blood Pressure 161/90 H Pulse Oximetry 97 97 95 Oxygen Delivery Nasal Cannula Nasal Cannula Oxygen Flow Rate 1 1 09/25/25 13:34 09/25/25 13:53 09/25/25 13:54 Temperature Pulse Rate 83 94 Respiratory Rate 20 20 Blood Pressure Pulse Oximetry 84 L 95 Oxygen Delivery Room Air Oxygen Flow Rate 1 Intake/Output Intake/Output: Intake & Output 09/22/25 09/23/25 09/24/25 09/25/25 23:59 23:59 23:59 23:59 Intake Total 1350 920 550 824 Output Total 200 Balance 1150 920 550 824 Meds/Results Medications: Active Medications Generic Name Dose Route Start Last Admin Trade Name Freq PRN Reason Stop Dose Admin Acetaminophen 650 mg 09/19/25 14:14 09/21/25 20:31 Acetaminophen 325 Mg Tablet PO 650 mg Q4H PRN Administration Mild Pain (1-3) or Fever Acetaminophen 1,000 mg 09/19/25 18:50 09/25/25 10:04 Acetaminophen 500 Mg Tablet PO 1,000 mg BID RAVIN Administration Albuterol/Ipratropium 3 ml 09/25/25 08:00 09/25/25 13:28 Ipratropium 0.5 Mg/Albuterol Sulfate 2.5 Mg (Base) Ampul.Neb 3 Ml INHALATION 3 ml Q6HRT RAVIN Administration Amlodipine Besylate 10 mg 09/20/25 09:00 09/25/25 10:11 Amlodipine Besylate 5 Mg Tablet PO 10 mg DAILY RAVIN Administration Aspirin 81 mg 09/20/25 09:00 09/25/25 10:04 Aspirin 81 Mg Enteric Tablet PO 81 mg QAM RAVIN Administration Atorvastatin Calcium 20 mg 09/19/25 21:00 09/24/25 19:59 Atorvastatin 20 Mg Tablet PO 20 mg HS RAVIN Administration Bupropion HCl 150 mg 09/20/25 09:00 09/25/25 10:03 Bupropion Hcl Sr (12 Hr) 150 Mg Tab PO 150 mg DAILY RAVIN Administration Calcitriol 0.25 mcg 09/19/25 18:35 09/24/25 08:06 Calcitriol 0.25 Mcg Capsule PO 0.25 mcg [id number] [facility] Administration Calcium Carbonate 500 mg 09/20/25 09:00 09/25/25 10:11 Calcium/Vitamin D 500 Mg/5 Mcg (200 I.U.) Tablet PO 500 mg QAM RAVIN Administration Clopidogrel Bisulfate 75 mg 09/22/25 09:00 09/25/25 10:10 Clopidogrel Bisulfate 75 Mg Tablet PO 75 mg QAM RAVIN Administration Docusate Sodium 100 mg 09/19/25 14:14 09/20/25 08:40 Docusate Sodium 100 Mg Capsule PO 100 mg BID PRN Administration Constipation Famotidine 20 mg 09/23/25 12:00 09/25/25 10:04 Famotidine 20 Mg Tablet PO 20 mg Q12HR RAVIN Administration Lisinopril 10 mg 09/20/25 09:00 09/25/25 10:11 Lisinopril 10 Mg Tablet PO 10 mg DAILY RAVIN Administration Metoprolol Succinate 100 mg 09/20/25 09:00 09/25/25 10:04 Metoprolol Succinate Ext Rel 100 Mg Tabcr PO 100 mg DAILY [facility] Administration Nitroglycerin 0.4 mg 09/19/25 14:14 Nitroglycerin Sl 0.4 Mg Tablet SUBLINGUAL Q5M PRN Chest Pain Ondansetron HCl 4 mg 09/19/25 14:14 09/25/25 02:18 Ondansetron Inj 4 Mg/2 Ml Vial IV PUSH 4 mg Q6H PRN Administration Nausea And Vomiting Potassium Chloride 10 meq 09/20/25 09:00 09/25/25 10:10 Potassium Chloride 10 Meq Er Tablet PO 10 meq DAILY RAVIN Administration Sodium Bicarbonate 650 mg 09/20/25 12:30 09/24/25 16:58 Sodium Bicarbonate Tab 650 Mg Tablet PO 650 mg 1230,1730 RAVIN Administration Radiology Results: ITS Impressions Head CT 09/19/25 14:28 Impression: 1.No acute intracranial abnormality. Venous Doppler Study 09/19/25 15:27 Impression: Limited study. Negative for DVT. Chest X-Ray 09/24/25 08:26 Impression: Probable bilateral pneumonia superimposed on chronic lung disease. Right-sided acute appearing rib fractures. CT chest suggested to assess. Pulmonary Perfusion Imaging 09/24/25 15:50 IMPRESSION: 1. Nondiagnostic (low or intermediate probability) with bilateral posterior left lower lung perfusion defects which correspond in size, location and configuration to small to moderate-sized bilateral pleural effusions. Chest CT 09/24/25 16:25 IMPRESSION: 1. Small to moderate-sized bilateral posterior layering pleural effusions with minimal pulmonary edema in the right lung and compensatory dependent and basilar atelectasis in both lungs. 2. Moderate to large sliding-type hiatal hernia. 3. Nonobstructing left nephrolithiasis. Labs Labs: Laboratory Results - last 24 hr 09/25/25 04:15 WBC 8.8 RBC 3.67 L Hgb 11.5 L Hct 35.1 L MCV 95.6 MCH 31.3 MCHC 32.8 RDW 14.1 Plt Count 246 MPV 9.0 Immature Gran % (Auto) 0.9 H Neut % (Auto) 84.8 H Lymph % (Auto) 8.7 L [place] % (Auto) 4.6 Eos % (Auto) 0.7 Baso % (Auto) 0.3 Lymph # (Auto) 0.76 L [place] # (Auto) 0.4 Eos # (Auto) 0.1 Baso # (Auto) 0.0 Abs Immat Gran (auto) 0.08 H Absolute Neuts (auto) 7.4 H Absolute Nucleated RBC 0.000 Nucleated RBC % 0.0 Sodium 141 Potassium 4.3 Chloride 109 H Carbon Dioxide 25 Anion Gap 7 BUN 31 H Creatinine 2.17 H Estim Creat Clear Calc Not Reportable Estimated GFR 21 L Glucose 115 H Calcium 9.4 Magnesium 2.0 Total Bilirubin 0.8 AST 27 ALT 16 Alkaline Phosphatase 67 Total Protein 7.2 Albumin 4.3
[2025-09-25] MEDS: FUROSEMIDE INJ 40 MG/4 ML VIAL IV PUSH (16:17)
[2025-09-25] MEDS: ATORVASTATIN 20 MG TABLET PO (20:40)
[2025-09-26] VITALS (18 sets, daily range): BP systolic 122–131; BP diastolic 68–72; PULSE 72–92; RESP 14–20; TEMP 36.4–36.6; O2SAT 91–98
[2025-09-26] MEDS: IPRATROPIUM 0.5 MG/ALBUTEROL SULFATE 2.5 MG (BASE) AMPUL.NEB 3 ML INHALATION ×4 (02:25→21:34)
[2025-09-26] MEDS: METOPROLOL SUCCINATE EXT REL 100 MG TABCR PO (10:02)
[2025-09-26] MEDS: buPROPion HCL SR (12 HR) 150 MG TAB PO (10:02)
[2025-09-26] MEDS: ACETAMINOPHEN 500 MG TABLET 1000 MG PO ×2 (10:03→17:24)
[2025-09-26] MEDS: CLOPIDOGREL BISULFATE 75 MG TABLET PO (10:03)
[2025-09-26] MEDS: FUROSEMIDE 40 MG TABLET PO (10:03)
[2025-09-26] MEDS: POTASSIUM CHLORIDE 10 MEQ ER TABLET PO (10:03)
[2025-09-26] MEDS: ASPIRIN 81 MG ENTERIC TABLET PO (10:03)
[2025-09-26] MEDS: CALCIUM/VITAMIN D 500 MG/5 MCG (200 I.U.) TABLET PO (10:03)
[2025-09-26] MEDS: FAMOTIDINE 20 MG TABLET PO ×2 (10:03→22:05)
[2025-09-26] MEDS: SODIUM BICARBONATE TAB 650 MG TABLET PO ×2 (12:25→17:23)
[2025-09-26 14:51] LABS: Add Urine Microscopic? YES; Appearance Urine Turbid (Clear); Glucose Urine UA Negative (Negative); Leukocyte Esterase Ur 3+ LEU/UL (Negative); Nitrate Urine Negative (Negative); Specific Grav Ur 1.008 (1.001-1.035)
--- NOTE | 2025-09-26 15:36 | P.PNIM_ITS ---
Assessment and Plan Assessment and Plan (1) Acute non-ST elevation myocardial infarction (NSTEMI): Code(s): I21.4 - Non-ST elevation (NSTEMI) myocardial infarction Status: Acute Assessment and Plan: Patient presents with midsternal nonradiating chest pain that woke her from her sleep that was relieved with 1 sublingual nitro. CXR showed borderline heart size with mild pulmonary edema Troponin 1.11 -> 1.88 EKG showing sinus tachycardia possible left atrial enlargement nonspecific ST and T-wave changes. Repeat EKG showing similar findings Left LE Venous Doppler negative for DVT. Head CT showing no acute findings. ASA 324mg on admission and now on 81mg daily Heparin gtt started Cardiology consulted. Known history of coronary artery disease status post RCA stenting in 1998. Recommends conservative management given her advanced age renal failure in DNR status Echo pending Continue on atorvastatin dose adjusted. Added on Plavix LHC deferred (2) Pulmonary edema: Qualifiers: Chronicity: acute Qualified Code(s): J81.0 - Acute pulmonary edema Code(s): J81.1 - Chronic pulmonary edema Status: Acute Assessment and Plan: CXR showing mild pulmonary edema. No complaint of SOB. No previously known history of CHF. No previous echo on file. She received Lasix 40 mg IV x 1 Echo ordered Monitor I&Os, daily weights and renal function Reported shortness of breath overnight 09/23/2025 Chest x-ray with right-sided rib fractures acute CT chest with old healed rib fracture. Findings of pulmonary edema with small to moderate-sized bilateral pleural effusion noted. V/Q scan nondiagnostic with bilateral lower lung perfusion defects which corresponds to small to moderate-sized bilateral pleural effusions. Will reorder Lasix 40 mg IV x1 and switch to oral Lasix in a.m. (3) Chronic kidney disease, stage 4 (severe): Code(s): N18.4 - Chronic kidney disease, stage 4 (severe) Status: Chronic Assessment and Plan: Patient has a hx of CKD with baseline Cr 1.9-2.3 range. Creatinine 2.04, BUN 23, GFR 23 upon admission on 09/19. Cr stable. No acidosis or hyperkalemia Follow renal function, UOP and electrolytes Creatinine remains stable, with diuresis continue to monitor (4) Essential hypertension: Code(s): I10 - Essential (primary) hypertension Status: Chronic Assessment and Plan: Blood pressure remains well controlled. Will continue to monitor (5) Hyperlipidemia: Qualifiers: Hyperlipidemia type: unspecified Qualified Code(s): E78.5 - Hyperlipidemia, unspecified Code(s): E78.5 - Hyperlipidemia, unspecified Status: Chronic Assessment and Plan: LFTs normal. Continue Atorvastatin Plan No overnight events noted. Shortness of breath with exertion. Improving. Denies any leg swelling. No chest pain. Still required oxygen with ambulation per respiratory therapy. patient does c/o dysuria, and urine is suspicous for UTI, will start patient on ceftriaxone, patient is requiring oxygen, will do h ome oxygen evaluation before discharging patient. Patient son is present in the room, gave update and answer all his questions. DVT Prophylaxis: Heparin gtt which has been discontinued. Code Status: DNR Subjective Date/time seen: 09/26/25 15:36 Interval history: No overnight events noted. Shortness of breath with exertion. Improving. Denies any leg swelling. No chest pain. Still required oxygen with ambulation per respiratory therapy. patient does c/o dysuria, and urine is suspicous for UTI, will start patient on ceftriaxone, patient is requiring oxygen, will do home oxygen evaluation before discharging patient. Patient son is present in the room, gave update and answer all his questions. Exam Narrative: Gen - NARD Chest - CTA bilaterally, nml RR CV - RRR S1/S2. Abd - Soft, NT/ND, Positive BS Ext - No pedal edema Psych - Nml mood and affect Skin - Warm and dry Objective Data Vital Signs Vital Signs: Vital Signs - 24 hr 09/25/25 16:00 09/25/25 16:00 09/25/25 20:00 Temperature 36.5 C Pulse Rate 83 81 Respiratory Rate 16 Blood Pressure 122/70 Pulse Oximetry 95 Oxygen Delivery Room Air Oxygen Flow Rate 09/25/25 20:00 09/25/25 20:15 09/25/25 20:57 Temperature 36.4 C Pulse Rate 80 78 Respiratory Rate 16 Blood Pressure 138/82 Pulse Oximetry 97 93 Oxygen Delivery Oxygen Flow Rate 2 09/25/25 20:58 09/25/25 21:03 09/26/25 00:00 Temperature Pulse Rate 86 87 82 Respiratory Rate 18 18 Blood Pressure Pulse Oximetry Oxygen Delivery Oxygen Flow Rate 09/26/25 02:28 09/26/25 02:34 09/26/25 04:00 Temperature Pulse Rate 84 84 86 Respiratory Rate 16 16 Blood Pressure Pulse Oximetry Oxygen Delivery Oxygen Flow Rate 09/26/25 04:40 09/26/25 07:12 09/26/25 07:12 Temperature 36.4 C L Pulse Rate 84 89 Respiratory Rate 20 16 Blood Pressure 131/71 Pulse Oximetry 98 91 Oxygen Delivery Oxygen Flow Rate 2 09/26/25 07:18 09/26/25 08:00 09/26/25 10:00 Temperature Pulse Rate 88 92 Respiratory Rate 16 Blood Pressure Pulse Oximetry 91 Oxygen Delivery Nasal Cannula Oxygen Flow Rate 2 09/26/25 10:02 09/26/25 12:00 09/26/25 13:00 Temperature Pulse Rate 88 80 72 Respiratory Rate 16 Blood Pressure Pulse Oximetry Oxygen Delivery Oxygen Flow Rate 09/26/25 13:06 09/26/25 14:36 Temperature 36.4 C Pulse Rate 81 Respiratory Rate 16 14 Blood Pressure 127/72 Pulse Oximetry 97 Oxygen Delivery Oxygen Flow Rate Intake/Output Intake/Output: Intake & Output 09/23/25 09/24/25 09/25/25 09/26/25 23:59 23:59 23:59 23:59 Intake Total 272 533 7792 460 Balance 219 969 0251 460 Meds/Results Medications: Active Medications Generic Name Dose Route Start Last Admin Trade Name Jesúsq PRN Reason Stop Dose Admin Acetaminophen 650 mg 09/19/25 14:14 09/21/25 20:31 Acetaminophen 325 Mg Tablet PO 650 mg Q4H PRN Administration Mild Pain (1-3) or Fever Acetaminophen 1,000 mg 09/19/25 18:50 09/26/25 10:03 Acetaminophen 500 Mg Tablet PO 1,000 mg BID RAVIN Administration Albuterol/Ipratropium 3 ml 09/25/25 08:00 09/26/25 12:57 Ipratropium 0.5 Mg/Albuterol Sulfate 2.5 Mg (Base) Ampul.Neb 3 Ml INHALATION 3 ml Q6HRT RAVIN Administration Amlodipine Besylate 10 mg 09/20/25 09:00 09/26/25 10:02 Amlodipine Besylate 5 Mg Tablet PO 10 mg DAILY RAVIN Administration Aspirin 81 mg 09/20/25 09:00 09/26/25 10:03 Aspirin 81 Mg Enteric Tablet PO 81 mg QAM RAVIN Administration Atorvastatin Calcium 20 mg 09/19/25 21:00 09/25/25 20:40 Atorvastatin 20 Mg Tablet PO 20 mg HS RAVIN Administration Bupropion HCl 150 mg 09/20/25 09:00 09/26/25 10:02 Bupropion Hcl Sr (12 Hr) 150 Mg Tab PO 150 mg DAILY RAVIN Administration Calcitriol 0.25 mcg 09/19/25 18:35 09/26/25 10:10 Calcitriol 0.25 Mcg Capsule PO 0.25 mcg [id number]@0900 RAVIN Administration Calcium Carbonate 500 mg 09/20/25 09:00 09/26/25 10:03 Calcium/Vitamin D 500 Mg/5 Mcg (200 I.U.) Tablet PO 500 mg QAM [facility] Administration Clopidogrel Bisulfate 75 mg 09/22/25 09:00 09/26/25 10:03 Clopidogrel Bisulfate 75 Mg Tablet PO 75 mg QAM [facility] Administration Docusate Sodium 100 mg 09/19/25 14:14 09/20/25 08:40 Docusate Sodium 100 Mg Capsule PO 100 mg BID PRN Administration Constipation Famotidine 20 mg 09/23/25 12:00 09/26/25 10:03 Famotidine 20 Mg Tablet PO 20 mg Q12HR RAVIN Administration Furosemide 40 mg 09/26/25 09:00 09/26/25 10:03 Furosemide 40 Mg Tablet PO 40 mg DAILY RAVIN Administration Heparin Sodium (Porcine) 5,000 units 09/25/25 21:00 09/26/25 10:04 Heparin Sodium 5,000 Units/Ml Vial SUB-Q 5,000 units Q12HR [facility] Administration Ceftriaxone Sodium 1 gm/ 50 mls @ 100 mls/hr 09/26/25 16:00 Sodium Chloride IVPB Q24H [facility] Lisinopril 10 mg 09/20/25 09:00 09/26/25 10:03 Lisinopril 10 Mg Tablet PO 10 mg DAILY RAVIN Administration Lorazepam 0.5 mg 09/25/25 19:40 09/25/25 20:40 Lorazepam (*Crx) 0.5 Mg Tablet PO 0.5 mg HS PRN Administration Anxiety Metoprolol Succinate 100 mg 09/20/25 09:00 09/26/25 10:02 Metoprolol Succinate Ext Rel 100 Mg Tabcr PO 100 mg DAILY [facility] Administration Nitroglycerin 0.4 mg 09/19/25 14:14 Nitroglycerin Sl 0.4 Mg Tablet SUBLINGUAL Q5M PRN Chest Pain Ondansetron HCl 4 mg 09/19/25 14:14 09/25/25 02:18 Ondansetron Inj 4 Mg/2 Ml Vial IV PUSH 4 mg Q6H PRN Administration Nausea And Vomiting Potassium Chloride 10 meq 09/20/25 09:00 09/26/25 10:03 Potassium Chloride 10 Meq Er Tablet PO 10 meq DAILY RAVIN Administration Sodium Bicarbonate 650 mg 09/20/25 12:30 09/26/25 12:25 Sodium Bicarbonate Tab 650 Mg Tablet PO 650 mg 1230,1730 RAVIN Administration Radiology Results: ITS Impressions Head CT 09/19/25 14:28 Impression: 1.No acute intracranial abnormality. Venous Doppler Study 09/19/25 15:27 Impression: Limited study. Negative for DVT. Chest X-Ray 09/24/25 08:26 Impression: Probable bilateral pneumonia superimposed on chronic lung disease. Right-sided acute appearing rib fractures. CT chest suggested to assess. Pulmonary Perfusion Imaging 09/24/25 15:50 IMPRESSION: 1. Nondiagnostic (low or intermediate probability) with bilateral posterior left lower lung perfusion defects which correspond in size, location and configuration to small to moderate-sized bilateral pleural effusions. Chest CT 09/24/25 16:25 IMPRESSION: 1. Small to moderate-sized bilateral posterior layering pleural effusions with minimal pulmonary edema in the right lung and compensatory dependent and basilar atelectasis in both lungs. 2. Moderate to large sliding-type hiatal hernia. 3. Nonobstructing left nephrolithiasis. Labs Labs: Laboratory Results - last 24 hr 09/26/25 14:40 Urine Color Yellow Urine Appearance Turbid H Urine pH 6.0 Ur Specific [place] 1.008 Urine Protein 1+ H Urine Glucose (UA) Negative Urine Ketones Negative Ur Blood (Man) 2+ H Urine Nitrate Negative Urine Bilirubin Negative Urine Urobilinogen 1.0 Leukocyte Esterase Rfl 3+ H Urine RBC 0-2 Urine WBC >100 H Ur Squamous Epith Cells Moderate Urine Bacteria 4+ H Urine Casts 3-5
[2025-09-26] MEDS: cefTRIAXone 1 GM in SODIUM CHLORIDE 0.9% IV 50 ML 100 ML IVPB (16:02)
[2025-09-26] MEDS: LORazepam (*CRX) 0.5 MG TABLET PO (22:05)
[2025-09-26] MEDS: ATORVASTATIN 20 MG TABLET PO (22:05)
[2025-09-26] MEDS: ACETAMINOPHEN 325 MG TABLET 650 MG PO (22:12)
[2025-09-27] VITALS (15 sets, daily range): BP systolic 121–146; BP diastolic 71–85; PULSE 73–88; RESP 16–20; TEMP 36.1–36.6; O2SAT 93–99
[2025-09-27] MEDS: IPRATROPIUM 0.5 MG/ALBUTEROL SULFATE 2.5 MG (BASE) AMPUL.NEB 3 ML INHALATION ×4 (03:00→21:18)
[2025-09-27] MEDS: CLOPIDOGREL BISULFATE 75 MG TABLET PO (08:24)
[2025-09-27] MEDS: CALCIUM/VITAMIN D 500 MG/5 MCG (200 I.U.) TABLET PO (08:24)
[2025-09-27] MEDS: ACETAMINOPHEN 500 MG TABLET 1000 MG PO ×2 (08:24→17:44)
[2025-09-27] MEDS: POTASSIUM CHLORIDE 10 MEQ ER TABLET PO (08:25)
[2025-09-27] MEDS: ASPIRIN 81 MG ENTERIC TABLET PO (08:25)
[2025-09-27] MEDS: FAMOTIDINE 20 MG TABLET PO ×2 (08:25→21:06)
[2025-09-27] MEDS: METOPROLOL SUCCINATE EXT REL 100 MG TABCR PO (08:25)
[2025-09-27] MEDS: FUROSEMIDE 40 MG TABLET PO (08:25)
[2025-09-27] MEDS: buPROPion HCL SR (12 HR) 150 MG TAB PO (08:26)
[2025-09-27] MEDS: SODIUM BICARBONATE TAB 650 MG TABLET PO ×2 (12:39→17:44)
--- NOTE | 2025-09-27 12:56 | PM.IMPN2 ---
Assessment and Plan Assessment and Plan (1) Acute non-ST elevation myocardial infarction (NSTEMI): Code(s): I21.4 - Non-ST elevation (NSTEMI) myocardial infarction Status: Acute Assessment and Plan: Patient presents with midsternal nonradiating chest pain that woke her from her sleep that was relieved with 1 sublingual nitro. CXR showed borderline heart size with mild pulmonary edema Troponin 1.11 -> 1.88 EKG showing sinus tachycardia possible left atrial enlargement nonspecific ST and T-wave changes. Repeat EKG showing similar findings Left LE Venous Doppler negative for DVT. Head CT showing no acute findings. ASA 324mg on admission and now on 81mg daily Heparin gtt started Cardiology consulted. Known history of coronary artery disease status post RCA stenting in 1998. Recommends conservative management given her advanced age renal failure in DNR status Echo pending Continue on atorvastatin dose adjusted. Added on Plavix LHC deferred (2) Pulmonary edema: Qualifiers: Chronicity: acute Qualified Code(s): J81.0 - Acute pulmonary edema Code(s): J81.1 - Chronic pulmonary edema Status: Acute Assessment and Plan: CXR showing mild pulmonary edema. No complaint of SOB. No previously known history of CHF. No previous echo on file. She received Lasix 40 mg IV x 1 Echo ordered Monitor I&Os, daily weights and renal function Reported shortness of breath overnight 09/23/2025 Chest x-ray with right-sided rib fractures acute CT chest with old healed rib fracture. Findings of pulmonary edema with small to moderate-sized bilateral pleural effusion noted. V/Q scan nondiagnostic with bilateral lower lung perfusion defects which corresponds to small to moderate-sized bilateral pleural effusions. Will reorder Lasix 40 mg IV x1 and switch to oral Lasix in a.m. (3) Chronic kidney disease, stage 4 (severe): Code(s): N18.4 - Chronic kidney disease, stage 4 (severe) Status: Chronic Assessment and Plan: Patient has a hx of CKD with baseline Cr 1.9-2.3 range. Creatinine 2.04, BUN 23, GFR 23 upon admission on 09/19. Cr stable. No acidosis or hyperkalemia Follow renal function, UOP and electrolytes Creatinine remains stable, with diuresis continue to monitor (4) Essential hypertension: Code(s): I10 - Essential (primary) hypertension Status: Chronic Assessment and Plan: Blood pressure remains well controlled. Will continue to monitor (5) Hyperlipidemia: Qualifiers: Hyperlipidemia type: unspecified Qualified Code(s): E78.5 - Hyperlipidemia, unspecified Code(s): E78.5 - Hyperlipidemia, unspecified Status: Chronic Assessment and Plan: LFTs normal. Continue Atorvastatin Plan No overnight events noted. Shortness of breath with exertion. Improving. Denies any leg swelling. No chest pain. Still required oxygen with ambulation per respiratory therapy. patient c/o dysuria, and urine was suspicious for UTI, started patient on ceftriaxone, today urine culture is negative for any growth however her symptoms have improved, patient is requiring oxygen, will do home oxygen evaluation before discharging patient. Patient did work with PT today, feels tired. Code Status: DNR Subjective Date/time seen: 09/27/25 12:56 Interval history: No overnight events noted. Shortness of breath with exertion. Improving. Denies any leg swelling. No chest pain. Still required oxygen with ambulation per respiratory therapy. patient c/o dysuria, and urine was suspicious for UTI, started patient on ceftriaxone, today urine culture is negative for any growth however her symptoms have improved, patient is requiring oxygen, will do home oxygen evaluation before discharging patient. Patient did work with PT today, feels tired. Review of Systems Review of Systems: All systems reviewed & are unremarkable except as noted in HPI and below Exam Narrative: Gen - NARD Chest - CTA bilaterally, nml RR CV - RRR S1/S2. Abd - Soft, NT/ND, Positive BS Ext - No pedal edema Psych - Nml mood and affect Skin - Warm and dry Objective Data Vital Signs Vital Signs: Vital Signs - 24 hr 09/26/25 13:00 09/26/25 13:06 09/26/25 14:36 Temperature 36.4 C Pulse Rate 72 81 Respiratory Rate 16 16 14 Blood Pressure 127/72 Pulse Oximetry 97 Oxygen Delivery Oxygen Flow Rate 09/26/25 20:05 09/26/25 21:35 09/26/25 21:35 Temperature 36.6 C Pulse Rate 78 81 81 Respiratory Rate 18 18 16 Blood Pressure 122/68 Pulse Oximetry 97 96 Oxygen Delivery Nasal Cannula Oxygen Flow Rate 2 09/26/25 21:42 09/26/25 21:57 09/27/25 03:01 Temperature Pulse Rate 82 83 Respiratory Rate 16 16 Blood Pressure Pulse Oximetry 96 Oxygen Delivery Nasal Cannula Oxygen Flow Rate 2 09/27/25 03:08 09/27/25 05:15 09/27/25 08:25 Temperature 36.1 C L Pulse Rate 82 86 76 Respiratory Rate 16 16 Blood Pressure 146/85 H Pulse Oximetry 98 Oxygen Delivery Oxygen Flow Rate 09/27/25 08:31 09/27/25 08:31 09/27/25 08:40 Temperature Pulse Rate 86 86 88 Respiratory Rate 20 20 20 Blood Pressure Pulse Oximetry 93 Oxygen Delivery Nasal Cannula Oxygen Flow Rate 2 09/27/25 08:45 Temperature Pulse Rate Respiratory Rate Blood Pressure Pulse Oximetry 95 Oxygen Delivery Nasal Cannula Oxygen Flow Rate 2 Intake/Output Intake/Output: Intake & Output 09/24/25 09/25/25 09/26/25 09/27/25 23:59 23:59 23:59 23:59 Intake Total 550 1244 1180 320 Output Total 200 300 Balance 550 1244 980 20 Meds/Results Medications: Active Medications Generic Name Dose Route Start Last Admin Trade Name Freq PRN Reason Stop Dose Admin Acetaminophen 650 mg 09/19/25 14:14 09/26/25 22:12 Acetaminophen 325 Mg Tablet PO 650 mg Q4H PRN Administration Mild Pain (1-3) or Fever Acetaminophen 1,000 mg 09/19/25 18:50 09/27/25 08:24 Acetaminophen 500 Mg Tablet PO 1,000 mg BID RAVIN Administration Albuterol/Ipratropium 3 ml 09/25/25 08:00 09/27/25 08:31 Ipratropium 0.5 Mg/Albuterol Sulfate 2.5 Mg (Base) Ampul.Neb 3 Ml INHALATION 3 ml Q6HRT RAVIN Administration Amlodipine Besylate 10 mg 09/20/25 09:00 09/27/25 08:25 Amlodipine Besylate 5 Mg Tablet PO 10 mg DAILY RAVIN Administration Aspirin 81 mg 09/20/25 09:00 09/27/25 08:25 Aspirin 81 Mg Enteric Tablet PO 81 mg QAM RAVIN Administration Atorvastatin Calcium 20 mg 09/19/25 21:00 09/26/25 22:05 Atorvastatin 20 Mg Tablet PO 20 mg HS RAVIN Administration Bupropion HCl 150 mg 09/20/25 09:00 09/27/25 08:26 Bupropion Hcl Sr (12 Hr) 150 Mg Tab PO 150 mg DAILY RAVIN Administration Calcitriol 0.25 mcg 09/19/25 18:35 09/26/25 10:10 Calcitriol 0.25 Mcg Capsule PO 0.25 mcg [id number] RAVIN Administration Calcium Carbonate 500 mg 09/20/25 09:00 09/27/25 08:24 Calcium/Vitamin D 500 Mg/5 Mcg (200 I.U.) Tablet PO 500 mg QAM RAVIN Administration Clopidogrel Bisulfate 75 mg 09/22/25 09:00 09/27/25 08:24 Clopidogrel Bisulfate 75 Mg Tablet PO 75 mg QAM RAVIN Administration Docusate Sodium 100 mg 09/19/25 14:14 09/20/25 08:40 Docusate Sodium 100 Mg Capsule PO 100 mg BID PRN Administration Constipation Famotidine 20 mg 09/23/25 12:00 09/27/25 08:25 Famotidine 20 Mg Tablet PO 20 mg Q12HR RAVIN Administration Furosemide 40 mg 09/26/25 09:00 09/27/25 08:25 Furosemide 40 Mg Tablet PO 40 mg DAILY RAVIN Administration Heparin Sodium (Porcine) 5,000 units 09/25/25 21:00 09/27/25 08:24 Heparin Sodium 5,000 Units/Ml Vial SUB-Q 5,000 units Q12HR RAVIN Administration Ceftriaxone Sodium 1 gm/ 50 mls @ 100 mls/hr 09/26/25 16:00 09/26/25 16:32 Sodium Chloride IVPB Infused Q24H RAVIN Infusion Lisinopril 10 mg 09/20/25 09:00 09/27/25 08:25 Lisinopril 10 Mg Tablet PO 10 mg DAILY RAVIN Administration Lorazepam 0.5 mg 09/25/25 19:40 09/26/25 22:05 Lorazepam (*Crx) 0.5 Mg Tablet PO 0.5 mg HS PRN Administration Anxiety Metoprolol Succinate 100 mg 09/20/25 09:00 09/27/25 08:25 Metoprolol Succinate Ext Rel 100 Mg Tabcr PO 100 mg DAILY RAVIN Administration Nitroglycerin 0.4 mg 09/19/25 14:14 Nitroglycerin Sl 0.4 Mg Tablet SUBLINGUAL Q5M PRN Chest Pain Ondansetron HCl 4 mg 09/19/25 14:14 09/25/25 02:18 Ondansetron Inj 4 Mg/2 Ml Vial IV PUSH 4 mg Q6H PRN Administration Nausea And Vomiting Potassium Chloride 10 meq 09/20/25 09:00 09/27/25 08:25 Potassium Chloride 10 Meq Er Tablet PO 10 meq DAILY RAVIN Administration Sodium Bicarbonate 650 mg 09/20/25 12:30 09/27/25 12:39 Sodium Bicarbonate Tab 650 Mg Tablet PO 650 mg 1230,1730 RAVIN Administration Radiology Results: ITS Impressions Head CT 09/19/25 14:28 Impression: 1.No acute intracranial abnormality. Venous Doppler Study 09/19/25 15:27 Impression: Limited study. Negative for DVT. Chest X-Ray 09/24/25 08:26 Impression: Probable bilateral pneumonia superimposed on chronic lung disease. Right-sided acute appearing rib fractures. CT chest suggested to assess. Pulmonary Perfusion Imaging 09/24/25 15:50 IMPRESSION: 1. Nondiagnostic (low or intermediate probability) with bilateral posterior left lower lung perfusion defects which correspond in size, location and configuration to small to moderate-sized bilateral pleural effusions. Chest CT 09/24/25 16:25 IMPRESSION: 1. Small to moderate-sized bilateral posterior layering pleural effusions with minimal pulmonary edema in the right lung and compensatory dependent and basilar atelectasis in both lungs. 2. Moderate to large sliding-type hiatal hernia. 3. Nonobstructing left nephrolithiasis. Labs Labs: Laboratory Results - last 24 hr 09/26/25 14:40 Urine Color Yellow Urine Appearance Turbid H Urine pH 6.0 Ur Specific [place] 1.008 Urine Protein 1+ H Urine Glucose (UA) Negative Urine Ketones Negative Ur Blood (Man) 2+ H Urine Nitrate Negative Urine Bilirubin Negative Urine Urobilinogen 1.0 Leukocyte Esterase Rfl 3+ H Urine RBC 0-2 Urine WBC >100 H Ur Squamous Epith Cells Moderate Urine Bacteria 4+ H Urine Casts 3-5
[2025-09-27] MEDS: cefTRIAXone 1 GM in SODIUM CHLORIDE 0.9% IV 50 ML 100 ML IVPB (15:42)
[2025-09-27] MEDS: LORazepam (*CRX) 0.5 MG TABLET PO (21:05)
[2025-09-27] MEDS: ACETAMINOPHEN 325 MG TABLET 650 MG PO (21:05)
[2025-09-27] MEDS: ATORVASTATIN 20 MG TABLET PO (21:06)
[2025-09-28] VITALS (13 sets, daily range): BP systolic 117–124; BP diastolic 67–75; PULSE 72–84; RESP 16–18; TEMP 35.9–36.7; O2SAT 92–98
[2025-09-28] MEDS: ONDANSETRON INJ 4 MG/2 ML VIAL IV PUSH ×3 (01:41→18:15)
[2025-09-28] MEDS: ACETAMINOPHEN 325 MG TABLET 650 MG PO (01:41)
[2025-09-28] MEDS: IPRATROPIUM 0.5 MG/ALBUTEROL SULFATE 2.5 MG (BASE) AMPUL.NEB 3 ML INHALATION ×4 (02:51→20:37)
[2025-09-28 08:23] LABS: NT Pro B Type Natriuretic Pept 15900 pg/mL (19.9-100)
[2025-09-28] MEDS: ACETAMINOPHEN 500 MG TABLET 1000 MG PO ×2 (09:19→17:33)
[2025-09-28] MEDS: FAMOTIDINE 20 MG TABLET PO ×2 (09:19→20:22)
[2025-09-28] MEDS: ASPIRIN 81 MG ENTERIC TABLET PO (09:19)
[2025-09-28] MEDS: FUROSEMIDE 40 MG TABLET PO (09:19)
[2025-09-28] MEDS: buPROPion HCL SR (12 HR) 150 MG TAB PO (09:19)
[2025-09-28] MEDS: POTASSIUM CHLORIDE 10 MEQ ER TABLET PO (09:19)
[2025-09-28] MEDS: METOPROLOL SUCCINATE EXT REL 100 MG TABCR PO (09:19)
[2025-09-28] MEDS: CLOPIDOGREL BISULFATE 75 MG TABLET PO (09:19)
[2025-09-28] MEDS: CALCIUM/VITAMIN D 500 MG/5 MCG (200 I.U.) TABLET PO (09:20)
[2025-09-28] MEDS: FUROSEMIDE INJ 40 MG/4 ML VIAL IV PUSH (12:38)
[2025-09-28] MEDS: PANTOPRAZOLE SODIUM IV 40 MG VIAL IV PUSH (12:38)
[2025-09-28] MEDS: SODIUM BICARBONATE TAB 650 MG TABLET PO ×2 (12:45→17:33)
--- NOTE | 2025-09-28 13:05 | PCNWS ---
Weekly nutritional screen. Patient is tolerating current heart healthy diet with adequate intake 50-100% most meals. No weight loss reported. No nutritional recommendations at this time.
--- NOTE | 2025-09-28 15:00 | PM.IMPN2 ---
Assessment and Plan Assessment and Plan (1) Acute non-ST elevation myocardial infarction (NSTEMI): Code(s): I21.4 - Non-ST elevation (NSTEMI) myocardial infarction Status: Acute Assessment and Plan: Patient presents with midsternal nonradiating chest pain that woke her from her sleep that was relieved with 1 sublingual nitro. CXR showed borderline heart size with mild pulmonary edema Troponin 1.11 -> 1.88 EKG showing sinus tachycardia possible left atrial enlargement nonspecific ST and T-wave changes. Repeat EKG showing similar findings Left LE Venous Doppler negative for DVT. Head CT showing no acute findings. ASA 324mg on admission and now on 81mg daily Heparin gtt started Cardiology consulted. Known history of coronary artery disease status post RCA stenting in 1998. Recommends conservative management given her advanced age renal failure in DNR status Echo pending Continue on atorvastatin dose adjusted. Added on Plavix LHC deferred (2) Pulmonary edema: Qualifiers: Chronicity: acute Qualified Code(s): J81.0 - Acute pulmonary edema Code(s): J81.1 - Chronic pulmonary edema Status: Acute Assessment and Plan: CXR showing mild pulmonary edema. No complaint of SOB. No previously known history of CHF. No previous echo on file. She received Lasix 40 mg IV x 1 Echo ordered Monitor I&Os, daily weights and renal function Reported shortness of breath overnight 09/23/2025 Chest x-ray with right-sided rib fractures acute CT chest with old healed rib fracture. Findings of pulmonary edema with small to moderate-sized bilateral pleural effusion noted. V/Q scan nondiagnostic with bilateral lower lung perfusion defects which corresponds to small to moderate-sized bilateral pleural effusions. Will reorder Lasix 40 mg IV x1 and switch to oral Lasix in a.m. (3) Chronic kidney disease, stage 4 (severe): Code(s): N18.4 - Chronic kidney disease, stage 4 (severe) Status: Chronic Assessment and Plan: Patient has a hx of CKD with baseline Cr 1.9-2.3 range. Creatinine 2.04, BUN 23, GFR 23 upon admission on 09/19. Cr stable. No acidosis or hyperkalemia Follow renal function, UOP and electrolytes Creatinine remains stable, with diuresis continue to monitor (4) Essential hypertension: Code(s): I10 - Essential (primary) hypertension Status: Chronic Assessment and Plan: Blood pressure remains well controlled. Will continue to monitor (5) Hyperlipidemia: Qualifiers: Hyperlipidemia type: unspecified Qualified Code(s): E78.5 - Hyperlipidemia, unspecified Code(s): E78.5 - Hyperlipidemia, unspecified Status: Chronic Assessment and Plan: LFTs normal. Continue Atorvastatin Plan No overnight events noted. Shortness of breath with exertion. Improving. Denies any leg swelling. No chest pain. Still required oxygen with ambulation per respiratory therapy. patient c/o dysuria, and urine was suspicious for UTI, started patient on ceftriaxone, today urine culture is negative for any growth however her symptoms have improved, patient is requiring oxygen, will do home oxygen evaluation before discharging patient. however patient complaints of abdominal pain had a BM yesterday, no nausea or vomiting, chest x-ray is concerning for mild pulmonary edema, patient is give IV lasix 40mg X1, will monitor and plan. Code Status: DNR Subjective Date/time seen: 09/28/25 15:00 Interval history: No overnight events noted. Shortness of breath with exertion. Improving. Denies any leg swelling. No chest pain. Still required oxygen with ambulation per respiratory therapy. patient c/o dysuria, and urine was suspicious for UTI, started patient on ceftriaxone, today urine culture is negative for any growth however her symptoms have improved, patient is requiring oxygen, will do home oxygen evaluation before discharging patient. however patient complaints of abdominal pain had a BM yesterday, no nausea or vomiting, chest x-ray is concerning for mild pulmonary edema, patient is give IV lasix 40mg X1, will monitor and plan. Exam Narrative: Gen - NARD Chest - CTA bilaterally, nml RR CV - RRR S1/S2. Abd - Soft, NT/ND, Positive BS Ext - No pedal edema Psych - Nml mood and affect Skin - Warm and dry Objective Data Vital Signs Vital Signs: Vital Signs - 24 hr 09/27/25 20:33 09/27/25 20:50 09/27/25 21:24 Temperature 36.6 C Pulse Rate 73 Respiratory Rate 18 Blood Pressure 123/71 Pulse Oximetry 97 95 95 Oxygen Delivery Nasal Cannula Nasal Cannula Oxygen Flow Rate 2 2 09/27/25 21:25 09/27/25 21:30 09/28/25 02:52 Temperature Pulse Rate 80 81 75 Respiratory Rate 18 18 18 Blood Pressure Pulse Oximetry Oxygen Delivery Oxygen Flow Rate 09/28/25 04:22 09/28/25 08:30 09/28/25 08:30 Temperature 36.2 C L Pulse Rate 81 83 Respiratory Rate 18 18 Blood Pressure 117/74 Pulse Oximetry 95 93 Oxygen Delivery Nasal Cannula Oxygen Flow Rate 2 09/28/25 08:35 09/28/25 09:00 09/28/25 09:11 Temperature Pulse Rate 83 82 Respiratory Rate 18 18 Blood Pressure 123/75 Pulse Oximetry 96 96 Oxygen Delivery Nasal Cannula Oxygen Flow Rate 2 09/28/25 09:19 09/28/25 14:00 09/28/25 14:15 Temperature 35.9 C L Pulse Rate 84 77 75 Respiratory Rate 18 18 Blood Pressure 124/67 Pulse Oximetry 97 Oxygen Delivery Oxygen Flow Rate 09/28/25 14:20 Temperature Pulse Rate 77 Respiratory Rate 18 Blood Pressure Pulse Oximetry Oxygen Delivery Oxygen Flow Rate Intake/Output Intake/Output: Intake & Output 09/25/25 09/26/25 09/27/25 09/28/25 23:59 23:59 23:59 23:59 Intake Total 1244 1180 1030 390 Output Total 200 450 550 Balance 1244 980 580 -160 Meds/Results Medications: Active Medications Generic Name Dose Route Start Last Admin Trade Name Freq PRN Reason Stop Dose Admin Acetaminophen 650 mg 09/19/25 14:14 09/28/25 01:41 Acetaminophen 325 Mg Tablet PO 650 mg Q4H PRN Administration Mild Pain (1-3) or Fever Acetaminophen 1,000 mg 09/19/25 18:50 09/28/25 09:19 Acetaminophen 500 Mg Tablet PO 1,000 mg BID RAVIN Administration Albuterol/Ipratropium 3 ml 09/25/25 08:00 09/28/25 14:15 Ipratropium 0.5 Mg/Albuterol Sulfate 2.5 Mg (Base) Ampul.Neb 3 Ml INHALATION 3 ml Q6HRT RAVIN Administration Amlodipine Besylate 10 mg 09/20/25 09:00 09/28/25 09:19 Amlodipine Besylate 5 Mg Tablet PO 10 mg DAILY RAVIN Administration Aspirin 81 mg 09/20/25 09:00 09/28/25 09:19 Aspirin 81 Mg Enteric Tablet PO 81 mg QAM RAVIN Administration Atorvastatin Calcium 20 mg 09/19/25 21:00 09/27/25 21:06 Atorvastatin 20 Mg Tablet PO 20 mg HS RAVIN Administration Bupropion HCl 150 mg 09/20/25 09:00 09/28/25 09:19 Bupropion Hcl Sr (12 Hr) 150 Mg Tab PO 150 mg DAILY RAVIN Administration Calcitriol 0.25 mcg 09/19/25 18:35 09/28/25 09:33 Calcitriol 0.25 Mcg Capsule PO 0.25 mcg [id number] RAVIN Administration Calcium Carbonate 500 mg 09/20/25 09:00 09/28/25 09:20 Calcium/Vitamin D 500 Mg/5 Mcg (200 I.U.) Tablet PO 500 mg QAM RAVIN Administration Clopidogrel Bisulfate 75 mg 09/22/25 09:00 09/28/25 09:19 Clopidogrel Bisulfate 75 Mg Tablet PO 75 mg QAM RAVIN Administration Docusate Sodium 100 mg 09/19/25 14:14 09/20/25 08:40 Docusate Sodium 100 Mg Capsule PO 100 mg BID PRN Administration Constipation Famotidine 20 mg 09/23/25 12:00 09/28/25 09:19 Famotidine 20 Mg Tablet PO 20 mg Q12HR RAVIN Administration Furosemide 40 mg 09/26/25 09:00 09/28/25 09:19 Furosemide 40 Mg Tablet PO 40 mg DAILY RAVIN Administration Heparin Sodium (Porcine) 5,000 units 09/25/25 21:00 09/28/25 09:20 Heparin Sodium 5,000 Units/Ml Vial SUB-Q 5,000 units Q12HR RAVIN Administration Ceftriaxone Sodium 1 gm/ 50 mls @ 100 mls/hr 09/26/25 16:00 09/27/25 16:12 Sodium Chloride IVPB Infused Q24H RAVIN Infusion Lisinopril 10 mg 09/20/25 09:00 09/28/25 09:19 Lisinopril 10 Mg Tablet PO 10 mg DAILY RAVIN Administration Lorazepam 0.5 mg 09/25/25 19:40 09/27/25 21:05 Lorazepam (*Crx) 0.5 Mg Tablet PO 0.5 mg HS PRN Administration Anxiety Metoprolol Succinate 100 mg 09/20/25 09:00 09/28/25 09:19 Metoprolol Succinate Ext Rel 100 Mg Tabcr PO 100 mg DAILY RAVIN Administration Nitroglycerin 0.4 mg 09/19/25 14:14 Nitroglycerin Sl 0.4 Mg Tablet SUBLINGUAL Q5M PRN Chest Pain Ondansetron HCl 4 mg 09/19/25 14:14 09/28/25 12:28 Ondansetron Inj 4 Mg/2 Ml Vial IV PUSH 4 mg Q6H PRN Administration Nausea And Vomiting Potassium Chloride 10 meq 09/20/25 09:00 09/28/25 09:19 Potassium Chloride 10 Meq Er Tablet PO 10 meq DAILY RAVIN Administration Sodium Bicarbonate 650 mg 09/20/25 12:30 09/28/25 12:45 Sodium Bicarbonate Tab 650 Mg Tablet PO 650 mg 1230,1730 RAVIN Administration Radiology Results: ITS Impressions Head CT 09/19/25 14:28 Impression: 1.No acute intracranial abnormality. Venous Doppler Study 09/19/25 15:27 Impression: Limited study. Negative for DVT. Pulmonary Perfusion Imaging 09/24/25 15:50 IMPRESSION: 1. Nondiagnostic (low or intermediate probability) with bilateral posterior left lower lung perfusion defects which correspond in size, location and configuration to small to moderate-sized bilateral pleural effusions. Chest CT 09/24/25 16:25 IMPRESSION: 1. Small to moderate-sized bilateral posterior layering pleural effusions with minimal pulmonary edema in the right lung and compensatory dependent and basilar atelectasis in both lungs. 2. Moderate to large sliding-type hiatal hernia. 3. Nonobstructing left nephrolithiasis. Chest X-Ray 09/28/25 07:30 IMPRESSION: 1. Mild worsening interstitial pulmonary edema and pleural effusions. Labs Labs: Laboratory Results - last 24 hr 09/28/25 07:49 NT-Pro-B Natriuret Pep [id number] H
[2025-09-28] MEDS: cefTRIAXone 1 GM in SODIUM CHLORIDE 0.9% IV 50 ML 100 ML IVPB (15:34)
[2025-09-28] MEDS: ATORVASTATIN 20 MG TABLET PO (20:22)
[2025-09-29] VITALS (15 sets, daily range): BP systolic 106–135; BP diastolic 55–74; PULSE 76–90; RESP 16–20; TEMP 36.3–36.8; O2SAT 94–100
[2025-09-29] MEDS: ONDANSETRON INJ 4 MG/2 ML VIAL IV PUSH (00:23)
[2025-09-29] MEDS: IPRATROPIUM 0.5 MG/ALBUTEROL SULFATE 2.5 MG (BASE) AMPUL.NEB 3 ML INHALATION ×4 (03:44→19:37)
--- NOTE | 2025-09-29 04:50 | PC.NURSE ---
pt c/o of pain in abdomen tonight pt got up several times tying to have a bowel movement and was unable to go. pt pt is non distended soft bowel sounds present. when nurse checked chart its noted pt last bowel movement was 09/22 pt states she doesn't know if its been that long but it has been a few days. contacted [facility] and new order for x dose of miralax this order has been entered and given as ordered.
[2025-09-29] MEDS: POTASSIUM CHLORIDE 10 MEQ ER TABLET PO (10:26)
[2025-09-29] MEDS: ACETAMINOPHEN 500 MG TABLET 1000 MG PO ×2 (10:27→17:03)
[2025-09-29] MEDS: ASPIRIN 81 MG ENTERIC TABLET PO (10:27)
[2025-09-29] MEDS: CALCIUM/VITAMIN D 500 MG/5 MCG (200 I.U.) TABLET PO (10:27)
[2025-09-29] MEDS: FUROSEMIDE 40 MG TABLET PO (10:28)
[2025-09-29] MEDS: FAMOTIDINE 20 MG TABLET PO ×2 (10:28→21:52)
[2025-09-29] MEDS: CLOPIDOGREL BISULFATE 75 MG TABLET PO (10:28)
[2025-09-29] MEDS: buPROPion HCL SR (12 HR) 150 MG TAB PO (10:28)
[2025-09-29] MEDS: METOPROLOL SUCCINATE EXT REL 100 MG TABCR PO (10:29)
[2025-09-29] MEDS: SODIUM BICARBONATE TAB 650 MG TABLET PO ×2 (13:42→17:06)
--- NOTE | 2025-09-29 15:13 | P.PNIM_ITS ---
Assessment and Plan Assessment and Plan (1) Acute non-ST elevation myocardial infarction (NSTEMI): Code(s): I21.4 - Non-ST elevation (NSTEMI) myocardial infarction Status: Acute Assessment and Plan: Patient presents with midsternal nonradiating chest pain that woke her from her sleep that was relieved with 1 sublingual nitro. CXR showed borderline heart size with mild pulmonary edema Troponin 1.11 -> 1.88 EKG showing sinus tachycardia possible left atrial enlargement nonspecific ST and T-wave changes. Repeat EKG showing similar findings Left LE Venous Doppler negative for DVT. Head CT showing no acute findings. ASA 324mg on admission and now on 81mg daily Heparin gtt started Cardiology consulted. Known history of coronary artery disease status post RCA stenting in 1998. Recommends conservative management given her advanced age renal failure in DNR status Echo pending Continue on atorvastatin dose adjusted. Added on Plavix LHC deferred (2) Pulmonary edema: Qualifiers: Chronicity: acute Qualified Code(s): J81.0 - Acute pulmonary edema Code(s): J81.1 - Chronic pulmonary edema Status: Acute Assessment and Plan: CXR showing mild pulmonary edema. No complaint of SOB. No previously known history of CHF. No previous echo on file. She received Lasix 40 mg IV x 1 Echo ordered Monitor I&Os, daily weights and renal function Reported shortness of breath overnight 09/23/2025 Chest x-ray with right-sided rib fractures acute CT chest with old healed rib fracture. Findings of pulmonary edema with small to moderate-sized bilateral pleural effusion noted. V/Q scan nondiagnostic with bilateral lower lung perfusion defects which corresponds to small to moderate-sized bilateral pleural effusions. Will reorder Lasix 40 mg IV x1 and switch to oral Lasix in a.m. (3) Chronic kidney disease, stage 4 (severe): Code(s): N18.4 - Chronic kidney disease, stage 4 (severe) Status: Chronic Assessment and Plan: Patient has a hx of CKD with baseline Cr 1.9-2.3 range. Creatinine 2.04, BUN 23, GFR 23 upon admission on 09/19. Cr stable. No acidosis or hyperkalemia Follow renal function, UOP and electrolytes Creatinine remains stable, with diuresis continue to monitor (4) Essential hypertension: Code(s): I10 - Essential (primary) hypertension Status: Chronic Assessment and Plan: Blood pressure remains well controlled. Will continue to monitor (5) Hyperlipidemia: Qualifiers: Hyperlipidemia type: unspecified Qualified Code(s): E78.5 - Hyperlipidemia, unspecified Code(s): E78.5 - Hyperlipidemia, unspecified Status: Chronic Assessment and Plan: LFTs normal. Continue Atorvastatin Plan No overnight events noted. Shortness of breath with exertion. Improving. Denies any leg swelling. No chest pain. Still required oxygen with ambulation per respiratory therapy. patient c/o dysuria, and urine was suspicious for UTI, started patient on ceftriaxone, today urine culture is negative for any growth however her symptoms have improved, patient is requiring oxygen, will do home oxygen evaluation before discharging patient. however patient complaints of abdominal pain had a BM yesterday, no nausea or vomiting, on 09/28 chest x-ray was concerning for mild pulmonary edema, patient was given IV lasix 40mg X1, today patient patient is feeling, her daughter is present in the room, patient is working with PT/OT patient will benefit going to rehab as she lives alone, will monitor and plan. Code Status: DNR Subjective Date/time seen: 09/29/25 15:13 Interval history: No overnight events noted. Shortness of breath with exertion. Improving. De nies any leg swelling. No chest pain. Still required oxygen with ambulation per respiratory therapy. patient c/o dysuria, and urine was suspicious for UTI, started patient on ceftriaxone, today urine culture is negative for any growth however her symptoms have improved, patient is requiring oxygen, will do home oxygen evaluation before discharging patient. however patient complaints of abdominal pain had a BM yesterday, no nausea or vomiting, on 09/28 chest x-ray was concerning for mild pulmonary edema, patient was given IV lasix 40mg X1, today patient patient is feeling, her daughter is present in the room, patient is working with PT/OT patient will benefit going to rehab as she lives alone, will monitor and plan. Review of Systems Review of Systems: All systems reviewed & are unremarkable except as noted in HPI and below Exam Narrative: Gen - NARD Chest - CTA bilaterally, nml RR CV - RRR S1/S2. Abd - Soft, NT/ND, Positive BS Ext - No pedal edema Psych - Nml mood and affect Skin - Warm and dry Objective Data Vital Signs Vital Signs: Vital Signs - 24 hr 09/28/25 20:38 09/28/25 20:38 09/28/25 20:41 Temperature 36.7 C Pulse Rate 72 79 Respiratory Rate 18 16 Blood Pressure 123/75 Pulse Oximetry 92 98 Oxygen Delivery Nasal Cannula Oxygen Flow Rate 2 09/28/25 20:43 09/29/25 03:54 09/29/25 04:00 Temperature Pulse Rate 73 85 86 Respiratory Rate 18 18 18 Blood Pressure Pulse Oximetry Oxygen Delivery Oxygen Flow Rate 09/29/25 06:00 09/29/25 07:50 09/29/25 07:50 Temperature 36.4 C Pulse Rate 88 76 Respiratory Rate 16 18 Blood Pressure 135/66 Pulse Oximetry 97 99 Oxygen Delivery Nasal Cannula Oxygen Flow Rate 3 09/29/25 07:58 09/29/25 08:37 09/29/25 10:29 Temperature Pulse Rate 82 90 Respiratory Rate 18 Blood Pressure Pulse Oximetry 96 Oxygen Delivery Nasal Cannula Oxygen Flow Rate 1 09/29/25 13:18 Temperature Pulse Rate 79 Respiratory Rate 17 Blood Pressure Pulse Oximetry Oxygen Delivery Oxygen Flow Rate Intake/Output Intake/Output: Intake & Output 09/26/25 09/27/25 09/28/25 09/29/25 23:59 23:59 23:59 23:59 Intake Total 1180 1030 560 880 Output Total 200 450 550 Balance 980 580 10 880 Meds/Results Medications: Active Medications Generic Name Dose Route Start Last Admin Trade Name Freq PRN Reason Stop Dose Admin Acetaminophen 650 mg 09/19/25 14:14 09/28/25 01:41 Acetaminophen 325 Mg Tablet PO 650 mg Q4H PRN Administration Mild Pain (1-3) or Fever Acetaminophen 1,000 mg 09/19/25 18:50 09/29/25 10:27 Acetaminophen 500 Mg Tablet PO 1,000 mg BID RAVIN Administration Albuterol/Ipratropium 3 ml 09/25/25 08:00 09/29/25 13:17 Ipratropium 0.5 Mg/Albuterol Sulfate 2.5 Mg (Base) Ampul.Neb 3 Ml INHALATION 3 ml Q6HRT RAVIN Administration Amlodipine Besylate 10 mg 09/20/25 09:00 09/29/25 10:27 Amlodipine Besylate 5 Mg Tablet PO 10 mg DAILY RAVIN Administration Aspirin 81 mg 09/20/25 09:00 09/29/25 10:27 Aspirin 81 Mg Enteric Tablet PO 81 mg QAM RAVIN Administration Atorvastatin Calcium 20 mg 09/19/25 21:00 09/28/25 20:22 Atorvastatin 20 Mg Tablet PO 20 mg HS RAVIN Administration Bupropion HCl 150 mg 09/20/25 09:00 09/29/25 10:28 Bupropion Hcl Sr (12 Hr) 150 Mg Tab PO 150 mg DAILY RAVIN Administration Calcitriol 0.25 mcg 09/19/25 18:35 09/28/25 09:33 Calcitriol 0.25 Mcg Capsule PO 0.25 mcg [id number] RAVIN Administration Calcium Carbonate 500 mg 09/20/25 09:00 09/29/25 10:27 Calcium/Vitamin D 500 Mg/5 Mcg (200 I.U.) Tablet PO 500 mg QAM RVAIN Administration Clopidogrel Bisulfate 75 mg 09/22/25 09:00 09/29/25 10:28 Clopidogrel Bisulfate 75 Mg Tablet PO 75 mg QAM RAVIN Administration Docusate Sodium 100 mg 09/19/25 14:14 09/20/25 08:40 Docusate Sodium 100 Mg Capsule PO 100 mg BID PRN Administration Constipation Famotidine 20 mg 09/23/25 12:00 09/29/25 10:28 Famotidine 20 Mg Tablet PO 20 mg Q12HR RAVIN Administration Furosemide 40 mg 09/26/25 09:00 09/29/25 10:28 Furosemide 40 Mg Tablet PO 40 mg DAILY RAVIN Administration Heparin Sodium (Porcine) 5,000 units 09/25/25 21:00 09/29/25 10:28 Heparin Sodium 5,000 Units/Ml Vial SUB-Q 5,000 units Q12HR RAVIN Administration Ceftriaxone Sodium 1 gm/ 50 mls @ 100 mls/hr 09/26/25 16:00 09/28/25 16:07 Sodium Chloride IVPB Infused Q24H RAVIN Infusion Lisinopril 10 mg 09/20/25 09:00 09/29/25 10:28 Lisinopril 10 Mg Tablet PO 10 mg DAILY RAVIN Administration Lorazepam 0.5 mg 09/25/25 19:40 09/27/25 21:05 Lorazepam (*Crx) 0.5 Mg Tablet PO 0.5 mg HS PRN Administration Anxiety Metoprolol Succinate 100 mg 09/20/25 09:00 09/29/25 10:29 Metoprolol Succinate Ext Rel 100 Mg Tabcr PO 100 mg DAILY RAVIN Administration Nitroglycerin 0.4 mg 09/19/25 14:14 Nitroglycerin Sl 0.4 Mg Tablet SUBLINGUAL Q5M PRN Chest Pain Ondansetron HCl 4 mg 09/19/25 14:14 09/29/25 00:23 Ondansetron Inj 4 Mg/2 Ml Vial IV PUSH 4 mg Q6H PRN Administration Nausea And Vomiting Potassium Chloride 10 meq 09/20/25 09:00 09/29/25 10:26 Potassium Chloride 10 Meq Er Tablet PO 10 meq DAILY RAVIN Administration Sodium Bicarbonate 650 mg 09/20/25 12:30 09/29/25 13:42 Sodium Bicarbonate Tab 650 Mg Tablet PO 650 mg 1230,1730 RAVIN Administration Radiology Results: ITS Impressions Head CT 09/19/25 14:28 Impression: 1.No acute intracranial abnormality. Venous Doppler Study 09/19/25 15:27 Impression: Limited study. Negative for DVT. Pulmonary Perfusion Imaging 09/24/25 15:50 IMPRESSION: 1. Nondiagnostic (low or intermediate probability) with bilateral posterior left lower lung perfusion defects which correspond in size, location and configuration to small to moderate-sized bilateral pleural effusions. Chest CT 09/24/25 16:25 IMPRESSION: 1. Small to moderate-sized bilateral posterior layering pleural effusions with minimal pulmonary edema in the right lung and compensatory dependent and basilar atelectasis in both lungs. 2. Moderate to large sliding-type hiatal hernia. 3. Nonobstructing left nephrolithiasis. Chest X-Ray 09/28/25 07:30 IMPRESSION: 1. Mild worsening interstitial pulmonary edema and pleural effusions. Quality VTE Prophylaxis VTE prophylaxis: pharmacologic ordered
[2025-09-29] MEDS: cefTRIAXone 1 GM in SODIUM CHLORIDE 0.9% IV 50 ML 100 ML IVPB (17:02)
[2025-09-29] MEDS: ATORVASTATIN 20 MG TABLET PO (21:52)
[2025-09-30] VITALS (10 sets, daily range): BP systolic 110–131; BP diastolic 57–71; PULSE 78–86; RESP 16–20; TEMP 36.6–36.7; O2SAT 90–100
[2025-09-30] MEDS: IPRATROPIUM 0.5 MG/ALBUTEROL SULFATE 2.5 MG (BASE) AMPUL.NEB 3 ML INHALATION ×2 (01:49→07:20)
[2025-09-30] MEDS: LORazepam (*CRX) 0.5 MG TABLET PO ×2 (01:52→21:27)
[2025-09-30 05:05] LABS: Hematocrit 31.7 % (37.0-47.0); Hemoglobin 10.4 g/dL (12.0-15.0); Mean Corpuscular HGB Conc 32.8 g/dl (32-36); Mean Corpuscular Hemoglobin 31.0 pg (26-34); Mean Corpuscular Volume 94.6 fl (80-100); Platelet Count Result 230 k/mm3 (150-375); Red Blood Count 3.35 M/mm3 (4.2-5.4); White Blood Count 6.1 K/mm3 (4.5-10.0)
[2025-09-30 05:25] LABS: Anion Gap 5 mmol/L (4-12); Blood Urea Nitrogen 21 mg/dL (7-17); Calcium 8.5 mg/dL (8.4-10.2); Carbon Dioxide 26 mmol/L (22-30); Chloride 109 mmol/L (98-107); Estimated Glomerular Filt Rate 25; Glucose 89 mg/dL (65-110); Magnesium 1.6 mg/dL (1.6-2.3); Potassium 3.7 mmol/L (3.4-5.0); Sodium 140 mmol/L (137-145)
[2025-09-30] MEDS: ACETAMINOPHEN 500 MG TABLET 1000 MG PO ×2 (10:47→17:43)
[2025-09-30] MEDS: buPROPion HCL SR (12 HR) 150 MG TAB PO (10:48)
[2025-09-30] MEDS: CALCIUM/VITAMIN D 500 MG/5 MCG (200 I.U.) TABLET PO (10:48)
[2025-09-30] MEDS: CLOPIDOGREL BISULFATE 75 MG TABLET PO (10:48)
[2025-09-30] MEDS: ASPIRIN 81 MG ENTERIC TABLET PO (10:48)
[2025-09-30] MEDS: FUROSEMIDE 40 MG TABLET PO (10:49)
[2025-09-30] MEDS: METOPROLOL SUCCINATE EXT REL 100 MG TABCR PO (10:49)
[2025-09-30] MEDS: FAMOTIDINE 20 MG TABLET PO ×2 (10:49→21:27)
[2025-09-30] MEDS: POTASSIUM CHLORIDE 10 MEQ ER TABLET PO (10:50)
[2025-09-30] MEDS: SODIUM BICARBONATE TAB 650 MG TABLET PO ×2 (13:59→17:43)
--- NOTE | 2025-09-30 14:06 | PM.IMPN2 ---
Assessment and Plan Assessment and Plan (1) Acute non-ST elevation myocardial infarction (NSTEMI): Code(s): I21.4 - Non-ST elevation (NSTEMI) myocardial infarction Status: Acute Assessment and Plan: Patient presents with midsternal nonradiating chest pain that woke her from her sleep that was relieved with 1 sublingual nitro. CXR showed borderline heart size with mild pulmonary edema Troponin 1.11 -> 1.88 EKG showing sinus tachycardia possible left atrial enlargement nonspecific ST and T-wave changes. Repeat EKG showing similar findings Left LE Venous Doppler negative for DVT. Head CT showing no acute findings. ASA 324mg on admission and now on 81mg daily Heparin gtt started Cardiology consulted. Known history of coronary artery disease status post RCA stenting in 1998. Recommends conservative management given her advanced age renal failure in DNR status Echo pending Continue on atorvastatin dose adjusted. Added on Plavix LHC deferred (2) Pulmonary edema: Qualifiers: Chronicity: acute Qualified Code(s): J81.0 - Acute pulmonary edema Code(s): J81.1 - Chronic pulmonary edema Status: Acute Assessment and Plan: CXR showing mild pulmonary edema. No complaint of SOB. No previously known history of CHF. No previous echo on file. She received Lasix 40 mg IV x 1 Echo ordered Monitor I&Os, daily weights and renal function Reported shortness of breath overnight 09/23/2025 Chest x-ray with right-sided rib fractures acute CT chest with old healed rib fracture. Findings of pulmonary edema with small to moderate-sized bilateral pleural effusion noted. V/Q scan nondiagnostic with bilateral lower lung perfusion defects which corresponds to small to moderate-sized bilateral pleural effusions. Will reorder Lasix 40 mg IV x1 and switch to oral Lasix in a.m. (3) Chronic kidney disease, stage 4 (severe): Code(s): N18.4 - Chronic kidney disease, stage 4 (severe) Status: Chronic Assessment and Plan: Patient has a hx of CKD with baseline Cr 1.9-2.3 range. Creatinine 2.04, BUN 23, GFR 23 upon admission on 09/19. Cr stable. No acidosis or hyperkalemia Follow renal function, UOP and electrolytes Creatinine remains stable, with diuresis continue to monitor (4) Essential hypertension: Code(s): I10 - Essential (primary) hypertension Status: Chronic Assessment and Plan: Blood pressure remains well controlled. Will continue to monitor (5) Hyperlipidemia: Qualifiers: Hyperlipidemia type: unspecified Qualified Code(s): E78.5 - Hyperlipidemia, unspecified Code(s): E78.5 - Hyperlipidemia, unspecified Status: Chronic Assessment and Plan: LFTs normal. Continue Atorvastatin Plan No overnight events noted. Shortness of breath with exertion. Improving. Denies any leg swelling. No chest pain. Still required oxygen with ambulation per respiratory therapy. patient c/o dysuria, and urine was suspicious for UTI, started patient on ceftriaxone, today urine culture is negative for any growth however her symptoms have improved, patient is requiring oxygen, will do home oxygen evaluation before discharging patient. however patient complaints of abdominal pain had a BM yesterday, no nausea or vomiting, on 09/28 chest x-ray was concerning for mild pulmonary edema, on 09/29 patient was given IV lasix 40mg X1, patient is feeling patient is working with PT/OT patient will benefit going to rehab as she lives alone, will monitor and plan. Code Status: DNR Subjective Date/time seen: 09/30/25 14:06 Interval history: No overnight events noted. Shortness of breath with exertion. Improving. Denies any leg swelling. No chest pain. Still required oxygen with ambulation per respiratory therapy. patient c/o dysuria, and urine was suspicious for UTI, started patient on ceftriaxone, today urine culture is negative for any growth however her symptoms have improved, patient is requiring oxygen, will do home oxygen evaluation before discharging patient. however patient complaints of abdominal pain had a BM yesterday, no nausea or vomiting, on 09/28 chest x-ray was concerning for mild pulmonary edema, on 09/29 patient was given IV lasix 40mg X1, patient is feeling patient is working with PT/OT patient will benefit going to rehab as she lives alone, will monitor and plan. Review of Systems Review of Systems: All systems reviewed & are unremarkable except as noted in HPI and below Exam Narrative: Gen - NARD Chest - CTA bilaterally, nml RR CV - RRR S1/S2. Abd - Soft, NT/ND, Positive BS Ext - No pedal edema Psych - Nml mood and affect Skin - Warm and dry Objective Data Vital Signs Vital Signs: Vital Signs - 24 hr 09/29/25 19:37 09/29/25 19:40 09/29/25 19:42 Temperature Pulse Rate 84 84 Respiratory Rate 16 16 Blood Pressure Pulse Oximetry 94 Oxygen Delivery Nasal Cannula Oxygen Flow Rate 1 09/29/25 20:00 09/29/25 21:47 09/30/25 01:49 Temperature 36.3 C L Pulse Rate 86 86 Respiratory Rate 20 16 Blood Pressure 128/74 Pulse Oximetry 95 94 Oxygen Delivery Nasal Cannula Oxygen Flow Rate 1 09/30/25 01:53 09/30/25 06:00 09/30/25 07:20 Temperature 36.7 C Pulse Rate 86 85 Respiratory Rate 16 20 Blood Pressure 131/71 Pulse Oximetry 91 90 Oxygen Delivery Room Air Oxygen Flow Rate 09/30/25 07:20 09/30/25 07:32 09/30/25 10:49 Temperature Pulse Rate 85 85 85 Respiratory Rate 16 16 Blood Pressure Pulse Oximetry Oxygen Delivery Oxygen Flow Rate Intake/Output Intake/Output: Intake & Output 09/27/25 09/28/25 09/29/25 09/30/25 23:59 23:59 23:59 23:59 Intake Total 1040 109 0770 1260 Output Total 450 550 Balance 230 61 3512 1260 Meds/Results Medications: Active Medications Generic Name Dose Route Start Last Admin Trade Name Freq PRN Reason Stop Dose Admin Acetaminophen 650 mg 09/19/25 14:14 09/28/25 01:41 Acetaminophen 325 Mg Tablet PO 650 mg Q4H PRN Administration Mild Pain (1-3) or Fever Acetaminophen 1,000 mg 09/19/25 18:50 09/30/25 10:47 Acetaminophen 500 Mg Tablet PO 1,000 mg BID RAVIN Administration Albuterol/Ipratropium 3 ml 09/30/25 13:44 Ipratropium 0.5 Mg/Albuterol Sulfate 2.5 Mg (Base) Ampul.Neb 3 Ml INHALATION Q6HRT PRN Wheezing Amlodipine Besylate 10 mg 09/20/25 09:00 09/30/25 10:48 Amlodipine Besylate 5 Mg Tablet PO 10 mg DAILY RAVIN Administration Aspirin 81 mg 09/20/25 09:00 09/30/25 10:48 Aspirin 81 Mg Enteric Tablet PO 81 mg QAM RAVIN Administration Atorvastatin Calcium 20 mg 09/19/25 21:00 09/29/25 21:52 Atorvastatin 20 Mg Tablet PO 20 mg HS RAVIN Administration Bupropion HCl 150 mg 09/20/25 09:00 09/30/25 10:48 Bupropion Hcl Sr (12 Hr) 150 Mg Tab PO 150 mg DAILY RAVIN Administration Calcitriol 0.25 mcg 09/19/25 18:35 09/28/25 09:33 Calcitriol 0.25 Mcg Capsule PO 0.25 mcg [id number] RAVIN Administration Calcium Carbonate 500 mg 09/20/25 09:00 09/30/25 10:48 Calcium/Vitamin D 500 Mg/5 Mcg (200 I.U.) Tablet PO 500 mg QAM RAVIN Administration Clopidogrel Bisulfate 75 mg 09/22/25 09:00 09/30/25 10:48 Clopidogrel Bisulfate 75 Mg Tablet PO 75 mg QAM RAVIN Administration Docusate Sodium 100 mg 09/19/25 14:14 09/20/25 08:40 Docusate Sodium 100 Mg Capsule PO 100 mg BID PRN Administration Constipation Docusate Sodium 100 mg 09/30/25 21:00 Docusate Sodium 100 Mg Capsule PO Q12HR RAVIN Famotidine 20 mg 09/23/25 12:00 09/30/25 10:49 Famotidine 20 Mg Tablet PO 20 mg Q12HR RAVIN Administration Furosemide 40 mg 09/26/25 09:00 09/30/25 10:49 Furosemide 40 Mg Tablet PO 40 mg DAILY RAVIN Administration Heparin Sodium (Porcine) 5,000 units 09/25/25 21:00 09/30/25 10:49 Heparin Sodium 5,000 Units/Ml Vial SUB-Q 5,000 units Q12HR RAVIN Administration Ceftriaxone Sodium 1 gm/ 50 mls @ 100 mls/hr 09/26/25 16:00 09/29/25 17:02 Sodium Chloride IVPB 100 mls/hr Q24H RAVIN Administration Lisinopril 10 mg 09/20/25 09:00 09/30/25 10:49 Lisinopril 10 Mg Tablet PO 10 mg DAILY RAVIN Administration Lorazepam 0.5 mg 09/25/25 19:40 09/30/25 01:52 Lorazepam (*Crx) 0.5 Mg Tablet PO 0.5 mg HS PRN Administration Anxiety Metoprolol Succinate 100 mg 09/20/25 09:00 09/30/25 10:49 Metoprolol Succinate Ext Rel 100 Mg Tabcr PO 100 mg DAILY RAVIN Administration Nitroglycerin 0.4 mg 09/19/25 14:14 Nitroglycerin Sl 0.4 Mg Tablet SUBLINGUAL Q5M PRN Chest Pain Ondansetron HCl 4 mg 09/19/25 14:14 09/29/25 00:23 Ondansetron Inj 4 Mg/2 Ml Vial IV PUSH 4 mg Q6H PRN Administration Nausea And Vomiting Potassium Chloride 10 meq 09/20/25 09:00 09/30/25 10:50 Potassium Chloride 10 Meq Er Tablet PO 10 meq DAILY RAVIN Administration Sodium Bicarbonate 650 mg 09/20/25 12:30 09/30/25 13:59 Sodium Bicarbonate Tab 650 Mg Tablet PO 650 mg 1230,1730 RAVIN Administration Radiology Results: ITS Impressions Head CT 09/19/25 14:28 Impression: 1.No acute intracranial abnormality. Venous Doppler Study 09/19/25 15:27 Impression: Limited study. Negative for DVT. Pulmonary Perfusion Imaging 09/24/25 15:50 IMPRESSION: 1. Nondiagnostic (low or intermediate probability) with bilateral posterior left lower lung perfusion defects which correspond in size, location and configuration to small to moderate-sized bilateral pleural effusions. Chest CT 09/24/25 16:25 IMPRESSION: 1. Small to moderate-sized bilateral posterior layering pleural effusions with minimal pulmonary edema in the right lung and compensatory dependent and basilar atelectasis in both lungs. 2. Moderate to large sliding-type hiatal hernia. 3. Nonobstructing left nephrolithiasis. Chest X-Ray 09/28/25 07:30 IMPRESSION: 1. Mild worsening interstitial pulmonary edema and pleural effusions. Labs Labs: Laboratory Results - last 24 hr 09/30/25 04:40 WBC 6.1 RBC 3.35 L Hgb 10.4 L Hct 31.7 L MCV 94.6 MCH 31.0 MCHC 32.8 RDW 14.5 Plt Count 230 MPV 9.1 Sodium 140 Potassium 3.7 Chloride 109 H Carbon Dioxide 26 Anion Gap 5 BUN 21 H D Creatinine 1.87 H Estim Creat Clear Calc Not Reportable Estimated GFR 25 L Glucose 89 Calcium 8.5 Magnesium 1.6 Quality VTE Prophylaxis VTE prophylaxis: pharmacologic ordered
[2025-09-30] MEDS: cefTRIAXone 1 GM in SODIUM CHLORIDE 0.9% IV 50 ML 100 ML IVPB (17:43)
[2025-09-30] MEDS: DOCUSATE SODIUM 100 MG CAPSULE PO (21:27)
[2025-09-30] MEDS: ATORVASTATIN 20 MG TABLET PO (21:27)
[2025-10-01 05:16] LABS: Hematocrit 31.2 % (37.0-47.0); Hemoglobin 10.2 g/dL (12.0-15.0); Mean Corpuscular HGB Conc 32.7 g/dl (32-36); Mean Corpuscular Hemoglobin 30.8 pg (26-34); Mean Corpuscular Volume 94.3 fl (80-100); Platelet Count Result 221 k/mm3 (150-375); Red Blood Count 3.31 M/mm3 (4.2-5.4); White Blood Count 6.2 K/mm3 (4.5-10.0)
[2025-10-01 05:42] LABS: Anion Gap 6 mmol/L (4-12); Blood Urea Nitrogen 21 mg/dL (7-17); Calcium 8.2 mg/dL (8.4-10.2); Carbon Dioxide 25 mmol/L (22-30); Chloride 108 mmol/L (98-107); Estimated Glomerular Filt Rate 25; Glucose 86 mg/dL (65-110); Magnesium 1.6 mg/dL (1.6-2.3); Potassium 3.5 mmol/L (3.4-5.0); Sodium 139 mmol/L (137-145)
[2025-10-01 06:00] VITALS: BP 119/66; PULSE 85; RESP 20; TEMP 36.4; O2SAT 96
[2025-10-01] MEDS: ACETAMINOPHEN 500 MG TABLET 1000 MG PO ×2 (10:16→18:23)
[2025-10-01] MEDS: POTASSIUM CHLORIDE 10 MEQ ER TABLET PO (10:17)
[2025-10-01] MEDS: buPROPion HCL SR (12 HR) 150 MG TAB PO (10:17)
[2025-10-01] MEDS: ASPIRIN 81 MG ENTERIC TABLET PO (10:17)
[2025-10-01] MEDS: CALCIUM/VITAMIN D 500 MG/5 MCG (200 I.U.) TABLET PO (10:17)
[2025-10-01] MEDS: CLOPIDOGREL BISULFATE 75 MG TABLET PO (10:18)
[2025-10-01] MEDS: FUROSEMIDE 40 MG TABLET PO (10:18)
[2025-10-01] MEDS: FAMOTIDINE 20 MG TABLET PO ×2 (10:18→21:23)
[2025-10-01] MEDS: DOCUSATE SODIUM 100 MG CAPSULE PO ×2 (10:18→21:23)
[2025-10-01 10:19] VITALS: PULSE 81
[2025-10-01] MEDS: METOPROLOL SUCCINATE EXT REL 100 MG TABCR PO (10:19)
[2025-10-01 14:00] VITALS: BP 114/63; PULSE 73; RESP 14; TEMP 36.4; O2SAT 94; O2SAT 98
[2025-10-01 14:05] VITALS: O2SAT 88
[2025-10-01 14:15] VITALS: O2SAT 95
--- NOTE | 2025-10-01 14:31 | HOMEO2EVAL ---
Evaluation was performed at [facility] Home Oxygen Evaluation RC: Home Oxygen (O2) Evaluation Start: 10/01/25 11:27 Freq: ONCE Status: Active Protocol: RPE Activity Type Activity Date Activity User E-sign Co-sign Detail Recorded Client Recorded Date Recorded By Document 10/01/25 14:00 CARLOS ALBERTO [email or web address] 10/01/25 14:31 CARLOS ALBERTO Document 10/01/25 14:05 CARLOS ALBERTO [id number] 10/01/25 14:31 CARLOS ALBERTO Document 10/01/25 14:15 CARLOS ALBERTO [email or web address] 10/01/25 14:31 CARLOS ALBERTO 10/01/25 10/01/25 10/01/25 14:00 14:05 14:15 Home O2 Evaluation [Oxygen] -Test Phase Resting Exercise Resting -Oxygen Delivery Room Air Room Air Room Air [Pulse Oximetry] -Pulse Oximetry (90-100 %) 94 88 L 95 [Comments] -Home Oxygen Evaluation Comments Walked with [Charges] -Evaluation Charges O2 Evaluation by Pulmonary
--- NOTE | 2025-10-01 14:32 | PCRCNOTE ---
Walked with reps from [employer] on room air, sats dropped into upper 80s with quick recovery without supplemental O2
[2025-10-01] MEDS: SODIUM BICARBONATE TAB 650 MG TABLET PO ×2 (15:21→18:23)
--- NOTE | 2025-10-01 15:23 | PM.IMPN2 ---
Assessment and Plan Assessment and Plan (1) Acute non-ST elevation myocardial infarction (NSTEMI): Code(s): I21.4 - Non-ST elevation (NSTEMI) myocardial infarction Status: Acute Assessment and Plan: Patient presents with midsternal nonradiating chest pain that woke her from her sleep that was relieved with 1 sublingual nitro. CXR showed borderline heart size with mild pulmonary edema Troponin 1.11 -> 1.88 EKG showing sinus tachycardia possible left atrial enlargement nonspecific ST and T-wave changes. Repeat EKG showing similar findings Left LE Venous Doppler negative for DVT. Head CT showing no acute findings. ASA 324mg on admission and now on 81mg daily Heparin gtt started Cardiology consulted. Known history of coronary artery disease status post RCA stenting in 1998. Recommends conservative management given her advanced age renal failure in DNR status Echo pending Continue on atorvastatin dose adjusted. Added on Plavix LHC deferred (2) Pulmonary edema: Qualifiers: Chronicity: acute Qualified Code(s): J81.0 - Acute pulmonary edema Code(s): J81.1 - Chronic pulmonary edema Status: Acute Assessment and Plan: CXR showing mild pulmonary edema. No complaint of SOB. No previously known history of CHF. No previous echo on file. She received Lasix 40 mg IV x 1 Echo ordered Monitor I&Os, daily weights and renal function Reported shortness of breath overnight 09/23/2025 Chest x-ray with right-sided rib fractures acute CT chest with old healed rib fracture. Findings of pulmonary edema with small to moderate-sized bilateral pleural effusion noted. V/Q scan nondiagnostic with bilateral lower lung perfusion defects which corresponds to small to moderate-sized bilateral pleural effusions. Will reorder Lasix 40 mg IV x1 and switch to oral Lasix in a.m. (3) Chronic kidney disease, stage 4 (severe): Code(s): N18.4 - Chronic kidney disease, stage 4 (severe) Status: Chronic Assessment and Plan: Patient has a hx of CKD with baseline Cr 1.9-2.3 range. Creatinine 2.04, BUN 23, GFR 23 upon admission on 09/19. Cr stable. No acidosis or hyperkalemia Follow renal function, UOP and electrolytes Creatinine remains stable, with diuresis continue to monitor (4) Essential hypertension: Code(s): I10 - Essential (primary) hypertension Status: Chronic Assessment and Plan: Blood pressure remains well controlled. Will continue to monitor (5) Hyperlipidemia: Qualifiers: Hyperlipidemia type: unspecified Qualified Code(s): E78.5 - Hyperlipidemia, unspecified Code(s): E78.5 - Hyperlipidemia, unspecified Status: Chronic Assessment and Plan: LFTs normal. Continue Atorvastatin Plan No overnight events noted. Shortness of breath with exertion. Improving. Denies any leg swelling. No chest pain. Still required oxygen with ambulation per respiratory therapy. patient c/o dysuria, and urine was suspicious for UTI, started patient on ceftriaxone, today urine culture is negative for any growth however her symptoms have improved, patient is requiring oxygen, will do home oxygen evaluation before discharging patient. however patient complaints of abdominal pain had a BM yesterday, no nausea or vomiting, on 09/28 chest x-ray was concerning for mild pulmonary edema, on 09/29 patient was given IV lasix 40mg X1, patient is feeling patient is working with PT/OT patient will benefit going to rehab as she lives alone, will monitor and plan. today patient is eating her breakfast, has no new complaints, will participate in PT/OT, may discharge patient to rehab. Code Status: DNR Subjective Date/time seen: 10/01/25 15:23 Interval history: No overnight events noted. Shortness of breath with exertion. Improving. Denies any leg swelling. No chest pain. Still required oxygen with ambulation per respiratory therapy. patient c/o dysuria, and urine was suspicious for UTI, started patient on ceftriaxone, today urine culture is negative for any growth however her symptoms have improved, patient is requiring oxygen, will do home oxygen evaluation before discharging patient. however patient complaints of abdominal pain had a BM yesterday, no nausea or vomiting, on 09/28 chest x-ray was concerning for mild pulmonary edema, on 09/29 patient was given IV lasix 40mg X1, patient is feeling patient is working with PT/OT patient will benefit going to rehab as she lives alone, will monitor and plan. today patient is eating her breakfast, has no new complaints, will participate in PT/OT, may discharge patient to rehab. Review of Systems Review of Systems: All systems reviewed & are unremarkable except as noted in HPI and below Exam Narrative: Gen - NARD Chest - CTA bilaterally, nml RR CV - RRR S1/S2. Abd - Soft, NT/ND, Positive BS Ext - No pedal edema Psych - Nml mood and affect Skin - Warm and dry Objective Data Vital Signs Vital Signs: Vital Signs - 24 hr 09/30/25 21:00 09/30/25 22:00 10/01/25 06:00 Temperature 36.6 C 36.4 C L Pulse Rate 82 85 Respiratory Rate 20 20 Blood Pressure 119/57 L 119/66 Pulse Oximetry 100 94 96 Oxygen Delivery Nasal Cannula Oxygen Flow Rate 1 10/01/25 10:19 10/01/25 14:00 10/01/25 14:00 Temperature 36.4 C L Pulse Rate 81 73 Respiratory Rate 14 Blood Pressure 114/63 Pulse Oximetry 94 98 Oxygen Delivery Room Air Oxygen Flow Rate 10/01/25 14:05 10/01/25 14:15 Temperature Pulse Rate Respiratory Rate Blood Pressure Pulse Oximetry 88 L 95 Oxygen Delivery Room Air Room Air Oxygen Flow Rate Intake/Output Intake/Output: Intake & Output 09/28/25 09/29/25 09/30/25 10/01/25 23:59 23:59 23:59 23:59 Intake Total 560 2990 2740 540 Output Total 550 100 Balance 10 2990 2740 440 Meds/Results Medications: Active Medications Generic Name Dose Route Start Last Admin Trade Name Freq PRN Reason Stop Dose Admin Acetaminophen 650 mg 09/19/25 14:14 09/28/25 01:41 Acetaminophen 325 Mg Tablet PO 650 mg Q4H PRN Administration Mild Pain (1-3) or Fever Acetaminophen 1,000 mg 09/19/25 18:50 10/01/25 10:16 Acetaminophen 500 Mg Tablet PO 1,000 mg BID RAVIN Administration Albuterol/Ipratropium 3 ml 09/30/25 13:44 Ipratropium 0.5 Mg/Albuterol Sulfate 2.5 Mg (Base) Ampul.Neb 3 Ml INHALATION Q6HRT PRN Wheezing Amlodipine Besylate 10 mg 09/20/25 09:00 10/01/25 10:16 Amlodipine Besylate 5 Mg Tablet PO 10 mg DAILY RAVIN Administration Aspirin 81 mg 09/20/25 09:00 10/01/25 10:17 Aspirin 81 Mg Enteric Tablet PO 81 mg QAM RAVIN Administration Atorvastatin Calcium 20 mg 09/19/25 21:00 09/30/25 21:27 Atorvastatin 20 Mg Tablet PO 20 mg HS RAVIN Administration Bupropion HCl 150 mg 09/20/25 09:00 10/01/25 10:17 Bupropion Hcl Sr (12 Hr) 150 Mg Tab PO 150 mg DAILY RAVIN Administration Calcitriol 0.25 mcg 09/19/25 18:35 10/01/25 10:59 Calcitriol 0.25 Mcg Capsule PO 0.25 mcg [id number] RAVIN Administration Calcium Carbonate 500 mg 09/20/25 09:00 10/01/25 10:17 Calcium/Vitamin D 500 Mg/5 Mcg (200 I.U.) Tablet PO 500 mg QAM RAVIN Administration Clopidogrel Bisulfate 75 mg 09/22/25 09:00 10/01/25 10:18 Clopidogrel Bisulfate 75 Mg Tablet PO 75 mg QAM RAVIN Administration Docusate Sodium 100 mg 09/19/25 14:14 09/20/25 08:40 Docusate Sodium 100 Mg Capsule PO 100 mg BID PRN Administration Constipation Docusate Sodium 100 mg 09/30/25 21:00 10/01/25 10:18 Docusate Sodium 100 Mg Capsule PO 100 mg Q12HR RAVIN Administration Famotidine 20 mg 09/23/25 12:00 10/01/25 10:18 Famotidine 20 Mg Tablet PO 20 mg Q12HR RAVIN Administration Furosemide 40 mg 09/26/25 09:00 10/01/25 10:18 Furosemide 40 Mg Tablet PO 40 mg DAILY RAVIN Administration Heparin Sodium (Porcine) 5,000 units 09/25/25 21:00 10/01/25 10:18 Heparin Sodium 5,000 Units/Ml Vial SUB-Q 5,000 units Q12HR RAVIN Administration Lisinopril 10 mg 09/20/25 09:00 10/01/25 10:17 Lisinopril 10 Mg Tablet PO 10 mg DAILY RAVIN Administration Lorazepam 0.5 mg 09/25/25 19:40 09/30/25 21:27 Lorazepam (*Crx) 0.5 Mg Tablet PO 0.5 mg HS PRN Administration Anxiety Metoprolol Succinate 100 mg 09/20/25 09:00 10/01/25 10:19 Metoprolol Succinate Ext Rel 100 Mg Tabcr PO 100 mg DAILY RAVIN Administration Nitroglycerin 0.4 mg 09/19/25 14:14 Nitroglycerin Sl 0.4 Mg Tablet SUBLINGUAL Q5M PRN Chest Pain Ondansetron HCl 4 mg 09/19/25 14:14 09/29/25 00:23 Ondansetron Inj 4 Mg/2 Ml Vial IV PUSH 4 mg Q6H PRN Administration Nausea And Vomiting Potassium Chloride 10 meq 09/20/25 09:00 10/01/25 10:17 Potassium Chloride 10 Meq Er Tablet PO 10 meq DAILY RAVIN Administration Sodium Bicarbonate 650 mg 09/20/25 12:30 10/01/25 15:21 Sodium Bicarbonate Tab 650 Mg Tablet PO 650 mg 1230,1730 RAVIN Administration Radiology Results: ITS Impressions Head CT 09/19/25 14:28 Impression: 1.No acute intracranial abnormality. Venous Doppler Study 09/19/25 15:27 Impression: Limited study. Negative for DVT. Pulmonary Perfusion Imaging 09/24/25 15:50 IMPRESSION: 1. Nondiagnostic (low or intermediate probability) with bilateral posterior left lower lung perfusion defects which correspond in size, location and configuration to small to moderate-sized bilateral pleural effusions. Chest CT 09/24/25 16:25 IMPRESSION: 1. Small to moderate-sized bilateral posterior layering pleural effusions with minimal pulmonary edema in the right lung and compensatory dependent and basilar atelectasis in both lungs. 2. Moderate to large sliding-type hiatal hernia. 3. Nonobstructing left nephrolithiasis. Chest X-Ray 09/28/25 07:30 IMPRESSION: 1. Mild worsening interstitial pulmonary edema and pleural effusions. Labs Labs: Laboratory Results - last 24 hr 10/01/25 04:35 WBC 6.2 RBC 3.31 L Hgb 10.2 L Hct 31.2 L MCV 94.3 MCH 30.8 MCHC 32.7 RDW 14.5 Plt Count 221 MPV 9.1 Sodium 139 Potassium 3.5 Chloride 108 H Carbon Dioxide 25 Anion Gap 6 BUN 21 H Creatinine 1.91 H Estim Creat Clear Calc Not Reportable Estimated GFR 25 L Glucose 86 Calcium 8.2 L Magnesium 1.6 Quality VTE Prophylaxis VTE prophylaxis: pharmacologic ordered
[2025-10-01 20:57] VITALS: BP 124/66; PULSE 74; RESP 20; TEMP 36.4; O2SAT 91
[2025-10-01] MEDS: ACETAMINOPHEN 325 MG TABLET 650 MG PO (21:22)
[2025-10-01] MEDS: ATORVASTATIN 20 MG TABLET PO (21:23)
[2025-10-01] MEDS: LORazepam (*CRX) 0.5 MG TABLET PO (21:23)
[2025-10-02] VITALS (9 sets, daily range): BP systolic 116–188; BP diastolic 63–75; PULSE 70–83; RESP 18–20; TEMP 36.1–36.4; O2SAT 90–100
[2025-10-02 05:13] LABS: Hematocrit 31.9 % (37.0-47.0); Hemoglobin 10.5 g/dL (12.0-15.0); Mean Corpuscular HGB Conc 32.9 g/dl (32-36); Mean Corpuscular Hemoglobin 31.2 pg (26-34); Mean Corpuscular Volume 94.7 fl (80-100); Platelet Count Result 217 k/mm3 (150-375); Red Blood Count 3.37 M/mm3 (4.2-5.4); White Blood Count 5.8 K/mm3 (4.5-10.0)
[2025-10-02 05:46] LABS: Anion Gap 6 mmol/L (4-12); Blood Urea Nitrogen 23 mg/dL (7-17); Calcium 8.3 mg/dL (8.4-10.2); Carbon Dioxide 24 mmol/L (22-30); Chloride 109 mmol/L (98-107); Estimated Glomerular Filt Rate 27; Glucose 92 mg/dL (65-110); Magnesium 1.7 mg/dL (1.6-2.3); Potassium 3.5 mmol/L (3.4-5.0); Sodium 139 mmol/L (137-145)
[2025-10-02] MEDS: METOPROLOL SUCCINATE EXT REL 100 MG TABCR PO (09:14)
[2025-10-02] MEDS: CALCIUM/VITAMIN D 500 MG/5 MCG (200 I.U.) TABLET PO (09:15)
[2025-10-02] MEDS: POTASSIUM CHLORIDE 20 MEQ PACKET (FOR LIQUID) 40 MEQ PO (09:15)
[2025-10-02] MEDS: buPROPion HCL SR (12 HR) 150 MG TAB PO (09:15)
[2025-10-02] MEDS: POTASSIUM CHLORIDE 10 MEQ ER TABLET PO (09:15)
[2025-10-02] MEDS: FUROSEMIDE 40 MG TABLET PO (09:15)
[2025-10-02] MEDS: CLOPIDOGREL BISULFATE 75 MG TABLET PO (09:15)
[2025-10-02] MEDS: ACETAMINOPHEN 500 MG TABLET 1000 MG PO ×2 (09:15→17:17)
[2025-10-02] MEDS: FAMOTIDINE 20 MG TABLET PO ×2 (09:15→21:45)
[2025-10-02] MEDS: ASPIRIN 81 MG ENTERIC TABLET PO (09:15)
[2025-10-02] MEDS: MAGNESIUM OXIDE 400 MG TABLET PO (09:15)
[2025-10-02] MEDS: DOCUSATE SODIUM 100 MG CAPSULE PO (09:15)
--- NOTE | 2025-10-02 15:01 | PM.IMPN2 ---
Assessment and Plan Assessment and Plan (1) Acute non-ST elevation myocardial infarction (NSTEMI): Code(s): I21.4 - Non-ST elevation (NSTEMI) myocardial infarction Status: Acute Assessment and Plan: Patient presents with midsternal nonradiating chest pain that woke her from her sleep that was relieved with 1 sublingual nitro. CXR showed borderline heart size with mild pulmonary edema Troponin 1.11 -> 1.88 EKG showing sinus tachycardia possible left atrial enlargement nonspecific ST and T-wave changes. Repeat EKG showing similar findings Left LE Venous Doppler negative for DVT. Head CT showing no acute findings. ASA 324mg on admission and now on 81mg daily Heparin gtt started Cardiology consulted. Known history of coronary artery disease status post RCA stenting in 1998. Recommends conservative management given her advanced age renal failure in DNR status Echo pending Continue on atorvastatin dose adjusted. Added on Plavix LHC deferred (2) Pulmonary edema: Qualifiers: Chronicity: acute Qualified Code(s): J81.0 - Acute pulmonary edema Code(s): J81.1 - Chronic pulmonary edema Status: Acute Assessment and Plan: CXR showing mild pulmonary edema. No complaint of SOB. No previously known history of CHF. No previous echo on file. She received Lasix 40 mg IV x 1 Echo ordered Monitor I&Os, daily weights and renal function Reported shortness of breath overnight 09/23/2025 Chest x-ray with right-sided rib fractures acute CT chest with old healed rib fracture. Findings of pulmonary edema with small to moderate-sized bilateral pleural effusion noted. V/Q scan nondiagnostic with bilateral lower lung perfusion defects which corresponds to small to moderate-sized bilateral pleural effusions. Will reorder Lasix 40 mg IV x1 and switch to oral Lasix in a.m. (3) Chronic kidney disease, stage 4 (severe): Code(s): N18.4 - Chronic kidney disease, stage 4 (severe) Status: Chronic Assessment and Plan: Patient has a hx of CKD with baseline Cr 1.9-2.3 range. Creatinine 2.04, BUN 23, GFR 23 upon admission on 09/19. Cr stable. No acidosis or hyperkalemia Follow renal function, UOP and electrolytes Creatinine remains stable, with diuresis continue to monitor (4) Essential hypertension: Code(s): I10 - Essential (primary) hypertension Status: Chronic Assessment and Plan: Blood pressure remains well controlled. Will continue to monitor (5) Hyperlipidemia: Qualifiers: Hyperlipidemia type: unspecified Qualified Code(s): E78.5 - Hyperlipidemia, unspecified Code(s): E78.5 - Hyperlipidemia, unspecified Status: Chronic Assessment and Plan: LFTs normal. Continue Atorvastatin Plan No overnight events noted. Shortness of breath with exertion. Improving. Denies any leg swelling. No chest pain. Still required oxygen with ambulation per respiratory therapy. patient c/o dysuria, and urine was suspicious for UTI, started patient on ceftriaxone, today urine culture is negative for any growth however her symptoms have improved, patient is requiring oxygen, will do home oxygen evaluation before discharging patient. however patient complaints of abdominal pain had a BM yesterday, no nausea or vomiting, on 09/28 chest x-ray was concerning for mild pulmonary edema, on 09/29 patient was given IV lasix 40mg X1, patient is feeling patient is working with PT/OT patient will benefit going to rehab as she lives alone, will monitor and plan. today patient is eating her breakfast, has no new complaints, will participate in PT/OT, may discharge patient to rehab. patient remains clinically stable, waiting for a placement, will monitor. Code Status: DNR Subjective Date/time seen: 10/02/25 15:01 Interval history: No overnight events noted. Shortness of breath with exertion. Improving. Denies any leg swelling. No chest pain. Still required oxygen with ambulation per respiratory therapy. patient c/o dysuria, and urine was suspicious for UTI, started patient on ceftriaxone, today urine culture is negative for any growth however her symptoms have improved, patient is requiring oxygen, will do home oxygen evaluation before discharging patient. however patient complaints of abdominal pain had a BM yesterday, no nausea or vomiting, on 09/28 chest x-ray was concerning for mild pulmonary edema, on 09/29 patient was given IV lasix 40mg X1, patient is feeling patient is working with PT/OT patient will benefit going to rehab as she lives alone, will monitor and plan. today patient is eating her breakfast, has no new complaints, will participate in PT/OT, may discharge patient to rehab. patient remains clinically stable, waiting for a placement, will monitor. Review of Systems Review of Systems: All systems reviewed & are unremarkable except as noted in HPI and below Exam Narrative: Gen - NARD Chest - CTA bilaterally, nml RR CV - RRR S1/S2. Abd - Soft, NT/ND, Positive BS Ext - No pedal edema Psych - Nml mood and affect Skin - Warm and dry Objective Data Vital Signs Vital Signs: Vital Signs - 24 hr 10/01/25 20:57 10/01/25 21:28 10/02/25 05:23 Temperature 36.4 C 36.4 C Pulse Rate 74 83 Respiratory Rate 20 18 Blood Pressure 124/66 126/75 Pulse Oximetry 91 90 Oxygen Delivery Room Air Oxygen Flow Rate 10/02/25 09:12 10/02/25 09:14 10/02/25 09:20 Temperature Pulse Rate 80 80 Respiratory Rate Blood Pressure 127/69 Pulse Oximetry 98 98 Oxygen Delivery Nasal Cannula Oxygen Flow Rate 2 10/02/25 13:45 Temperature Pulse Rate Respiratory Rate Blood Pressure Pulse Oximetry 97 Oxygen Delivery Nasal Cannula Oxygen Flow Rate 2 Intake/Output Intake/Output: Intake & Output 09/29/25 09/30/25 10/01/25 10/02/25 23:59 23:59 23:59 23:59 Intake Total 2990 2740 1530 240 Output Total 100 100 Balance 2990 2740 1430 140 Meds/Results Medications: Active Medications Generic Name Dose Route Start Last Admin Trade Name Jesúsq PRN Reason Stop Dose Admin Acetaminophen 650 mg 09/19/25 14:14 10/01/25 21:22 Acetaminophen 325 Mg Tablet PO 650 mg Q4H PRN Administration Mild Pain (1-3) or Fever Acetaminophen 1,000 mg 09/19/25 18:50 10/02/25 09:15 Acetaminophen 500 Mg Tablet PO 1,000 mg BID RAVIN Administration Albuterol/Ipratropium 3 ml 09/30/25 13:44 Ipratropium 0.5 Mg/Albuterol Sulfate 2.5 Mg (Base) Ampul.Neb 3 Ml INHALATION Q6HRT PRN Wheezing Amlodipine Besylate 10 mg 09/20/25 09:00 10/02/25 09:15 Amlodipine Besylate 5 Mg Tablet PO 10 mg DAILY RAVIN Administration Aspirin 81 mg 09/20/25 09:00 10/02/25 09:15 Aspirin 81 Mg Enteric Tablet PO 81 mg QAM RAVIN Administration Atorvastatin Calcium 20 mg 09/19/25 21:00 10/01/25 21:23 Atorvastatin 20 Mg Tablet PO 20 mg HS RAVIN Administration Bupropion HCl 150 mg 09/20/25 09:00 10/02/25 09:15 Bupropion Hcl Sr (12 Hr) 150 Mg Tab PO 150 mg DAILY RAVIN Administration Calcitriol 0.25 mcg 09/19/25 18:35 10/01/25 10:59 Calcitriol 0.25 Mcg Capsule PO 0.25 mcg [id number] RAVIN Administration Calcium Carbonate 500 mg 09/20/25 09:00 10/02/25 09:15 Calcium/Vitamin D 500 Mg/5 Mcg (200 I.U.) Tablet PO 500 mg QAM RAVIN Administration Clopidogrel Bisulfate 75 mg 09/22/25 09:00 10/02/25 09:15 Clopidogrel Bisulfate 75 Mg Tablet PO 75 mg QAM RAVIN Administration Docusate Sodium 100 mg 09/19/25 14:14 09/20/25 08:40 Docusate Sodium 100 Mg Capsule PO 100 mg BID PRN Administration Constipation Docusate Sodium 100 mg 09/30/25 21:00 10/02/25 09:15 Docusate Sodium 100 Mg Capsule PO 100 mg Q12HR RAVIN Administration Famotidine 20 mg 09/23/25 12:00 10/02/25 09:15 Famotidine 20 Mg Tablet PO 20 mg Q12HR RAVIN Administration Furosemide 40 mg 09/26/25 09:00 10/02/25 09:15 Furosemide 40 Mg Tablet PO 40 mg DAILY RAVIN Administration Heparin Sodium (Porcine) 5,000 units 09/25/25 21:00 10/02/25 09:15 Heparin Sodium 5,000 Units/Ml Vial SUB-Q 5,000 units Q12HR RAVIN Administration Lisinopril 10 mg 09/20/25 09:00 10/02/25 09:15 Lisinopril 10 Mg Tablet PO 10 mg DAILY RAVIN Administration Lorazepam 0.5 mg 09/25/25 19:40 10/01/25 21:23 Lorazepam (*Crx) 0.5 Mg Tablet PO 0.5 mg HS PRN Administration Anxiety Magnesium Oxide 400 mg 10/02/25 09:00 10/02/25 09:15 Magnesium Oxide 400 Mg Tablet PO 400 mg QAM RAVIN Administration Metoprolol Succinate 100 mg 09/20/25 09:00 10/02/25 09:14 Metoprolol Succinate Ext Rel 100 Mg Tabcr PO 100 mg DAILY RAVIN Administration Nitroglycerin 0.4 mg 09/19/25 14:14 Nitroglycerin Sl 0.4 Mg Tablet SUBLINGUAL Q5M PRN Chest Pain Ondansetron HCl 4 mg 09/19/25 14:14 09/29/25 00:23 Ondansetron Inj 4 Mg/2 Ml Vial IV PUSH 4 mg Q6H PRN Administration Nausea And Vomiting Potassium Chloride 10 meq 09/20/25 09:00 10/02/25 09:15 Potassium Chloride 10 Meq Er Tablet PO 10 meq DAILY RAVIN Administration Sodium Bicarbonate 650 mg 09/20/25 12:30 10/02/25 13:25 Sodium Bicarbonate Tab 650 Mg Tablet PO Not Given 1230,1730 [facility] Radiology Results: ITS Impressions Head CT 09/19/25 14:28 Impression: 1.No acute intracranial abnormality. Venous Doppler Study 09/19/25 15:27 Impression: Limited study. Negative for DVT. Pulmonary Perfusion Imaging 09/24/25 15:50 IMPRESSION: 1. Nondiagnostic (low or intermediate probability) with bilateral posterior left lower lung perfusion defects which correspond in size, location and configuration to small to moderate-sized bilateral pleural effusions. Chest CT 09/24/25 16:25 IMPRESSION: 1. Small to moderate-sized bilateral posterior layering pleural effusions with minimal pulmonary edema in the right lung and compensatory dependent and basilar atelectasis in both lungs. 2. Moderate to large sliding-type hiatal hernia. 3. Nonobstructing left nephrolithiasis. Chest X-Ray 09/28/25 07:30 IMPRESSION: 1. Mild worsening interstitial pulmonary edema and pleural effusions. Labs Labs: Laboratory Results - last 24 hr 10/02/25 04:39 WBC 5.8 RBC 3.37 L Hgb 10.5 L Hct 31.9 L MCV 94.7 MCH 31.2 MCHC 32.9 RDW 14.6 H Plt Count 217 MPV 9.2 Sodium 139 Potassium 3.5 Chloride 109 H Carbon Dioxide 24 Anion Gap 6 BUN 23 H Creatinine 1.76 H Estim Creat Clear Calc Not Reportable Estimated GFR 27 L Glucose 92 Calcium 8.3 L Magnesium 1.7 Quality VTE Prophylaxis VTE prophylaxis: pharmacologic ordered
[2025-10-02] MEDS: SODIUM BICARBONATE TAB 650 MG TABLET PO (17:17)
[2025-10-02] MEDS: ATORVASTATIN 20 MG TABLET PO (21:45)
[2025-10-02] MEDS: LORazepam (*CRX) 0.5 MG TABLET PO (21:45)
[2025-10-03 04:13] VITALS: BP 106/64; PULSE 87; RESP 18; TEMP 36.1; O2SAT 98
[2025-10-03 06:12] LABS: Hematocrit 31.9 % (37.0-47.0); Hemoglobin 10.4 g/dL (12.0-15.0); Mean Corpuscular HGB Conc 32.6 g/dl (32-36); Mean Corpuscular Hemoglobin 31.1 pg (26-34); Mean Corpuscular Volume 95.5 fl (80-100); Platelet Count Result 220 k/mm3 (150-375); Red Blood Count 3.34 M/mm3 (4.2-5.4); White Blood Count 8.4 K/mm3 (4.5-10.0)
[2025-10-03 06:32] LABS: Anion Gap 6 mmol/L (4-12); Blood Urea Nitrogen 23 mg/dL (7-17); Calcium 8.5 mg/dL (8.4-10.2); Carbon Dioxide 23 mmol/L (22-30); Chloride 110 mmol/L (98-107); Estimated Glomerular Filt Rate 25; Glucose 79 mg/dL (65-110); Magnesium 1.9 mg/dL (1.6-2.3); Potassium 3.9 mmol/L (3.4-5.0); Sodium 139 mmol/L (137-145)
[2025-10-03 07:53] VITALS: O2SAT 91
[2025-10-03 08:00] VITALS: O2SAT 93
[2025-10-03] MEDS: POTASSIUM CHLORIDE 10 MEQ ER TABLET PO (09:35)
[2025-10-03] MEDS: CLOPIDOGREL BISULFATE 75 MG TABLET PO (09:35)
[2025-10-03] MEDS: CALCIUM/VITAMIN D 500 MG/5 MCG (200 I.U.) TABLET PO (09:35)
[2025-10-03] MEDS: buPROPion HCL SR (12 HR) 150 MG TAB PO (09:36)
[2025-10-03] MEDS: MAGNESIUM OXIDE 400 MG TABLET PO (09:36)
[2025-10-03] MEDS: METOPROLOL SUCCINATE EXT REL 100 MG TABCR PO (09:36)
[2025-10-03] MEDS: ACETAMINOPHEN 500 MG TABLET 1000 MG PO ×2 (09:36→17:12)
[2025-10-03] MEDS: FAMOTIDINE 20 MG TABLET PO ×2 (09:37→21:33)
[2025-10-03] MEDS: FUROSEMIDE 40 MG TABLET PO (09:37)
[2025-10-03] MEDS: ASPIRIN 81 MG ENTERIC TABLET PO (09:38)
[2025-10-03] MEDS: DOCUSATE SODIUM 100 MG CAPSULE PO ×2 (09:38→21:32)
[2025-10-03] MEDS: SODIUM BICARBONATE TAB 650 MG TABLET PO ×2 (12:38→17:12)
[2025-10-03 14:00] VITALS: BP 138/76; PULSE 96; RESP 18; TEMP 35.9; O2SAT 99
--- NOTE | 2025-10-03 16:15 | PM.IMPN2 ---
Assessment and Plan Assessment and Plan (1) Acute non-ST elevation myocardial infarction (NSTEMI): Code(s): I21.4 - Non-ST elevation (NSTEMI) myocardial infarction Status: Acute Assessment and Plan: Patient presents with midsternal nonradiating chest pain that woke her from her sleep that was relieved with 1 sublingual nitro. CXR showed borderline heart size with mild pulmonary edema Troponin 1.11 -> 1.88 EKG showing sinus tachycardia possible left atrial enlargement nonspecific ST and T-wave changes. Repeat EKG showing similar findings Left LE Venous Doppler negative for DVT. Head CT showing no acute findings. ASA 324mg on admission and now on 81mg daily Heparin gtt started Cardiology consulted. Known history of coronary artery disease status post RCA stenting in 1998. Recommends conservative management given her advanced age renal failure in DNR status Echo pending Continue on atorvastatin dose adjusted. Added on Plavix LHC deferred (2) Pulmonary edema: Qualifiers: Chronicity: acute Qualified Code(s): J81.0 - Acute pulmonary edema Code(s): J81.1 - Chronic pulmonary edema Status: Acute Assessment and Plan: CXR showing mild pulmonary edema. No complaint of SOB. No previously known history of CHF. No previous echo on file. She received Lasix 40 mg IV x 1 Echo ordered Monitor I&Os, daily weights and renal function Reported shortness of breath overnight 09/23/2025 Chest x-ray with right-sided rib fractures acute CT chest with old healed rib fracture. Findings of pulmonary edema with small to moderate-sized bilateral pleural effusion noted. V/Q scan nondiagnostic with bilateral lower lung perfusion defects which corresponds to small to moderate-sized bilateral pleural effusions. Will reorder Lasix 40 mg IV x1 and switch to oral Lasix in a.m. (3) Chronic kidney disease, stage 4 (severe): Code(s): N18.4 - Chronic kidney disease, stage 4 (severe) Status: Chronic Assessment and Plan: Patient has a hx of CKD with baseline Cr 1.9-2.3 range. Creatinine 2.04, BUN 23, GFR 23 upon admission on 09/19. Cr stable. No acidosis or hyperkalemia Follow renal function, UOP and electrolytes Creatinine remains stable, with diuresis continue to monitor (4) Essential hypertension: Code(s): I10 - Essential (primary) hypertension Status: Chronic Assessment and Plan: Blood pressure remains well controlled. Will continue to monitor (5) Hyperlipidemia: Qualifiers: Hyperlipidemia type: unspecified Qualified Code(s): E78.5 - Hyperlipidemia, unspecified Code(s): E78.5 - Hyperlipidemia, unspecified Status: Chronic Assessment and Plan: LFTs normal. Continue Atorvastatin Plan No overnight events noted. Shortness of breath with exertion. Improving. Denies any leg swelling. No chest pain. Still required oxygen with ambulation per respiratory therapy. patient c/o dysuria, and urine was suspicious for UTI, started patient on ceftriaxone, today urine culture is negative for any growth however her symptoms have improved, patient is requiring oxygen, will do home oxygen evaluation before discharging patient. however patient complaints of abdominal pain had a BM yesterday, no nausea or vomiting, on 09/28 chest x-ray was concerning for mild pulmonary edema, on 09/29 patient was given IV lasix 40mg X1, patient is feeling patient is working with PT/OT patient will benefit going to rehab as she lives alone, will monitor and plan. today patient is eating her breakfast, has no new complaints, today patient is participating in PT/OT, may discharge patient to rehab. patient remains clinically stable, waiting for a placement, will monitor. Code Status: DNR Subjective Date/time seen: 10/03/25 16:15 Interval history: No overnight events noted. Shortness of breath with exertion. Improving. Denies any leg swelling. No chest pain. Still required oxygen with ambulation per respiratory therapy. patient c/o dysuria, and urine was suspicious for UTI, started patient on ceftriaxone, today urine culture is negative for any growth however her symptoms have improved, patient is requiring oxygen, will do home oxygen evaluation before discharging patient. however patient complaints of abdominal pain had a BM yesterday, no nausea or vomiting, on 09/28 chest x-ray was concerning for mild pulmonary edema, on 09/29 patient was given IV lasix 40mg X1, patient is feeling patient is working with PT/OT patient will benefit going to rehab as she lives alone, will monitor and plan. today patient is eating her breakfast, has no new complaints, today patient is participating in PT/OT, may discharge patient to rehab. patient remains clinically stable, waiting for a placement, will monitor. Review of Systems Review of Systems: All systems reviewed & are unremarkable except as noted in HPI and below Exam Narrative: Gen - NARD Chest - CTA bilaterally, nml RR CV - RRR S1/S2. Abd - Soft, NT/ND, Positive BS Ext - No pedal edema Psych - Nml mood and affect Skin - Warm and dry Objective Data Vital Signs Vital Signs: Vital Signs - 24 hr 10/02/25 20:00 10/02/25 20:02 10/02/25 22:48 Temperature 36.1 C L Pulse Rate 70 Respiratory Rate 18 Blood Pressure 188/63 H Pulse Oximetry 100 100 99 Oxygen Delivery Nasal Cannula Nasal Cannula Oxygen Flow Rate 2 2 10/03/25 04:13 10/03/25 07:53 10/03/25 08:00 Temperature 36.1 C L Pulse Rate 87 Respiratory Rate 18 Blood Pressure 106/64 Pulse Oximetry 98 91 93 Oxygen Delivery Room Air Room Air Oxygen Flow Rate 10/03/25 14:00 Temperature 35.9 C L Pulse Rate 96 Respiratory Rate 18 Blood Pressure 138/76 Pulse Oximetry 99 Oxygen Delivery Oxygen Flow Rate Intake/Output Intake/Output: Intake & Output 09/30/25 10/01/25 10/02/25 10/03/25 23:59 23:59 23:59 23:59 Intake Total 2740 1530 460 670 Output Total 100 100 Balance 2740 1430 360 670 Meds/Results Medications: Active Medications Generic Name Dose Route Start Last Admin Trade Name Freq PRN Reason Stop Dose Admin Acetaminophen 650 mg 09/19/25 14:14 10/01/25 21:22 Acetaminophen 325 Mg Tablet PO 650 mg Q4H PRN Administration Mild Pain (1-3) or Fever Acetaminophen 1,000 mg 09/19/25 18:50 10/03/25 09:36 Acetaminophen 500 Mg Tablet PO 1,000 mg BID RAVIN Administration Albuterol/Ipratropium 3 ml 09/30/25 13:44 Ipratropium 0.5 Mg/Albuterol Sulfate 2.5 Mg (Base) Ampul.Neb 3 Ml INHALATION Q6HRT PRN Wheezing Amlodipine Besylate 10 mg 09/20/25 09:00 10/03/25 09:36 Amlodipine Besylate 5 Mg Tablet PO 10 mg DAILY RAVIN Administration Aspirin 81 mg 09/20/25 09:00 10/03/25 09:38 Aspirin 81 Mg Enteric Tablet PO 81 mg QAM RAVIN Administration Atorvastatin Calcium 20 mg 09/19/25 21:00 10/02/25 21:45 Atorvastatin 20 Mg Tablet PO 20 mg HS RAVIN Administration Bupropion HCl 150 mg 09/20/25 09:00 10/03/25 09:36 Bupropion Hcl Sr (12 Hr) 150 Mg Tab PO 150 mg DAILY RAVIN Administration Calcitriol 0.25 mcg 09/19/25 18:35 10/03/25 09:43 Calcitriol 0.25 Mcg Capsule PO 0.25 mcg [id number] RAVIN Administration Calcium Carbonate 500 mg 09/20/25 09:00 10/03/25 09:35 Calcium/Vitamin D 500 Mg/5 Mcg (200 I.U.) Tablet PO 500 mg QAM RAVIN Administration Clopidogrel Bisulfate 75 mg 09/22/25 09:00 10/03/25 09:35 Clopidogrel Bisulfate 75 Mg Tablet PO 75 mg QAM RAVIN Administration Docusate Sodium 100 mg 09/19/25 14:14 09/20/25 08:40 Docusate Sodium 100 Mg Capsule PO 100 mg BID PRN Administration Constipation Docusate Sodium 100 mg 09/30/25 21:00 10/03/25 09:38 Docusate Sodium 100 Mg Capsule PO 100 mg Q12HR RAVIN Administration Famotidine 20 mg 09/23/25 12:00 10/03/25 09:37 Famotidine 20 Mg Tablet PO 20 mg Q12HR RAVIN Administration Furosemide 40 mg 09/26/25 09:00 10/03/25 09:37 Furosemide 40 Mg Tablet PO 40 mg DAILY RAVIN Administration Heparin Sodium (Porcine) 5,000 units 09/25/25 21:00 10/03/25 09:39 Heparin Sodium 5,000 Units/Ml Vial SUB-Q 5,000 units Q12HR RAVIN Administration Lisinopril 10 mg 09/20/25 09:00 10/03/25 09:37 Lisinopril 10 Mg Tablet PO 10 mg DAILY RAVIN Administration Lorazepam 0.5 mg 09/25/25 19:40 10/02/25 21:45 Lorazepam (*Crx) 0.5 Mg Tablet PO 0.5 mg HS PRN Administration Anxiety Magnesium Oxide 400 mg 10/02/25 09:00 10/03/25 09:36 Magnesium Oxide 400 Mg Tablet PO 400 mg QAM RAVIN Administration Metoprolol Succinate 100 mg 09/20/25 09:00 10/03/25 09:36 Metoprolol Succinate Ext Rel 100 Mg Tabcr PO 100 mg DAILY RAVIN Administration Nitroglycerin 0.4 mg 09/19/25 14:14 Nitroglycerin Sl 0.4 Mg Tablet SUBLINGUAL Q5M PRN Chest Pain Ondansetron HCl 4 mg 09/19/25 14:14 09/29/25 00:23 Ondansetron Inj 4 Mg/2 Ml Vial IV PUSH 4 mg Q6H PRN Administration Nausea And Vomiting Potassium Chloride 10 meq 09/20/25 09:00 10/03/25 09:35 Potassium Chloride 10 Meq Er Tablet PO 10 meq DAILY RAVIN Administration Sodium Bicarbonate 650 mg 09/20/25 12:30 10/03/25 12:38 Sodium Bicarbonate Tab 650 Mg Tablet PO 650 mg 1230,1730 RAVIN Administration Radiology Results: ITS Impressions Head CT 09/19/25 14:28 Impression: 1.No acute intracranial abnormality. Venous Doppler Study 09/19/25 15:27 Impression: Limited study. Negative for DVT. Pulmonary Perfusion Imaging 09/24/25 15:50 IMPRESSION: 1. Nondiagnostic (low or intermediate probability) with bilateral posterior left lower lung perfusion defects which correspond in size, location and configuration to small to moderate-sized bilateral pleural effusions. Chest CT 09/24/25 16:25 IMPRESSION: 1. Small to moderate-sized bilateral posterior layering pleural effusions with minimal pulmonary edema in the right lung and compensatory dependent and basilar atelectasis in both lungs. 2. Moderate to large sliding-type hiatal hernia. 3. Nonobstructing left nephrolithiasis. Chest X-Ray 09/28/25 07:30 IMPRESSION: 1. Mild worsening interstitial pulmonary edema and pleural effusions. Labs Labs: Laboratory Results - last 24 hr 10/03/25 05:34 WBC 8.4 RBC 3.34 L Hgb 10.4 L Hct 31.9 L MCV 95.5 MCH 31.1 MCHC 32.6 RDW 14.8 H Plt Count 220 MPV 9.1 Sodium 139 Potassium 3.9 Chloride 110 H Carbon Dioxide 23 Anion Gap 6 BUN 23 H Creatinine 1.91 H Estim Creat Clear Calc Not Reportable Estimated GFR 25 L Glucose 79 Calcium 8.5 Magnesium 1.9 Quality VTE Prophylaxis VTE prophylaxis: pharmacologic ordered
[2025-10-03 20:00] VITALS: PULSE 96; RESP 18; O2SAT 99
[2025-10-03] MEDS: ATORVASTATIN 20 MG TABLET PO (21:32)
[2025-10-03 21:49] VITALS: BP 126/78; PULSE 80; RESP 16; TEMP 36.2; O2SAT 92
[2025-10-04] VITALS (10 sets, daily range): BP systolic 127–137; BP diastolic 70–79; PULSE 75–92; RESP 16; TEMP 36.1–36.6; O2SAT 90–97
[2025-10-04 05:26] LABS: Hematocrit 36.4 % (37.0-47.0); Hemoglobin 11.8 g/dL (12.0-15.0); Mean Corpuscular HGB Conc 32.4 g/dl (32-36); Mean Corpuscular Hemoglobin 31.0 pg (26-34); Mean Corpuscular Volume 95.5 fl (80-100); Platelet Count Result 250 k/mm3 (150-375); Red Blood Count 3.81 M/mm3 (4.2-5.4); White Blood Count 7.7 K/mm3 (4.5-10.0)
[2025-10-04 05:37] LABS: Anion Gap 11 mmol/L (4-12); Blood Urea Nitrogen 24 mg/dL (7-17); Calcium 9.3 mg/dL (8.4-10.2); Carbon Dioxide 22 mmol/L (22-30); Chloride 108 mmol/L (98-107); Estimated Glomerular Filt Rate 25; Glucose 95 mg/dL (65-110); Magnesium 2.1 mg/dL (1.6-2.3); Potassium 4.3 mmol/L (3.4-5.0); Sodium 141 mmol/L (137-145)
[2025-10-04] MEDS: MAGNESIUM OXIDE 400 MG TABLET PO (08:40)
[2025-10-04] MEDS: METOPROLOL SUCCINATE EXT REL 100 MG TABCR PO (08:43)
[2025-10-04] MEDS: ACETAMINOPHEN 500 MG TABLET 1000 MG PO ×2 (08:43→17:03)
[2025-10-04] MEDS: buPROPion HCL SR (12 HR) 150 MG TAB PO (08:43)
[2025-10-04] MEDS: FAMOTIDINE 20 MG TABLET PO ×2 (08:43→21:17)
[2025-10-04] MEDS: ASPIRIN 81 MG ENTERIC TABLET PO (08:45)
[2025-10-04] MEDS: FUROSEMIDE 40 MG TABLET PO (08:45)
[2025-10-04] MEDS: POTASSIUM CHLORIDE 10 MEQ ER TABLET PO (08:45)
[2025-10-04] MEDS: CLOPIDOGREL BISULFATE 75 MG TABLET PO (08:45)
[2025-10-04] MEDS: CALCIUM/VITAMIN D 500 MG/5 MCG (200 I.U.) TABLET PO (08:45)
[2025-10-04] MEDS: ONDANSETRON INJ 4 MG/2 ML VIAL IV PUSH (08:57)
[2025-10-04] MEDS: SODIUM BICARBONATE TAB 650 MG TABLET PO ×2 (12:12→17:04)
[2025-10-04] MEDS: DICLOFENAC SODIUM 1% 100 GM GEL (*BKC) 1 APPLIC TOPICAL (12:12)
--- NOTE | 2025-10-04 13:22 | P.PNIM_ITS ---
Assessment and Plan Assessment and Plan (1) Acute non-ST elevation myocardial infarction (NSTEMI): Code(s): I21.4 - Non-ST elevation (NSTEMI) myocardial infarction Status: Acute Assessment and Plan: Patient presents with midsternal nonradiating chest pain that woke her from her sleep that was relieved with 1 sublingual nitro. CXR showed borderline heart size with mild pulmonary edema Troponin 1.11 -> 1.88 EKG showing sinus tachycardia possible left atrial enlargement nonspecific ST and T-wave changes. Repeat EKG showing similar findings Left LE Venous Doppler negative for DVT. Head CT showing no acute findings. ASA 324mg on admission and now on 81mg daily Heparin gtt started Cardiology consulted. Known history of coronary artery disease status post RCA stenting in 1998. Recommends conservative management given her advanced age renal failure in DNR status Echo pending Continue on atorvastatin dose adjusted. Added on Plavix LHC deferred (2) Pulmonary edema: Qualifiers: Chronicity: acute Qualified Code(s): J81.0 - Acute pulmonary edema Code(s): J81.1 - Chronic pulmonary edema Status: Acute Assessment and Plan: CXR showing mild pulmonary edema. No complaint of SOB. No previously known history of CHF. No previous echo on file. She received Lasix 40 mg IV x 1 Echo ordered Monitor I&Os, daily weights and renal function Reported shortness of breath overnight 09/23/2025 Chest x-ray with right-sided rib fractures acute CT chest with old healed rib fracture. Findings of pulmonary edema with small to moderate-sized bilateral pleural effusion noted. V/Q scan nondiagnostic with bilateral lower lung perfusion defects which corresponds to small to moderate-sized bilateral pleural effusions. Will reorder Lasix 40 mg IV x1 and switch to oral Lasix in a.m. (3) Chronic kidney disease, stage 4 (severe): Code(s): N18.4 - Chronic kidney disease, stage 4 (severe) Status: Chronic Assessment and Plan: Patient has a hx of CKD with baseline Cr 1.9-2.3 range. Creatinine 2.04, BUN 23, GFR 23 upon admission on 09/19. Cr stable. No acidosis or hyperkalemia Follow renal function, UOP and electrolytes Creatinine remains stable, with diuresis continue to monitor (4) Essential hypertension: Code(s): I10 - Essential (primary) hypertension Status: Chronic Assessment and Plan: Blood pressure remains well controlled. Will continue to monitor (5) Hyperlipidemia: Qualifiers: Hyperlipidemia type: unspecified Qualified Code(s): E78.5 - Hyperlipidemia, unspecified Code(s): E78.5 - Hyperlipidemia, unspecified Status: Chronic Assessment and Plan: LFTs normal. Continue Atorvastatin Plan No overnight events noted. Shortness of breath with exertion. Improving. Denies any leg swelling. No chest pain. Still required oxygen with ambulation per respiratory therapy. patient c/o dysuria, and urine was suspicious for UTI, started patient on ceftriaxone, today urine culture is negative for any growth however her symptoms have improved, patient is requiring oxygen, will do home oxygen evaluation before discharging patient. however patient complaints of abdominal pain had a BM yesterday, no nausea or vomiting, on 09/28 chest x-ray was concerning for mild pulmonary edema, on 09/29 patient was given IV lasix 40mg X1, patient is feeling patient is working with PT/OT patient will benefit going to rehab as she lives alone, will monitor and plan. today patient is eating her breakfast, has no new complaints, today patient is participating in PT/OT, may discharge patient to rehab. patient remains clinically stable, complaints of neck pain most likely muscular, will apply Voltaren cream, will do home O2 evaluation, patient daughter is present in the room gave updates, waiting for a placement, will monitor. Code Status: DNR Subjective Date/time seen: 10/04/25 13:22 Interval history: No overnight events noted. Shortness of breath with exertion. Improving. Denies any leg swelling. No chest pain. Still required oxygen with ambulation per respiratory therapy. patient c/o dysuria, and urine was suspicious for UTI, started patient on ceftriaxone, today urine culture is negative for any growth however her symptoms have improved, patient is requiring oxygen, will do home oxygen evaluation before discharging patient. however patient complaints of abdominal pain had a BM yesterday, no nausea or vomiting, on 09/28 chest x-ray was concerning for mild pulmonary edema, on 09/29 patient was given IV lasix 40mg X1, patient is feeling patient is working with PT/OT patient will benefit going to rehab as she lives alone, will monitor and plan. today patient is eating her breakfast, has no new complaints, today patient is participating in PT/OT, may discharge patient to rehab. patient remains clinically stable, complaints of neck pain most likely muscular, will apply Voltaren cream, will do home O2 evaluation, patient daughter is present in the room gave updates, waiting for a placement, will monitor. Review of Systems Review of Systems: All systems reviewed & are unremarkable except as noted in HPI and below Exam Narrative: Gen - NARD Chest - CTA bilaterally, nml RR CV - RRR S1/S2. Abd - Soft, NT/ND, Positive BS Ext - No pedal edema Psych - Nml mood and affect Skin - Warm and dry Objective Data Vital Signs Vital Signs: Vital Signs - 24 hr 10/03/25 14:00 10/03/25 20:00 10/03/25 21:49 Temperature 35.9 C L 36.2 C L Pulse Rate 96 96 80 Respiratory Rate 18 18 16 Blood Pressure 138/76 126/78 Pulse Oximetry 99 99 92 Oxygen Delivery Room Air 10/04/25 06:00 10/04/25 08:43 10/04/25 08:45 Temperature 36.2 C L Pulse Rate 86 88 Respiratory Rate 16 Blood Pressure 137/76 Pulse Oximetry 93 Oxygen Delivery Room Air 10/04/25 08:47 Temperature Pulse Rate 88 Respiratory Rate Blood Pressure 137/79 Pulse Oximetry 94 Oxygen Delivery Intake/Output Intake/Output: Intake & Output 10/01/25 10/02/25 10/03/25 10/04/25 23:59 23:59 23:59 23:59 Intake Total 3377 448 5252 330 Output Total 100 100 Balance 1082 037 8482 330 Meds/Results Medications: Active Medications Generic Name Dose Route Start Last Admin Trade Name Jesúsq PRN Reason Stop Dose Admin Acetaminophen 650 mg 09/19/25 14:14 10/01/25 21:22 Acetaminophen 325 Mg Tablet PO 650 mg Q4H PRN Administration Mild Pain (1-3) or Fever Acetaminophen 1,000 mg 09/19/25 18:50 10/04/25 08:43 Acetaminophen 500 Mg Tablet PO 1,000 mg BID RAVIN Administration Albuterol/Ipratropium 3 ml 09/30/25 13:44 Ipratropium 0.5 Mg/Albuterol Sulfate 2.5 Mg (Base) Ampul.Neb 3 Ml INHALATION Q6HRT PRN Wheezing Amlodipine Besylate 10 mg 09/20/25 09:00 10/04/25 08:40 Amlodipine Besylate 5 Mg Tablet PO 10 mg DAILY RAVIN Administration Aspirin 81 mg 09/20/25 09:00 10/04/25 08:45 Aspirin 81 Mg Enteric Tablet PO 81 mg QAM [facility] Administration Atorvastatin Calcium 20 mg 09/19/25 21:00 10/03/25 21:32 Atorvastatin 20 Mg Tablet PO 20 mg HS RAVIN Administration Bupropion HCl 150 mg 09/20/25 09:00 10/04/25 08:43 Bupropion Hcl Sr (12 Hr) 150 Mg Tab PO 150 mg DAILY RAVIN Administration Calcitriol 0.25 mcg 09/19/25 18:35 10/03/25 09:43 Calcitriol 0.25 Mcg Capsule PO 0.25 mcg [id number] [facility] Administration Calcium Carbonate 500 mg 09/20/25 09:00 10/04/25 08:45 Calcium/Vitamin D 500 Mg/5 Mcg (200 I.U.) Tablet PO 500 mg QAM [facility] Administration Clopidogrel Bisulfate 75 mg 09/22/25 09:00 10/04/25 08:45 Clopidogrel Bisulfate 75 Mg Tablet PO 75 mg QAM [facility] Administration Diclofenac Sodium 1 applic 10/04/25 11:02 10/04/25 12:12 Diclofenac Sodium 1% 100 Gm Gel (*Bkc) TOPICAL 1 applic QID PRN Administration pain Docusate Sodium 100 mg 09/19/25 14:14 09/20/25 08:40 Docusate Sodium 100 Mg Capsule PO 100 mg BID PRN Administration Constipation Docusate Sodium 100 mg 09/30/25 21:00 10/04/25 08:46 Docusate Sodium 100 Mg Capsule PO Not Given Q12HR [facility] Famotidine 20 mg 09/23/25 12:00 10/04/25 08:43 Famotidine 20 Mg Tablet PO 20 mg Q12HR RAVIN Administration Furosemide 40 mg 09/26/25 09:00 10/04/25 08:45 Furosemide 40 Mg Tablet PO 40 mg DAILY [facility] Administration Heparin Sodium (Porcine) 5,000 units 09/25/25 21:00 10/04/25 08:46 Heparin Sodium 5,000 Units/Ml Vial SUB-Q 5,000 units Q12HR RAVIN Administration Lisinopril 10 mg 09/20/25 09:00 10/04/25 08:45 Lisinopril 10 Mg Tablet PO 10 mg DAILY RAVIN Administration Lorazepam 0.5 mg 09/25/25 19:40 10/02/25 21:45 Lorazepam (*Crx) 0.5 Mg Tablet PO 0.5 mg HS PRN Administration Anxiety Magnesium Oxide 400 mg 10/02/25 09:00 10/04/25 08:40 Magnesium Oxide 400 Mg Tablet PO 400 mg QAM RAVIN Administration Metoprolol Succinate 100 mg 09/20/25 09:00 10/04/25 08:43 Metoprolol Succinate Ext Rel 100 Mg Tabcr PO 100 mg DAILY RAVIN Administration Nitroglycerin 0.4 mg 09/19/25 14:14 Nitroglycerin Sl 0.4 Mg Tablet SUBLINGUAL Q5M PRN Chest Pain Ondansetron HCl 4 mg 09/19/25 14:14 10/04/25 08:57 Ondansetron Inj 4 Mg/2 Ml Vial IV PUSH 4 mg Q6H PRN Administration Nausea And Vomiting Potassium Chloride 10 meq 09/20/25 09:00 10/04/25 08:45 Potassium Chloride 10 Meq Er Tablet PO 10 meq DAILY RAVIN Administration Sodium Bicarbonate 650 mg 09/20/25 12:30 10/04/25 12:12 Sodium Bicarbonate Tab 650 Mg Tablet PO 650 mg 1230,1730 RAVIN Administration Radiology Results: ITS Impressions Head CT 09/19/25 14:28 Impression: 1.No acute intracranial abnormality. Venous Doppler Study 09/19/25 15:27 Impression: Limited study. Negative for DVT. Pulmonary Perfusion Imaging 09/24/25 15:50 IMPRESSION: 1. Nondiagnostic (low or intermediate probability) with bilateral posterior left lower lung perfusion defects which correspond in size, location and configuration to small to moderate-sized bilateral pleural effusions. Chest CT 09/24/25 16:25 IMPRESSION: 1. Small to moderate-sized bilateral posterior layering pleural effusions with minimal pulmonary edema in the right lung and compensatory dependent and basilar atelectasis in both lungs. 2. Moderate to large sliding-type hiatal hernia. 3. Nonobstructing left nephrolithiasis. Chest X-Ray 09/28/25 07:30 IMPRESSION: 1. Mild worsening interstitial pulmonary edema and pleural effusions. Labs Labs: Laboratory Results - last 24 hr 10/04/25 04:39 WBC 7.7 RBC 3.81 L Hgb 11.8 L Hct 36.4 L MCV 95.5 MCH 31.0 MCHC 32.4 RDW 15.0 H Plt Count 250 MPV 9.2 Sodium 141 Potassium 4.3 Chloride 108 H Carbon Dioxide 22 Anion Gap 11 BUN 24 H Creatinine 1.87 H Estim Creat Clear Calc Not Reportable Estimated GFR 25 L Glucose 95 Calcium 9.3 Magnesium 2.1 Quality VTE Prophylaxis VTE prophylaxis: pharmacologic ordered
--- NOTE | 2025-10-04 15:04 | HOMEO2EVAL ---
Evaluation was performed at [facility] Home Oxygen Evaluation RC: Home Oxygen (O2) Evaluation Start: 10/04/25 11:15 Freq: ONCE Status: Active Protocol: RPE Activity Type Activity Date Activity User E-sign Co-sign Detail Recorded Client Recorded Date Recorded By Document 10/04/25 14:40 [email or web address] [email or web address] 10/04/25 15:04 DJO Document 10/04/25 14:45 [email or web address] 10/04/25 15:04 DJO Document 10/04/25 14:55 [email or web address] 10/04/25 15:04 DJO 10/04/25 10/04/25 10/04/25 14:40 14:45 14:55 Home O2 Evaluation [Oxygen] -Test Phase Resting Exercise Resting -Oxygen Delivery Room Air Room Air Room Air [Pulse Oximetry] -Pulse Oximetry (90-100 %) 94 90 94 [Pulse Rate] -Pulse Rate (60-100 beats/min) 78 92 82 [Charges] -Evaluation Charges O2 Evaluation by Pulmonary
--- NOTE | 2025-10-04 15:04 | PCRCNOTE ---
HOME O2 EVAL COMPLETE, NO REQUIREMENTS
[2025-10-04] MEDS: ATORVASTATIN 20 MG TABLET PO (21:13)
[2025-10-04] MEDS: LORazepam (*CRX) 0.5 MG TABLET PO (21:13)
[2025-10-04] MEDS: DOCUSATE SODIUM 100 MG CAPSULE PO (21:13)
[2025-10-05 04:55] LABS: Hematocrit 32.3 % (37.0-47.0); Hemoglobin 10.4 g/dL (12.0-15.0); Mean Corpuscular HGB Conc 32.2 g/dl (32-36); Mean Corpuscular Hemoglobin 31.1 pg (26-34); Mean Corpuscular Volume 96.7 fl (80-100); Platelet Count Result 218 k/mm3 (150-375); Red Blood Count 3.34 M/mm3 (4.2-5.4); White Blood Count 6.4 K/mm3 (4.5-10.0)
[2025-10-05 05:18] LABS: Anion Gap 6 mmol/L (4-12); Blood Urea Nitrogen 25 mg/dL (7-17); Calcium 9.1 mg/dL (8.4-10.2); Carbon Dioxide 25 mmol/L (22-30); Chloride 109 mmol/L (98-107); Estimated Glomerular Filt Rate 23; Glucose 91 mg/dL (65-110); Magnesium 2.2 mg/dL (1.6-2.3); Potassium 3.9 mmol/L (3.4-5.0); Sodium 140 mmol/L (137-145)
[2025-10-05 05:50] VITALS: BP 128/86; PULSE 83; RESP 16; TEMP 36.6; O2SAT 92
[2025-10-05] MEDS: CALCIUM/VITAMIN D 500 MG/5 MCG (200 I.U.) TABLET PO (09:22)
[2025-10-05] MEDS: FAMOTIDINE 20 MG TABLET PO ×2 (09:22→20:12)
[2025-10-05] MEDS: MAGNESIUM OXIDE 400 MG TABLET PO (09:22)
[2025-10-05] MEDS: buPROPion HCL SR (12 HR) 150 MG TAB PO (09:22)
[2025-10-05] MEDS: ACETAMINOPHEN 500 MG TABLET 1000 MG PO ×2 (09:22→16:49)
[2025-10-05] MEDS: POTASSIUM CHLORIDE 10 MEQ ER TABLET PO (09:22)
[2025-10-05] MEDS: FUROSEMIDE 40 MG TABLET PO (09:22)
[2025-10-05] MEDS: CLOPIDOGREL BISULFATE 75 MG TABLET PO (09:22)
[2025-10-05 09:23] VITALS: PULSE 80
[2025-10-05] MEDS: DOCUSATE SODIUM 100 MG CAPSULE PO ×2 (09:23→20:12)
[2025-10-05] MEDS: ASPIRIN 81 MG ENTERIC TABLET PO (09:23)
[2025-10-05] MEDS: METOPROLOL SUCCINATE EXT REL 100 MG TABCR PO (09:23)
--- NOTE | 2025-10-05 11:14 | PM.IMPN2 ---
Assessment and Plan Assessment and Plan (1) Acute non-ST elevation myocardial infarction (NSTEMI): Code(s): I21.4 - Non-ST elevation (NSTEMI) myocardial infarction Status: Acute (2) Pulmonary edema: Qualifiers: Chronicity: acute Qualified Code(s): J81.0 - Acute pulmonary edema Code(s): J81.1 - Chronic pulmonary edema Status: Acute (3) Chronic kidney disease, stage 4 (severe): Code(s): N18.4 - Chronic kidney disease, stage 4 (severe) Status: Chronic (4) Essential hypertension: Code(s): I10 - Essential (primary) hypertension Status: Chronic (5) Hyperlipidemia: Qualifiers: Hyperlipidemia type: unspecified Qualified Code(s): E78.5 - Hyperlipidemia, unspecified Code(s): E78.5 - Hyperlipidemia, unspecified Status: Chronic Plan # Acute non-ST elevation myocardial infarction (NSTEMI): Patient presents with midsternal nonradiating chest pain that woke her from her sleep that was relieved with 1 sublingual nitro. CXR showed borderline heart size with mild pulmonary edema Troponin 1.11 -> 1.88 EKG showing sinus tachycardia possible left atrial enlargement nonspecific ST and T-wave changes. Repeat EKG showing similar findings Left LE Venous Doppler negative for DVT. Head CT showing no acute findings. ASA 324mg on admission and now on 81mg daily Heparin gtt started Cardiology consulted. Known history of coronary artery disease status post RCA stenting in 1998. Recommends conservative management given her advanced age renal failure in DNR status Echo with EF 40% grade 2 diastolic noncompliance mild mitral regurgitation dilated left atrium. Continue on atorvastatin dose adjusted. Added on Plavix C deferred # Pulmonary edema: CXR showing mild pulmonary edema. No complaint of SOB. No previously known history of CHF. No previous echo on file. She received Lasix 40 mg IV x 1 Echo ordered and reviewed as noted above Monitor I&Os, daily weights and renal function Reported shortness of breath overnight 09/23/2025 Chest x-ray with right-sided rib fractures acute CT chest with old healed rib fracture. Findings of pulmonary edema with small to moderate-sized bilateral pleural effusion noted. V/Q scan nondiagnostic with bilateral lower lung perfusion defects which corresponds to small to moderate-sized bilateral pleural effusions. Started IV diuresis with Lasix and has been switched to oral Lasix now. Recheck chest x-ray # abdominal pain reported by the patient 10/05/2025. Will recheck UA. Get CT abdomen to further evaluate. # Chronic kidney disease, stage 4 (severe): Patient has a hx of CKD with baseline Cr 1.9-2.3 range. Creatinine 2.04, BUN 23, GFR 23 upon admission on 09/19. Cr stable. No acidosis or hyperkalemia Follow renal function, UOP and electrolytes Creatinine remains stable, with diuresis continue to monitor # Essential hypertension: Blood pressure remains well controlled. Will continue to monitor # Hyperlipidemia: LFTs normal. Continue Atorvastatin # UTI treated with ceftriaxone. Finish the course during hospital stay # disposition PT OT recommend rehabilitation. SNF authorization has been obtained will be transferred to a rehab facility. Awaiting medical stability # DNR Subjective Date/time seen: 10/05/25 11:14 Interval history: Seen is bit confused per family. Also complains of abdominal pain. Denies any chest pain. Review of Systems Review of Systems: All systems reviewed & are unremarkable except as noted in HPI and below Exam Narrative: Gen - NARD Chest - CTA bilaterally, nml RR CV - RRR S1/S2. Abd - Soft, NT/ND, Positive BS Ext - No pedal edema Psych - Nml mood and affect Skin - Warm and dry Objective Data Vital Signs Vital Signs: Vital Signs - 24 hr 10/04/25 14:00 10/04/25 14:40 10/04/25 14:45 Temperature 97.0 F L Pulse Rate 75 78 92 Respiratory Rate 16 Blood Pressure 132/70 Pulse Oximetry 97 94 90 Oxygen Delivery Room Air Room Air 10/04/25 14:55 10/04/25 20:00 10/04/25 21:01 Temperature 97.8 F Pulse Rate 82 81 81 Respiratory Rate 16 16 Blood Pressure 127/70 Pulse Oximetry 94 91 91 Oxygen Delivery Room Air Room Air 10/04/25 21:36 10/05/25 05:50 10/05/25 09:20 Temperature 97.9 F Pulse Rate 83 Respiratory Rate 16 Blood Pressure 128/86 Pulse Oximetry 91 92 Oxygen Delivery Room Air Room Air 10/05/25 09:23 Temperature Pulse Rate 80 Respiratory Rate Blood Pressure Pulse Oximetry Oxygen Delivery Intake/Output Intake/Output: Intake & Output 10/02/25 10/03/25 10/04/2510/05/25 23:59 23:59 23:59 23:59 Intake Total 460 1460 1364 380 Output Total 100 Balance 360 1460 1364 380 Meds/Results Medications: Active Medications Generic Name Dose Route Start Last Admin Trade Name Freq PRN Reason Stop Dose Admin Acetaminophen 650 mg 09/19/25 14:14 10/01/25 21:22 Acetaminophen 325 Mg Tablet PO 650 mg Q4H PRN Administration Mild Pain (1-3) or Fever Acetaminophen 1,000 mg 09/19/25 18:50 10/05/25 09:22 Acetaminophen 500 Mg Tablet PO 1,000 mg BID RAVIN Administration Albuterol/Ipratropium 3 ml 09/30/25 13:44 Ipratropium 0.5 Mg/Albuterol Sulfate 2.5 Mg (Base) Ampul.Neb 3 Ml INHALATION Q6HRT PRN Wheezing Amlodipine Besylate 10 mg 09/20/25 09:00 10/05/25 09:23 Amlodipine Besylate 5 Mg Tablet PO 10 mg DAILY RAVIN Administration Aspirin 81 mg 09/20/25 09:00 10/05/25 09:23 Aspirin 81 Mg Enteric Tablet PO 81 mg QAM RAVIN Administration Atorvastatin Calcium 20 mg 09/19/25 21:00 10/04/25 21:13 Atorvastatin 20 Mg Tablet PO 20 mg HS RAVIN Administration Bupropion HCl 150 mg 09/20/25 09:00 10/05/25 09:22 Bupropion Hcl Sr (12 Hr) 150 Mg Tab PO 150 mg DAILY RAVIN Administration Calcitriol 0.25 mcg 09/19/25 18:35 10/05/25 09:25 Calcitriol 0.25 Mcg Capsule PO 0.25 mcg [id number] RAVIN Administration Calcium Carbonate 500 mg 09/20/25 09:00 10/05/25 09:22 Calcium/Vitamin D 500 Mg/5 Mcg (200 I.U.) Tablet PO 500 mg QAM RAVIN Administration Clopidogrel Bisulfate 75 mg 09/22/25 09:00 10/05/25 09:22 Clopidogrel Bisulfate 75 Mg Tablet PO 75 mg QAM RAVIN Administration Diclofenac Sodium 1 applic 10/04/25 11:02 10/04/25 12:12 Diclofenac Sodium 1% 100 Gm Gel (*Bkc) TOPICAL 1 applic QID PRN Administration pain Docusate Sodium 100 mg 09/19/25 14:14 09/20/25 08:40 Docusate Sodium 100 Mg Capsule PO 100 mg BID PRN Administration Constipation Docusate Sodium 100 mg 09/30/25 21:00 10/05/25 09:23 Docusate Sodium 100 Mg Capsule PO 100 mg Q12HR RAVIN Administration Famotidine 20 mg 09/23/25 12:00 10/05/25 09:22 Famotidine 20 Mg Tablet PO 20 mg Q12HR RAVIN Administration Furosemide 40 mg 09/26/25 09:00 10/05/25 09:22 Furosemide 40 Mg Tablet PO 40 mg DAILY RAVIN Administration Heparin Sodium (Porcine) 5,000 units 09/25/25 21:00 10/05/25 09:22 Heparin Sodium 5,000 Units/Ml Vial SUB-Q 5,000 units Q12HR RAVIN Administration Lisinopril 10 mg 09/20/25 09:00 10/05/25 09:23 Lisinopril 10 Mg Tablet PO 10 mg DAILY RAVIN Administration Lorazepam 0.5 mg 09/25/25 19:40 10/04/25 21:13 Lorazepam (*Crx) 0.5 Mg Tablet PO 0.5 mg HS PRN Administration Anxiety Magnesium Oxide 400 mg 10/02/25 09:00 10/05/25 09:22 Magnesium Oxide 400 Mg Tablet PO 400 mg QAM RAVIN Administration Metoprolol Succinate 100 mg 09/20/25 09:00 10/05/25 09:23 Metoprolol Succinate Ext Rel 100 Mg Tabcr PO 100 mg DAILY RAVIN Administration Miscellaneous Information 1 each 10/05/25 00:01 Please Renew Lorazepam_. Per [employer] Procedure, It Will Discontinue If Not Renewed XX 11/04/25 00:00 CLARIFY RAVIN Nitroglycerin 0.4 mg 09/19/25 14:14 Nitroglycerin Sl 0.4 Mg Tablet SUBLINGUAL Q5M PRN Chest Pain Ondansetron HCl 4 mg 09/19/25 14:14 10/04/25 08:57 Ondansetron Inj 4 Mg/2 Ml Vial IV PUSH 4 mg Q6H PRN Administration Nausea And Vomiting Potassium Chloride 10 meq 09/20/25 09:00 10/05/25 09:22 Potassium Chloride 10 Meq Er Tablet PO 10 meq DAILY RAVIN Administration Sodium Bicarbonate 650 mg 09/20/25 12:30 10/04/25 17:04 Sodium Bicarbonate Tab 650 Mg Tablet PO 650 mg 1230,1730 RAVIN Administration Radiology Results: ITS Impressions Head CT 09/19/25 14:28 Impression: 1.No acute intracranial abnormality. Venous Doppler Study 09/19/25 15:27 Impression: Limited study. Negative for DVT. Pulmonary Perfusion Imaging 09/24/25 15:50 IMPRESSION: 1. Nondiagnostic (low or intermediate probability) with bilateral posterior left lower lung perfusion defects which correspond in size, location and configuration to small to moderate-sized bilateral pleural effusions. Chest CT 09/24/25 16:25 IMPRESSION: 1. Small to moderate-sized bilateral posterior layering pleural effusions with minimal pulmonary edema in the right lung and compensatory dependent and basilar atelectasis in both lungs. 2. Moderate to large sliding-type hiatal hernia. 3. Nonobstructing left nephrolithiasis. Chest X-Ray 09/28/25 07:30 IMPRESSION: 1. Mild worsening interstitial pulmonary edema and pleural effusions. Labs Labs: Laboratory Results - last 24 hr 10/05/25 04:34 WBC 6.4 RBC 3.34 L Hgb 10.4 L Hct 32.3 L MCV 96.7 MCH 31.1 MCHC 32.2 RDW 15.3 H Plt Count 218 MPV 8.9 Sodium 140 Potassium 3.9 Chloride 109 H Carbon Dioxide 25 Anion Gap 6 BUN 25 H Creatinine 2.03 H Estim Creat Clear Calc Not Reportable Estimated GFR 23 L Glucose 91 Calcium 9.1 Magnesium 2.2
[2025-10-05 14:00] VITALS: BP 118/69; PULSE 74; RESP 20; TEMP 36.4; O2SAT 97
[2025-10-05] MEDS: SODIUM BICARBONATE TAB 650 MG TABLET PO (14:07)
[2025-10-05 14:34] LABS: Add Urine Microscopic? YES; Appearance Urine Clear (Clear); Glucose Urine UA Negative (Negative); Leukocyte Esterase Ur Trace LEU/UL (Negative); Need Manual Microscopic Reviewed; Nitrate Urine Negative (Negative); Specific Grav Ur 1.008 (1.001-1.035)
--- NOTE | 2025-10-05 15:22 | PCNWS ---
Weekly nutritional screen. Patient is tolerating current diet with adequate intake, mostly 75-100% with intakes 5-25 in the last 24 hours. Discharge pending. No weight loss reported. No nutritional needs at this time.
[2025-10-05] MEDS: FUROSEMIDE INJ 40 MG/4 ML VIAL IV PUSH (16:49)
[2025-10-05] MEDS: ATORVASTATIN 20 MG TABLET PO (20:12)
[2025-10-05 20:53] VITALS: BP 123/78; PULSE 77; RESP 20; TEMP 36.6; O2SAT 96
[2025-10-06 04:56] VITALS: BP 141/82; PULSE 84; RESP 20; TEMP 36.6; O2SAT 94
[2025-10-06 06:35] LABS: Hematocrit 33.8 % (37.0-47.0); Hemoglobin 11.0 g/dL (12.0-15.0); Immature Granulocyte Percent A 0.5 % (0-0.5); Lymphocytes Absolute Auto 1.08 K/mm3 (0.9-3.2); Mean Corpuscular HGB Conc 32.5 g/dl (32-36); Mean Corpuscular Hemoglobin 31.3 pg (26-34); Mean Corpuscular Volume 96.3 fl (80-100); Nucleated Red Blood Cells Absolute Auto 0.000 K/mm3 (0.0-0.012); Nucleated Red Blood Cells Perc 0.0 % (0.0-0.2); Platelet Count Result 203 k/mm3 (150-375); Red Blood Count 3.51 M/mm3 (4.2-5.4); White Blood Count 6.3 K/mm3 (4.5-10.0)
[2025-10-06 07:54] LABS: Alanine Aminotransferase 26 U/L (6-35); Albumin Level 4.0 g/dL (3.5-5.1); Alkaline Phosphatase 71 U/L (38-126); Anion Gap 7 mmol/L (4-12); Aspartate Amino Transferase 36 U/L (14-36); Bilirubin,Total 0.9 mg/dL (0.2-1.3); Blood Urea Nitrogen 27 mg/dL (7-17); Calcium 9.3 mg/dL (8.4-10.2); Carbon Dioxide 25 mmol/L (22-30); Chloride 107 mmol/L (98-107); Estimated Glomerular Filt Rate 20; Glucose 78 mg/dL (65-110); Magnesium 2.3 mg/dL (1.6-2.3); Potassium 3.6 mmol/L (3.4-5.0); Sodium 139 mmol/L (137-145); Total Protein 6.5 g/dL (6.3-8.2)
[2025-10-06] MEDS: ACETAMINOPHEN 500 MG TABLET 1000 MG PO (09:08)
[2025-10-06] MEDS: FUROSEMIDE 40 MG TABLET PO (09:08)
[2025-10-06 09:09] VITALS: PULSE 84
[2025-10-06] MEDS: POTASSIUM CHLORIDE 10 MEQ ER TABLET PO (09:09)
[2025-10-06] MEDS: ASPIRIN 81 MG ENTERIC TABLET PO (09:09)
[2025-10-06] MEDS: buPROPion HCL SR (12 HR) 150 MG TAB PO (09:09)
[2025-10-06] MEDS: CLOPIDOGREL BISULFATE 75 MG TABLET PO (09:09)
[2025-10-06] MEDS: DOCUSATE SODIUM 100 MG CAPSULE PO (09:09)
[2025-10-06] MEDS: METOPROLOL SUCCINATE EXT REL 100 MG TABCR PO (09:09)
[2025-10-06] MEDS: FAMOTIDINE 20 MG TABLET PO (09:09)
--- NOTE | 2025-10-06 10:29 | P.DS_ITS ---
DS: Admitting Diagnosis Discharge Date 10/06/2025 Admitting Diagnosis Shortness of breath DS: Discharge Diagnosis Discharge Diagnosis (1) Acute non-ST elevation myocardial infarction (NSTEMI): Code(s): I21.4 - Non-ST elevation (NSTEMI) myocardial infarction Status: Acute (2) Pulmonary edema: Qualifiers: Chronicity: acute Qualified Code(s): J81.0 - Acute pulmonary edema Code(s): J81.1 - Chronic pulmonary edema Status: Acute (3) Chronic kidney disease, stage 4 (severe): Code(s): N18.4 - Chronic kidney disease, stage 4 (severe) Status: Chronic (4) Essential hypertension: Code(s): I10 - Essential (primary) hypertension Status: Chronic (5) Hyperlipidemia: Qualifiers: Hyperlipidemia type: unspecified Qualified Code(s): E78.5 - Hyperlipidemia, unspecified Code(s): E78.5 - Hyperlipidemia, unspecified Status: Chronic DS: Summary Hospital Course Hospital Course: # Acute non-ST elevation myocardial infarction (NSTEMI): Patient presents with midsternal nonradiating chest pain that woke her from her sleep that was relieved with 1 sublingual nitro. CXR showed borderline heart size with mild pulmonary edema Troponin 1.11 -> 1.88 EKG showing sinus tachycardia possible left atrial enlargement nonspecific ST and T-wave changes. Repeat EKG showing similar findings Left LE Venous Doppler negative for DVT. Head CT showing no acute findings. ASA 324mg on admission and now on 81mg daily Heparin gtt started Cardiology consulted. Known history of coronary artery disease status post RCA stenting in 1998. Recommends conservative management given her advanced age renal failure in DNR status Echo with EF 40% grade 2 diastolic noncompliance mild mitral regurgitation dilated left atrium. Continue on atorvastatin dose adjusted. Added on Plavix LHC deferred # Pulmonary edema: CXR showing mild pulmonary edema. No complaint of SOB. No previously known history of CHF. No previous echo on file. She received Lasix 40 mg IV x 1 Echo ordered and reviewed as noted above Monitor I&Os, daily weights and renal function Reported shortness of breath overnight 09/23/2025 Chest x-ray with right-sided rib fractures acute CT chest with old healed rib fracture. Findings of pulmonary edema with small to moderate-sized bilateral pleural effusion noted. V/Q scan nondiagnostic with bilateral lower lung perfusion defects which corresponds to small to moderate-sized bilateral pleural effusions. Started IV diuresis with Lasix and has been switched to oral Lasix now. Chest x-ray continues to have some congestion however not in respiratory distress/shortness of breath. Continue diuresis as ordered. # Chronic kidney disease, stage 4 (severe): Patient has a hx of CKD with baseline Cr 1.9-2.3 range. Creatinine 2.04, BUN 23, GFR 23 upon admission on 09/19. Cr stable. No acidosis or hyperkalemia Follow renal function, UOP and electrolytes Creatinine remains stable, with diuresis continue to monitor # abdominal pain: Report of the patient 10/05/2025 UA came back negative CT abdomen was negative. # Essential hypertension: Blood pressure remains well controlled. Will continue to monitor # Hyperlipidemia: LFTs normal. Continue Atorvastatin # UTI treated with ceftriaxone. Finish the course during hospital stay # disposition PT OT recommend rehabilitation. SNF authorization has been obtained will be transferred to a rehab facility. # DNR Time Spent with Patient Time attestation: Total time spent providing and/or coordinating discharge services: 45 minutes Exam Narrative: Gen - NARD Chest - CTA bilaterally, nml RR CV - RRR S1/S2. Abd - Soft, NT/ND, Positive BS Ext - No pedal edema Psych - Nml mood and affect Skin - Warm and dry DS: Data Data Completed and Pending Completed studies during hospitalization: Exam Type: CA echo doppler color flow Complete two-dimensional, color flow and Doppler transthoracic echocardiogram is performed. Staff Referring Physician: Tigist Alarcon Pacs Specialist: Julius Fields III Attending Provider: Alin Santana Summary 1. Complete two-dimensional, color flow and Doppler transthoracic echocardiogram is performed. 2. Mild LV enlargement, the anteroseptal segment is significantly hypodynamic. Global ejection fraction 40%. 3. Grade 2 diastolic noncompliance. 4. Mild mitral regurgitation. 5. Dilated left atrium. Left Ventricle Left ventricular chamber dimension is mildly enlarged. Left ventricular systolic function is mildly reduced, estimated at 40-45. The left ventricular diastolic function is grade II diastolic dysfunction. Right Ventricle Right ventricular chamber dimension is normal. Left Atria Left atrial chamber dimension is moderately enlarged. Right Atria Right atrial chamber dimension is normal. Aortic Valve The aortic valve is trileaflet. There is mild aortic valve sclerosis. Pulmonic Valve The pulmonic valve is not well visualized. Mitral Valve The mitral valve has normal leaflets. There is mild mitral valve regurgitation. The mitral valve annulus is moderately calcified. Tricuspid Valve The tricuspid valve leaflets are normal. There is mild tricuspid valve regurgitation. Pericardium/Pleural The pericardium appears normal. Aorta The aortic root size at the sinus of Valsalva is normal. Labs on day of discharge: Labs from last 24 hours 10/05/25 04:34 WBC 6.4 RBC 3.34 L Hgb 10.4 L Hct 32.3 L MCV 96.7 MCH 31.1 MCHC 32.2 RDW 15.3 H Plt Count 218 MPV 8.9 Sodium 140 Potassium 3.9 Chloride 109 H Carbon Dioxide 25 Anion Gap 6 BUN 25 H Creatinine 2.03 H Estim Creat Clear Calc Not Reportable Estimated GFR 23 L Glucose 91 Calcium 9.1 Magnesium 2.2 Imaging Radiologist's impression: ITS Impressions Chest X-Ray 09/19/25 14:15 Impression: 1: Borderline heart size with mild pulmonary edema. Head CT 09/19/25 14:28 Impression: 1.No acute intracranial abnormality. Venous Doppler Study 09/19/25 15:27 Impression: Limited study. Negative for DVT. Chest X-Ray 09/24/25 08:26 Impression: Probable bilateral pneumonia superimposed on chronic lung disease. Right-sided acute appearing rib fractures. CT chest suggested to assess. Pulmonary Perfusion Imaging 09/24/25 15:50 IMPRESSION: 1. Nondiagnostic (low or intermediate probability) with bilateral posterior left lower lung perfusion defects which correspond in size, location and configuration to small to moderate-sized bilateral pleural effusions. Chest CT 09/24/25 16:25 IMPRESSION: 1. Small to moderate-sized bilateral posterior layering pleural effusions with minimal pulmonary edema in the right lung and compensatory dependent and basilar atelectasis in both lungs. 2. Moderate to large sliding-type hiatal hernia. 3. Nonobstructing left nephrolithiasis. Chest X-Ray 09/28/25 07:30 IMPRESSION: 1. Mild worsening interstitial pulmonary edema and pleural effusions. Chest X-Ray 10/05/25 11:57 Impression: CHF. Superimposed probable pneumonia Abdomen/Pelvis CT 10/05/25 13:11 IMPRESSION: 1. Small left and moderate-sized right posterior layering pleural effusions with partial collapse of the bilateral lower lobes. 2. Cardiomegaly. 3. Large sliding-type hiatal hernia. 4. Bilateral nonobstructing nephrolithiasis. Discharge Plan Discharge Attending physician on discharge: Noah Ureña Consulting providers: Mia Thompson Discharging Clinician: Noah Ureña Anticipated Discharge Date/Time: 10/06/25 10:31 Patient Disposition: SNF Activity: as tolerated Diet: heart healthy and low sodium Discharge Instructions: Low-salt diet/fluid restriction 1800 cc per day Patient Instructions: Antibiotic Form Patient Language: Kyrgyz Stand Alone Forms: General Discharge Information, Long Term Discharge Follow-up/Referrals: Alfie Peacock MD [Primary Care Provider, Family Practice] - 1 Week Mia Thompson MD [Physician, Cardiology] - 4 Weeks Discharge Medications: New docusate sodium 100 mg Capsule 100 mg PO BID PRN (Reason: Constipation) Qty: 20 0RF clopidogrel 75 mg Tablet 75 mg PO QAM Qty: 30 0RF furosemide 40 mg Tablet 40 mg PO DAILY Qty: 30 0RF furosemide [Lasix] 20 mg tablet 20 mg PO DAILY PRN (Reason: shortness of breath) Qty: 30 0RF Rx Instructions: With increased shortness of breath/swelling/weight gain Continued aspirin [Adult Low Dose Aspirin] 81 mg tablet,delayed release (DR/EC) 81 mg PO DAILY calcitriol 0.25 mcg capsule 0.25 mcg PO 3XW Qty: 45 3RF Patient Comments: Takes Wednesday, Wednesday, Wednesday nitroglycerin 0.4 mg tablet, sublingual 0.4 mg sublingual Q5M PRN (Reason: chest pain) Qty: 10 0RF Rx Instructions: do not exceed 3 doses per episode calcium carbonate-vitamin D3 600 mg-10 mcg (400 unit) capsule 1 cap PO DAILY acetaminophen [Acetaminophen Extra Strength] 500 mg tablet 1,000 mg PO BID bupropion HCl 150 mg tablet sustained-release 12 hr See Rx Instructions .ROUTE .COMPLEX Qty: 90 3RF Dose Instruction: TAKE 1 TABLET BY MOUTH DAILY Rx Instructions: TAKE 1 TABLET BY MOUTH DAILY potassium chloride 10 mEq tablet,ER particles/crystals See Rx Instructions .ROUTE .COMPLEX Qty: 90 3RF Dose Instruction: TAKE 1 TABLET BY MOUTH DAILY Rx Instructions: TAKE 1 TABLET BY MOUTH DAILY atorvastatin 20 mg tablet See Rx Instructions .ROUTE .COMPLEX Qty: 90 3RF Dose Instruction: TAKE 1 TABLET BY MOUTH DAILY AT BEDTIME Rx Instructions: TAKE 1 TABLET BY MOUTH DAILY AT BEDTIME lisinopril 10 mg tablet See Rx Instructions .ROUTE .COMPLEX Qty: 90 3RF Dose Instruction: TAKE 1 TABLET BY MOUTH DAILY Rx Instructions: TAKE 1 TABLET BY MOUTH DAILY amlodipine 10 mg tablet See Rx Instructions .ROUTE .COMPLEX Qty: 90 3RF Dose Instruction: TAKE 1 TABLET BY MOUTH DAILY Patient Comments: . Rx Instructions: TAKE 1 TABLET BY MOUTH DAILY Prolia 60 mg/mL syringe 60 mg subcut [id number] metoprolol succinate 100 mg tablet extended release 24 hr See Rx Instructions .ROUTE .COMPLEX Qty: 90 3RF Dose Instruction: TAKE 1 TABLET BY MOUTH DAILY Rx Instructions: TAKE 1 TABLET BY MOUTH DAILY ondansetron 4 mg tablet,disintegrating 4 mg PO Q8H PRN (Reason: nausea and vomiting) Qty: 30 0RF Discontinued sodium bicarbonate 650 mg tablet See Rx Instructions .ROUTE .COMPLEX Qty: 60 11RF Dose Instruction: TAKE 1 TABLET BY MOUTH AFTER LUNCH AND AFTER DINNER Rx Instructions: TAKE 1 TABLET BY MOUTH AFTER LUNCH AND AFTER DINNER Date of admission: 09/20/25 17:15 Primary Care Provider: Alfie Peacock Admitting Provider: Alin Santana Attending physician on admission: Alin Santana. Condition: Improved
[2025-10-06 12:02] LABS: SARS-CoV-2 RNA PCR Negative (Negative)
== END 2025-10-06 14:05 | DRG 281 ==
LOC: ANHED 13:38 → ANHIMU 15:25 → ANH2MED 09-24 13:15 → ANHIMU 10-08 10:58
PROVIDERS: Emergency Medicine; Family Medicine; General Practice; Internal Medicine; Internal Medicine Cardiovascular Disease; Internal Medicine Interventional Cardiology; Nurse Practitioner; Student in an Organized Health Care Education/Training Program; Admitting Provider Internal Medicine; Emergency Provider Emergency Medicine; PCP Family Medicine; Visit Provider Internal Medicine
DX: I21.4 Non-ST elevation (NSTEMI) myocardial infarction (principal); J81.1 Chronic pulmonary edema; J90 Pleural effusion, not elsewhere classified; N18.4 Chronic kidney disease, stage 4 (severe); N39.0 Urinary tract infection, site not specified; I12.9 Hypertensive chronic kidney disease with stage 1 through stage 4 chronic kidney disease, or unspecified chronic kidney disease; I25.10 Atherosclerotic heart disease of native coronary artery without angina pectoris; R11.2 Nausea with vomiting, unspecified; M79.12 Myalgia of auxiliary muscles, head and neck; E55.9 Vitamin D deficiency, unspecified; E78.5 Hyperlipidemia, unspecified; K58.9 Irritable bowel syndrome, unspecified; R01.1 Cardiac murmur, unspecified; I73.9 Peripheral vascular disease, unspecified; R10.9 Unspecified abdominal pain; Z66 Do not resuscitate; Z11.52 Encounter for screening for COVID-19; Z87.891 Personal history of nicotine dependence; Z79.82 Long term (current) use of aspirin; Z86.73 Personal history of transient ischemic attack (TIA), and cerebral infarction without residual deficits; Z95.5 Presence of coronary angioplasty implant and graft; Z90.49 Acquired absence of other specified parts of digestive tract
CPT/HCPCS: 36415; 36600; 70450; 71045; 71046; 71250; 74176; 78582; 80048; 80053; 80069; 81001; 82805; 83690; 83735; 83880; 84484; 85018; 85025; 85027; 85055; 85610; 85730; 87635; 87637; 93005; 93306; 93971; 94618; 94640; 96361; 97110; 97116; 97161; 97164; 97165; 97168; 97530; 97535; 99285; A9270; A9540; A9558; G0378; J0696; J1644; J1938; J2405; J2470; J7120